=== PATIENT | female | born 1965 | race Caucasian/White ===

== ENCOUNTER → 2019-12-07 12:31 | Outpatient (BNVA) | payer MEDICAID, SELFPAY | PROVIDERS: PCP Internal Medicine; Visit Provider Surgery | DX: Z48.815 Encounter for surgical aftercare following surgery on the digestive system (principal) | CPT/HCPCS: 99024; 99212 ==

== ENCOUNTER → 2020-01-02 14:09 | Outpatient (BNVA) | payer MEDICAID, SELFPAY | PROVIDERS: PCP Internal Medicine; Visit Provider Surgery | DX: K59.00 Constipation, unspecified (principal); K21.9 Gastro-esophageal reflux disease without esophagitis; E78.5 Hyperlipidemia, unspecified; Z88.8 Allergy status to other drugs, medicaments and biological substances; Z98.890 Other specified postprocedural states | CPT/HCPCS: 99212 ==

== ENCOUNTER → 2020-03-15 13:02 | Outpatient (BNVA) | payer MEDICAID, SELFPAY | PROVIDERS: PCP Internal Medicine; Visit Provider Obstetrics & Gynecology | DX: N94.9 Unspecified condition associated with female genital organs and menstrual cycle (principal) | CPT/HCPCS: 99212 ==

== ENCOUNTER → 2020-03-26 12:54 | Outpatient (BNVA) | payer MEDICAID, SELFPAY | PROVIDERS: PCP Internal Medicine; Visit Provider Obstetrics & Gynecology | DX: N94.9 Unspecified condition associated with female genital organs and menstrual cycle (principal) | CPT/HCPCS: 99212 ==

== ENCOUNTER 2020-03-29 07:03 | Day surgery (SDC) | payer MEDICAID, SELFPAY ==
--- NOTE | 2020-03-28 09:16 | P.CONAN_ITS ---
Documented by User: Yuliya Magnolia 03/28/20 09:16 HPI - Anesthesia Eval Consult details Narrative: 55yo F for Excision Vaginal Mass PMFSH Past Medical History Medical History Asthma GERD (gastroesophageal reflux disease) Hyperlipidemia Migraine headache Surgical History Surgical History H/O hemorrhoidectomy Social History Social History Alcohol intake: never Smoking Status: Former smoker Use of substances other than those prescribed or required for medical reasons: No Advance Directives: No Advance Directives Information Provided: Yes Sexual orientation: Straight/Heterosexual Gender identity: female Meds Allergies Allergy/AdvReac Type Severity Reaction Status Date / Time naproxen [From NAPROSYN] Allergy Unknown insomnia, Verified 03/26/20 13:13 aggitation Home Medications Medication Instructions Recorded Confirmed Type albuterol sulfate 90 mcg/actuation 2 puff INHALATION Q6H PRN 12/07/19 03/26/20 History aerosol inhaler albuterol sulfate 90 mcg/actuation 2 puff INHALATION Q6H PRN 12/07/19 03/26/20 History aerosol inhaler amitriptyline 25 mg tablet 25 mg PO BEDTIME 12/07/19 03/26/20 History fluoxetine 40 mg capsule 40 mg PO DAILY 12/07/19 03/26/20 History hydrochlorothiazide 25 mg tablet 25 mg PO DAILY 12/07/19 03/26/20 History lidocaine 4 % topical gel 1 applic TOPICAL TID PRN 12/07/19 03/26/20 History lisinopril 10 mg tablet 10 mg PO DAILY 12/07/19 03/26/20 History loratadine 10 mg tablet 10 mg PO DAILY 12/07/19 03/26/20 History lorazepam 1 mg tablet 1 mg PO DAILY PRN 12/07/19 03/26/20 History omeprazole 40 mg capsule,delayed 40 mg PO DAILY 12/07/19 03/26/20 History release sumatriptan succinate 25 mg tablet 25 mg PO Q2-4H PRN 12/07/19 03/26/20 History topiramate 50 mg tablet 50 mg PO BID 12/07/19 03/26/20 History zolpidem 10 mg tablet 10 mg PO BEDTIME PRN 12/07/19 03/26/20 History Exam Exam Date and Time: March 28, 2020915 Assessment and Plan Assessment Anesthesia Assessment: Chart Reviewed Documented by User: Harika Khan 03/29/20 09:28 [facility] [place] Past Medical History Medical History Asthma GERD (gastroesophageal reflux disease) Hyperlipidemia Migraine headache Surgical History Surgical History H/O hemorrhoidectomy Social History Social History Alcohol intake: never Smoking Status: Former smoker Use of substances other than those prescribed or required for medical reasons: No Advance Directives: No Advance Directives Information Provided: Yes Sexual orientation: Straight/Heterosexual Gender identity: female Meds Allergies Allergy/AdvReac Type Severity Reaction Status Date / Time naproxen [From NAPROSYN] Allergy Unknown insomnia, Verified 03/26/20 13:13 aggitation Home Medications Medication Instructions Recorded Confirmed Type albuterol sulfate 90 mcg/actuation 2 puff INHALATION Q6H PRN 12/07/19 03/26/20 History aerosol inhaler albuterol sulfate 90 mcg/actuation 2 puff INHALATION Q6H PRN 12/07/19 03/26/20 History aerosol inhaler amitriptyline 25 mg tablet 25 mg PO BEDTIME 12/07/19 03/26/20 History fluoxetine 40 mg capsule 40 mg PO DAILY 12/07/19 03/26/20 History hydrochlorothiazide 25 mg tablet 25 mg PO DAILY 12/07/19 03/26/20 History lidocaine 4 % topical gel 1 applic TOPICAL TID PRN 12/07/19 03/26/20 History lisinopril 10 mg tablet 10 mg PO DAILY 12/07/19 03/26/20 History loratadine 10 mg tablet 10 mg PO DAILY 12/07/19 03/26/20 History lorazepam 1 mg tablet 1 mg PO DAILY PRN 12/07/19 03/26/20 History omeprazole 40 mg capsule,delayed 40 mg PO DAILY 12/07/19 03/26/20 History release sumatriptan succinate 25 mg tablet 25 mg PO Q2-4H PRN 12/07/19 03/26/20 History topiramate 50 mg tablet 50 mg PO BID 12/07/19 03/26/20 History zolpidem 10 mg tablet 10 mg PO BEDTIME PRN 12/07/19 03/26/20 History Exam Airway Mallampati Class: II TM Dist: >3cm Partial: Upper Heart: RRR Lungs: CTA Assessment and Plan Assessment Anesthesia Assessment: Anesthesia Plan Discussed and Chart Reviewed Final Anesthetic Review NPO: Yes ASA Class: II Final Preanesthetic Review: Meds/Allgs Chart Reviewed, Consent Obtained/Reviewed and Anes Risks/Benef Reviewed Patient Risk: Low Procedure Risk: Low Anesthetic Plan Anesthetic Plan: GA Disposition: Standard PACU
[2020-03-29 07:24] VITALS: BMI 29.7
[2020-03-29 07:48] VITALS: BP 125/53; PULSE 78; RESP 20; TEMP 35.8; O2SAT 99
--- NOTE | 2020-03-29 07:52 | MHC.SHP ---
Pre-Procedural Eval Section A The patient is an INPATIENT: No Changes since office visit: No Cold of Flu in the past 2 weeks, No New Medical Problems, No Changes in Medication and No Patient answered all questions The History & Physical has been completed within 30 days and I have reviewed it.: Yes Section B Chief Complaint: Unspecified condition associated w/ Female genital Allergies: Allergies Allergy/AdvReac Type Severity Reaction Status Date / Time naproxen [From NAPROSYN] Allergy Unknown insomnia, Verified 03/26/20 13:13 aggitation Plan Diagnosis/Plan: Unchanged I have reviewed the history and physical and performed a pertinent physical examination on my patient. No changes have occurred unless specified.
[2020-03-29 07:55] LABS: Glucose, Whole Blood 103 mg/dL (60-115)
[2020-03-29] MEDS: Lactated Ringers 1,000 ML 100 ML IVCONT (08:00)
--- NOTE | 2020-03-29 09:15 | PM.OP ---
Brief Operative Note Date of Service: 03/29/20 Pre-op diagnosis: Vaginal Mass Post-op diagnosis: same Procedure: Excision of Vaginal Mass Surgeon: Justino Escobar MD Anesthesia: MAC Estimated blood loss (mL): 0 Pathology: other (Vaginal mass) Condition: stable Disposition: PACU
--- NOTE | 2020-03-29 09:16 | W.PM.OPN ---
Operative Note Operative Note Date of Service: 03/29/20 Narrative: Preop diagnosis: Vaginal mass Operation: Excision of vaginal mass Anesthesia: Mac Mobile Device Engineer: None Complications: None Pathology: Vaginal mass Procedure: The patient was put into dorsal lithotomy position was scrubbed and draped in the usual sterile fashion. Identification of the vaginal mass followed and then using a # 11 blade the vaginal mucosa was incised, opened and the mass was dissected and excised using Metzenbaum scissors. Using 3-0 Vicryl the subQ layer was closed and the skin was then closed afterwards using 3-0 Vicryl. Hemostasis was assured Bupivicaine 0.5% 3 cc were injected at the end. The patient tolerated the procedure well and was transferred to the PACU under stable conditions.
[2020-03-29 09:20] VITALS: BP 122/64; PULSE 66; RESP 18; TEMP 36.3; O2SAT 100
[2020-03-29 09:25] VITALS: BP 115/63; PULSE 69; RESP 16; O2SAT 100
[2020-03-29 09:30] VITALS: BP 111/60; PULSE 71; RESP 16; O2SAT 97
[2020-03-29 09:35] VITALS: BP 123/63; PULSE 76; RESP 16; TEMP 36.3; O2SAT 96
[2020-03-29 09:50] VITALS: BP 119/57; PULSE 77; RESP 18; O2SAT 97
== END 2020-03-29 10:35 ==
LOC: HO.SSS 07:04
PROVIDERS: PCP Internal Medicine; Visit Provider Obstetrics & Gynecology
PROC: (CPT 57135; principal; 2020-03-29 09:30)
DX: N89.8 Other specified noninflammatory disorders of vagina (principal); J45.909 Unspecified asthma, uncomplicated; K21.9 Gastro-esophageal reflux disease without esophagitis; E78.5 Hyperlipidemia, unspecified; Z79.899 Other long term (current) drug therapy; Z88.8 Allergy status to other drugs, medicaments and biological substances
CPT/HCPCS: 57135; 82947; 88305; J1100; J1885; J2250; J2405; J3010

== ENCOUNTER 2020-05-15 13:59 | Outpatient (REF) | payer MEDICAID, SELFPAY ==
[2020-05-18 01:32] LABS: HPV mRNA E6/E7 rflx Not Detected (Not Detected)
== END 2020-05-15 14:00 | disposition home or self-care (01) ==
LOC: HO.LAB 13:59
PROVIDERS: Visit Provider Obstetrics & Gynecology
DX: Z01.419 Encounter for gynecological examination (general) (routine) without abnormal findings (principal); Z11.51 Encounter for screening for human papillomavirus (HPV)
CPT/HCPCS: 36415; 87624; 88142

== ENCOUNTER 2020-06-10 14:53 | Outpatient (REF) | payer MEDICAID, SELFPAY ==
--- NOTE | ~2020-06-10 | MM_ITS ---
EXAMINATION: MM SCREENING DIGITAL BREAST TOMOSYNTHESIS, BILATERAL CLINICAL INFORMATION: Screening. Asymptomatic. The lifetime risk of breast cancer based on the Tyrer-Cuzick Model is 7%. COMPARISON: Mammography: 05/17/2017, 12/29/2012, 11/03/2011, 08/07/2010. TECHNIQUE: Digital breast tomosynthesis is performed in both the craniocaudal and mediolateral oblique views along with computer-aided detection (CAD). Synthesized 2D images are generated from the tomosynthesis. Additional exaggerated right CC view is provided. FINDINGS: There are scattered areas of fibroglandular density (ACR BI-RADS breast composition Category b). Parenchymal pattern is similar to prior exams. There is small intramammary node again suggested posterior outer right breast. There is no developing density or significant mass, architectural abnormality or abnormal calcifications. MM/MM tomosynthesis screening BI IMPRESSION: No mammographic evidence of malignancy. ASSESSMENT: BI-RADS 2: Benign RECOMMENDATION: Routine annual mammography screening. This patient's information was entered into a reminder system with a target due date for their next mammogram.
== END 2020-06-10 14:54 | disposition home or self-care (01) ==
LOC: HO.MAMMO 14:53
PROVIDERS: Visit Provider Internal Medicine
DX: Z12.31 Encounter for screening mammogram for malignant neoplasm of breast (principal)
CPT/HCPCS: 77063; 77067

== ENCOUNTER 2020-09-03 14:55 | Emergency (ER) | payer MEDICAID, SELFPAY ==
--- NOTE | ~2020-09-03 | CT_ITS ---
EXAMINATION: CT ABDOMEN AND PELVIS WITHOUT CONTRAST CLINICAL INFORMATION: Right flank/mid back pain COMPARISON: 10/29/2019 TECHNIQUE: Multidetector volumetric imaging was performed from the superior aspect of the liver through the pubic symphysis. Sagittal and coronal reformatted images were obtained on the technologist's workstation. This CT examination was performed using dose optimization techniques as appropriate, variously including the following: *Automated exposure control *Adjustment of mA and/or kV according to patient size (this includes techniques or standardized protocols for targeted exams where dose is matched to indication/reason for exam; i.e. extremities or head) *Use of iterative reconstruction technique DLP: 568 mGy-cm FINDINGS: LUNG BASES: The visualized lung bases are unremarkable. LIVER, GALLBLADDER, AND BILIARY TREE: The liver is normal in size, shape, and attenuation. No focal hepatic lesion or biliary ductal dilatation is present. Gallbladder unremarkable. PANCREAS: Unremarkable. SPLEEN: Unremarkable. ADRENAL GLANDS: Unremarkable. KIDNEYS AND URETERS: The kidneys are normal in size, shape, and attenuation. No hydronephrosis, hydroureter, or calculi seen. No perinephric stranding. BLADDER: Unremarkable. GASTROINTESTINAL TRACT: Tiny sliding-type hiatal hernia. The small and large bowel are unremarkable. The appendix is unremarkable. ABDOMINAL WALL: No significant hernia is appreciated. LYMPH NODES: Normal. VASCULAR: Unremarkable. PELVIC VISCERA: Unremarkable. OSSEOUS STRUCTURES: Unremarkable. CT/CT abdomen pelvis wo con IMPRESSION: No acute findings within the abdomen or pelvis to explain the patient's symptomatology.
--- NOTE | ~2020-09-03 | XR_ITS ---
EXAMINATION: XR CHEST CLINICAL INFORMATION: Pleuritic chest pain COMPARISON: Previous chest x-ray most recent August 2019 TECHNIQUE: 2 views of the chest were obtained. FINDINGS: The cardiac and mediastinal contours are normal. The lungs are clear. There is no pleural effusion or pneumothorax. There are degenerative changes of the spine. XR/XR chest 2V IMPRESSION: No evidence for acute disease in the chest.
[2020-09-03 16:28] VITALS: BP 126/62; PULSE 70; RESP 18; TEMP 36.3; O2SAT 98; BMI 27.4
--- NOTE | 2020-09-03 16:51 | ED.BACK ---
HPI - Back Pain/Injury General Chief Complaint: Back Pain/Injury Stated Complaint: sharp back pain Time Seen by Provider: 09/03/20 16:47 Source: patient and family Mode of arrival: ambulatory Limitations: language barrier ( Haitian-speaking) History of Present Illness HPI Narrative: 55-year-old female with a past medical history of migraine headaches, GERD, asthma and hyperlipidemia presenting to the ED with complaints of right mid /lower back pain /right flank pain for the past 2 weeks worse today. Despite taking Motrin / Tylenol and muscle relaxants. She reports increased pain with deep breathing. She denies any actual injuries, dizziness, headaches, fevers, change in vision, nausea/vomiting, chest pain, shortness of breath, cough, dyspnea on exertion, orthopnea, palpitations, lower extremity edema, hematuria, dysuria, abnormal vaginal discharge, diarrhea or constipation or any other symptoms complaints or concerns at this time. MD elicited complaint: back pain Onset (ago): week(s) ( Two weeks worse today) Timing: constant and progressively worsening Severity: moderate Pain scale (0-10): 10 Quality: aching Location: right flank, right lower back and right upper back Radiation: none Relieving factors: none Context: unknown Associated symptoms: denies other symptoms Treatments prior to arrival: other ( see above) Work related injury: No Related Data Home Medications Medication Instructions Recorded Confirmed albuterol sulfate 90 mcg/actuation 2 puff INHALATION Q6H PRN 12/07/19 05/15/20 aerosol inhaler albuterol sulfate 90 mcg/actuation 2 puff INHALATION Q6H PRN 12/07/19 05/15/20 aerosol inhaler amitriptyline 25 mg tablet 25 mg PO BEDTIME 12/07/19 05/15/20 fluoxetine 40 mg capsule 40 mg PO DAILY 12/07/19 05/15/20 hydrochlorothiazide 25 mg tablet 25 mg PO DAILY 12/07/19 05/15/20 lidocaine 4 % topical gel 1 applic TOPICAL TID PRN 12/07/19 05/15/20 lisinopril 10 mg tablet 10 mg PO DAILY 12/07/19 05/15/20 loratadine 10 mg tablet 10 mg PO DAILY 12/07/19 05/15/20 lorazepam 1 mg tablet 1 mg PO DAILY PRN 12/07/19 05/15/20 omeprazole 40 mg capsule,delayed 40 mg PO DAILY 12/07/19 05/15/20 release sumatriptan succinate 25 mg tablet 25 mg PO Q2-4H PRN 12/07/19 05/15/20 topiramate 50 mg tablet 50 mg PO BID 12/07/19 05/15/20 zolpidem 10 mg tablet 10 mg PO BEDTIME PRN 12/07/19 05/15/20 Previous Rx's Medication Instructions Recorded docusate sodium 100 mg capsule 100 mg PO DAILY #30 cap 01/02/20 Allergies Allergy/AdvReac Type Severity Reaction Status Date / Time naproxen [From NAPROSYN] Allergy Unknown insomnia, Verified 09/03/20 16:28 aggitation Review of Systems Review of Systems: Constitutional : No trauma, No Weight loss, No Fever, No Chills, ENT/Mouth : No Hearing loss, No Ear Pain, No Nasal Congestion, No Sinus Pain, No Hoarseness, No sore throat, No Rhinorrhea, No Swallowing Difficulty Cardiovascular : No Chest Pain, No SOB Respiratory : No Cough, No Dyspnea Gastrointestinal : No Nausea, No Vomiting, No Diarrhea, No abdominal Pain, No Hematochezia, No Melena Genitourinary : No Dysuria, No Urinary Frequency, No Hematuria, No Urinary or Bowel Incontinence/retention Musculoskeletal : + Back pain, No neck pain, No joint stiffness, No joint swelling Skin : No Skin Lesions, No rash or signs of infection Neuro : No Weakness, No radiation, No Numbness, No Paresthesias, No headache, no loss of bowel or bladder incontinence, no saddle anesthesia, Focal weakness, No radiation Denies history of IV drug usage. Yes all other systems are reviewed and are negative [facility] Past Medical History Attestation statement: The following information was validated with the patient. Medical History Asthma GERD (gastroesophageal reflux disease) Hyperlipidemia Migraine headache Surgical History H/O hemorrhoidectomy Social History Social History Alcohol intake: never Advance Directives: No Advance Directives Information Provided: No Sexual orientation: Straight/Heterosexual Gender identity: female Physical Exam Vital Signs: Vital Signs: Last Vital Signs Temp 97.4 F 09/03/20 16:28 Pulse 70 09/03/20 16:28 Resp 18 09/03/20 16:28 BP 126/62 09/03/20 16:28 Pulse Ox 98 09/03/20 16:28 Body Mass Index 27.4 vital signs have been reviewed as normal and appeared to be correct. Blood pressure normal. Heart rate normal. Respiration rate normal. Temperature normal. Oxygen saturation normal. Appearance: Alert. Oriented X3. No acute distress. Head: Normal external exam. Normocephalic. Atraumatic. No Ho signs noted. No raccoon eyes noted Eyes: PERRLA. EOMI. Conjunctiva and sclera normal. Eyelids normal. ENT: EAC normal. TM's Normal. Pharynx normal. Uvula midline. Moist mucous membranes. No trismus noted. No drooling noted. No muffled voice noted. Neck: Normal inspection. Neck supple. FROM. No adenopathy. Thyroid Normal. No meningeal signs. No neck mass noted. CVS: Normal heart rate and rhythm. Heart sound normal. No murmurs noted. Pulses normal throughout. Respiratory: No respiratory distress. Painless inspiration. Breath sounds normal. No wheezes/rales/rhonchi noted. Chest nontender. No accessory muscle usage noted or decreased air movement noted. Abdomen: Soft and nontender. Bowel sounds normal in all 4 quadrants. No distention noted. No organomegaly noted. No visible injury noted. Back: positive right CVA tenderness. no left CVA Tenderness. Full range of motion noted. No obvious deformities, or edema. Mild para-spinal muscular tenderness from thoracic/ lumbar region to coccyx. Full ROM in back and lower extremities. 5/5 strength hip extension/flexion, abduction, adduction. Straight leg raise test negative on right; Straight leg raise test negative on left; Reflexes normal ankle and knee bilaterally; EHL motor strength normal bilaterally. No rashes/lesion/induration/fluctuance or signs infection noted. Skin: Skin warm and dry. Normal skin color. Normal skin turgor. No rashes/lesions/lacerations noted. Extremities: No lower extremity edema. Extremities exhibit normal range of motion. Extremities nontender. Neuro: Oriented X 3. No motor deficit. No sensory deficit. Reflexes normal. Patient has a normal steady gait. Course Course Course Narrative: Pt c likely muscular pain, but could be herniated disc. Neuro exam shows no deficits. Not c/w AAA/epidural abscess/dissection.No high risk Hx (Incont, fever, immunosupp, recent surgery/LP, coag, signif trauma, wt loss, puls mass, hx/o Ca, TB, or IVDU) to warrant MRI. Although unsure if this is a UTI/pyelonephritis or kidney stones therefore will obtain a CT scan of abdomen pelvis without contrast to evaluate for possible kidney stones along with a UA. Not c/w spinal fx. Not cauda equina syndrome. MDM - Back Pain/Injury Medical Records Attestation: I reviewed the patient's medical records. Lab Data Attestation: I reviewed the patient's lab results. Imaging Data Chest x-ray: Attestation: I personally reviewed and interpreted this imaging study as follows: Radiologist's impression: FINDINGS: The cardiac and mediastinal contours are normal. The lungs are clear. There is no pleural effusion or pneumothorax. There are degenerative changes of the spine. XR/XR chest 2V IMPRESSION: No evidence for acute disease in the chest. CT scan abdomen pelvis without IV contrast: Attestation: I personally reviewed and interpreted this imaging study as follows: Discharge Plan Discharge Prescriptions: No Action albuterol sulfate [ProAir HFA] 90 mcg/actuation HFA aerosol inhaler 2 puff inhalation Q6H PRNRF: 0 omeprazole 40 mg capsule,delayed release(DR/EC) 40 mg PO DAILY RF: 0 amitriptyline 25 mg tablet 25 mg PO BEDTIME RF: 0 loratadine [Allergy Relief (loratadine)] 10 mg tablet 10 mg PO DAILY RF: 0 sumatriptan succinate 25 mg tablet 25 mg PO Q2-4H PRNRF: 0 hydrochlorothiazide 25 mg tablet 25 mg PO DAILY RF: 0 lisinopril 10 mg tablet 10 mg PO DAILY RF: 0 albuterol sulfate 90 mcg/actuation HFA aerosol inhaler 2 puff inhalation Q6H PRNRF: 0 topiramate 50 mg tablet 50 mg PO BID RF: 0 zolpidem 10 mg tablet 10 mg PO BEDTIME PRNRF: 0 fluoxetine 40 mg capsule 40 mg PO DAILY RF: 0 lorazepam 1 mg tablet 1 mg PO DAILY PRN (Reason: Anxiety) RF: 0 lidocaine 4 % gel 1 applic topical TID PRNRF: 0 docusate sodium 100 mg capsule 100 mg PO DAILY Qty: 30 RF: 11
[2020-09-03 17:21] LABS: Glucose Urine UA NEG (NEG); Leukocyte Esterase Urine NEG (NEG); Nitrite Urine NEG (NEG); Urine Blood NEG (NEG); Urine Ketones NEG (NEG); Urine Protein NEG (NEG-TRACE)
[2020-09-03 17:30] LABS: Appearance Urine CLEAR; Color Urine YELLOW
[2020-09-03 18:00] VITALS: BP 118/62; PULSE 64; RESP 16; TEMP 35.6; O2SAT 100
[2020-09-03] MEDS: Cyclobenzaprine HCl 10 MG TABLET PO (18:57)
[2020-09-03] MEDS: oxyCODONE HCl Immed Release 5 MG TABLET PO (18:57)
== END 2020-09-03 19:55 | disposition home or self-care (01) ==
PROVIDERS: Physician Assistant Medical; Emergency Provider Emergency Medicine; PCP Internal Medicine
DX: S39.012A Strain of muscle, fascia and tendon of lower back, initial encounter (principal); X58.XXXA Exposure to other specified factors, initial encounter; Y93.9 Activity, unspecified; Y92.9 Unspecified place or not applicable; Y99.9 Unspecified external cause status
CPT/HCPCS: 71046; 74176; 81003; 99284

== ENCOUNTER 2020-09-11 12:56 | Outpatient (REF) | payer MEDICAID, SELFPAY ==
--- NOTE | ~2020-09-11 | XR_ITS ---
EXAMINATION: XR LUMBOSACRAL SPINE CLINICAL INFORMATION: Lower back pain. COMPARISON: CT abdomen/pelvis dated 08/04/2020. TECHNIQUE: 3 views of the lumbosacral spine. FINDINGS: Normal vertebral body alignment. Transitional anatomy with sacralization of the L5 vertebral body. No acute fracture or subluxation. No loss of vertebral body height. Minimal loss of intervertebral disc height with tiny anterior endplate osteophytes, most prominent at L4-L5. Bilateral facet arthropathy at L4-L5. No lytic or blastic osseous lesion. No abnormal soft tissue calcification. XR/XR lumbar spine 2-3V IMPRESSION: 1. Transitional anatomy with sacralization of the L5 vertebral body. 2. Mild multilevel degenerative disc disease. Mild bilateral facet arthropathy at L5-S1.
== END 2020-09-11 12:57 | disposition home or self-care (01) ==
LOC: HO.XRAY 12:56
PROVIDERS: PCP Internal Medicine; Visit Provider Internal Medicine
DX: M54.5 Low back pain (principal)
CPT/HCPCS: 72100

== ENCOUNTER → 2021-02-11 09:34 | Outpatient (BNVA) | payer MEDICAID, SELFPAY | PROVIDERS: PCP Internal Medicine; Referring Provider Internal Medicine; Visit Provider Internal Medicine Gastroenterology | DX: K21.9 Gastro-esophageal reflux disease without esophagitis (principal); J45.909 Unspecified asthma, uncomplicated; R10.13 Epigastric pain | CPT/HCPCS: 99212 ==

== ENCOUNTER 2021-02-12 12:57 | Outpatient (REF) | payer MEDICAID, SELFPAY ==
[2021-02-12 13:22] LABS: MANUAL DIFF FLAG NO
[2021-02-12 14:03] LABS: Basophils Percent Auto 0.4 % (0-2); Eosinophils Absolute Auto 0.2 X10*3/uL (0.0-0.4); Eosinophils Percent Auto 3.2 % (0-4); Hematocrit 36.6 % (37.0-47.0); Hemoglobin 11.5 g/dl (12.0-16.0); Imm Gran Abs Auto 0.01 X10*3/uL (0.00-0.03); Imm Gran Pct Auto 0.2 % (0.0-0.4); Lymphocytes Absolute Auto 1.7 X10*3/uL (1.2-4.9); Lymphocytes Percent Auto 33.5 % (20-40); Mean Corpuscular HGB Conc 31.4 g/dl (31.0-35.0); Mean Corpuscular Hemoglobin 26.1 pg (27.0-33.0); Mean Corpuscular Volume 83.2 fL (80.0-98.0); Monocytes Absolute Auto 0.3 X10*3/uL (0.1-1.2); Monocytes Percent Auto 5.9 % (2-11); Neutrophils Absolute Auto 2.9 x10*3/uL (2.0-8.3); Neutrophils Percent Auto 56.8 % (45-73); Platelet Count 272 X10*3/uL (160-400); Red Cell Distribution Width 13.4 % (11.0-16.0); White Blood Count 5.1 X10*3/uL (4.8-10.8)
[2021-02-12 14:33] LABS: Alanine Aminotransferase 23 U/L (0-31); Albumin Level 4.2 g/dL (3.5-5.0); Alkaline Phosphatase 71 U/L (39-117); Anion Gap 12 (12-20); Aspartate Amino Transferase 22 U/L (5-31); Bilirubin Total 0.3 mg/dL (0.0-1.0); Blood Urea Nitrogen 14 mg/dL (9-16); Calcium 10.1 mg/dL (8.4-10.2); Carbon Dioxide 29 mmol/L (22-29); Chloride 105 mmol/L (96-108); Estimated Glomerular Filt Rate > 60; Glucose Random 117 mg/dL (60-115); Potassium 3.9 mmol/L (3.3-5.1); Sodium 142 mmol/L (135-145); Total Protein 7.3 g/dL (6.5-8.0)
[2021-02-12 14:56] LABS: Ferritin 4 ng/mL (10-250); TSH reflex Free T4 3.12 uIU/mL (0.32-4.0); Vitamin D 25-OH Total 50.5 ng/mL (>30)
[2021-02-12 16:25] LABS: Folate 5.1 ng/mL (> or = 4.0); Vitamin B12 204 pg/mL (200-900)
[2021-02-14 15:31] LABS: Transglutaminase Ab IgG <1.0 U/mL; Transglutaminase IgA <1.0 U/mL
[2021-02-18 02:21] LABS: Zinc 72 mcg/dL (60-130)
[2021-02-19 13:21] LABS: Vitamin B5 (Pantothenic Acid) 49 ng/mL (<275)
[2021-02-19 15:56] LABS: Vitamin B6 11.4 ng/mL (2.1-21.7)
[2021-02-19 21:42] LABS: Vitamin A 52 mcg/dL (38-98)
[2021-02-20 12:12] LABS: Vitamin C 0.1 mg/dL (0.3-2.7)
[2021-02-24 16:52] LABS: Nicotinamide <20 ng/mL; Vit B3 - Nicotinic Acid <20 ng/mL
== END 2021-02-12 12:58 | disposition home or self-care (01) ==
LOC: HO.LAB 12:57
PROVIDERS: Visit Provider Internal Medicine Gastroenterology
DX: R10.13 Epigastric pain (principal); R10.33 Periumbilical pain; G89.29 Other chronic pain; K75.81 Nonalcoholic steatohepatitis (NASH); J45.909 Unspecified asthma, uncomplicated; K21.9 Gastro-esophageal reflux disease without esophagitis
CPT/HCPCS: 36415; 80053; 82180; 82306; 82607; 82728; 82746; 83516; 84207; 84443; 84590; 84591; 84630; 85025

== ENCOUNTER 2021-06-03 09:28 | Day surgery (SDC) | payer MEDICAID, SELFPAY ==
[2021-05-29 14:09] VITALS: BMI 29.0
--- NOTE | 2021-06-02 12:06 | HO.ANESPROP2 ---
Documented by User: Yuliya Merida NP 06/12/21 13:41 HPI - Anesthesia Eval Consult details Narrative: 56yo F for Upper Endoscopy and Colonoscopy PMFSH Active Problems Active Problems: All Active Problems (Updated 02/11/21 @ 10:22 by Liseth Peace MD) Vaginal lump (Acute) Well woman exam (Acute) Screening mammogram, encounter for (Acute) Epigastric abdominal pain (Acute) Migraine headache (Acute) GERD (gastroesophageal reflux disease) (Acute) Asthma (Acute) Hyperlipidemia (Acute) Past Medical History Medical History (Updated 06/03/21 @ 09:54 by Leslee Barker RN) Asthma Diabetes GERD (gastroesophageal reflux disease) HTN (hypertension) Hyperlipidemia Migraine headache Surgical History Surgical History (Updated 06/03/21 @ 09:56 by Leslee Barker RN) H/O hemorrhoidectomy History of esophagogastroduodenoscopy (EGD) Hx of section Hx of colonoscopy Hx of excision of mass Hx of excision of mass Social History Social History Alcohol intake: never Patient Tobacco Use Status: Former Tobacco user Quit Date: 8 yr ago Sexual orientation: Straight/Heterosexual Gender identity: Female Meds Allergies Allergy/AdvReac Type Severity Reaction Status Date / Time naproxen [From NAPROSYN] Allergy Unknown insomnia, Verified 02/11/21 09:35 aggitation Home Medications Medication Instructions Recorded Confirmed Last Taken Type albuterol sulfate 90 mcg/actuation 2 puff INHALATION Q6H PRN 12/07/19 05/15/20 Unknown History aerosol inhaler albuterol sulfate 90 mcg/actuation 2 puff INHALATION Q6H PRN 12/07/19 05/29/21 Unknown History aerosol inhaler (ProAir HFA) amitriptyline 25 mg tablet 25 mg PO BEDTIME 12/07/19 05/29/21 Unknown History fluoxetine 40 mg capsule 40 mg PO DAILY 12/07/19 05/29/21 03/29/20 06:00 History hydrochlorothiazide 25 mg tablet 25 mg PO DAILY 12/07/19 05/29/21 03/29/20 06:00 History lidocaine 4 % topical gel 1 applic TOPICAL TID PRN 12/07/19 05/29/21 Unknown History lisinopril 10 mg tablet 10 mg PO DAILY 12/07/19 05/29/21 Unknown History loratadine 10 mg tablet (Allergy 10 mg PO DAILY 12/07/19 05/29/21 Unknown History Relief (loratadine)) lorazepam 1 mg tablet 1 mg PO DAILY PRN 12/07/19 05/29/21 03/29/20 06:00 History omeprazole 40 mg capsule,delayed 40 mg PO DAILY 12/07/19 05/29/21 03/29/20 06:00 History release sumatriptan succinate 25 mg tablet 25 mg PO Q2-4H PRN 12/07/19 05/29/21 Unknown History topiramate 50 mg tablet 50 mg PO BID 12/07/19 05/29/21 Unknown History zolpidem 10 mg tablet 10 mg PO BEDTIME PRN 12/07/19 05/29/21 Unknown History metformin 500 mg tablet 800 mg PO DAILY tab 02/11/21 Unknown History Exam Exam Date and Time: June 02, 2021 1206 Height,Weight and Vital Signs: Height 5 ft 4 in Weight 76.657 kg Pertinent Lab Results Pertinent Lab Results: Laboratory Tests 02/12/21 02/12/21 13:20 13:20 WBC 5.1 Hgb 11.5 L Hct 36.6 L Plt Count 272 Sodium 142 Potassium 3.9 Chloride 105 Carbon Dioxide 29 BUN 14 Creatinine 0.92 Assessment and Plan Assessment Anesthesia Assessment: Chart Reviewed Documented by User: Chester Rebolledo MD 06/15/21 12:07 [facility] Past Medical History Medical History (Updated 06/03/21 @ 09:54 by Leslee Barker RN) Asthma Diabetes GERD (gastroesophageal reflux disease) HTN (hypertension) Hyperlipidemia Migraine headache Family History Family history of problems with anesthesia: No Surgical History Surgical History (Updated 06/03/21 @ 09:56 by Leslee Barker RN) H/O hemorrhoidectomy History of esophagogastroduodenoscopy (EGD) Hx of section Hx of colonoscopy Hx of excision of mass Hx of excision of mass History of Problems with Anesthesia: No Social History Social History Alcohol intake: never Patient Tobacco Use Status: Former Tobacco user Quit Date: 8 yr ago Sexual orientation: Straight/Heterosexual Gender identity: Female Meds Allergies Allergy/AdvReac Type Severity Reaction Status Date / Time naproxen [From NAPROSYN] Allergy Unknown insomnia, Verified 02/11/21 09:35 aggitation Home Medications Medication Instructions Recorded Confirmed Last Taken Type albuterol sulfate 90 mcg/actuation 2 puff INHALATION Q6H PRN 12/07/19 05/15/20 Unknown History aerosol inhaler albuterol sulfate 90 mcg/actuation 2 puff INHALATION Q6H PRN 12/07/19 05/29/21 Unknown History aerosol inhaler (ProAir HFA) amitriptyline 25 mg tablet 25 mg PO BEDTIME 12/07/19 05/29/21 Unknown History fluoxetine 40 mg capsule 40 mg PO DAILY 12/07/19 05/29/21 03/29/20 06:00 History hydrochlorothiazide 25 mg tablet 25 mg PO DAILY 12/07/19 05/29/21 03/29/20 06:00 History lidocaine 4 % topical gel 1 applic TOPICAL TID PRN 12/07/19 05/29/21 Unknown History lisinopril 10 mg tablet 10 mg PO DAILY 12/07/19 05/29/21 Unknown History loratadine 10 mg tablet (Allergy 10 mg PO DAILY 12/07/19 05/29/21 Unknown History Relief (loratadine)) lorazepam 1 mg tablet 1 mg PO DAILY PRN 12/07/19 05/29/21 03/29/20 06:00 History omeprazole 40 mg capsule,delayed 40 mg PO DAILY 12/07/19 05/29/21 03/29/20 06:00 History release sumatriptan succinate 25 mg tablet 25 mg PO Q2-4H PRN 12/07/19 05/29/21 Unknown History topiramate 50 mg tablet 50 mg PO BID 12/07/19 05/29/21 Unknown History zolpidem 10 mg tablet 10 mg PO BEDTIME PRN 12/07/19 05/29/21 Unknown History metformin 500 mg tablet 800 mg PO DAILY tab 02/11/21 Unknown History Assessment and Plan Assessment Anesthesia Assessment: Anesthesia Plan Discussed Final Anesthetic Review Family History of Problems with Anesthesia: No History of Problems with Anesthesia: No NPO: Yes ASA Class: II Final Preanesthetic Review: No Changes in Pt Med Stat, Meds/Allgs Chart Reviewed, Consent Obtained/Reviewed and Anes Risks/Benef Reviewed Patient Risk: Low Procedure Risk: Low Anesthetic Plan Anesthetic Plan: MAC: Disposition: Standard PACU
--- NOTE | 2021-06-03 09:36 | MHC.SHP ---
Pre-Procedural Eval Section A Date of Service: 06/03/21 Section B Chief Complaint: Epigastric pain,reflux disease Details of Present Illness: also c/o diarrhea and gas symptoms Relevant Family History (Specify if Yes): No Relevant Social History: None Present Medications: see Short Stay Collaborative assessment Medical History: Significant History (Asthma GERD (gastroesophageal reflux disease) Hyperlipidemia Migraine headache) History of Previous Operations: Relevant previous surgery/procedure and date(s) (H/O hemorrhoidectomy History of esophagogastroduodenoscopy (EGD) Hx of colonoscopy Hx of excision of mass) Allergies: Allergies Allergy/AdvReac Type Severity Reaction Status Date / Time naproxen [From NAPROSYN] Allergy Unknown insomnia, Verified 02/11/21 09:35 aggitation Review of Systems Sugical H&P ROS: Negative: Constitution, Cardiovascular, Respiratory, Neurological, Psychiatric, Hem-Onc, Allergic/Immunologic, Gastrointestinal, Genitourinary, Musculoskeletal, Integumentary, Endocrine and Eyes/Ears/Nose/Throat Exam Surgical H&P Exam: Normal: HEENT, Normal: Heart, Normal: Lungs, Normal: Extremities, Normal: Abdomen, Normal: Skin and Normal: Neurological Plan Diagnosis/Plan: Unchanged I have reviewed the history and physical and performed a pertinent physical examination on my patient. No changes have occurred unless specified.
[2021-06-03 10:02] VITALS: BP 139/68; PULSE 77; RESP 18; TEMP 36.3; O2SAT 98
[2021-06-03 10:03] LABS: Glucose, Whole Blood 150 mg/dL (60-115)
[2021-06-03] MEDS: Lactated Ringers 1,000 ML 100 ML IVCONT (10:04)
--- NOTE | 2021-06-03 10:07 | PC.NURSE ---
Patient interviewed with assistance of Johnny Augustine RN ( north [place] speaking). [facility] [place] [employer] will be called to assist with Anesthesia and Operative permits. Patient's chest is clear bilaterally, no wheezing.
--- NOTE | 2021-06-03 10:25 | PC.NURSE ---
Through [employer] former, patient states she had a sandwich 9am yesterday, applesauce at 2pm.
--- NOTE | 2021-06-03 10:30 | P.BOP_ITS ---
Brief Operative Note Date of Service: 06/03/21 Pre-op diagnosis: epigastric pain, diarrhea Post-op diagnosis: same Procedure: see op note Surgeon: Liseth Peace MD Anesthesia: MAC Was an Profile Shaper Operator used for this Procedure?: No Estimated blood loss (mL): 0 Condition: stable Disposition: PACU
--- NOTE | 2021-06-03 10:31 | W.PM.OPN ---
Operative Note Operative Note Date of Service: 06/03/21 Narrative: Operative Information Procedure Description: EGD, Colonoscopy Indication: epigastric pain, diarrhea, gas symptoms Anesthesia: MAC FLEXIBLE TRANSORAL UPPER GASTROINTESTINAL ENDOSCOPY AND COLONOSCOPY PROCEDURE NOTE UPPER ENDOSCOPY Consent: Indications for the procedure and potential complications of bleeding, perforation, reaction to medications and missed diagnosis were discussed with the patient and informed consent was obtained. Instrument: Olympus GIF H 190 J mid size upper endoscope Monitoring: Vital signs and clinical assessment, continuous EKG monitoring, Pulse oximetry, Carbon Dioxide monitoring and blood pressure monitoring were done throughout the procedure. Procedure: The patient was placed in the left lateral decubitis position and pre-procedure medications were administered and a bite block was placed. The endoscope was inserted into the mouth and advanced under direct vision to the third part of duodenum. A careful inspection was made as the upper endoscope was withdrawn including a retroflexed examination of the proximal stomach; Findings and interventions are described below. Findings: Larynx:normal Esophagus: GE junction at 33 cm, diaphragm hiatus at 35 cm, 2 cm sliding hiatal hernia noted, bx taken from random esophagus and GEJ in separate jars Stomach: streaky erythema. Biopsies were obtained. Grade 2 flap valve on retroflexed examination of the cardia. Duodenum: Bulbar duodenitis, consistent with peptic injury, bx taken Intervention: Biopsies as noted above, cold forceps COLONOSCOPY Instrument: Olympus variable stiffness pediatric scope 190L Colonoscopy Monitoring: Vital signs and clinical assessment, continuous EKG monitoring, Pulse oximetry, Carbon Dioxide monitoring and blood pressure monitoring were done throughout the procedure. Colon withdrawal time was 16 minutes. Procedure: The patient was placed in the left lateral decubitis position and pre-procedure medications were administered. After a digital rectal examination of the ano-rectum, the video colonoscope was inserted into the rectum and advanced through the colon to the cecum/TI. The colonoscope was slowly withdrawn in a retrograde panoramic fashion and the colon mucosa was carefully examined including a retroflexed view of the rectum. Findings and interventions are described below. Procedure Difficulty: easy Findings: Terminal Ileum-normal, bx taken random bx taken from colon, from one site in transverse colon there was persistent oozing so x 2 clips applied for hemostasis Cecum:normal Ascending Colon: normal Transverse Colon - 5-8 mm sessile appearing polyp lesion removed with cold forceps Descending Colon:normal Sigmoid Colon: normal Rectum: Retroflexion with small internal hemorrhoids, grade I, 8-10 mm sessile polyp removed with cold snare Anorectum - normal Colon preparation: Schwertner Bowel Preparation Scale Right colon; 2 Transverse colon: 2 Left colon; 3 (0 = Unprepared colon segment with mucosa not seen due to solid stool that cannot be cleared. 1 = Portion of mucosa of the colon segment seen, but other areas of the colon segment not well seen due to staining, residual stool and/or opaque liquid. 2 = Minor amount of residual staining, small fragments of stool and/or opaque liquid, but mucosa of colon segment seen well. 3 = Entire mucosa of colon segment seen well with no residual staining, small fragments of stool or opaque liquid) Impression and Post Procedure Diagnosis: Endoscopy Findings: peptic duodenitis gastritis hiatal hernia Colonoscopy Findings: polyps internal hemorrhoids Plan: Await Pathology results Repeat Colonoscopy in 5 years if adenomatous polyps, 10 yrs if hyperplastic or earlier if clinically indicated High fiber diet leaflet avoid straining at stool, epsom salts and sitz bath, anusol supps or cream If h pylori pos then treat might consider changing PPI, will await bx results Above findings were reviewed with the patient and relevant handouts were provided if indicated.
[2021-06-03 11:20] VITALS: BP 111/76; PULSE 82; RESP 18; TEMP 36.8; O2SAT 99
[2021-06-03 11:25] VITALS: BP 115/63; PULSE 70; RESP 18; O2SAT 95
[2021-06-03 11:30] VITALS: BP 110/64; PULSE 65; RESP 18; O2SAT 95
[2021-06-03 11:34] VITALS: BP 115/60; PULSE 64; PULSE 70; RESP 18; O2SAT 95; O2SAT 96
== END 2021-06-03 12:35 | disposition home or self-care (01) ==
PROVIDERS: PCP Internal Medicine; Visit Provider Internal Medicine Gastroenterology
PROC: (CPT 45385; principal; 2021-06-03 10:50)
DX: R19.7 Diarrhea, unspecified (principal); K63.5 Polyp of colon; K62.1 Rectal polyp; K64.0 First degree hemorrhoids; K29.50 Unspecified chronic gastritis without bleeding; K29.80 Duodenitis without bleeding; K21.9 Gastro-esophageal reflux disease without esophagitis; K76.0 Fatty (change of) liver, not elsewhere classified; K75.81 Nonalcoholic steatohepatitis (NASH); K44.9 Diaphragmatic hernia without obstruction or gangrene; I10 Essential (primary) hypertension; E78.5 Hyperlipidemia, unspecified; J45.909 Unspecified asthma, uncomplicated; Z79.899 Other long term (current) drug therapy; F32.9 Major depressive disorder, single episode, unspecified; Z88.8 Allergy status to other drugs, medicaments and biological substances
CPT/HCPCS: 45385; 45380; 43239; 82947; 88305; 88342

== ENCOUNTER → 2021-06-25 10:02 | Outpatient (BNVA) | payer MEDICAID, SELFPAY | PROVIDERS: PCP Internal Medicine; Visit Provider Obstetrics & Gynecology | DX: Z01.419 Encounter for gynecological examination (general) (routine) without abnormal findings (principal) ==

== ENCOUNTER 2021-08-22 19:55 | Emergency (ER) | payer MEDICAID, SELFPAY ==
[2021-08-22 20:27] VITALS: BP 135/78; PULSE 82; RESP 18; TEMP 36.6; O2SAT 99; BMI 32.1
[2021-08-22 20:38] LABS: MANUAL DIFF FLAG NO
[2021-08-22 20:39] LABS: Basophils Percent Auto 0.1 % (0-2); Eosinophils Absolute Auto 0.2 X10*3/uL (0.0-0.4); Eosinophils Percent Auto 2.2 % (0-4); Hematocrit 39.5 % (37.0-47.0); Hemoglobin 12.8 g/dl (12.0-16.0); Imm Gran Abs Auto 0.02 X10*3/uL (0.00-0.03); Imm Gran Pct Auto 0.3 % (0.0-0.4); Lymphocytes Absolute Auto 1.3 X10*3/uL (1.2-4.9); Lymphocytes Percent Auto 16.9 % (20-40); Mean Corpuscular HGB Conc 32.4 g/dl (31.0-35.0); Mean Corpuscular Hemoglobin 28.8 pg (27.0-33.0); Mean Platelet Volume 9.3 fL (9.4-12.3); Monocytes Absolute Auto 0.6 X10*3/uL (0.1-1.2); Monocytes Percent Auto 7.3 % (2-11); Neutrophils Absolute Auto 5.8 x10*3/uL (2.0-8.3); Neutrophils Percent Auto 73.2 % (45-73); Platelet Count 263 X10*3/uL (160-400); Red Blood Count 4.44 X10*6/uL (4.20-5.50); Red Cell Distribution Width 13.2 % (11.0-16.0); White Blood Count 7.9 X10*3/uL (4.8-10.8)
[2021-08-22 20:58] LABS: Alanine Aminotransferase 28 U/L (0-31); Albumin Level 4.4 g/dL (3.5-5.0); Alkaline Phosphatase 73 U/L (39-117); Anion Gap 13 (12-20); Aspartate Amino Transferase 22 U/L (5-31); Bilirubin Total 0.3 mg/dL (0.0-1.0); Blood Urea Nitrogen 10 mg/dL (9-16); Carbon Dioxide 28 mmol/L (22-29); Chloride 102 mmol/L (96-108); Creatinine Clr Calc Pharmacy 72.7; Estimated Glomerular Filt Rate > 60; Glucose Random 154 mg/dL (60-115); Potassium 3.9 mmol/L (3.3-5.1); Sodium 139 mmol/L (135-145); Total Protein 7.5 g/dL (6.5-8.0)
--- NOTE | 2021-08-22 21:38 | ED.GIBLEED ---
HPI - GI Bleed General Chief complaint: GI Bleed Stated complaint: Rectal bleeding Time Seen by Provider: 08/22/21 21:11 Source: patient Mode of arrival: ambulatory Limitations: no limitations History of Present Illness HPI Narrative: Patient comes to the emergency room complaining of rectal bleeding. Patient states she has very painful hemorrhoids . Also, patient has history of internal hemorrhoids and has clips. Patient denies any chest pain or shortness of breath, no abdominal pain, no UTI or URI symptoms. Patient denies dizziness. Related Data Home Medications Medication Instructions Recorded Confirmed albuterol sulfate 90 mcg/actuation 2 puff inhalation Q6H PRN 12/07/19 05/15/20 aerosol inhaler albuterol sulfate 90 mcg/actuation 2 puff inhalation Q6H PRN 12/07/19 05/29/21 aerosol inhaler (ProAir HFA) Shortness Of Breath amitriptyline 25 mg tablet 25 mg PO BEDTIME 12/07/19 05/29/21 fluoxetine 40 mg capsule 40 mg PO DAILY 12/07/19 05/29/21 hydrochlorothiazide 25 mg tablet 25 mg PO DAILY 12/07/19 05/29/21 lidocaine 4 % topical gel 1 applic topical TID PRN Pain 12/07/19 05/29/21 lisinopril 10 mg tablet 10 mg PO DAILY 12/07/19 05/29/21 loratadine 10 mg tablet (Allergy 10 mg PO DAILY 12/07/19 05/29/21 Relief (loratadine)) lorazepam 1 mg tablet 1 mg PO DAILY PRN Anxiety 12/07/19 05/29/21 omeprazole 40 mg capsule,delayed 40 mg PO DAILY 12/07/19 05/29/21 release sumatriptan succinate 25 mg tablet 25 mg PO Q2-4H PRN Migraine 12/07/19 05/29/21 Headache topiramate 50 mg tablet 50 mg PO BID 12/07/19 05/29/21 zolpidem 10 mg tablet 10 mg PO BEDTIME PRN Insomnia 12/07/19 05/29/21 metformin 500 mg tablet 800 mg PO DAILY 02/11/21 Previous Rx's Medication Instructions Recorded docusate sodium 100 mg capsule 100 mg PO DAILY #30 caps 01/02/20 acetaminophen 500 mg tablet 1,000 mg PO QID PRN fever or pain 07/06/21 (Tylenol Extra Strength) #14 tabs cyclobenzaprine 10 mg tablet 10 mg PO Q8H Muscle spasm #10 tabs 09/03/20 oxycodone 5 mg tablet 5 mg PO BID PRN pain #10 tabs 09/03/20 sodium,potassium,mag sulfates 17.5 See Rx Instructions PO .COMPLEX 02/11/21 gram-3.13 gram-1.6 gram oral soln #354 mL (Suprep Bowel Prep Kit) sucralfate 100 mg/mL oral 10 ml PO BID #840 mL 03/04/21 suspension (Carafate) ascorbate calcium (vitamin C) 500 500 mg PO BID #90 tabs 05/16/21 mg tablet cyanocobalamin (vitamin B-12) 1,000 mcg PO DAILY #28 tabs 08/01/21 1,000 mcg tablet ferrous fumarate 324 mg (106 mg 324 mg PO QAM #28 tabs 08/01/21 iron) tablet (Ferrocite) hydrocortisone acetate 25 mg 25 mg NV BID #24 ea 08/22/21 rectal suppository (Anusol-HC) nitroglycerin 0.4 % (w/w) rectal 1 inch NV BID #30 grams 08/22/21 ointment Allergies Allergy/AdvReac Type Severity Reaction Status Date / Time naproxen [From NAPROSYN] Allergy Unknown insomnia, Verified 06/25/21 10:13 aggitation Review of Systems Review of Systems: Constitutional : No Weight loss, No Fever, No Chills, No Night Sweats, No Fatigue, No Malaise ENT/Mouth : No Hearing loss, No Ear Pain, No Nasal Congestion, No Sinus Pain, No Hoarseness, No sore throat, No Rhinorrhea, No Swallowing Difficulty Eyes: No Eye Pain, No Swelling, No Redness, No Foreign Body, No Discharge, No Vision Changes Cardiovascular : No Chest Pain, No SOB, No Dyspnea on Exertion, No Orthopnea, No Edema, No Palpitations Respiratory : No Cough, No Sputum, No Wheezing, No Smoke Exposure, No Dyspnea Gastrointestinal : No Nausea, No Vomiting, No Diarrhea, No Constipation, no abdominal pain, complaining of hemorrhoids both external and internal Genitourinary : no irregular bleeding, No Dysuria, No Urinary Frequency, No Hematuria, No Urinary Incontinence, No Urgency, No Flank Pain, No Urinary Flow Changes, No Hesitancy Musculoskeletal : No joint pain, No Myalgias, No Joint Swelling Skin : No Skin Lesions, No rash Neuro : No Weakness, No Numbness, No Paresthesias, No Loss of Consciousness, No Dizziness, No Headache Psych : No Anxiety/Panic, No Depression, No SI/HI/AH/VH, No Social Issues, Heme/Lymph: No Bruising, No Bleeding,No Lymphadenopathy Endocrine : No Polyuria, No Polydipsia, No Temperature Intolerance [facility] Past Medical History Medical History Diabetes HTN (hypertension) Surgical History H/O hemorrhoidectomy History of esophagogastroduodenoscopy (EGD) Hx of section Hx of colonoscopy Hx of excision of mass Hx of excision of mass Social History Social History Alcohol intake: never Patient Tobacco Use Status: Former Tobacco user Quit Date: 8 yr ago Advance Directives: No Advance Directives Information Provided: No Sexual orientation: Straight/Heterosexual Gender identity: Female Physical Exam Vital Signs: Vital Signs: Last Vital Signs Temp 97.8 F 08/22/21 20:27 Pulse 82 08/22/21 20:27 Resp 18 08/22/21 20:27 BP 135/78 08/22/21 20:27 Pulse Ox 99 08/22/21 20:27 O2 Del Method 08/22/21 20:27 BMI result Body Mass Index 32.1 Const: Other: Appearance: Alert. Oriented X3. No acute distress. Eyes: Pupils equal, round and reactive to light. ENT: Pharynx normal. Neck: Normal inspection. Neck supple. No lymph nodes noted. No crepitus CVS: Normal heart rate and rhythm. Pulses normal. Normal S1 and S2 Respiratory: No respiratory distress. Breath sounds normal. No Wheezing. No rales Abdomen: Soft and nontender. No rigidity. No distention. Rectal exam: 2 small size hemorrhoids external, swollen, puncture bleeding, very painful to touch Skin: Skin warm and dry. Normal skin color. Normal skin turgor. Extremities: No lower extremity edema. No Lacerations. No Rash Neuro: Oriented X 3. No motor deficit. No sensory deficit. Moving all extremities. No slurred speech. CN 2 through 12 grossly intact Psych: calm, cooperative, normal affect Course Course Course Narrative: I discussed the labs with the patient, H&H is stable, white blood cell count within normal limits, source of bleeding likely secondary to internal hemorrhoids. Patient has history of needing clips for this. I discussed with the patient that the external hemorrhoid that she has, it is small, we can try to infiltrated with lidocaine and try to drain it, versus going home with external treatment and allowing it to decrease in size. Patient states that this time she prefers to use external medication rather than having it drained. I discussed with the patient that if the bleeding gets worse, she needs to return to the emergency room. MDM - GI Bleed Lab Data Result diagrams: 08/22/21 20:33 08/22/21 20:33 Labs: Lab Results 08/22/21 08/22/21 Range/Units 20:33 20:33 WBC 7.9 (4.8-10.8) X10*3/uL RBC 4.44 (4.20-5.50) X10*6/uL Hgb 12.8 (12.0-16.0) g/dl Hct 39.5 (37.0-47.0) % MCV 89.0 (80.0-98.0) fL MCH 28.8 (27.0-33.0) pg MCHC 32.4 (31.0-35.0) g/dl RDW 13.2 (11.0-16.0) % Plt Count 263 (160-400) X10*3/uL MPV 9.3 L (9.4-12.3) fL Immature Gran % (Auto) 0.3 (0.0-0.4) % Neut % (Auto) 73.2 H (45-73) % Lymph % (Auto) 16.9 L (20-40) % Brooks % (Auto) 7.3 (2-11) % Eos % (Auto) 2.2 (0-4) % Baso % (Auto) 0.1 (0-2) % Lymph # (Auto) 1.3 (1.2-4.9) X10*3/uL Brooks # (Auto) 0.6 (0.1-1.2) X10*3/uL Eos # (Auto) 0.2 (0.0-0.4) X10*3/uL Baso # (Auto) 0.0 (0.0-0.2) X10*3/uL Abs Immat Gran (auto) 0.02 (0.00-0.03) X10*3/uL Absolute Neuts (auto) 5.8 (2.0-8.3) x10*3/uL Absolute Nucleated RBC 0.000 (0.0-0.012) X10*3/uL Nucleated RBC % (auto) 0.0 (0.0-0.2) /100WBC Sodium 139 (135-145) mmol/L Potassium 3.9 (3.3-5.1) mmol/L Chloride 102 (96-108) mmol/L Carbon Dioxide 28 (22-29) mmol/L Anion Gap 13 (12-20) BUN 10 (9-16) mg/dL Creatinine 0.89 (0.5-1.4) mg/dL Estim Creat Clear Calc 72.7 Estimated GFR > 60 Random Glucose 154 H (60-115) mg/dL Calcium 10.0 (8.4-10.2) mg/dL Total Bilirubin 0.3 (0.0-1.0) mg/dL AST 22 (5-31) U/L ALT 28 (0-31) U/L Alkaline Phosphatase 73 (39-117) U/L Total Protein 7.5 (6.5-8.0) g/dL Albumin 4.4 (3.5-5.0) g/dL Discharge Plan Discharge Clinical Impression: Hemorrhoids Patient Disposition: Home, Self-Care Additional Instructions: If you have worsening bleeding, please return to the emergency room. Please follow-up with Gastroenterology and her primary care physician. Prescriptions: New hydrocortisone acetate [Anusol-HC] 25 mg suppository 25 mg NV BID Qty: 24 0RF nitroglycerin 0.4 % (w/w) ointment 1 inch NV BID Qty: 30 0RF Rx Instructions: pea-sized amount applied BID to anus No Action sucralfate [Carafate] 100 mg/mL suspension 10 ml PO BID Qty: 840 0RF ascorbate calcium (vitamin C) 500 mg tablet 500 mg PO BID Qty: 90 2RF ferrous fumarate [Ferrocite] 324 mg (106 mg iron) tablet 324 mg PO QAM Qty: 28 0RF cyanocobalamin (vitamin B-12) 1,000 mcg tablet 1,000 mcg PO DAILY Qty: 28 0RF cyclobenzaprine 10 mg tablet 10 mg PO Q8H Qty: 10 0RF acetaminophen [Tylenol Extra Strength] 500 mg tablet 1,000 mg PO QID PRN (Reason: fever or pain) Qty: 14 0RF oxycodone 5 mg tablet 5 mg PO BID PRN (Reason: pain) Qty: 10 0RF albuterol sulfate [ProAir HFA] 90 mcg/actuation HFA aerosol inhaler 2 puff inhalation Q6H PRN (Reason: Shortness Of Breath) omeprazole 40 mg capsule,delayed release(DR/EC) 40 mg PO DAILY amitriptyline 25 mg tablet 25 mg PO BEDTIME loratadine [Allergy Relief (loratadine)] 10 mg tablet 10 mg PO DAILY sumatriptan succinate 25 mg tablet 25 mg PO Q2-4H PRN (Reason: Migraine Headache) Rx Instructions: do not exceed 8 doses per 24 hrs hydrochlorothiazide 25 mg tablet 25 mg PO DAILY lisinopril 10 mg tablet 10 mg PO DAILY albuterol sulfate 90 mcg/actuation HFA aerosol inhaler 2 puff inhalation Q6H PRN topiramate 50 mg tablet 50 mg PO BID zolpidem 10 mg tablet 10 mg PO BEDTIME PRN (Reason: Insomnia) fluoxetine 40 mg capsule 40 mg PO DAILY lorazepam 1 mg tablet 1 mg PO DAILY PRN (Reason: Anxiety) lidocaine 4 % gel 1 applic topical TID PRN (Reason: Pain) docusate sodium 100 mg capsule 100 mg PO DAILY Qty: 30 11RF metformin 500 mg tablet 800 mg PO DAILY Suprep Bowel Prep Kit 17.5-3.13-1.6 gram recon soln See Rx Instructions PO .COMPLEX Qty: 354 0RF Rx Instructions: DILUTE; drink 1/2 at 6-8 pm and half at 11 PM- 1AM Referrals: Liseth Peace MD [Physician] - 2 days Josesito Lopez MD [Physician] - 2 days
== END 2021-08-22 22:12 | disposition home or self-care (01) ==
PROVIDERS: Emergency Provider Emergency Medicine; PCP Internal Medicine
DX: K64.9 Unspecified hemorrhoids (principal); K92.2 Gastrointestinal hemorrhage, unspecified; Z87.891 Personal history of nicotine dependence; Z79.899 Other long term (current) drug therapy
CPT/HCPCS: 36415; 80053; 85025; 99282; 99283

== ENCOUNTER 2021-09-19 11:56 | Outpatient (REF) | payer MEDICAID, SELFPAY ==
--- NOTE | ~2021-09-19 | XR_ITS ---
EXAMINATION: XR ABDOMEN KUB CLINICAL INDICATION: Diarrhea COMPARISON: CT abdomen and pelvis 09/03/2020 TECHNIQUE: AP view of the abdomen. FINDINGS: There is scattered stool and gas seen in the colon without distention. There is no organomegaly. There are several phleboliths in the right pelvis No gross bony abnormality. XR/XR KUB IMPRESSION: Mild constipation.
[2021-09-19 13:54] LABS: Appearance Urine CLEAR; Color Urine YELLOW; Glucose Urine UA NEG (NEG); Leukocyte Esterase Urine NEG (NEG); Nitrite Urine NEG (NEG); PH 5.5 (5.0-8.0); Specific Gravity - Urine 1.025 (1.005-1.025); Urine Blood NEG (NEG); Urine Ketones NEG (NEG); Urine Protein NEG (NEG-TRACE)
[2021-09-19 14:05] LABS: C Reactive Protein 0.22 mg/dL (< or = 0.50)
[2021-09-19 14:28] LABS: Ferritin 12 ng/mL (10-250)
[2021-09-19 15:04] LABS: Folate 10.8 ng/mL (> or = 4.0); Vitamin B12 562 pg/mL (200-900)
[2021-09-22 14:22] LABS: Immunoglobulin G 1018 mg/dL (600-1640)
[2021-09-25 10:07] LABS: Vitamin A 65 mcg/dL (38-98)
[2021-09-25 19:12] LABS: Nicotinamide <20 ng/mL; Vit B3 - Nicotinic Acid <20 ng/mL
[2021-09-27 04:51] LABS: Vitamin B6 17.1 ng/mL (2.1-21.7)
[2021-09-27 17:37] LABS: Vitamin B5 (Pantothenic Acid) 53 ng/mL (<275)
== END 2021-09-19 11:57 | disposition home or self-care (01) ==
LOC: HO.XRAY 11:56
PROVIDERS: PCP Internal Medicine; Visit Provider Internal Medicine Gastroenterology
DX: R10.13 Epigastric pain (principal); R19.7 Diarrhea, unspecified; R30.0 Dysuria; K52.839 Microscopic colitis, unspecified; K64.9 Unspecified hemorrhoids
CPT/HCPCS: 36415; 74018; 81003; 82180; 82607; 82728; 82746; 82784; 84207; 84590; 84591; 86140; 99212

== ENCOUNTER 2021-09-22 13:51 | Outpatient (REF) | payer MEDICAID, SELFPAY ==
[2021-09-22 15:41] LABS: Adenovirus F 40/41 Not Detected (Not Detect.); Astrovirus Not Detected (Not Detect.); Campylobacter Not Detected (Not Detect.); Cryptosporidium Not Detected (Not Detect.); Cyclospora cayetanensis Not Detected (Not Detect.); E. coli EAEC Not Detected (Not Detect.); E. coli EPEC Not Detected (Not Detect.); E. coli ETEC Not Detected (Not Detect.); E. coli STEC Not Detected (Not Detect.); Entamoeba histolytica Not Detected (Not Detect.); Giardia lamblia Not Detected (Not Detect.); Norovirus GI/GII Not Detected (Not Detect.); Plesiomonas shigelloides Not Detected (Not Detect.); Rotavirus A Not Detected (Not Detect.); Salmonella Not Detected (Not Detect.); Sapovirus Not Detected (Not Detect.); Shigella sp./EIEC Not Detected (Not Detect.); Vibrio Not Detected (Not Detect.); Vibrio Cholerae Not Detected (Not Detect.); Yersinia enterocolitica Not Detected (Not Detect.)
[2021-09-27 19:02] LABS: Fecal Fat Qualitative NORMAL (NORMAL)
[2021-09-28 15:36] LABS: Calprotectin, Fecal 107 mcg/g
[2021-09-29 21:45] LABS: Pancreatic Elastase-1 >500 mcg/g
== END 2021-09-22 13:52 | disposition home or self-care (01) ==
LOC: HO.LNP 13:51
PROVIDERS: Visit Provider Internal Medicine Gastroenterology
DX: R10.13 Epigastric pain (principal); R19.7 Diarrhea, unspecified
CPT/HCPCS: 82656; 82705; 83993; 87507

== ENCOUNTER → 2021-10-09 13:57 | Outpatient (BNVA) | payer MEDICAID, SELFPAY | PROVIDERS: PCP Internal Medicine; Visit Provider Surgery | DX: K64.8 Other hemorrhoids (principal) | CPT/HCPCS: 46600; 99202 ==

== ENCOUNTER 2021-10-30 11:56 | Outpatient (REF) | payer MEDICAID, SELFPAY ==
--- NOTE | ~2021-10-30 | MM_ITS ---
EXAMINATION: MM SCREENING DIGITAL BREAST TOMOSYNTHESIS, BILATERAL CLINICAL INFORMATION: Screening. Asymptomatic. The lifetime risk of breast cancer based on the Tyrer-Cuzick Model is 9%. COMPARISON: Mammography: 06/10/2020, 05/17/2017, 12/29/2012 TECHNIQUE: Digital breast tomosynthesis is performed in both the craniocaudal and mediolateral oblique views along with computer-aided detection (CAD). Synthesized 2D images are generated from the tomosynthesis. FINDINGS: There are scattered areas of fibroglandular density (ACR BI-RADS breast composition Category b). There are no significant masses, abnormal calcifications, or other abnormalities. Parenchymal pattern is similar to prior studies. The axilla and skin contours are unremarkable. MM/MM tomosynthesis screening BI IMPRESSION: No mammographic evidence of malignancy. ASSESSMENT: BI-RADS 1: Negative RECOMMENDATION: Routine annual mammography screening. This patient's information was entered into a reminder system with a target due date for their next mammogram.
== END 2021-10-30 11:57 | disposition home or self-care (01) ==
LOC: HO.MAMMO 11:56
PROVIDERS: PCP Internal Medicine; Visit Provider Obstetrics & Gynecology
DX: Z12.31 Encounter for screening mammogram for malignant neoplasm of breast (principal)
CPT/HCPCS: 77063; 77067

== ENCOUNTER 2021-12-09 | Outpatient (REF) | payer MEDICAID, SELFPAY ==
--- NOTE | ~2021-12-09 | XR_ITS ---
EXAMINATION: XR SHOULDER, LEFT CLINICAL INFORMATION: Pain COMPARISON: Previous x-ray March 2012 TECHNIQUE: AP external rotation, Grashey, scapular Y, and axillary views of the left shoulder. FINDINGS: Bone alignment is normal. No fracture or dislocation is seen. The glenohumeral joint is normal. There is mild arthritis at the acromioclavicular joint. Soft tissues are unremarkable. XR/XR shoulder LT min 2V IMPRESSION: Arthritis at the acromioclavicular joint.
== END 2021-12-09 00:01 ==
LOC: HO.HOSX
PROVIDERS: Visit Provider Physician Assistant
DX: M25.512 Pain in left shoulder (principal); G89.29 Other chronic pain; M75.102 Unspecified rotator cuff tear or rupture of left shoulder, not specified as traumatic; M54.12 Radiculopathy, cervical region; E11.9 Type 2 diabetes mellitus without complications
CPT/HCPCS: 73030; 99202; J1020

== ENCOUNTER 2021-12-24 08:49 | Outpatient (REF) | payer MEDICAID, SELFPAY ==
--- NOTE | ~2021-12-24 | US_ITS ---
EXAMINATION: US ABDOMEN COMPLETE CLINICAL INFORMATION: Epigastric pain. COMPARISON: X-ray abdomen K[facility] 09/19/2021. CT abdomen and pelvis 09/03/2020. Ultrasound abdomen complete 11/03/2018. TECHNIQUE: Real-time imaging of the abdominal viscera. FINDINGS: PANCREAS: Normal. ABDOMINAL AORTA: The proximal, mid, and distal segments are normal in caliber. INFERIOR VENA CAVA: Visualized portions are normal. LIVER: The liver is normal in size. The liver contour is normal. Diffuse increased echogenicity of the liver parenchyma. No focal hepatic lesion. There is no intrahepatic biliary duct dilatation seen. GALLBLADDER: Normal. The gallbladder is physiologically distended without evidence of stones, sludge, polyps, wall thickening or pericholecystic fluid. COMMON BILE DUCT: Normal in caliber measuring 0.5 cm in diameter. RIGHT KIDNEY: Normal. No hydronephrosis. No renal calculi or focal parenchymal lesions. The kidney measures 11.1 cm in maximum dimension. LEFT KIDNEY: Normal. No hydronephrosis. No renal calculi or focal parenchymal lesions. The kidney measures 11.0 cm in maximum dimension. SPLEEN: Normal. The spleen measures 11.0 cm in maximum dimension. FREE FLUID: None. US/US abdomen complete IMPRESSION: Diffuse increased echogenicity of the liver parenchyma, nonspecific, but most commonly seen in the setting of hepatic steatosis.
== END 2021-12-24 08:50 | disposition home or self-care (01) ==
LOC: HO.US 08:49
PROVIDERS: Visit Provider Internal Medicine Gastroenterology
DX: R10.13 Epigastric pain (principal); R19.7 Diarrhea, unspecified
CPT/HCPCS: 76700

== ENCOUNTER 2022-02-27 17:33 | Emergency (ER) | payer MEDICAID, SELFPAY ==
--- NOTE | ~2022-02-27 | CT_ITS ---
EXAMINATION: CT HEAD WITHOUT CONTRAST CLINICAL INFORMATION: Dizziness. Headache. COMPARISON: CT dated 03/23/2018. TECHNIQUE: Contiguous axial imaging was performed from the skullbase to vertex without intravenous administration of contrast. This CT examination was performed using dose optimization techniques as appropriate, variously including the following: *Automated exposure control *Adjustment of mA and/or kV according to patient size (this includes techniques or standardized protocols for targeted exams where dose is matched to indication/reason for exam; i.e. extremities or head) *Use of iterative reconstruction technique DLP: 692 mGy-cm. FINDINGS: There is no evidence of acute intracranial hemorrhage or territorial infarction. No abnormal mass effect or midline shift is seen. Tellez to white matter differentiation is well preserved. No extra-axial fluid collections are identified. Incidental empty sella noted. The ventricles are normal in size. There is no abnormal attenuation within the brain parenchyma. The osseous structures and soft tissues are normal. The mastoid air cells and visualized portions of the paranasal sinuses are well aerated. CT/CT head/brain wo IV con IMPRESSION: No acute intracranial pathology.
[2022-02-27 18:36] VITALS: BP 138/88; PULSE 72
--- NOTE | 2022-02-27 19:28 | ED.SKABFB ---
HPI - Skin/Abscess/Foreign Bdy General Chief complaint: Dizziness <Mikayla Farley CNP - Last Filed: 02/27/22 19:40> Stated complaint: CELLULITIS <Mikayla Farlye CNP - Last Filed: 02/27/22 19:40> Time Seen by Provider: 02/27/22 17:46 <Mikayla Farley CNP - Last Filed: 02/27/22 19:40> Source: patient <TAYE Lauren - Last Filed: 02/28/22 01:11> Mode of arrival: ambulatory <TAYE Lauren Last Filed: 02/28/22 01:11> Limitations: no limitations <TAYE Lauren Last Filed: 02/28/22 01:11> History of Present Illness HPI narrative: 56 year old female presents to the emergency department with complaints four episodes of dizziness described as room spinning, weakness, headache. She tells me since this morning she has had 4 episodes that last a few minutes and then resolve. Patient tells me and she gets dizzy she feels like she is falling backwards, dizziness is not accompanied by one-sided weakness or vision changes. Patient tells me this is never happened to her before. She tells me she is eating and drinking well. At this time she has no complaints she tells me she is back to normal. She denies any head trauma. Patient denies chest pain, shortness of breath, nausea, vomiting, abdominal pain, vision changes, head trauma, patient not on blood thinners, patient does not have a history of vertigo. <TAYE Lauren Last Filed: 02/28/22 01:11> Related Data Home medications: Home Medications Medication Instructions Recorded Confirmed albuterol sulfate 90 mcg/actuation 2 puff inhalation Q6H PRN 12/07/19 10/09/21 aerosol inhaler albuterol sulfate 90 mcg/actuation 2 puff inhalation Q6H PRN 12/07/19 10/09/21 aerosol inhaler (ProAir HFA) Shortness Of Breath amitriptyline 25 mg tablet 25 mg PO BEDTIME 12/07/19 10/09/21 fluoxetine 40 mg capsule 40 mg PO DAILY 12/07/19 10/09/21 hydrochlorothiazide 25 mg tablet 25 mg PO DAILY 12/07/19 10/09/21 lidocaine 4 % topical gel 1 applic topical TID PRN Pain 12/07/19 10/09/21 lisinopril 10 mg tablet 10 mg PO DAILY 12/07/19 10/09/21 loratadine 10 mg tablet (Allergy 10 mg PO DAILY 12/07/19 10/09/21 Relief (loratadine)) lorazepam 1 mg tablet 1 mg PO DAILY PRN Anxiety 12/07/19 10/09/21 omeprazole 40 mg capsule,delayed 40 mg PO DAILY 12/07/19 10/09/21 release sumatriptan succinate 25 mg tablet 25 mg PO Q2-4H PRN Migraine 12/07/19 10/09/21 Headache topiramate 50 mg tablet 50 mg PO BID 12/07/19 10/09/21 zolpidem 10 mg tablet 10 mg PO BEDTIME PRN Insomnia 12/07/19 10/09/21 metformin 500 mg tablet 800 mg PO DAILY 02/11/21 10/09/21 Previous Rx's Medication Instructions Recorded docusate sodium 100 mg capsule 100 mg PO DAILY #30 caps 01/02/20 acetaminophen 500 mg tablet 1,000 mg PO QID PRN fever or pain 09/03/20 (Tylenol Extra Strength) #14 tabs cyclobenzaprine 10 mg tablet 10 mg PO Q8H Muscle spasm #10 tabs 09/03/20 sodium,potassium,mag sulfates 17.5 See Rx Instructions PO .COMPLEX 02/11/21 gram-3.13 gram-1.6 gram oral soln #354 mL (Suprep Bowel Prep Kit) sucralfate 100 mg/mL oral 10 ml PO BID #840 mL 03/04/21 suspension (Carafate) hydrocortisone acetate 25 mg 25 mg MD BID #24 ea 08/22/21 rectal suppository (Anusol-HC) nitroglycerin 0.4 % (w/w) rectal 1 inch MD BID #30 grams 08/22/21 ointment ascorbate calcium (vitamin C) 500 500 mg PO BID #90 tabs 10/07/21 mg tablet cyanocobalamin (vitamin B-12) 1,000 mcg PO DAILY #28 tabs 01/05/22 1,000 mcg tablet ferrous fumarate 324 mg (106 mg 324 mg PO QAM #28 tabs 01/05/22 iron) tablet (Ferrocite) meclizine 25 mg tablet 25 mg PO DAILY PRN dizziness #14 02/28/22 tabs <Mikayla Farley CNP - Last Filed: 02/27/22 19:40> Allergies/Adverse reactions: Allergies Allergy/AdvReac Type Severity Reaction Status Date / Time naproxen [From NAPROSYN] Allergy Unknown insomnia, Verified 02/27/22 19:36 aggitation <Mikayla Farley CNP - Last Filed: 02/27/22 19:40> Review of Systems Review of Systems: Constitutional : No Weight loss, No Fever, No Chills, No Fatigue, No Malaise ENT/Mouth : No sore throat, No Rhinorrhea Eyes: No Eye Pain, No Swelling, No Redness Cardiovascular : No Chest Pain, No SOB, No Dyspnea on Exertion, No Orthopnea, No Edema, No Palpitations Respiratory : No Cough, No Sputum, No Wheezing Gastrointestinal : No Nausea, No Vomiting, No Diarrhea, No Constipation, No abdominal Pain, No Hematochezia, No Melena Genitourinary : No Dysuria, No Urinary Frequency, No Hematuria, Musculoskeletal : No joint pain, No Myalgias, No Joint Swelling Skin : No Skin Lesions, No rash Neuro : No Weakness, No Numbness, No Dizziness, No Headache Psych : No Anxiety/Panic, No Depression All other systems reviewed and are negative <TAYE Lauren - Last Filed: 02/28/22 01:11> Yes all other systems are reviewed and are negative <TAYE Lauren - Last Filed: 02/28/22 01:11> [facility] Past Medical History Attestation statement: The following information was validated with the patient. <TAYE Lauren - Last Filed: 02/28/22 01:11> Source: old records reviewed and nursing notes reviewed <TAYE Lauren Last Filed: 02/28/22 01:11> Medical History: Medical History Asthma Diabetes GERD (gastroesophageal reflux disease) Hemorrhoids with complication HTN (hypertension) Hyperlipidemia Migraine headache <Mikayla Farley CNP - Last Filed: 02/27/22 19:40> Surgical History: Surgical History H/O hemorrhoidectomy History of esophagogastroduodenoscopy (EGD) Hx of section Hx of colonoscopy Hx of excision of mass Hx of excision of mass <Mikayla Farley CNP - Last Filed: 02/27/22 19:40> Social History Social History: Social History Alcohol intake: never Patient Tobacco Use Status: Former Tobacco user Quit Date: 8 yr ago Advance Directives: No Advance Directives Information Provided: No Current occupational status: disabled 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 Sexual orientation: Straight/Heterosexual Gender identity: Female <Mikayla Farley CNP - Last Filed: 02/27/22 19:40> Physical Exam Vital Signs: Vital Signs: Last Vital Signs Temp 98.1 F 02/28/22 00:19 Pulse 67 02/28/22 00:19 Resp 16 02/28/22 00:19 BP 127/67 02/28/22 00:19 Pulse Ox 98 02/28/22 00:19 O2 Del Method 02/28/22 00:19 BMI result Body Mass Index 34.0 <Mikayla Bernadetteblanka Farley CNP - Last Filed: 02/27/22 19:40> Vital Signs: Last Vital Signs Temp 98.1 F 02/28/22 00:19 Pulse 67 02/28/22 00:19 Resp 16 02/28/22 00:19 BP 127/67 02/28/22 00:19 Pulse Ox 98 02/28/22 00:19 O2 Del Method 02/28/22 00:19 BMI result Body Mass Index 34.0 vss <TAYE Lauren - Last Filed: 02/28/22 01:11> Appearance: Alert.? Oriented X3.? No acute distress.? Head: Normocephalic, atraumatic, no step-offs or deformities Eyes: Pupils equal, round and reactive to light.?EOMI pain free Neck: Normal inspection.? Neck supple.?No meningeal signs CVS: Normal heart rate and rhythm.? Pulses normal.? Respiratory: No respiratory distress.? Breath sounds normal.? Abdomen: Soft and nontender.? Skin: Skin warm and dry.? Normal skin color.? Normal skin turgor.? Extremities: No lower extremity edema.? No calf ttp. 5/5 strength to bilateral upper and lower extremities. Normal handgrip b/l. Neuro: Oriented X 3.? No motor deficit.? No sensory deficit. CN 2-12 intact . Patient ambulating with steady gait normal coordination. Negative Romberg. Normal dpigpu-rv-biol, eppq-ok-qkua. Normal rapid alternating movements. Negative pronator drift NIH stroke scale 0. <TAYE Lauren - Last Filed: 02/28/22 01:11> Course Course Course Narrative: This is an RME: Additional HPI, ROS, PE not included below will be deferred to primary provider. Patient is a 56-year-old female who presents to the emergency department for evaluation of dizziness. Awoke this morning 11:00 feeling dizziness, feels off balance which has been constant. Reports associated posterior headache, which feels consistent with prior migraines. Denies hx of vertigo. Denies anticoagulant usage, fall, head injury. PE: no focal neurological deficits. NIH stroke score 0. Speaking clear full sentences. Ambulatory with a steady gait. No distress Plan: acetaminophen for pain, ct head, labs, ekg <Mikayla Farley CNP - Last Filed: 02/27/22 19:40> Reevaluation(s) Reevaluation #1: CBC appears to be within normal limits. Chemistry with no acute electrolyte abnormalities requiring intervention. Troponin negative. COVID influenza negative. Head CT with no acute findings. No focal neuro deficits on exam therefore no need for CTA at this time. I suspect that this is vertigo. Patient receiving hydration. <TAYE Lauren - Last Filed: 02/28/22 01:11> Time: 00:34 <TAYE Lauren - Last Filed: 02/28/22 01:11> Reevaluation #2: Patient remains asymptomatic. I had a long conversation with them about vertigo. Son at the bedside does tell me that he noticed that his mother was complaining of dizziness each time she changed positions quickly. Orthostatic vital signs are pending. Patient feeling well hemodynamically stable NIH stroke scale 0 cerebellar function remains intact plan is to discharge patient home with meclizine. Educated patient on diagnosis and treatment plan, answered all question, patient verbalizes understanding. At this time patient will be discharged home, advised to return with new or worsening symptoms. Educated on worrisome signs and symptoms and when to return. At this time I feel comfortable discharge home. <TAYE Lauren - Last Filed: 02/28/22 01:11> Time: 01:07 <TAYE Lauren - Last Filed: 02/28/22 01:11> Medications Administered Discontinued Medications Generic Name Dose Route Start Last Admin Trade Name Freq PRN Reason Stop Dose Admin Acetaminophen 975 mg 02/27/22 19:34 02/27/22 19:38 Acetaminophen 325 Mg Tablet PO 02/27/22 19:35 975 mg ONCE ONE Administration <Mikayla Farley CNP - Last Filed: 02/27/22 19:40> Medications Administered Discontinued Medications Generic Name Dose Route Start Last Admin Trade Name Freq PRN Reason Stop Dose Admin Acetaminophen 975 mg 02/27/22 19:34 02/27/22 19:38 Acetaminophen 325 Mg Tablet PO 02/27/22 19:35 975 mg ONCE ONE Administration <TAYE Lauren - Last Filed: 02/28/22 01:11> Medical Decision Making Medical Decision Making [facility] Narrative: 0028 48-year-old female presents with concerns that she had 4 episodes of weakness, dizziness, headache today which have now resolved. Patient currently asymptomatic without complaints. NIH stroke scale 0. No history of vertigo however she did describe her dizziness as room spinning. Physical examination benign. NIH stroke scale 0. Cerebellar function intact. Concerns for possible complex migraine versus vertigo. Unlikely TIA, stroke, intracranial hemorrhage, electrolyte abnormalities. Will rule out a static hypotension. Will give meclizine and fluids. <TAYE Lauren - Last Filed: 02/28/22 01:11> Lab Data Result Diagrams: : 02/27/22 20:30 02/27/22 20:30 <Mikayla Farley CNP - Last Filed: 02/27/22 19:40> Labs: Lab Results 12/30/22 12/30/22 12/30/22 Range/Units 20:23 20:30 20:30 WBC 7.0 (4.8-10.8) X10*3/uL RBC 4.45 (4.20-5.50) X10*6/uL Hgb 13.1 (12.0-16.0) g/dl Hct 40.0 (37.0-47.0) % MCV 89.9 (80.0-98.0) fL MCH 29.4 (27.0-33.0) pg MCHC 32.8 (31.0-35.0) g/dl RDW 12.6 (11.0-16.0) % Plt Count 282 (160-400) X10*3/uL MPV 9.5 (9.4-12.3) fL Immature Gran % (Auto) 1.2 H (0.0-0.4) % Neut % (Auto) 57.6 (45-73) % Lymph % (Auto) 31.8 (20-40) % Bradford % (Auto) 5.9 (2-11) % Eos % (Auto) 3.2 (0-4) % Baso % (Auto) 0.3 (0-2) % Lymph # (Auto) 2.2 (1.2-4.9) X10*3/uL [place] # (Auto) 0.4 (0.1-1.2) X10*3/uL Eos # (Auto) 0.2 (0.0-0.4) X10*3/uL Baso # (Auto) 0.0 (0.0-0.2) X10*3/uL Abs Immat Gran (auto) 0.08 H (0.00-0.03) X10*3/uL Absolute Neuts (auto) 4.0 (2.0-8.3) x10*3/uL Absolute Nucleated RBC 0.000 (0.0-0.012) X10*3/uL Nucleated RBC % (auto) 0.0 (0.0-0.2) /100WBC Sodium 140 (135-145) mmol/L Potassium 3.6 (3.3-5.1) mmol/L Chloride 103 (96-108) mmol/L Carbon Dioxide 29 (22-29) mmol/L Anion Gap 12 (12-20) BUN 11 (9-16) mg/dL Creatinine 0.83 (0.5-1.4) mg/dL Estim Creat Clear Calc 74.4 Estimated GFR > 60 Random Glucose 157 H (60-115) mg/dL Calcium 10.1 (8.4-10.2) mg/dL Total Bilirubin 0.2 (0.0-1.0) mg/dL AST 19 (5-31) U/L ALT 29 (0-31) U/L Alkaline Phosphatase 73 (39-117) U/L Troponin I High Sens (<3.5-17.0) ng/L Total Protein 7.2 (6.5-8.0) g/dL Albumin 4.4 (3.5-5.0) g/dL Urine Color Yellow Urine Appearance Clear Urine pH 5.5 (5.0-9.0) Ur Specific [place] 1.010 (1.005-1.025) Urine Protein Negative (Neg-Trace) mg/dL Urine Glucose (UA) Negative (Negative) mg/dL Urine Ketones Negative (Negative) mg/dL Urine Blood Negative (Negative) Urine Nitrite Negative (Negative) Ur Leukocyte Esterase Negative (Negative) COVID-19 ([facility]) (Negative) COVID-19 Clin Com Influenza Type A ([facility]) (Negative) Influenza Type B ([facility]) (Negative) Influenza A & B Note 02/27/22 02/27/22 02/27/22 Range/Units 20:30 20:30 20:30 WBC (4.8-10.8) X10*3/uL RBC (4.20-5.50) X10*6/uL Hgb (12.0-16.0) g/dl Hct (37.0-47.0) % MCV (80.0-98.0) fL MCH (27.0-33.0) pg MCHC (31.0-35.0) g/dl RDW (11.0-16.0) % Plt Count (160-400) X10*3/uL MPV (9.4-12.3) fL Immature Gran % (Auto) (0.0-0.4) % Neut % (Auto) (45-73) % Lymph % (Auto) (20-40) % Bradford % (Auto) (2-11) % Eos % (Auto) (0-4) % Baso % (Auto) (0-2) % Lymph # (Auto) (1.2-4.9) X10*3/uL [place] # (Auto) (0.1-1.2) X10*3/uL Eos # (Auto) (0.0-0.4) X10*3/uL Baso # (Auto) (0.0-0.2) X10*3/uL Abs Immat Gran (auto) (0.00-0.03) X10*3/uL Absolute Neuts (auto) (2.0-8.3) x10*3/uL Absolute Nucleated RBC (0.0-0.012) X10*3/uL Nucleated RBC % (auto) (0.0-0.2) /100WBC Sodium (135-145) mmol/L Potassium (3.3-5.1) mmol/L Chloride (96-108) mmol/L Carbon Dioxide (22-29) mmol/L Anion Gap (12-20) BUN (9-16) mg/dL Creatinine (0.5-1.4) mg/dL Estim Creat Clear Calc Estimated GFR Random Glucose (60-115) mg/dL Calcium (8.4-10.2) mg/dL Total Bilirubin (0.0-1.0) mg/dL AST (5-31) U/L ALT (0-31) U/L Alkaline Phosphatase (39-117) U/L Troponin I High Sens < 3.5 (<3.5-17.0) ng/L Total Protein (6.5-8.0) g/dL Albumin (3.5-5.0) g/dL Urine Color Urine Appearance Urine pH (5.0-9.0) Ur Specific [place] (1.005-1.025) Urine Protein (Neg-Trace) mg/dL Urine Glucose (UA) (Negative) mg/dL Urine Ketones (Negative) mg/dL Urine Blood (Negative) Urine Nitrite (Negative) Ur Leukocyte Esterase (Negative) COVID-19 ([facility]) Negative (Negative) COVID-19 Clin Com See Note Influenza Type A ([facility]) Negative (Negative) Influenza Type B ([facility]) Negative (Negative) Influenza A & B Note See Note <Mikayla Farley, BLANKING MACHINE OPERATOR - Last Filed: 02/27/22 19:40> Lab Results 02/27/22 02/27/22 02/27/22 Range/Units 20:23 20:30 20:30 WBC 7.0 (4.8-10.8) X10*3/uL RBC 4.45 (4.20-5.50) X10*6/uL Hgb 13.1 (12.0-16.0) g/dl Hct 40.0 (37.0-47.0) % MCV 89.9 (80.0-98.0) fL MCH 29.4 (27.0-33.0) pg MCHC 32.8 (31.0-35.0) g/dl RDW 12.6 (11.0-16.0) % Plt Count 282 (160-400) X10*3/uL MPV 9.5 (9.4-12.3) fL Immature Gran % (Auto) 1.2 H (0.0-0.4) % Neut % (Auto) 57.6 (45-73) % Lymph % (Auto) 31.8 (20-40) % Bradford % (Auto) 5.9 (2-11) % Eos % (Auto) 3.2 (0-4) % Baso % (Auto) 0.3 (0-2) % Lymph # (Auto) 2.2 (1.2-4.9) X10*3/uL Bradford # (Auto) 0.4 (0.1-1.2) X10*3/uL Eos # (Auto) 0.2 (0.0-0.4) X10*3/uL Baso # (Auto) 0.0 (0.0-0.2) X10*3/uL Abs Immat Gran (auto) 0.08 H (0.00-0.03) X10*3/uL Absolute Neuts (auto) 4.0 (2.0-8.3) x10*3/uL Absolute Nucleated RBC 0.000 (0.0-0.012) X10*3/uL Nucleated RBC % (auto) 0.0 (0.0-0.2) /100WBC Sodium 140 (135-145) mmol/L Potassium 3.6 (3.3-5.1) mmol/L Chloride 103 (96-108) mmol/L Carbon Dioxide 29 (22-29) mmol/L Anion Gap 12 (12-20) BUN 11 (9-16) mg/dL Creatinine 0.83 (0.5-1.4) mg/dL Estim Creat Clear Calc 74.4 Estimated GFR > 60 Random Glucose 157 H (60-115) mg/dL Calcium 10.1 (8.4-10.2) mg/dL Total Bilirubin 0.2 (0.0-1.0) mg/dL AST 19 (5-31) U/L ALT 29 (0-31) U/L Alkaline Phosphatase 73 (39-117) U/L Troponin I High Sens (<3.5-17.0) ng/L Total Protein 7.2 (6.5-8.0) g/dL Albumin 4.4 (3.5-5.0) g/dL Urine Color Yellow Urine Appearance Clear Urine pH 5.5 (5.0-9.0) Ur Specific [place] 1.010 (1.005-1.025) Urine Protein Negative (Neg-Trace) mg/dL Urine Glucose (UA) Negative (Negative) mg/dL Urine Ketones Negative (Negative) mg/dL Urine Blood Negative (Negative) Urine Nitrite Negative (Negative) Ur Leukocyte Esterase Negative (Negative) COVID-19 ([facility]) (Negative) COVID-19 Clin Com Influenza Type A ([facility]) (Negative) Influenza Type B ([facility]) (Negative) Influenza A & B Note 02/27/22 02/27/22 02/27/22 Range/Units 20:30 20:30 20:30 WBC (4.8-10.8) X10*3/uL RBC (4.20-5.50) X10*6/uL Hgb (12.0-16.0) g/dl Hct (37.0-47.0) % MCV (80.0-98.0) fL MCH (27.0-33.0) pg MCHC (31.0-35.0) g/dl RDW (11.0-16.0) % Plt Count (160-400) X10*3/uL MPV (9.4-12.3) fL Immature Gran % (Auto) (0.0-0.4) % Neut % (Auto) (45-73) % Lymph % (Auto) (20-40) % Bradford % (Auto) (2-11) % Eos % (Auto) (0-4) % Baso % (Auto) (0-2) % Lymph # (Auto) (1.2-4.9) X10*3/uL [place] # (Auto) (0.1-1.2) X10*3/uL Eos # (Auto) (0.0-0.4) X10*3/uL Baso # (Auto) (0.0-0.2) X10*3/uL Abs Immat Gran (auto) (0.00-0.03) X10*3/uL Absolute Neuts (auto) (2.0-8.3) x10*3/uL Absolute Nucleated RBC (0.0-0.012) X10*3/uL Nucleated RBC % (auto) (0.0-0.2) /100WBC Sodium (135-145) mmol/L Potassium (3.3-5.1) mmol/L Chloride (96-108) mmol/L Carbon Dioxide (22-29) mmol/L Anion Gap (12-20) BUN (9-16) mg/dL Creatinine (0.5-1.4) mg/dL Estim Creat Clear Calc Estimated GFR Random Glucose (60-115) mg/dL Calcium (8.4-10.2) mg/dL Total Bilirubin (0.0-1.0) mg/dL AST (5-31) U/L ALT (0-31) U/L Alkaline Phosphatase (39-117) U/L Troponin I High Sens < 3.5 (<3.5-17.0) ng/L Total Protein (6.5-8.0) g/dL Albumin (3.5-5.0) g/dL Urine Color Urine Appearance Urine pH (5.0-9.0) Ur Specific [place] (1.005-1.025) Urine Protein (Neg-Trace) mg/dL Urine Glucose (UA) (Negative) mg/dL Urine Ketones (Negative) mg/dL Urine Blood (Negative) Urine Nitrite (Negative) Ur Leukocyte Esterase (Negative) COVID-19 ([facility]) Negative (Negative) COVID-19 Clin Com See Note Influenza Type A ([facility]) Negative (Negative) Influenza Type B ([facility]) Negative (Negative) Influenza A & B Note See Note <TAYE Lauren - Last Filed: 02/28/22 01:11> Critical Care Time Critical Care Time Critical Care Time: No <TAYE Lauren - Last Filed: 02/28/22 01:11> Discharge Plan Discharge Clinical Impression: Dizziness, Headache <Mikayla Farley CNP - Last Filed: 02/27/22 19:40> Patient Disposition: Home, Self-Care <Mikayla Farley CNP - Last Filed: 02/27/22 19:40> Additional Instructions: Take your medications as prescribed. If you were prescribed antibiotics today, it is important that you take your medication to their entirety, do not skip any doses, do not finish them early. Follow-up with your primary care provider this week. Return to the emergency department with new or worsening symptoms. Such as fevers, chills, chest pain, shortness of breath, nausea, vomiting, dizziness, headache, vision changes, lethargy In case of emergency call 911 Remembers if you switch positions make sure you do this slowly. Moving fast causes worsening symptoms. Your laboratory studies were reassuring. You had no electrolyte abnormalities. Your cardiac enzyme and EKG looked good. Your urine did not show any signs of infection. Your neurological exam was good. The CT of your head looked good results below. [place] veronique medicamentos seg?n lo prescrito. Si le recetaron antibi?ticos faithy, es importante que tome greenberg medicamento en greenberg totalidad, no se salte ninguna dosis, no los termine antes de tiempo. Seguimiento con greenberg proveedor de atenci?n primaria esta semana. Regrese al departamento de emergencias con s?ntomas nuevos o que empeoran. Gregorio fiebre, escalofr?os, dolor de pecho, dificultad para respirar, n?useas, v?mitos, mareos, dolor de ed, cambios en la visi?n, letargo En mica de emergencia llama al 911 Recuerda que si cambias de posici?n, aseg?rate de hacerlo lentamente. Moverse r?pido provoca el empeoramiento de los s?ntomas. Veronique estudios de laboratorio fueron tranquilizadores. No ten?a anomal?as electrol?aaliyah. Greenberg enzima cardiaca y greenberg electrocardiograma se ve?an barbie. Greenberg orina no mostr? nino?n signo de infecci?n. Greenberg examen neurol?gico fue elder. La tomograf?a computarizada de greenberg ed mostr? buenos resultados a continuaci?n. CT/CT head/brain wo IV con IMPRESSION: No acute intracranial pathology. ? <Mikayla Farley, BLANKING MACHINE OPERATOR - Last Filed: 02/27/22 19:40> Prescriptions: New meclizine 25 mg tablet 25 mg PO DAILY PRN (Reason: dizziness) Qty: 14 0RF No Action sucralfate [Carafate] 100 mg/mL suspension 10 ml PO BID Qty: 840 0RF ascorbate calcium (vitamin C) 500 mg tablet 500 mg PO BID Qty: 90 2RF cyanocobalamin (vitamin B-12) 1,000 mcg tablet 1,000 mcg PO DAILY Qty: 28 0RF ferrous fumarate [Ferrocite] 324 mg (106 mg iron) tablet 324 mg PO QAM Qty: 28 0RF cyclobenzaprine 10 mg tablet 10 mg PO Q8H Qty: 10 0RF acetaminophen [Tylenol Extra Strength] 500 mg tablet 1,000 mg PO QID PRN (Reason: fever or pain) Qty: 14 0RF hydrocortisone acetate [Anusol-HC] 25 mg suppository 25 mg MD BID Qty: 24 0RF nitroglycerin 0.4 % (w/w) ointment 1 inch MD BID Qty: 30 0RF Rx Instructions: pea-sized amount applied BID to anus albuterol sulfate [ProAir HFA] 90 mcg/actuation HFA aerosol inhaler 2 puff inhalation Q6H PRN (Reason: Shortness Of Breath) omeprazole 40 mg capsule,delayed release(DR/EC) 40 mg PO DAILY amitriptyline 25 mg tablet 25 mg PO BEDTIME loratadine [Allergy Relief (loratadine)] 10 mg tablet 10 mg PO DAILY sumatriptan succinate 25 mg tablet 25 mg PO Q2-4H PRN (Reason: Migraine Headache) Rx Instructions: do not exceed 8 doses per 24 hrs hydrochlorothiazide 25 mg tablet 25 mg PO DAILY lisinopril 10 mg tablet 10 mg PO DAILY albuterol sulfate 90 mcg/actuation HFA aerosol inhaler 2 puff inhalation Q6H PRN topiramate 50 mg tablet 50 mg PO BID zolpidem 10 mg tablet 10 mg PO BEDTIME PRN (Reason: Insomnia) fluoxetine 40 mg capsule 40 mg PO DAILY lorazepam 1 mg tablet 1 mg PO DAILY PRN (Reason: Anxiety) lidocaine 4 % gel 1 applic topical TID PRN (Reason: Pain) docusate sodium 100 mg capsule 100 mg PO DAILY Qty: 30 11RF metformin 500 mg tablet 800 mg PO DAILY Suprep Bowel Prep Kit 17.5-3.13-1.6 gram recon soln See Rx Instructions PO .COMPLEX Qty: 354 0RF Rx Instructions: DILUTE; drink 1/2 at 6-8 pm and half at 11 PM- 1AM <Mikayla Farley CNP - Last Filed: 02/27/22 19:40> Referrals: [facility] [place] [facility] [place] [Provider Group] - 3 days Paradise Langley MD [Primary Care Provider] - 2 days <Mikayla Farley CNP - Last Filed: 02/27/22 19:40> Print Language: Lithuanian <Mikayla Farley CNP - Last Filed: 02/27/22 19:40>
[2022-02-27 19:29] VITALS: BP 141/56; PULSE 76; RESP 20; TEMP 36.7; O2SAT 97; BMI 34.0
--- NOTE | 2022-02-27 19:35 | ECG_ITS ---
Test Reason : dizziness Blood Pressure : / mmHG Vent. Rate : 073 BPM Atrial Rate : 073 BPM P-R Int : 154 ms QRS Dur : 080 ms QT Int : 382 ms P-R-T Axes : 060 009 027 degrees QTc Int : 420 ms Normal sinus rhythm Normal ECG When compared with ECG of 02-OCT-2019 13:43, T wave inversion no longer evident in Anterior leads Referred By: Mikayla Farley Electronically Signed By:ELLEN UMANA MD
[2022-02-27] MEDS: Acetaminophen 325 MG TABLET 975 MG PO (19:38)
[2022-02-27 20:36] LABS: MANUAL DIFF FLAG NO
[2022-02-27 20:39] LABS: Appearance Urine Clear; Color Urine Yellow; Glucose Urine UA Negative (Negative); Leukocyte Esterase Urine Negative (Negative); Nitrite Urine Negative (Negative); PH 5.5 (5.0-9.0); Urine Blood Negative (Negative); Urine Ketones Negative (Negative); Urine Protein Negative (Neg-Trace)
[2022-02-27 20:52] LABS: COVID-19 Test Negative (Negative); IDNOW Serial# 55D5AD1C; IDNOW Serial# 6674DD1D; Influenza A Negative (Negative); Influenza B2 Negative (Negative)
[2022-02-27 20:58] LABS: Alanine Aminotransferase 29 U/L (0-31); Albumin Level 4.4 g/dL (3.5-5.0); Alkaline Phosphatase 73 U/L (39-117); Anion Gap 12 (12-20); Aspartate Amino Transferase 19 U/L (5-31); Bilirubin Total 0.2 mg/dL (0.0-1.0); Blood Urea Nitrogen 11 mg/dL (9-16); Calcium 10.1 mg/dL (8.4-10.2); Carbon Dioxide 29 mmol/L (22-29); Chloride 103 mmol/L (96-108); Creatinine Clr Calc Pharmacy 74.4; Estimated Glomerular Filt Rate > 60; Glucose Random 157 mg/dL (60-115); Potassium 3.6 mmol/L (3.3-5.1); Sodium 140 mmol/L (135-145); Total Protein 7.2 g/dL (6.5-8.0)
[2022-02-27 21:00] LABS: Basophils Percent Auto 0.3 % (0-2); Eosinophils Absolute Auto 0.2 X10*3/uL (0.0-0.4); Eosinophils Percent Auto 3.2 % (0-4); Hemoglobin 13.1 g/dl (12.0-16.0); Imm Gran Abs Auto 0.08 X10*3/uL (0.00-0.03); Imm Gran Pct Auto 1.2 % (0.0-0.4); Lymphocytes Absolute Auto 2.2 X10*3/uL (1.2-4.9); Lymphocytes Percent Auto 31.8 % (20-40); Mean Corpuscular HGB Conc 32.8 g/dl (31.0-35.0); Mean Corpuscular Hemoglobin 29.4 pg (27.0-33.0); Mean Corpuscular Volume 89.9 fL (80.0-98.0); Mean Platelet Volume 9.5 fL (9.4-12.3); Monocytes Absolute Auto 0.4 X10*3/uL (0.1-1.2); Monocytes Percent Auto 5.9 % (2-11); Neutrophils Percent Auto 57.6 % (45-73); Platelet Count 282 X10*3/uL (160-400); Red Blood Count 4.45 X10*6/uL (4.20-5.50); Red Cell Distribution Width 12.6 % (11.0-16.0)
[2022-02-27 21:06] LABS: Troponin-I High Sensitivity < 3.5 ng/L (<3.5-17.0)
[2022-02-28 00:19] VITALS: BP 127/67; PULSE 67; RESP 16; TEMP 36.7; O2SAT 98
[2022-02-28 01:26] VITALS: BP 118/68; PULSE 63
[2022-02-28 01:27] VITALS: BP 142/82; PULSE 63
[2022-02-28 01:30] VITALS: BP 153/82; PULSE 75
[2022-02-28] MEDS: Meclizine HCl 25 MG TABLET PO (01:33)
[2022-02-28] MEDS: 0.9 % Sodium Chloride 1,000 ML 999 ML IV (01:34)
[2022-02-28 01:49] LABS: Glucose, Whole Blood 109 mg/dL (60-115)
--- NOTE | 2022-02-28 02:27 | PC.NURSE ---
IV NS bolus infused. Patient reported mild discomfort around IV insertion site. This marketing underwriter assessed IV insertion site, no edema noted, area cool touch. This marketing underwriter instructed patient to elevate right arm on the pillow and apply warm compress to the affected area if patient develops increasing edema or tenderness at the site d/t possible IV infiltration. notified.
[2022-02-28 03:15] VITALS: BP 120/71; PULSE 67; RESP 16; O2SAT 99
== END 2022-02-28 03:20 | disposition home or self-care (01) ==
PROVIDERS: Nurse Practitioner Family; Emergency Provider Internal Medicine; PCP Internal Medicine
DX: R42 Dizziness and giddiness (principal); R51.9 Headache, unspecified; Z20.822 Contact with and (suspected) exposure to COVID-19; Z79.899 Other long term (current) drug therapy
CPT/HCPCS: 70450; 80053; 81003; 82947; 84484; 85025; 87502; 87635; 93005; 96360; 99285

== ENCOUNTER → 2022-04-09 08:10 | Outpatient (REF) | payer MEDICAID, SELFPAY ==
--- NOTE | ~2022-04-09 | NM_ITS ---
EXAMINATION: RADIONUCLIDE SOLID FOOD GASTRIC EMPTYING 4-HOUR STUDY CLINICAL INFORMATION: Early satiety. COMPARISON: None. TECHNIQUE: A standard meal consisting of 4 oz of Egg Beaters brand tagged with 1000 microcuries Tc-99m Sulfur Colloid, 8 oz water and 2 slices of toast with jelly was administered orally to the patient. Images were obtained using a dual head gamma camera in the anterior and posterior projections over of the stomach immediately post ingestion and at hourly intervals up to 4 hours post ingestion. The anterior and posterior counts at each time interval were averaged using the geometric mean and expressed as percentage of the immediate post ingestion counts. FINDINGS: There is good visualization of activity in the stomach immediately post ingestion. As the study progresses, there is delayed clearance of activity from the stomach and delayed visualization of progressively increasing small bowel activity. By the end of the study, there is significant retention noted in the stomach. Retention in the stomach at each time interval was: 1 hour 93% (normal 37%-90%) 2 hours 81% (normal 30%-60%) 3 hours 64% 4 hours 32% (normal 0%-10%) NM/NM gastric emptying study IMPRESSION: Abnormal delayed 4 hour gastric emptying study. (For solid meal, rapid gastric emptying is less than 30% at 60 minutes. Delayed gastric emptying criteria is more than 60% remaining at 120 minutes or more than 10% at 240 minutes. The 4-hour value is the best discriminator of a normal or abnormal result).
== END ==
LOC: HO.NUCMED 08:10
PROVIDERS: PCP Internal Medicine; Visit Provider Internal Medicine Gastroenterology
DX: R68.81 Early satiety (principal)
CPT/HCPCS: 78264; A9541

== ENCOUNTER → 2022-06-30 09:49 | Outpatient (BNVA) | payer MEDICAID, SELFPAY | PROVIDERS: PCP Internal Medicine; Visit Provider Obstetrics & Gynecology ==

== ENCOUNTER 2022-07-06 11:19 | Emergency (ER) | payer MEDICAID, SELFPAY ==
[2022-07-06 11:26] VITALS: BP 137/65; PULSE 76; RESP 18; TEMP 36.6; O2SAT 98; BMI 33.3
[2022-07-06 11:45] LABS: MANUAL DIFF FLAG NO
[2022-07-06 11:47] LABS: Basophils Percent Auto 0.4 % (0-2); Eosinophils Absolute Auto 0.2 X10*3/uL (0.0-0.4); Eosinophils Percent Auto 4.5 % (0-4); Hematocrit 38.2 % (37.0-47.0); Hemoglobin 12.2 g/dl (12.0-16.0); Imm Gran Abs Auto 0.01 X10*3/uL (0.00-0.03); Imm Gran Pct Auto 0.2 % (0.0-0.4); Lymphocytes Absolute Auto 1.7 X10*3/uL (1.2-4.9); Lymphocytes Percent Auto 33.6 % (20-40); Mean Corpuscular HGB Conc 31.9 g/dl (31.0-35.0); Mean Corpuscular Hemoglobin 28.2 pg (27.0-33.0); Mean Corpuscular Volume 88.4 fL (80.0-98.0); Mean Platelet Volume 9.3 fL (9.4-12.3); Monocytes Absolute Auto 0.3 X10*3/uL (0.1-1.2); Monocytes Percent Auto 6.9 % (2-11); Neutrophils Absolute Auto 2.7 x10*3/uL (2.0-8.3); Neutrophils Percent Auto 54.4 % (45-73); Platelet Count 237 X10*3/uL (160-400); Red Blood Count 4.32 X10*6/uL (4.20-5.50); Red Cell Distribution Width 12.7 % (11.0-16.0); White Blood Count 4.9 X10*3/uL (4.8-10.8)
[2022-07-06 12:04] LABS: Anion Gap 13 (12-20); Blood Urea Nitrogen 11 mg/dL (9-16); Calcium 9.5 mg/dL (8.4-10.2); Carbon Dioxide 25 mmol/L (22-29); Chloride 106 mmol/L (96-108); Creatinine Clr Calc Pharmacy 76.5; Estimated Glomerular Filt Rate > 60; Glucose Random 196 mg/dL (60-115); Sodium 140 mmol/L (135-145)
--- NOTE | 2022-07-06 14:07 | ECG_ITS ---
Test Reason : CHEST PAIN Blood Pressure : / mmHG Vent. Rate : 071 BPM Atrial Rate : 071 BPM P-R Int : 158 ms QRS Dur : 082 ms QT Int : 406 ms P-R-T Axes : 043 011 027 degrees QTc Int : 441 ms Normal sinus rhythm Normal ECG When compared with ECG of 27-FEB-2022 20:14, No significant change was found Referred By: Tae Trent Electronically Signed By:TIMOTHY ROMERO
[2022-07-06 14:14] VITALS: BP 130/65; PULSE 68; RESP 16; TEMP 36.8; O2SAT 98
[2022-07-06 14:31] VITALS: BP 121/62; PULSE 71
[2022-07-06 14:33] VITALS: BP 143/65; PULSE 80
[2022-07-06 14:35] VITALS: BP 134/71; PULSE 77
--- NOTE | 2022-07-06 15:00 | ED_ITS ---
HPI - Dizziness General Chief Complaint: Dizziness Stated Complaint: dizzy head pressure Time Seen by Provider: 07/06/22 13:44 Source: patient Mode of arrival: ambulatory Limitations: no limitations History of Present Illness HPI Narrative: 57-year-old female Ukrainian-speaking with prediabetes presents with dizziness. She describes it as a combination of feeling like she is falling backwards as well as lightheadedness. Symptoms appear to be worsened when sitting up. There is no associated nausea vomiting. She did try meclizine yesterday and today with minimal improvement. She denies any headache, photophobia, phonophobia. She denies any neck pain. She has had no fevers or chills. She denies any focal neurologic deficits. She has had previous episodes which brought her to the hospital the past. She had imaging of the head which she is not aware of with results are. Patient denies any ear pain, decreased hearing acuity, ringing in the ears. Related Data Home Medications Medication Instructions Recorded Confirmed albuterol sulfate 90 mcg/actuation 2 puff inhalation Q6H PRN 12/07/19 10/09/21 aerosol inhaler albuterol sulfate 90 mcg/actuation 2 puff inhalation Q6H PRN 12/07/19 10/09/21 aerosol inhaler (ProAir HFA) Shortness Of Breath amitriptyline 25 mg tablet 25 mg PO BEDTIME 12/07/19 10/09/21 fluoxetine 40 mg capsule 40 mg PO DAILY 12/07/19 10/09/21 hydrochlorothiazide 25 mg tablet 25 mg PO DAILY 12/07/19 10/09/21 lidocaine 4 % topical gel 1 applic topical TID PRN Pain 12/07/19 10/09/21 lisinopril 10 mg tablet 10 mg PO DAILY 12/07/19 10/09/21 loratadine 10 mg tablet (Allergy 10 mg PO DAILY 12/07/19 10/09/21 Relief (loratadine)) lorazepam 1 mg tablet 1 mg PO DAILY PRN Anxiety 12/07/19 10/09/21 omeprazole 40 mg capsule,delayed 40 mg PO DAILY 12/07/19 10/09/21 release sumatriptan succinate 25 mg tablet 25 mg PO Q2-4H PRN Migraine 12/07/19 10/09/21 Headache topiramate 50 mg tablet 50 mg PO BID 12/07/19 10/09/21 zolpidem 10 mg tablet 10 mg PO BEDTIME PRN Insomnia 12/07/19 10/09/21 metformin 500 mg tablet 800 mg PO DAILY 02/11/21 10/09/21 Previous Rx's Medication Instructions Recorded docusate sodium 100 mg capsule 100 mg PO DAILY #30 caps 01/02/20 acetaminophen 500 mg tablet 1,000 mg PO QID PRN fever or pain 09/03/20 (Tylenol Extra Strength) #14 tabs cyclobenzaprine 10 mg tablet 10 mg PO Q8H Muscle spasm #10 tabs 09/03/20 sodium,potassium,mag sulfates 17.5 See Rx Instructions PO .COMPLEX 02/11/21 gram-3.13 gram-1.6 gram oral soln #354 mL (Suprep Bowel Prep Kit) sucralfate 100 mg/mL oral 10 ml PO BID #840 mL 03/04/21 suspension (Carafate) hydrocortisone acetate 25 mg 25 mg OH BID #24 ea 08/22/21 rectal suppository (Anusol-HC) nitroglycerin 0.4 % (w/w) rectal 1 inch OH BID #30 grams 08/22/21 ointment ascorbate calcium (vitamin C) 500 500 mg PO BID #90 tabs 10/07/21 mg tablet cyanocobalamin (vitamin B-12) 1,000 mcg PO DAILY #28 tabs 01/05/22 1,000 mcg tablet ferrous fumarate 324 mg (106 mg 324 mg PO QAM #28 tabs 01/05/22 iron) tablet (Ferrocite) meclizine 25 mg tablet 25 mg PO DAILY PRN dizziness #14 02/28/22 tabs ondansetron 4 mg disintegrating 4 mg PO Q8H PRN dizziness, nausea 07/06/22 tablet #10 tabs Allergies Allergy/AdvReac Type Severity Reaction Status Date / Time naproxen [From NAPROSYN] Allergy Unknown insomnia, Verified 07/06/22 11:26 aggitation [facility] Past Medical History Medical History Asthma Diabetes GERD (gastroesophageal reflux disease) Hemorrhoids with complication HTN (hypertension) Hyperlipidemia Migraine headache Surgical History H/O hemorrhoidectomy History of esophagogastroduodenoscopy (EGD) Hx of section Hx of colonoscopy Hx of excision of mass Hx of excision of mass Family History Family History Family/Other Breast cancer Social History Social History Alcohol intake: never Patient Tobacco Use Status: Former Tobacco user Quit Date: 8 yr ago Smoked in Last 30 Days: No Use of substances other than those prescribed or required for medical reasons: No Advance Directives: No Current occupational status: disabled 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 Sexual orientation: Straight/Heterosexual Gender identity: Female Physical Exam Vital Signs: Vital Signs: Last Vital Signs Temp 98.3 F 07/06/22 14:14 Pulse 77 07/06/22 14:35 Resp 16 07/06/22 14:14 BP 134/71 07/06/22 14:35 Pulse Ox 98 07/06/22 14:14 O2 Del Method Room Air 07/06/22 14:14 BMI result Body Mass Index 33.3 GEN: Well developed, no acute distress, alert, oriented HEENT: Normocephalic, atraumatic, normal external ears, nose appears normal, no oropharyngeal edema or exudates Eyes: Normal to appearance Neck: Supple, no lymphadenopathy Respiratory: Talks in complete sentences, no respiratory distress, clear to auscultation bilaterally Cardiovascular: Regular rate and rhythm, no murmurs rubs or gallops Abdomen: Soft, nontender, nondistended, no guarding, no rebound Back: No CVA tenderness Extremities: No clubbing cyanosis or edema Neurologic: No focal neurologic deficits, cranial nerves 2-12 intact, strength is 5/5 bilaterally, no nystagmus Skin: No rash Course Course Course Narrative: 57 yo female with dizziness/lightheadedness. Exam reveals no nystagmus or focal neurologic deficits. She denies headache and there is no nuchal rigidity. Symptoms could be consistent with either orthostatic hypotension or vertigo. Will treat for both this point with IV fluids, Reglan as she tried meclizine earlier. Will re-evaluate frequently. Reevaluation(s) Reevaluation #1: Cardiac enzymes are negative. After 24 hours plus of symptoms, I doubt this represents acute coronary syndrome. No further testing is required at this time. Time: 16:33 Reevaluation #2: patient ambulating with normal gate. No symptoms at this time. diagnosis vertigo v lightheadedness Time: 17:17 Medications Administered Discontinued Medications Generic Name Dose Route Start Last Admin Trade Name Hyacinth PRN Reason Stop Dose Admin Sodium Chloride 1,000 mls @ 999 mls/hr 07/06/22 14:15 07/06/22 16:24 Ns IV 07/06/22 15:15 Infused .Q1H1M GIOVANNI Infusion Metoclopramide HCl 10 mg 07/06/22 14:06 07/06/22 15:20 Metoclopramide Hcl 10 Mg/2 Ml Vial IVPUSH 07/06/22 14:07 10 mg ONCE ONE Administration Medical Decision Making Medical Decision Making [facility] Narrative: 57-year-old female presents with dizziness. Is difficult to tease out whether she means dizziness or lightheadedness. Her examination is nonfocal. There is no nystagmus. She has no pronator drift. My plan with her will be to do laboratory analysis, symptomatic treatment with both fluids and antiemetics. She had a CT scan for similar symptoms in the summer which showed no acute abnormalities. I do not believe based on the lack of additional new neuro symptoms the patient would benefit from any CT scan or other emergent imaging at this time will check on patient frequently the see if there is clinical Differential Diagnosis Differential Diagnoses: The differential diagnosis associated with the presentation includes (Lightheadedness, electrolyte abnormality, dizziness, vertigo, BPPV, labyrinthitis, vestibular neuritis, Meniere's disease) Admission/Observation Consideration of admission/observation: Escalation of care including admission/observation considered Lab Data [facility] Lab Attestation statement: I reviewed the patient's lab results. 07/06/22 11:35 07/06/22 11:35 Labs: Lab Results 07/06/22 07/06/22 07/06/22 Range/Units 11:35 11:35 14:42 WBC 4.9 (4.8-10.8) X10*3/uL RBC 4.32 (4.20-5.50) X10*6/uL Hgb 12.2 (12.0-16.0) g/dl Hct 38.2 (37.0-47.0) % MCV 88.4 (80.0-98.0) fL MCH 28.2 (27.0-33.0) pg MCHC 31.9 (31.0-35.0) g/dl RDW 12.7 (11.0-16.0) % Plt Count 237 (160-400) X10*3/uL MPV 9.3 L (9.4-12.3) fL Immature Gran % (Auto) 0.2 (0.0-0.4) % Neut % (Auto) 54.4 (45-73) % Lymph % (Auto) 33.6 (20-40) % Barry % (Auto) 6.9 (2-11) % Eos % (Auto) 4.5 H (0-4) % Baso % (Auto) 0.4 (0-2) % Lymph # (Auto) 1.7 (1.2-4.9) X10*3/uL Barry # (Auto) 0.3 (0.1-1.2) X10*3/uL Eos # (Auto) 0.2 (0.0-0.4) X10*3/uL Baso # (Auto) 0.0 (0.0-0.2) X10*3/uL Abs Immat Gran (auto) 0.01 (0.00-0.03) X10*3/uL Absolute Neuts (auto) 2.7 (2.0-8.3) x10*3/uL Absolute Nucleated RBC 0.000 (0.0-0.012) X10*3/uL Nucleated RBC % (auto) 0.0 (0.0-0.2) /100WBC Sodium 140 (135-145) mmol/L Potassium 4.0 (3.3-5.1) mmol/L Chloride 106 (96-108) mmol/L Carbon Dioxide 25 (22-29) mmol/L Anion Gap 13 (12-20) BUN 11 (9-16) mg/dL Creatinine 0.85 (0.5-1.4) mg/dL Estim Creat Clear Calc 76.5 Estimated GFR > 60 Random Glucose 196 H (60-115) mg/dL Calcium 9.5 (8.4-10.2) mg/dL Troponin I High Sens < 2.7 (<3.5-17.0) ng/L Independent Interpretation I performed an independent interpretation of an: EKG (Normal sinus rhythm heart rate 71, no acute ST elevation depressions, nonspecific T-wave flattening. Normal intervals.) Radiology Impression Discussion of test interpretation with radiology: I have reviewed the radiologist's reading. Radiologist Impression: FINDINGS: There is no evidence of acute intracranial hemorrhage or territorial infarction. No abnormal mass effect or midline shift is seen. Tellez to white matter differentiation is well preserved. No extra-axial fluid collections are identified. Incidental empty sella noted. The ventricles are normal in size. There is no abnormal attenuation within the brain parenchyma. The osseous structures and soft tissues are normal. The mastoid air cells and visualized portions of the paranasal sinuses are well aerated. CT/CT head/brain wo IV con IMPRESSION: No acute intracranial pathology. ? Dictated By: WALTER ESPARZA MD Signed By: <Electronically signed by WALTER ESPARZA MD in OV> 02/27/222127 Independent Historian Clinical information obtained from an independent historian. History obtained from or confirmed by: Spouse External Record Review External record reviewed: Prior outpatient radiology (CT head, no acute abnormalities or mass effect seen) Discharge Plan Discharge Clinical Impression: Orthostatic hypotension, Benign paroxysmal positional vertigo, Vertigo Patient Disposition: Home, Self-Care Instructions: Vertigo (DC), Lightheadedness (ED) Prescriptions: New ondansetron 4 mg tablet,disintegrating 4 mg PO Q8H PRN (Reason: dizziness, nausea) Qty: 10 0RF No Action sucralfate [Carafate] 100 mg/mL suspension 10 ml PO BID Qty: 840 0RF ascorbate calcium (vitamin C) 500 mg tablet 500 mg PO BID Qty: 90 2RF cyanocobalamin (vitamin B-12) 1,000 mcg tablet 1,000 mcg PO DAILY Qty: 28 0RF ferrous fumarate [Ferrocite] 324 mg (106 mg iron) tablet 324 mg PO QAM Qty: 28 0RF cyclobenzaprine 10 mg tablet 10 mg PO Q8H Qty: 10 0RF acetaminophen [Tylenol Extra Strength] 500 mg tablet 1,000 mg PO QID PRN (Reason: fever or pain) Qty: 14 0RF hydrocortisone acetate [Anusol-HC] 25 mg suppository 25 mg OH BID Qty: 24 0RF nitroglycerin 0.4 % (w/w) ointment 1 inch OH BID Qty: 30 0RF Rx Instructions: pea-sized amount applied BID to anus meclizine 25 mg tablet 25 mg PO DAILY PRN (Reason: dizziness) Qty: 14 0RF albuterol sulfate [ProAir HFA] 90 mcg/actuation HFA aerosol inhaler 2 puff inhalation Q6H PRN (Reason: Shortness Of Breath) omeprazole 40 mg capsule,delayed release(DR/EC) 40 mg PO DAILY amitriptyline 25 mg tablet 25 mg PO BEDTIME loratadine [Allergy Relief (loratadine)] 10 mg tablet 10 mg PO DAILY sumatriptan succinate 25 mg tablet 25 mg PO Q2-4H PRN (Reason: Migraine Headache) Rx Instructions: do not exceed 8 doses per 24 hrs hydrochlorothiazide 25 mg tablet 25 mg PO DAILY lisinopril 10 mg tablet 10 mg PO DAILY albuterol sulfate 90 mcg/actuation HFA aerosol inhaler 2 puff inhalation Q6H PRN topiramate 50 mg tablet 50 mg PO BID zolpidem 10 mg tablet 10 mg PO BEDTIME PRN (Reason: Insomnia) fluoxetine 40 mg capsule 40 mg PO DAILY lorazepam 1 mg tablet 1 mg PO DAILY PRN (Reason: Anxiety) lidocaine 4 % gel 1 applic topical TID PRN (Reason: Pain) docusate sodium 100 mg capsule 100 mg PO DAILY Qty: 30 11RF metformin 500 mg tablet 800 mg PO DAILY Suprep Bowel Prep Kit 17.5-3.13-1.6 gram recon soln See Rx Instructions PO .COMPLEX Qty: 354 0RF Rx Instructions: DILUTE; drink 1/2 at 6-8 pm and half at 11 PM- 1AM Referrals: Paradise Langley MD [Primary Care Provider] - 2 days Print Language: Ukrainian
[2022-07-06 15:15] LABS: Troponin-I High Sensitivity < 2.7 ng/L (<3.5-17.0)
[2022-07-06] MEDS: 0.9 % Sodium Chloride 1,000 ML 999 ML IV (15:18)
[2022-07-06] MEDS: Metoclopramide HCl 10 MG/2 ML VIAL IVPUSH (15:20)
== END 2022-07-06 18:22 | disposition home or self-care (01) ==
PROVIDERS: Emergency Provider Emergency Medicine; PCP Internal Medicine
DX: H81.13 Benign paroxysmal vertigo, bilateral (principal); I95.1 Orthostatic hypotension; R07.89 Other chest pain; Z79.899 Other long term (current) drug therapy
CPT/HCPCS: 36415; 80048; 84484; 85025; 93005; 96361; 96374; 99284; 99285; J2765

== ENCOUNTER 2022-09-14 11:00 | Outpatient (RCR) | payer MEDICAID, SELFPAY ==
[2022-08-28 12:56] VITALS: BP 153/84; PULSE 77
== END 2022-10-22 08:01 | disposition home or self-care (01) ==
LOC: HO.PT 11:00
PROVIDERS: PCP Internal Medicine; Visit Provider Internal Medicine
DX: H81.12 Benign paroxysmal vertigo, left ear (principal)
CPT/HCPCS: 95992; 97112; 97162

== ENCOUNTER 2022-11-06 10:53 | Outpatient (REF) | payer MEDICAID, SELFPAY | END 2022-11-06 10:54 | disposition home or self-care (01) | LOC: HO.MAMMO 10:53 | PROVIDERS: PCP Internal Medicine; Visit Provider Internal Medicine | DX: Z12.31 Encounter for screening mammogram for malignant neoplasm of breast (principal) | CPT/HCPCS: 77063; 77067 ==

== ENCOUNTER → 2022-11-06 11:15 | Outpatient (BNV) | payer MEDICAID, SELFPAY | PROVIDERS: PCP Internal Medicine; Visit Provider Radiology Diagnostic Radiology | DX: Z12.31 Encounter for screening mammogram for malignant neoplasm of breast (principal) | CPT/HCPCS: 77063; 77067 ==

== ENCOUNTER 2022-12-05 18:52 | Emergency (ER) | payer MEDICAID, SELFPAY ==
--- NOTE | ~2022-12-05 | XR_ITS ---
EXAMINATION: XR LUMBOSACRAL SPINE CLINICAL INFORMATION: Pain COMPARISON: Lumbar spine radiographs 09/11/2020. TECHNIQUE: Three views of the lumbosacral spine. 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 No evidence of acute fracture or malalignment of the lumbosacral spine. Vertebral body heights are maintained. Disc spaces are overall preserved. Similar small multilevel lower lumbar endplate osteophytes. Minimal lower lumbar facet arthropathy, unchanged. Soft tissues are unremarkable. XR/XR lumbar spine 2-3V IMPRESSION: 1. Transitional lumbosacral anatomy with unchanged minimal lower lumbar/lumbosacral spondylosis. 2. No evidence of acute fracture or malalignment.
[2022-12-05 19:08] VITALS: BP 135/79; PULSE 81; RESP 18; TEMP 36.2; O2SAT 98; BMI 29.9
--- NOTE | 2022-12-05 19:08 | ED.BACK ---
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 She denies any trauma. Denies any abdominal pain, nausea vomiting. Denies any burning with urination. She does state that she has ?urinary frequency and only a little bit comes out. ? Denies any fevers, chills Has previously been treated with methocarbamol for lower back pain by her PCP Denies any numbness, tingling, weakness to lower extremities Her pain is worse with movement, especially sitting up Related Data Home Medications Medication Instructions Recorded Confirmed albuterol sulfate 90 mcg/actuation 2 puff inhalation Q6H PRN 12/07/19 10/09/21 aerosol inhaler albuterol sulfate 90 mcg/actuation 2 puff inhalation Q6H PRN 12/07/19 10/09/21 aerosol inhaler (ProAir HFA) Shortness Of Breath amitriptyline 25 mg tablet 25 mg PO BEDTIME 12/07/19 10/09/21 fluoxetine 40 mg capsule 40 mg PO DAILY 12/07/19 10/09/21 hydrochlorothiazide 25 mg tablet 25 mg PO DAILY 12/07/19 10/09/21 lidocaine 4 % topical gel 1 applic topical TID PRN Pain 12/07/19 10/09/21 lisinopril 10 mg tablet 10 mg PO DAILY 12/07/19 10/09/21 loratadine 10 mg tablet (Allergy 10 mg PO DAILY 12/07/19 10/09/21 Relief (loratadine)) lorazepam 1 mg tablet 1 mg PO DAILY PRN Anxiety 12/07/19 10/09/21 omeprazole 40 mg capsule,delayed 40 mg PO DAILY 12/07/19 10/09/21 release sumatriptan succinate 25 mg tablet 25 mg PO Q2-4H PRN Migraine 12/07/19 10/09/21 Headache topiramate 50 mg tablet 50 mg PO BID 12/07/19 10/09/21 zolpidem 10 mg tablet 10 mg PO BEDTIME PRN Insomnia 12/07/19 10/09/21 metformin 500 mg tablet 800 mg PO DAILY 02/11/21 10/09/21 Previous Rx's Medication Instructions Recorded docusate sodium 100 mg capsule 100 mg PO DAILY #30 caps 01/02/20 acetaminophen 500 mg tablet 1,000 mg (2 x 500 mg) PO QID PRN 09/03/20 (Tylenol Extra Strength) fever or pain #14 tabs cyclobenzaprine 10 mg tablet 10 mg PO Q8H Muscle spasm #10 tabs 09/03/20 sodium,potassium,mag sulfates 17.5 See Rx Instructions PO .COMPLEX 02/11/21 gram-3.13 gram-1.6 gram oral soln #354 mL (Suprep Bowel Prep Kit) sucralfate 100 mg/mL oral 10 ml PO BID #840 mL 03/04/21 suspension (Carafate) hydrocortisone acetate 25 mg 25 mg VA BID #24 ea 08/22/21 rectal suppository (Anusol-HC) nitroglycerin 0.4 % (w/w) rectal 1 inch VA BID #30 grams 08/22/21 ointment ascorbate calcium (vitamin C) 500 500 mg PO BID #90 tabs 10/07/21 mg tablet cyanocobalamin (vitamin B-12) 1,000 mcg PO DAILY #28 tabs 01/05/22 1,000 mcg tablet ferrous fumarate 324 mg (106 mg 324 mg PO QAM #28 tabs 01/05/22 iron) tablet (Ferrocite) meclizine 25 mg tablet 25 mg PO DAILY PRN dizziness #14 02/28/22 tabs ondansetron 4 mg disintegrating 4 mg PO Q8H PRN dizziness, nausea 07/06/22 tablet #10 tabs tramadol 50 mg tablet 50 mg PO TID PRN severe pain 12/05/22 (scale score 7-10) #12 tabs Allergies Allergy/AdvReac Type Severity Reaction Status Date / Time naproxen [From NAPROSYN] Allergy Unknown insomnia, Verified 07/06/22 11:26 aggitation Review of Systems Constitutional: Constitutional: Denies chills and Denies fever(s) Eyes: Eyes: Denies blurry vision ENT: Denies neck pain Cardiovascular: Cardiovascular: Denies chest pain and Denies dyspnea Respiratory: Respiratory: Denies cough and Denies dyspnea Gastrointestinal: Gastrointestinal: Denies abdominal pain, Denies nausea and Denies vomiting Genitourinary: Genitourinary: Denies difficulty voiding and Reports urinary hesitancy Comments: Reports frequent urination Musculoskeletal: Musculoskeletal: Reports back pain, Denies neck pain, Denies numbness, Denies radiating pain into limb, Denies stiffness and Denies tingling Integumentary/Breasts: Skin/Breast: Denies erythema Neurologic: Denies numbness and Denies tingling PMFSH Past Medical History Medical History Asthma Diabetes GERD (gastroesophageal reflux disease) Hemorrhoids with complication HTN (hypertension) Hyperlipidemia Migraine headache Surgical History H/O hemorrhoidectomy History of esophagogastroduodenoscopy (EGD) Hx of section Hx of colonoscopy Hx of excision of mass Hx of excision of mass Family History Family History Family/Other Breast cancer Social History Social History Alcohol intake: never Patient Tobacco Use Status: Former Tobacco user Quit Date: 8 yr ago Advance Directives: No Advance Directives Information Provided: No Current occupational status: disabled 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 Sexual orientation: Straight/Heterosexual Gender identity: Female Physical Exam Vital Signs: Vital Signs: Last Vital Signs Temp 97.1 F 12/05/22 19:08 Pulse 81 12/05/22 19:08 Resp 18 12/05/22 19:08 BP 135/79 12/05/22 19:08 Pulse Ox 98 12/05/22 19:08 O2 Del Method Room Air 12/05/22 19:08 BMI result Body Mass Index 29.9 Const: General: healthy appearing, comfortable, no acute distress, alert and awake Nutritional Appearance: well nourished Orientation/consciousness: patient oriented x3 HEENT: Head: Yes normocephalic and Yes atraumatic Eyes: Eyelids: Yes eyelids normal Conjunctivae: conjunctivae normal Sclerae: sclerae normal Corneas: corneas normal Pupils: Equal, round and reactive pupils present EOM: EOMs intact bilaterally Neck: Neck: Yes full ROM Resp: Effort & Inspection: normal respiratory effort, able to speak in complete sentences and not labored Cardio: Rate: regular rate Rhythm: regular rhythm GI: Inspection: No distended Palpation (GI): Soft to palpation, not firm, nontender, no guarding and not rigid Back/Spine/Pelvis: Other: Patient has vague tenderness to almost her entire back. There are no palpable deformities. No step-offs to the cervical, thoracic, lumbar spine. She appears to be most tender sciatic notch. Straight leg raise negative bilaterally. Skin: General skin exam: no rashes or lesions noted and elasticity normal Neuro: General: patient oriented x3 Cranial nerves: Yes Equal, round and reactive pupils present and Yes Bilaterally intact EOM present Cognition (Neuro): normal cognition Course Course Course Narrative: This is an RME: Additional HPI, ROS, PE not included below will be deferred to primary provider. This is a 05-[id number]-Malagasy speaking female, with a hx of asthma, diabetes, GERD, HTN, HLD, and migraines presenting to the ER with complaints of back pain x 5 days, worsening over the last 2 days. No recent trauma, injury, or heavy lifting. Admits to having some urinary urgency and dysuria, as well as straining with urine and with urine retention. Plan: Labs, UA Reevaluation(s) Reevaluation #1: Patient's urine is clear, no evidence of infection or blood. Her x-ray shows no compression fractures. Her pain is most likely muscular in origin, she has methocarbamol at home we will discharge her with tramadol Time: 22:33 Medications Administered Discontinued Medications Generic Name Dose Route Start Last Admin Trade Name Freq PRN Reason Stop Dose Admin Tramadol HCl 50 mg 12/05/22 19:43 12/05/22 19:46 Tramadol Hcl 50 Mg Tablet PO 12/05/22 19:44 50 mg ONCE ONE Administration Medical Decision Making Medical Decision Making MDM Narrative: 57-year-old female presents for evaluation of right lower back pain. Her pain spread across almost her entire mid to lower back. She denies any specific trauma or injury is being treated for muscle spasms. She has no abdominal pain or tenderness.. Negative CVA tenderness. Given that she is quite tender to palpation the lumbar spine musculoskeletal origin is much more likely. We will get a lumbar x-ray. Plan for labs and a UA. Will consider further imaging depending on results of current workup. Patient medicated with tramadol Differential Diagnosis Differential Diagnoses: The differential diagnosis associated with the presentation includes Radiculopathy Muscle strain Muscle spasm Arthritis Sciatica Obstructive uropathy Flank pain Pyelonephritis Lab Data MDM Lab Attestation statement: I reviewed the patient's lab results. No leukocytosis, no significant anemia. Patient has a normal sodium level but a slight hypokalemia of 3.2. Renal function within normal limits. Patient has a very mild Transaminitis of unclear etiology, but again she has no abdominal pain, tenderness, nausea vomiting or diarrhea 12/05/22 19:30 12/05/22 19:30 Labs: Lab Results 12/05/22 12/05/22 Range/Units 19:30 21:25 WBC 5.6 (4.8-10.8) X10*3/uL RBC 4.57 (4.20-5.50) X10*6/uL Hgb 12.7 (12.0-16.0) g/dl Hct 38.7 (37.0-47.0) % MCV 84.7 (80.0-98.0) fL MCH 27.8 (27.0-33.0) pg MCHC 32.8 (31.0-35.0) g/dl RDW 13.8 (11.0-16.0) % Plt Count 269 (160-400) X10*3/uL MPV 9.3 L (9.4-12.3) fL Immature Gran % (Auto) 0.2 (0.0-0.4) % Neut % (Auto) 57.6 (45-73) % Lymph % (Auto) 31.8 (20-40) % [place] % (Auto) 6.8 (2-11) % Eos % (Auto) 3.2 (0-4) % Baso % (Auto) 0.4 (0-2) % Lymph # (Auto) 1.8 (1.2-4.9) X10*3/uL [place] # (Auto) 0.4 (0.1-1.2) X10*3/uL Eos # (Auto) 0.2 (0.0-0.4) X10*3/uL Baso # (Auto) 0.0 (0.0-0.2) X10*3/uL Abs Immat Gran (auto) 0.01 (0.00-0.03) X10*3/uL Absolute Neuts (auto) 3.2 (2.0-8.3) x10*3/uL Absolute Nucleated RBC 0.000 (0.0-0.012) X10*3/uL Nucleated RBC % (auto) 0.0 (0.0-0.2) /100WBC Sodium 141 (135-145) mmol/L Potassium 3.2 L (3.3-5.1) mmol/L Chloride 103 (96-108) mmol/L Carbon Dioxide 21 L (22-29) mmol/L Anion Gap 20 (12-20) BUN 12 (9-16) mg/dL Creatinine 0.88 (0.5-1.4) mg/dL Estim Creat Clear Calc 72.6 Estimated GFR > 60 Random Glucose 137 H (60-115) mg/dL Calcium 9.9 (8.4-10.2) mg/dL Total Bilirubin 0.3 (0.0-1.0) mg/dL Direct Bilirubin 0.1 (0.0-0.5) mg/dL AST 37 H (5-31) U/L ALT 37 H (0-31) U/L Alkaline Phosphatase 73 (39-117) U/L Total Protein 7.5 (6.5-8.0) g/dL Albumin 4.4 (3.5-5.0) g/dL Urine Color Yellow Urine Appearance Clear Urine pH 5.5 (5.0-9.0) Ur Specific [place] 1.010 (1.005-1.025) Urine Protein Negative (Neg-Trace) mg/dL Urine Glucose (UA) Negative (Negative) mg/dL Urine Ketones Negative (Negative) mg/dL Urine Blood Negative (Negative) Urine Nitrite Negative (Negative) Ur Leukocyte Esterase Negative (Negative) Independent Interpretation I performed an independent interpretation of an: Plain X-Ray (No obvious fracture) Radiology Impression Discussion of test interpretation with radiology: I have reviewed the radiologist's reading. (No obvious fracture) Discharge Plan Discharge Clinical Impression: Lower back pain Patient Disposition: Home, Self-Care Instructions: Acute Low Back Pain (ED) Additional Instructions: Your x-ray did not show any fractures. Your urine did not show any evidence of blood or infection Your blood work was reassuring Your pain is most likely related to muscle spasms You may use the methocarbamol that was prescribed by your doctor Use tramadol for severe or breakthrough pain This may make you sleepy, did not drink alcohol or drive after taking Follow-up with your primary doctor Prescriptions: New tramadol 50 mg tablet 50 mg PO TID PRN (Reason: severe pain (scale score 7-10)) Qty: 12 0RF No Action sucralfate [Carafate] 100 mg/mL suspension 10 ml PO BID Qty: 840 0RF ascorbate calcium (vitamin C) 500 mg tablet 500 mg PO BID Qty: 90 2RF cyanocobalamin (vitamin B-12) 1,000 mcg tablet 1,000 mcg PO DAILY Qty: 28 0RF ferrous fumarate [Ferrocite] 324 mg (106 mg iron) tablet 324 mg PO QAM Qty: 28 0RF cyclobenzaprine 10 mg tablet 10 mg PO Q8H Qty: 10 0RF acetaminophen [Tylenol Extra Strength] 500 mg tablet 1,000 mg PO QID PRN (Reason: fever or pain) Qty: 14 0RF hydrocortisone acetate [Anusol-HC] 25 mg suppository 25 mg VA BID Qty: 24 0RF nitroglycerin 0.4 % (w/w) ointment 1 inch VA BID Qty: 30 0RF Rx Instructions: pea-sized amount applied BID to anus meclizine 25 mg tablet 25 mg PO DAILY PRN (Reason: dizziness) Qty: 14 0RF ondansetron 4 mg tablet,disintegrating 4 mg PO Q8H PRN (Reason: dizziness, nausea) Qty: 10 0RF albuterol sulfate [ProAir HFA] 90 mcg/actuation HFA aerosol inhaler 2 puff inhalation Q6H PRN (Reason: Shortness Of Breath) omeprazole 40 mg capsule,delayed release(DR/EC) 40 mg PO DAILY amitriptyline 25 mg tablet 25 mg PO BEDTIME loratadine [Allergy Relief (loratadine)] 10 mg tablet 10 mg PO DAILY sumatriptan succinate 25 mg tablet 25 mg PO Q2-4H PRN (Reason: Migraine Headache) Rx Instructions: do not exceed 8 doses per 24 hrs hydrochlorothiazide 25 mg tablet 25 mg PO DAILY lisinopril 10 mg tablet 10 mg PO DAILY albuterol sulfate 90 mcg/actuation HFA aerosol inhaler 2 puff inhalation Q6H PRN topiramate 50 mg tablet 50 mg PO BID zolpidem 10 mg tablet 10 mg PO BEDTIME PRN (Reason: Insomnia) fluoxetine 40 mg capsule 40 mg PO DAILY lorazepam 1 mg tablet 1 mg PO DAILY PRN (Reason: Anxiety) lidocaine 4 % gel 1 applic topical TID PRN (Reason: Pain) docusate sodium 100 mg capsule 100 mg PO DAILY Qty: 30 11RF metformin 500 mg tablet 800 mg PO DAILY Suprep Bowel Prep Kit 17.5-3.13-1.6 gram recon soln See Rx Instructions PO .COMPLEX Qty: 354 0RF Rx Instructions: DILUTE; drink 1/2 at 6-8 pm and half at 11 PM- 1AM
--- NOTE | 2022-12-05 19:48 | PC.NURSE ---
pt medicated per APR for 12/08 back pain plan is for imaging call panchal within reach
[2022-12-05 19:57] LABS: Alanine Aminotransferase 37 U/L (0-31); Albumin Level 4.4 g/dL (3.5-5.0); Alkaline Phosphatase 73 U/L (39-117); Anion Gap 20 (12-20); Aspartate Amino Transferase 37 U/L (5-31); Bilirubin Direct 0.1 mg/dL (0.0-0.5); Bilirubin Total 0.3 mg/dL (0.0-1.0); Blood Urea Nitrogen 12 mg/dL (9-16); Calcium 9.9 mg/dL (8.4-10.2); Carbon Dioxide 21 mmol/L (22-29); Chloride 103 mmol/L (96-108); Creatinine Clr Calc Pharmacy 72.6; Estimated Glomerular Filt Rate > 60; Glucose Random 137 mg/dL (60-115); Potassium 3.2 mmol/L (3.3-5.1); Sodium 141 mmol/L (135-145); Total Protein 7.5 g/dL (6.5-8.0)
--- NOTE | 2022-12-05 20:11 | PC.NURSE ---
pt returned from xray, call panchal within reach, care ongoing
== END 2022-12-05 22:50 | disposition home or self-care (01) ==
PROVIDERS: Physician Assistant Medical; Emergency Provider Emergency Medicine; PCP Internal Medicine
DX: M54.50 Low back pain, unspecified (principal); E11.9 Type 2 diabetes mellitus without complications; I10 Essential (primary) hypertension; E78.5 Hyperlipidemia, unspecified; Z87.891 Personal history of nicotine dependence; Z79.899 Other long term (current) drug therapy; Z79.84 Long term (current) use of oral hypoglycemic drugs
CPT/HCPCS: 36415; 72100; 80048; 80076; 81003; 85025; 99283

== ENCOUNTER 2022-12-10 16:59 | Emergency (ER) | payer MEDICAID, SELFPAY ==
[2022-12-10 17:20] VITALS: BP 133/57; PULSE 84; PULSE 87; RESP 18; TEMP 36.8; O2SAT 95; O2SAT 97; BMI 31.3
--- NOTE | 2022-12-10 17:24 | ED_ITS ---
HPI - GI Bleed General Chief complaint: GI Bleed Stated complaint: rectal bleeding Time Seen by Provider: 12/10/22 17:10 Source: patient and family Mode of arrival: ambulatory Limitations: no limitations History of Present Illness HPI Narrative: 57-year-old female history of diabetes cervical radiculopathy hemorrhoids diarrhea presents to the emergency department with her after having sharp pain to her rectal area and 1 episode of rectal bleeding. Patient was here few days ago for back pain. She states she is feeling better from that she denies any falls or injuries she denies chest pain cough fever. 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 She was seen here previously for her hemorrhoids and was sent home with hemorrhoid cream pain. Patient does not have that anymore the hemorrhoid cream. MD complaint: blood streaked stool Related Data Home Medications Medication Instructions Recorded Confirmed albuterol sulfate 90 mcg/actuation 2 puff inhalation Q6H PRN 12/07/19 10/09/21 aerosol inhaler albuterol sulfate 90 mcg/actuation 2 puff inhalation Q6H PRN 12/07/19 10/09/21 aerosol inhaler (ProAir HFA) Shortness Of Breath amitriptyline 25 mg tablet 25 mg PO BEDTIME 12/07/19 10/09/21 fluoxetine 40 mg capsule 40 mg PO DAILY 12/07/19 10/09/21 hydrochlorothiazide 25 mg tablet 25 mg PO DAILY 12/07/19 10/09/21 lidocaine 4 % topical gel 1 applic topical TID PRN Pain 12/07/19 10/09/21 lisinopril 10 mg tablet 10 mg PO DAILY 12/07/19 10/09/21 loratadine 10 mg tablet (Allergy 10 mg PO DAILY 12/07/19 10/09/21 Relief (loratadine)) lorazepam 1 mg tablet 1 mg PO DAILY PRN Anxiety 12/07/19 10/09/21 omeprazole 40 mg capsule,delayed 40 mg PO DAILY 12/07/19 10/09/21 release sumatriptan succinate 25 mg tablet 25 mg PO Q2-4H PRN Migraine 12/07/19 10/09/21 Headache topiramate 50 mg tablet 50 mg PO BID 12/07/19 10/09/21 zolpidem 10 mg tablet 10 mg PO BEDTIME PRN Insomnia 12/07/19 10/09/21 metformin 500 mg tablet 800 mg PO DAILY 02/11/21 10/09/21 Previous Rx's Medication Instructions Recorded docusate sodium 100 mg capsule 100 mg PO DAILY #30 caps 01/02/20 acetaminophen 500 mg tablet 1,000 mg (2 x 500 mg) PO QID PRN 09/03/20 (Tylenol Extra Strength) fever or pain #14 tabs cyclobenzaprine 10 mg tablet 10 mg PO Q8H Muscle spasm #10 tabs 09/03/20 sodium,potassium,mag sulfates 17.5 See Rx Instructions PO .COMPLEX 02/11/21 gram-3.13 gram-1.6 gram oral soln #354 mL (Suprep Bowel Prep Kit) sucralfate 100 mg/mL oral 10 ml PO BID #840 mL 03/04/21 suspension (Carafate) hydrocortisone acetate 25 mg 25 mg OR BID #24 ea 08/22/21 rectal suppository (Anusol-HC) nitroglycerin 0.4 % (w/w) rectal 1 inch OR BID #30 grams 08/22/21 ointment ascorbate calcium (vitamin C) 500 500 mg PO BID #90 tabs 10/07/21 mg tablet cyanocobalamin (vitamin B-12) 1,000 mcg PO DAILY #28 tabs 01/05/22 1,000 mcg tablet ferrous fumarate 324 mg (106 mg 324 mg PO QAM #28 tabs 01/05/22 iron) tablet (Ferrocite) meclizine 25 mg tablet 25 mg PO DAILY PRN dizziness #14 02/28/22 tabs ondansetron 4 mg disintegrating 4 mg PO Q8H PRN dizziness, nausea 07/06/22 tablet #10 tabs tramadol 50 mg tablet 50 mg PO TID PRN severe pain 12/05/22 (scale score 7-10) #12 tabs hydrocortisone 25 mg-pramoxine 18 1 supp OR BID #24 ea 12/10/22 mg rectal suppository nitroglycerin 0.4 % (w/w) rectal 1 inch OR BID #30 grams 12/10/22 ointment (Rectiv) Allergies Allergy/AdvReac Type Severity Reaction Status Date / Time naproxen [From NAPROSYN] Allergy Unknown insomnia, Verified 07/06/22 11:26 aggitation Review of Systems Review of Systems: Review of systems: General: Patient denies any fever chills recent illness or falls Musculoskeletal: Denies back pain or body aches or other injuries HEENT: denies headache, runny nose, ear pain Respiratory: denies shortness of breath, cough Cardiovascular: no chest pain or palpitations : denies dysuria, frequency Abdomen: Rectal bleeding no nausea vomiting denies abdominal pain Extremities: no swelling, no pain Skin: no diaphoresis Yes all other systems are reviewed and are negative PMFSH Past Medical History Medical History Asthma Diabetes GERD (gastroesophageal reflux disease) Hemorrhoids with complication HTN (hypertension) Hyperlipidemia Migraine headache Surgical History H/O hemorrhoidectomy History of esophagogastroduodenoscopy (EGD) Hx of section Hx of colonoscopy Hx of excision of mass Hx of excision of mass Family History Family History Family/Other Breast cancer Social History Social History Alcohol intake: never Patient Tobacco Use Status: Former Tobacco user Quit Date: 8 yr ago Current occupational status: disabled 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 Sexual orientation: Straight/Heterosexual Gender identity: Female Physical Exam Vital Signs: Vital Signs: Last Vital Signs Temp 98.3 F 12/10/22 17:20 Pulse 84 12/10/22 17:20 Resp 18 12/10/22 17:20 BP 133/57 L 12/10/22 17:20 Pulse Ox 95 12/10/22 17:20 BMI result Body Mass Index 31.3 General: Well-appearing well-nourished in no signs of distress HEENT: Normocephalic atraumatic Neck: No signs of JVD, no masses no tenderness or lymphadenopathy Cardiovascular: Regular rate and rhythm Respiratory: Clear to auscultation bilaterally Abdomen: Soft nontender no masses rectal exam performed guiac negative 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 Patient does have multiple external hemorrhoids and some internal hemorrhoids are palpated Extremities: Normal pedal pulses no signs of edema Skin: Dry warm no rashes Back: No tenderness full ROM Medical Decision Making Medical Decision Making MDM Narrative: Patient has obvious hemorrhoids I do not see any that are thrombosed think the patient follow-up with GI as send patient home with cream. Differential Diagnosis Differential Diagnoses: The differential diagnosis associated with the presentation includes Hemorrhoids rectal bleeding GI illness Admission/Observation Consideration of admission/observation: Escalation of care including admission/observation considered Not necessary Independent Historian Clinical information obtained from an independent historian. History obtained from or confirmed by: Spouse External Record Review External record reviewed: Inpatient record Discharge Plan Discharge Clinical Impression: Hemorrhoid Patient Disposition: Home, Self-Care Instructions: Hemorrhoids (DC), Sitz Bath (DC) Additional Instructions: You were seen today for hemorrhoids. Please call follow-up with her doctor please use the prescribed medications. If you have worsening bleeding or any other concerns please do not hesitate to come back to emergency department. Prescriptions: New hydrocortisone-pramoxine 25-18 mg suppository 1 supp OR BID Qty: 24 0RF Rectiv 0.4 % (w/w) ointment 1 inch OR BID Qty: 30 0RF No Action sucralfate [Carafate] 100 mg/mL suspension 10 ml PO BID Qty: 840 0RF ascorbate calcium (vitamin C) 500 mg tablet 500 mg PO BID Qty: 90 2RF cyanocobalamin (vitamin B-12) 1,000 mcg tablet 1,000 mcg PO DAILY Qty: 28 0RF ferrous fumarate [Ferrocite] 324 mg (106 mg iron) tablet 324 mg PO QAM Qty: 28 0RF cyclobenzaprine 10 mg tablet 10 mg PO Q8H Qty: 10 0RF acetaminophen [Tylenol Extra Strength] 500 mg tablet 1,000 mg PO QID PRN (Reason: fever or pain) Qty: 14 0RF hydrocortisone acetate [Anusol-HC] 25 mg suppository 25 mg OR BID Qty: 24 0RF nitroglycerin 0.4 % (w/w) ointment 1 inch OR BID Qty: 30 0RF Rx Instructions: pea-sized amount applied BID to anus meclizine 25 mg tablet 25 mg PO DAILY PRN (Reason: dizziness) Qty: 14 0RF tramadol 50 mg tablet 50 mg PO TID PRN (Reason: severe pain (scale score 7-10)) Qty: 12 0RF ondansetron 4 mg tablet,disintegrating 4 mg PO Q8H PRN (Reason: dizziness, nausea) Qty: 10 0RF albuterol sulfate [ProAir HFA] 90 mcg/actuation HFA aerosol inhaler 2 puff inhalation Q6H PRN (Reason: Shortness Of Breath) omeprazole 40 mg capsule,delayed release(DR/EC) 40 mg PO DAILY amitriptyline 25 mg tablet 25 mg PO BEDTIME loratadine [Allergy Relief (loratadine)] 10 mg tablet 10 mg PO DAILY sumatriptan succinate 25 mg tablet 25 mg PO Q2-4H PRN (Reason: Migraine Headache) Rx Instructions: do not exceed 8 doses per 24 hrs hydrochlorothiazide 25 mg tablet 25 mg PO DAILY lisinopril 10 mg tablet 10 mg PO DAILY albuterol sulfate 90 mcg/actuation HFA aerosol inhaler 2 puff inhalation Q6H PRN topiramate 50 mg tablet 50 mg PO BID zolpidem 10 mg tablet 10 mg PO BEDTIME PRN (Reason: Insomnia) fluoxetine 40 mg capsule 40 mg PO DAILY lorazepam 1 mg tablet 1 mg PO DAILY PRN (Reason: Anxiety) lidocaine 4 % gel 1 applic topical TID PRN (Reason: Pain) docusate sodium 100 mg capsule 100 mg PO DAILY Qty: 30 11RF metformin 500 mg tablet 800 mg PO DAILY Suprep Bowel Prep Kit 17.5-3.13-1.6 gram recon soln See Rx Instructions PO .COMPLEX Qty: 354 0RF Rx Instructions: DILUTE; drink 1/2 at 6-8 pm and half at 11 PM- 1AM Print Language: Cymro
== END 2022-12-10 18:33 | disposition home or self-care (01) ==
PROVIDERS: Emergency Provider Student in an Organized Health Care Education/Training Program; PCP Internal Medicine
DX: K64.9 Unspecified hemorrhoids (principal); E11.9 Type 2 diabetes mellitus without complications; I10 Essential (primary) hypertension; E78.5 Hyperlipidemia, unspecified; Z87.891 Personal history of nicotine dependence; Z79.84 Long term (current) use of oral hypoglycemic drugs; Z79.899 Other long term (current) drug therapy
CPT/HCPCS: 99282; 99283

== ENCOUNTER 2023-01-13 12:07 | Outpatient (REF) | payer MEDICAID, SELFPAY ==
--- NOTE | ~2023-01-13 | US_ITS ---
EXAMINATION: US PELVIS CLINICAL INFORMATION: Benign neoplasm of connective tissue. COMPARISON: CT of the abdomen and pelvis 09/03/2020, pelvic ultrasound 01/13/2018. TECHNIQUE: Ultrasound of the pelvis is performed using both transabdominal and transvaginal transducers along with Doppler. Transvaginal imaging is performed due to inadequate visualization transabdominally. FINDINGS: UTERUS: The uterus is anteverted and measures 6.1 x 3.0 x 4.5 cm. The double wall endometrial thickness is 1 mm. The uterus is smooth in contour and has normal myometrial echogenicity. The 3 small fibroids seen previously are not identified on the current study. There is one cystic area in the myometrium on the right measuring 7 x 3 x 3 mm, which could represent a degenerated fibroid. Nabothian cysts are present in the cervix. ADNEXA: The right ovary was not seen. Left ovary measures 0.7 x 0.3 x 0.6 cm and appears unremarkable. No free fluid present in the cul-de-sac. US/US pelvic and transvaginal IMPRESSION: No significant abnormality is seen. The 3 small fibroids seen previously are not identified on the current study.
== END 2023-01-13 12:08 | disposition home or self-care (01) ==
LOC: HO.US 12:07
PROVIDERS: PCP Internal Medicine; Visit Provider Advanced Practice Midwife
DX: D21.9 Benign neoplasm of connective and other soft tissue, unspecified (principal)
CPT/HCPCS: 76830; 76856

== ENCOUNTER 2023-02-19 09:55 | Outpatient (AMB) | payer MEDICAID, SELFPAY ==
--- NOTE | 2023-02-19 10:04 | A.OFFVIS_ITS ---
Intake Vital Signs 02/19/23 10:06 Height 5 ft 6 in Weight 187 lb 6.287 oz BMI 30.2 BP 141/64 H Blood Pressure Location Lt brachial Position Sitting Pulse 87 Intake Visit Reasons: Follow up Diarrhea Intake Note: Josephine presents in the office as a follow up CC: She states that she is having pains in her stomach. She will have constipation and a lot of pains when she has a BM. It is a ball and it feels like she gets cut when the bowels come out. She states it looks like the hemorrhoids are hanging out of her rectum and she has bleeding. She was given medication to have a bowel movement and she was able to have a BM - she states it was a little softer than usual. She also has been taking pepto bismol and she states that her poop is the color of tar - almost like the color of the street. Tool Storage Attendant Required: Yes Tool Storage Attendant Name: [id number] Lina Allergies naproxen [From NAPROSYN] Allergy (Unknown, Verified 02/19/23 10:07) insomnia, aggitation HPI Follow up Diarrhea HPI Details 56 yr old f with hx of asthma, migraines and HTN seen for f/u RECAP: ?SHe had epigastric pain for many years, severe, non? radiating ?worse with food, fatty janie ?she has nausea, and occ? episodes fo vomiting ?no dysphagia ?she did have GERD<? some what controlled with PPI ?she is on omeprazole daily, recently? onlt taking zantac 150 mg OD which she feels is better ?she does have? constipation, but usu helped by taking mallox giving her soft? stools ?she has depression, and panic attacks, sees? psychiatry ?sleep is poor, variable quality ?she has irregular? periods ? EGD/colonoscopy-- 2018-- erosive gastritis, duodenitis, polyps, diverticulosis, hemorrhoids, fair prep h pylori breath test neg she had hemorrhoidectomy with Panitch CT 08/2020-- unremarkable LIVER : celiac serology neg, Hep C Ab pos, but PCR neg, Nikhil, SLA, SMA neg EGD/colonoscopy 05/2021 due for worsening sx: Endoscopy Findings: peptic duodenitis gastritis hiatal hernia Colonoscopy Findings: polyps internal hemorrhoids path: hyperplastic polyps. chronic esophagitis She went to ED 08/2021 with rectal bleeding and had CT which was unremarkable--physical exam revealed external hemorrhoids US 12/20- hepatic steatosis GES: 04/2022-- pos at 4 hr 32% INTERIM: she is having issues with her hemorrhoids, had seen Dr Lopez in the past she is having some constipation and hard stool she is trying docusate for but only had it for few days, and stools are hard appetite is not so great no nausea or vomiting she does see blood in the stool on and off EXAM: GENERAL: The patient is well developed and nontoxic. VITAL SIGNS:see workflow HEENT: Nonicteric sclerae, PERRLA, EOMI. Oropharynx clear. Moist mucous membranes. Conjunctivae appear well perfused. No thyroid mass. CHEST: Chest wall is nontender. HEART: Regular rate and rhythm without murmurs. LUNGS: Clear to auscultation bilaterally. ABDOMEN: Soft, positive bowel sounds, nontender, no organomegaly.no flank ten derness SKIN: No rash, no excessive bruising, petechiae, or purpura. NEUROLOGIC: Cranial nerves II-XII intact without motor/sensory deficit. ? A/P: 1/ Gastroparesis -uncertain etiology ? 2 /2 to psych medications 2/ fatty liver, WALLER 3/ hemorrhoids --symptomatic PLAN: 1/ Advised on low fiebr diet due to pascale roparesis 2/ add colace to laxative regimen and mi ralax 3/ re refer back to Dr Lopez for hemo rrhoid surgery 4/ repeat US and labs next visit as well as NIKHIL, Anti Hu, YO ab, TSH if ongoing sx PFSH Medical History Asthma Diabetes GERD (gastroesophageal reflux disease) Hemorrhoids with complication HTN (hypertension) Hyperlipidemia Migraine headache Surgical History H/O hemorrhoidectomy History of esophagogastroduodenoscopy (EGD) Hx of section Hx of colonoscopy Hx of excision of mass Hx of excision of mass Family History Family/Other Breast cancer Social History Alcohol intake: never Patient Tobacco Use Status: Former Tobacco user Quit Date: 8 yr ago Current occupational status: disabled 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 Sexual orientation: Straight/Heterosexual Gender identity: Female Female Reproductive History Menstrual Age of Menarche: 13 Physical Exam Vital Signs: Last Vital Signs Pulse 87 02/19/23 10:06 BP 141/64 H 02/19/23 10:06 BMI result Body Mass Index 30.2 Assessment & Plan Assessment & Plan (1) Hemorrhoid: Code(s): K64.9 - Unspecified hemorrhoids Plan: PLAN: 1/ Advised on low fiebr diet due to gastroparesis 2/ add colace to laxative regimen and miralax 3/ re refer back to Dr Lopez for hemorrhoid surgery 4/ repeat US and labs next visit as well as NIKHIL, Anti Hu, YO ab, TSH if ongoing sx Medications: New polyethylene glycol 3350 (Miralax) 17 grams PO BID 100 ea 1RF docusate sodium (Colace) 100 mg PO BID 120 caps 2RF Coding Level of Care Code Est Pt Level 3 (85172) Diagnoses Hemorrhoid K64.9
[2023-02-19 10:06] VITALS: BP 141/64; PULSE 87; BMI 30.2
== END 2023-02-19 10:50 | disposition home or self-care (01) ==
PROVIDERS: PCP Internal Medicine; Visit Provider Internal Medicine Gastroenterology
DX: K64.9 Unspecified hemorrhoids (principal)
CPT/HCPCS: 99213

== ENCOUNTER → 2023-02-19 09:55 | Outpatient (BNVA) | payer MEDICAID, SELFPAY | PROVIDERS: PCP Internal Medicine; Visit Provider Internal Medicine Gastroenterology | DX: K64.9 Unspecified hemorrhoids (principal) | CPT/HCPCS: 99212 ==

== ENCOUNTER 2023-03-04 11:00 | Outpatient (AMB) | payer MEDICAID, SELFPAY ==
--- NOTE | 2023-03-04 11:10 | MHC.OFFVIS ---
Intake Vital Signs 03/04/23 11:19 Height 5 ft 6 in Weight 192 lb BMI 31.0 BP 133/63 Blood Pressure Location Rt brachial Position Sitting Pulse 85 Intake Visit Reasons: Hemorrhoids Intake Note: This patient presents for an assessment for hemorrhoids. Patient c/o; reports pain and discomfort external and internal, reports rectal bleeding; episode this morning, reports burning sensation, reports unable to sit at this time due to the pain, reports itchiness. High School Teacher Required: Yes High School Teacher Language: Statistical Typist Name: Kane Information Interpreted: non-clinical & clinical Accompanied by: Spouse Allergies naproxen [From NAPROSYN] Allergy (Unknown, Verified 03/04/23 11:20) insomnia, aggitation HPI Hemorrhoids HPI Details 57-year-old female here for hemorrhoid issues. I would actually seen her in the office for hemorrhoids 2 years ago. She had minimal symptoms at that time with bleeding. However, recently, she has had persistent bleeding with bowel movements especially. She also describes significant pain with her hemorrhoids with swelling. She also describes a lot of burning sensation in her anus. She denies being constipated. She wants to proceed with hemorrhoidectomy this time. [facility] Medical History (Updated 03/04/23 @ 11:37 by Josesito Lopez MD) Bleeding hemorrhoids Hemorrhoids with complication HTN (hypertension) Diabetes Migraine headache GERD (gastroesophageal reflux disease) Asthma Hyperlipidemia Surgical History Hx of excision of mass Hx of section Hx of excision of mass History of esophagogastroduodenoscopy (EGD) Hx of colonoscopy H/O hemorrhoidectomy Family History Family/Other Breast cancer Social History Alcohol intake: never Patient Tobacco Use Status: Former Tobacco user Quit Date: 8 yr ago Current occupational status: disabled 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 Sexual orientation: Straight/Heterosexual Gender identity: Female Female Reproductive History Menstrual Age of Menarche: 13 Review of Systems Const Denies chills and Denies fever(s) Card Denies chest pain, Denies dyspnea and Denies dyspnea on exertion Resp Denies cough, Denies dyspnea and Denies dyspnea on exertion GI Reports hematochezia and Denies change in bowel habits Denies hematuria Musc Denies back pain and Denies limited range of motion Neuro Denies focal weakness and Denies convulsions Psych Denies depression and Denies mood swings Physical Exam Vital Signs: Last Vital Signs Pulse 85 03/04/23 11:19 BP 133/63 03/04/23 11:19 BMI result Body Mass Index 31.0 Const General: comfortable and no acute distress Orientation/consciousness: patient oriented x3 Neck Neck: Yes no lymphadenopathy Resp Auscultation: clear to auscultation bilaterally Cardio Rhythm: regular rhythm GI Other: Rectal exam shows External hemorrhoids, left and right with tenderness Palpation (GI): Soft to palpation, nontender and no guarding Neuro General: patient oriented x3 Office Procedures Anoscopy She was in laura-knife position. The anoscope was gently inserted. A full examination of the anal canal was done. There was no obvious fissure. There were no other lesions except for internal hemorrhoids on both the left and right side. There was no induration. There was no bleeding. She also had external hemorrhoids noted which were very tender and prominent [id number] Assessment & Plan Assessment & Plan (1) Bleeding hemorrhoids: Code(s): K64.9 - Unspecified hemorrhoids Plan: She wants to proceed with hemorrhoidectomy in view of her significant pain and bleeding from her hemorrhoids. I explained the technique of exam under anesthesia, hemorrhoidectomy. I reviewed the risks including but not limited to bleeding, infections, postop pain, as well as the benefits and alternatives. She understands and wants to proceed. I also reviewed with her what to expect postoperatively. Coding Level of Care Code Est Pt Level 3 (01604) Diagnoses Bleeding hemorrhoids K64.9 CPT Codes Details - CPT: 94445-[id number] ([id number])
[2023-03-04 11:19] VITALS: BP 133/63; PULSE 85; BMI 31.0
== END 2023-03-04 11:38 | disposition home or self-care (01) ==
PROVIDERS: PCP Internal Medicine; Referring Provider Internal Medicine Gastroenterology; Visit Provider Surgery
DX: K64.9 Unspecified hemorrhoids (principal)
CPT/HCPCS: 46600; 99213

== ENCOUNTER → 2023-03-04 11:00 | Outpatient (BNVA) | payer MEDICAID, SELFPAY | PROVIDERS: PCP Internal Medicine; Referring Provider Internal Medicine Gastroenterology; Visit Provider Surgery | DX: K64.9 Unspecified hemorrhoids (principal) | CPT/HCPCS: 46600; 99212 ==

== ENCOUNTER 2023-03-26 08:03 | Day surgery (SDC) | payer MEDICAID, SELFPAY ==
[2023-03-24 11:03] VITALS: BMI 31.0
--- NOTE | 2023-03-25 09:29 | HO.ANESPROP2 ---
Documented by User: Yuliya Merida NP 03/25/23 09:31 HPI - Anesthesia Eval Consult details Narrative: 57yo F for Hemorrhoidectomy PMFSH Active Problems Active Problems: All Active Problems (Updated 03/04/23 @ 11:37 by Josesito Lopez MD) Diabetes (Acute) Cervical radiculopathy (Acute) Painful arc syndrome of left shoulder (Acute) Hemorrhoid (Acute) Diarrhea (Acute) Epigastric abdominal pain (Acute) Screening mammogram, encounter for (Acute) Well woman exam (Acute) Vaginal lump (Acute) Bleeding hemorrhoids (Acute) Hemorrhoids with complication (Acute) Migraine headache (Acute) GERD (gastroesophageal reflux disease) (Acute) Asthma (Acute) Hyperlipidemia (Acute) Past Medical History Medical History (Updated 03/26/23 @ 08:14 by Della Augustine, RN) Arthritis Panic attacks Anxiety Depression Fatty liver Bleeding hemorrhoids Hemorrhoids with complication HTN (hypertension) Diabetes Migraine headache GERD (gastroesophageal reflux disease) Asthma Hyperlipidemia Family History Family History Family/Other Breast cancer Family history of problems with anesthesia: No Surgical History Surgical History (Updated 03/26/23 @ 08:14 by Della Augustine, RN) History of carpal tunnel release of both wrists Hx of excision of mass Hx of section Hx of excision of mass History of esophagogastroduodenoscopy (EGD) Hx of colonoscopy H/O hemorrhoidectomy History of Problems with Anesthesia: No Social History Social History Alcohol intake: never Patient Tobacco Use Status: Former Tobacco user Quit Date: 8 yrs ago Use of substances other than those prescribed or required for medical reasons: No Are you DNR?: No Advance Directives: No Advance Directives Information Provided: Yes Current occupational status: disabled 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 Sexual orientation: Straight/Heterosexual Gender identity: Female Meds Allergies Allergy/AdvReac Type Severity Reaction Status Date / Time naproxen [From NAPROSYN] Allergy Unknown insomnia, Verified 03/26/23 08:15 aggitation Home Medications Medication Instructions Recorded Confirmed Last Taken Type albuterol sulfate 90 mcg/actuation 2 puff inhalation Q6H PRN 12/07/19 03/26/23 Unknown History aerosol inhaler (ProAir HFA) Shortness Of Breath amitriptyline 25 mg tablet 25 mg PO BEDTIME 12/07/19 03/26/23 Unknown History fluoxetine 40 mg capsule 40 mg PO DAILY 12/07/19 03/26/23 03/29/20 06:00 History hydrochlorothiazide 25 mg tablet 25 mg PO DAILY 12/07/19 03/26/23 03/29/20 06:00 History lidocaine 4 % topical gel 1 applic topical TID PRN Pain 12/07/19 03/26/23 Unknown History loratadine 10 mg tablet (Allergy 10 mg PO DAILY 12/07/19 03/26/23 Unknown History Relief (loratadine)) lorazepam 1 mg tablet 1 mg PO DAILY PRN Anxiety 12/07/19 03/26/23 03/29/20 06:00 History omeprazole 40 mg capsule,delayed 40 mg PO DAILY 12/07/19 03/26/23 03/29/20 06:00 History release sumatriptan succinate 25 mg tablet 25 mg PO Q2-4H PRN Migraine 12/07/19 03/26/23 Unknown History Headache topiramate 50 mg tablet 50 mg PO BID 12/07/19 03/26/23 Unknown History zolpidem 10 mg tablet 10 mg PO BEDTIME PRN Insomnia 12/07/19 03/26/23 Unknown History metformin 500 mg tablet 800 mg PO DAILY 02/11/21 03/26/23 Unknown History risperidone 0.5 mg tablet 0.5 mg PO BEDTIME 02/19/23 03/26/23 Unknown History Exam Height,Weight and Vital Signs: Height 5 ft 6 in Weight 87.09 kg Pertinent Lab Results Pertinent Lab Results: Laboratory Tests 12/05/22 19:30 WBC 5.6 Hgb 12.7 Hct 38.7 Plt Count 269 Sodium 141 Potassium 3.2 L Chloride 103 Carbon Dioxide 21 L BUN 12 Creatinine 0.88 Narrative Narrative: EKG 06/2022 Vent. Rate : 071 BPM Atrial Rate : 071 BPM P-R Int : 158 ms QRS Dur : 082 ms QT Int : 406 ms P-R-T Axes : 043 011 027 degrees QTc Int : 441 ms Normal sinus rhythm Normal ECG When compared with ECG of 27-FEB-2022 20:14, No significant change was found Assessment and Plan Assessment Anesthesia Assessment: Chart Reviewed Final Anesthetic Review Family History of Problems with Anesthesia: No History of Problems with Anesthesia: No Documented by User: Calvin Field MD 03/26/23 09:04 PMFSH Past Medical History Medical History (Updated 03/26/23 @ 08:14 by Della Augustine, RN) Arthritis Panic attacks Anxiety Depression Fatty liver Bleeding hemorrhoids Hemorrhoids with complication HTN (hypertension) Diabetes Migraine headache GERD (gastroesophageal reflux disease) Asthma Hyperlipidemia Family History Family History Family/Other Breast cancer Surgical History Surgical History (Updated 03/26/23 @ 08:14 by Della Augustine RN) History of carpal tunnel release of both wrists Hx of excision of mass Hx of section Hx of excision of mass History of esophagogastroduodenoscopy (EGD) Hx of colonoscopy H/O hemorrhoidectomy Social History Social History Alcohol intake: never Patient Tobacco Use Status: Former Tobacco user Quit Date: 8 yrs ago Use of substances other than those prescribed or required for medical reasons: No Are you DNR?: No Advance Directives: No Advance Directives Information Provided: Yes Current occupational status: disabled 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 Sexual orientation: Straight/Heterosexual Gender identity: Female Meds Allergies Allergy/AdvReac Type Severity Reaction Status Date / Time naproxen [From NAPROSYN] Allergy Unknown insomnia, Verified 03/26/23 08:15 aggitation Home Medications Medication Instructions Recorded Confirmed Last Taken Type albuterol sulfate 90 mcg/actuation 2 puff inhalation Q6H PRN 12/07/19 03/26/23 Unknown History aerosol inhaler (ProAir HFA) Shortness Of Breath amitriptyline 25 mg tablet 25 mg PO BEDTIME 12/07/19 03/26/23 Unknown History fluoxetine 40 mg capsule 40 mg PO DAILY 12/07/19 03/26/23 03/29/20 06:00 History hydrochlorothiazide 25 mg tablet 25 mg PO DAILY 12/07/19 03/26/23 03/29/20 06:00 History lidocaine 4 % topical gel 1 applic topical TID PRN Pain 12/07/19 03/26/23 Unknown History loratadine 10 mg tablet (Allergy 10 mg PO DAILY 12/07/19 03/26/23 Unknown History Relief (loratadine)) lorazepam 1 mg tablet 1 mg PO DAILY PRN Anxiety 12/07/19 03/26/23 03/29/20 06:00 History omeprazole 40 mg capsule,delayed 40 mg PO DAILY 12/07/19 03/26/23 03/29/20 06:00 History release sumatriptan succinate 25 mg tablet 25 mg PO Q2-4H PRN Migraine 12/07/19 03/26/23 Unknown History Headache topiramate 50 mg tablet 50 mg PO BID 12/07/19 03/26/23 Unknown History zolpidem 10 mg tablet 10 mg PO BEDTIME PRN Insomnia 12/07/19 03/26/23 Unknown History metformin 500 mg tablet 800 mg PO DAILY 02/11/21 03/26/23 Unknown History risperidone 0.5 mg tablet 0.5 mg PO BEDTIME 02/19/23 03/26/23 Unknown History Exam Airway Mallampati Class: III TM Dist: >3cm Neck ROM: Full Loose/Missing/Broken Teeth: Yes, Upper and Lower Assessment and Plan Assessment Anesthesia Assessment: Anesthesia Plan Discussed Final Anesthetic Review NPO: Yes ASA Class: III Final Preanesthetic Review: No Changes in Pt Med Stat, Meds/Allgs Chart Reviewed, Consent Obtained/Reviewed and Anes Risks/Benef Reviewed Patient Risk: Intermediate Procedure Risk: Low Anesthetic Plan Anesthetic Plan: GA Disposition: Standard PACU
[2023-03-26] VITALS (7 sets, daily range): BP systolic 107–135; BP diastolic 40–70; PULSE 67–81; RESP 16–18; TEMP 36.3–36.6; O2SAT 96–99; BMI 32.4
[2023-03-26 08:48] LABS: Glucose, Whole Blood 128 mg/dL (60-115)
[2023-03-26] MEDS: Lactated Ringers 1,000 ML 100 ML IVCONT (08:59)
[2023-03-26 09:33] LABS: Glucose, Whole Blood 137 mg/dL (60-115)
--- NOTE | 2023-03-26 09:51 | MHC.SHP ---
Pre-Procedural Eval Section A Date of Service: 03/26/23 The patient is an INPATIENT: No Changes since office visit: No Cold of Flu in the past 2 weeks, No New Medical Problems, No Changes in Medication and No Patient answered all questions The History & Physical has been completed within 30 days and I have reviewed it.: Yes Section B Chief Complaint: Unspecified hemorrhoids Allergies: Allergies Allergy/AdvReac Type Severity Reaction Status Date / Time naproxen [From NAPROSYN] Allergy Unknown insomnia, Verified 03/26/23 08:15 aggitation Plan I have reviewed the history and physical and performed a pertinent physical examination on my patient. No changes have occurred unless specified. Time Spent With Patient Time: Total time managing care of this patient today ____ minutes.
--- NOTE | 2023-03-26 10:58 | P.OP_ITS ---
Operative Note Operative Note Date of Service: 03/26/23 Narrative: Preop diagnosis: Bleeding and painful internal external hemorrhoids Postop diagnosis: The same Procedure: Exam under anesthesia hemorrhoidectomy x2 columns Surgeon: Josesito Lopez MD The patient is a 67-year-old female with a long history of hemorrhoid issues. She continues to have bleeding and pain and wants to proceed with hemorrhoidectomy. She understood the technique of the planned procedure. She was aware of the risks, benefits, and alternatives. She did have a history of hemorrhoidectomy Dr. Dougherty in 2019. The patient was brought to the operating room. She was placed in prone laura- knife position. She was placed under general anesthesia via endotracheal tube. The buttocks were retracted with wide tape laterally. The perianal area was prepped and draped in the usual sterile fashion. A surgical time-out was done. The patient received Cefotan 2 g IV preoperatively Examination of the anal orifice revealed large external hemorrhoidal column on the right anterior. There was a small external hemorrhoidal column on the left posterior. I inserted the Jj Dunlap retractor and examined the anal canal circumferentially. Again these hemorrhoidal columns were seen but were noted to have a mix of some internal component especially on the right side. The hemorrhoid on the right was much bigger than the left There were no other lesions I applied a Morgan grasper and hemorrhoidal column on the right to retract this out into the field. I made a figure of 8 stitch at the pedicle with a chromic 3-0. I made an incision around this hemorrhoidal column to the perianal skin with a blade 15. I excised this hemorrhoidal column above the plane of sphincters along this incision with Metzenbaum scissors. I closed the incision with a running chromic 3-0 stitch. There was note of a lot of bleeding from the incision so I had to place multiple [id number] sutures to control this I then retracted the hemorrhoidal column on the left side using a Morgan clamp. I made an incision around this using a blade 15. I excised this hemorrhoidal column above the plane of sphincters along this incision. I closed the incision with a running chromic 3-0 stitch as well Additional hemostatic sutures were placed I observed for hemostasis. I had to place additional sutures the right side for hemostasis. Once hemostasis was finally confirmed, I proceeded to then infil trated the perianal area with Marcaine 0.5% for postop analgesia . Further observation for about 1 minute did not reveal any significant bleeding. I applied a gel foam into the anal canal for additional hemostasis. The procedure was completed. The patient tolerated the procedure well. There were no immediate complications. Initial and final counts of sponges and instruments were correct. Estimated blood loss was about 40 cc. The patient was extubated without difficulty and transferred to the recovery room with stable vital signs.
[2023-03-26 11:40] LABS: Glucose, Whole Blood 148 mg/dL (60-115)
== END 2023-03-26 12:48 | disposition home or self-care (01) ==
PROVIDERS: PCP Internal Medicine; Visit Provider Surgery
PROC: (CPT 46260; principal; 2023-03-26 09:40)
DX: K64.8 Other hemorrhoids (principal); K64.4 Residual hemorrhoidal skin tags; K21.9 Gastro-esophageal reflux disease without esophagitis; I10 Essential (primary) hypertension; E78.5 Hyperlipidemia, unspecified; E11.9 Type 2 diabetes mellitus without complications; J45.909 Unspecified asthma, uncomplicated; G43.909 Migraine, unspecified, not intractable, without status migrainosus; Z79.84 Long term (current) use of oral hypoglycemic drugs; Z79.899 Other long term (current) drug therapy; Z88.8 Allergy status to other drugs, medicaments and biological substances; Z87.891 Personal history of nicotine dependence
CPT/HCPCS: 46260; 82947; 88304; J0131; J2250; J2371; J2405; J2704; J2795; J3010

== ENCOUNTER → 2023-03-26 08:03 | Outpatient (BNV) | payer MEDICAID, SELFPAY | PROVIDERS: PCP Internal Medicine; Visit Provider Surgery | DX: K64.8 Other hemorrhoids (principal) | CPT/HCPCS: 46260 ==

== ENCOUNTER 2023-04-08 08:56 | Outpatient (AMB) | payer MEDICAID, SELFPAY ==
--- NOTE | 2023-04-08 09:06 | A.OFFVIS_ITS ---
Intake Vital Signs 04/08/23 09:12 Weight 191 lb BP 130/60 Blood Pressure Location Rt brachial Position Sitting Pulse 89 Intake Visit Reasons: S/P hemorrhoidectomy Intake Note: This patient presents for a post-op assessment status post hemorrhoidectomy. Pt c/o; reports feeling gassy , reports this morning had a bowel movement and noticed bleeding. Grease Man Required: Yes Grease Man Language: Japanese Information Interpreted: non-clinical & clinical Accompanied by: Spouse Allergies naproxen [From NAPROSYN] Allergy (Unknown, Verified 04/08/23 09:13) insomnia, aggitation HPI S/P hemorrhoidectomy HPI Details She underwent hemorrhoidectomy x2 columns last 03/26/2022. She tolerated procedure well. She says she feels well. She is happy with the outcome. She says her bowel movements are much better now. [facility] Medical History Arthritis Panic attacks Anxiety Depression Fatty liver Bleeding hemorrhoids Hemorrhoids with complication HTN (hypertension) Diabetes Migraine headache GERD (gastroesophageal reflux disease) Asthma Hyperlipidemia Surgical History History of hemorrhoidectomy (~2023) History of carpal tunnel release of both wrists Hx of excision of mass Hx of section Hx of excision of mass History of esophagogastroduodenoscopy (EGD) Hx of colonoscopy H/O hemorrhoidectomy Family History Family/Other Breast cancer Social History Alcohol intake: never Comment: counts correct Patient Tobacco Use Status: Former Tobacco user Quit Date: 8 yrs ago Current occupational status: disabled 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 Sexual orientation: Straight/Heterosexual Gender identity: Female Female Reproductive History Menstrual Age of Menarche: 13 Review of Systems Const Denies chills and Denies fever(s) Card Denies chest pain and Denies dyspnea Resp Denies dyspnea Physical Exam Vital Signs: Last Vital Signs Pulse 89 04/08/23 09:12 BP 130/60 04/08/23 09:12 Const General: comfortable and no acute distress Resp Effort & Inspection: normal respiratory effort Cardio Rate: regular rate GI Other: Rectal exam shows the hemorrhoidectomy sites to be healing well although there is still some residual edema on 1 site, no induration, no purulent discharge Assessment & Plan Assessment & Plan (1) Bleeding hemorrhoids: Code(s): K64.9 - Unspecified hemorrhoids Plan: Status post hemorrhoidectomy. She is doing very well. All incisions are healing well I advised her to avoid straining and constipation. She is to continue doing hot Sitz baths. I will see her for another wound check in about a month. Coding Level of Care Code Global (57015) Diagnoses Bleeding hemorrhoids K64.9
[2023-04-08 09:12] VITALS: BP 130/60; PULSE 89
== END 2023-04-08 09:21 | disposition home or self-care (01) ==
PROVIDERS: PCP Internal Medicine; Visit Provider Surgery
DX: K64.9 Unspecified hemorrhoids (principal)
CPT/HCPCS: 99024

== ENCOUNTER → 2023-04-08 08:56 | Outpatient (BNVA) | payer MEDICAID, SELFPAY | PROVIDERS: PCP Internal Medicine; Visit Provider Surgery | DX: K64.9 Unspecified hemorrhoids (principal) | CPT/HCPCS: 99212 ==

== ENCOUNTER 2023-05-13 10:57 | Outpatient (AMB) | payer MEDICAID, SELFPAY ==
[2023-05-13 11:10] VITALS: BP 132/90; PULSE 89
--- NOTE | 2023-05-13 11:10 | A.OFFVIS_ITS ---
Intake Vital Signs 05/13/23 11:10 Weight 191 lb BP 132/90 H Blood Pressure Location Rt brachial Position Sitting Pulse 89 Intake Visit Reasons: 1 mth wound check - hemorrhoidectomy Intake Note: This patient presents for a follow-up assessment for seton. Patient c/o; blood with BM. Taking dulcolax as needed. C/o constant passing gas. Surgery: 02/13/22 Slab Tripper Required: Yes Accompanied by: Self / Same As Patient Allergies naproxen [From NAPROSYN] Allergy (Unknown, Verified 05/13/23 11:12) insomnia, aggitation HPI 1 mth wound check - hemorrhoidectomy HPI Details She is here for follow-up after hemorrhoidectomy last 03/26/2023. She says she feels well and denies significant pain. She however was worried because she notices small amounts of blood on wiping once in a while. She also feels ?gassy?. PFS Medical History Arthritis Panic attacks Anxiety Depression Fatty liver Bleeding hemorrhoids Hemorrhoids with complication HTN (hypertension) Diabetes Migraine headache GERD (gastroesophageal reflux disease) Asthma Hyperlipidemia Surgical History (Updated 05/13/23 @ 11:31 by Josesito Lopez MD) Status post hemorrhoidectomy History of hemorrhoidectomy (~2023) History of carpal tunnel release of both wrists Hx of excision of mass Hx of section Hx of excision of mass History of esophagogastroduodenoscopy (EGD) Hx of colonoscopy H/O hemorrhoidectomy Family History Family/Other Breast cancer Social History Alcohol intake: never Comment: counts correct Patient Tobacco Use Status: Former Tobacco user Quit Date: 8 yrs ago Current occupational status: disabled 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 Sexual orientation: Straight/Heterosexual Gender identity: Female Female Reproductive History Menstrual Age of Menarche: 13 Review of Systems Const Denies chills and Denies fever(s) Card Denies chest pain, Denies dyspnea and Denies dyspnea on exertion Resp Denies cough, Denies dyspnea and Denies dyspnea on exertion GI Reports hematochezia and Denies change in bowel habits Denies hematuria Musc Denies back pain and Denies limited range of motion Neuro Denies focal weakness and Denies convulsions Psych Denies depression and Denies mood swings Physical Exam Vital Signs: Last Vital Signs Pulse 89 05/13/23 11:10 BP 132/90 H 05/13/23 11:10 Const General: comfortable and no acute distress GI Other: Rectal exam shows the hemorrhoidectomy sites to be well healed, no induration, no low bleeding, no tenderness, some small residual external hemorrhoids seen Palpation (GI): Soft to palpation, not firm and nontender Assessment & Plan Assessment & Plan (1) Status post hemorrhoidectomy: Code(s): Z98.890 - Other specified postprocedural states; Z87.19 - Personal history of other diseases of the digestive system Plan: I assured her that her hemorrhoidectomy sites are healing well. She describes passage of small amounts of blood per rectum once in a while seen on wiping. I told her that this may be seen until the hemorrhoidectomy sites are completely healed. Furthermore, she still has some residual external hemorrhoids although these are not bulky. I advised her on continuing with stool softeners and fiber supplementation. She can follow up with me on a p.r.n. basis. Coding Level of Care Code Global (51726) Diagnoses Status post hemorrhoidectomy Z98.890; Z87.19
== END 2023-05-13 11:31 | disposition home or self-care (01) ==
PROVIDERS: PCP Internal Medicine; Visit Provider Surgery
DX: Z98.890 Other specified postprocedural states (principal); Z87.19 Personal history of other diseases of the digestive system
CPT/HCPCS: 99024

== ENCOUNTER → 2023-05-13 10:57 | Outpatient (BNVA) | payer MEDICAID, SELFPAY | PROVIDERS: PCP Internal Medicine; Visit Provider Surgery | DX: Z09 Encounter for follow-up examination after completed treatment for conditions other than malignant neoplasm (principal); Z98.890 Other specified postprocedural states; Z87.19 Personal history of other diseases of the digestive system | CPT/HCPCS: 99212 ==

== ENCOUNTER 2023-06-18 10:16 | Outpatient (AMB) | payer MEDICAID, SELFPAY ==
[2023-06-18 10:20] VITALS: BP 135/61; PULSE 93; BMI 32.5
--- NOTE | 2023-06-18 10:20 | A.OFFVIS_ITS ---
Vital Signs 06/18/23 10:20 Height 5 ft 4 in Weight 189 lb 9.561 oz BMI 32.5 BP 135/61 Blood Pressure Location Lt brachial Position Sitting Pulse 93 Intake Visit Reasons: 4 month follow up Intake Note: Josephine presents in the office as a 4 month follow up. CC: She states that she is having issues with the bleeding even after having the hemorrhoid surgery. She states that she is having diarrhea but no constipation. She also said when she eats she gets pains in her stomach. Stock Patch Sawyer Required: Yes Stock Patch Sawyer Name: [id number] Radha Allergies naproxen [From NAPROSYN] Allergy (Unknown, Verified 06/18/23 10:20) insomnia, aggitation HPI HPI 4 month follow up: Details: 56 yr old f with hx of asthma, migraines and HTN seen for f/u RECAP: SHe had epigastric pain for many years, severe, non radiating worse with food, fatty janie she has nausea, and occ episodes fo vomiting no dysphagia she did have GERD< some what controlled with PPI she is on omeprazole daily, recently onlt taking zantac 150 mg OD which she feels is better she does have constipation, but usu helped by taking mallox giving her soft stools she has depression, and panic attacks, sees psychiatry sleep is poor, variable quality she has irregular periods EGD/colonoscopy-- 2019-- erosive gastritis, duodenitis, polyps, diverticulosis, hemorrhoids, fair prep h pylori breath test neg she had hemorrhoidectomy with Panitch CT 08/2020-- unremarkable LIVER : celiac serology neg, Hep C Ab pos, but PCR neg, Elza, SLA, SMA neg EGD/colonoscopy 05/2021 due for worsening sx: Endoscopy Findings: peptic duodenitis gastritis hiatal hernia Colonoscopy Findings: polyps internal hemorrhoids path: hyperplastic polyps. chronic esophagitis She went to ED 08/2021 with rectal bleeding and had CT which was unremarkable--physical exam revealed external hemorrhoids US 12/20- hepatic steatosis GES: 04/2022-- pos at 4 hr 32% INTERIM: SHe is taking stool softener and fiber she still has some bleeding per Dr Lopez note, she has small ext hemorrhoids no nausea or vomiting she noted black stools since taking peptobismol --and some blood on wiping no dizziness not been taking nsaids EXAM: GENERAL: The patient is well developed and nontoxic. VITAL SIGNS:see workflow HEENT: Nonicteric sclerae, PERRLA, EOMI. Oropharynx clear. Moist mucous membranes. Conjunctivae appear well perfused. No thyroid mass. CHEST: Chest wall is nontender. HEART: Regular rate and rhythm without murmurs. LUNGS: Clear to auscultation bilaterally. ABDOMEN: Soft, positive bowel sounds, nontender, no organomegaly.no flank tenderness SKIN: No rash, no excessive bruising, petechiae, or purpura. NEUROLOGIC: Cranial nerves II-XII intact without motor/sensory deficit. A/P: 1/ Gastroparesis -uncertain etiology ? 2/2 to psych medications 2/ fatty liver, WALLER 3/ hemorrhoids --symptomatic PLAN: 1/ Fiber is problematic due to gastroparesis, maybe try cautious amounts 2/ stop peptobismol if ongoing black stools or low hgb then get EGD [facility] Medical History Arthritis Panic attacks Anxiety Depression Fatty liver Bleeding hemorrhoids Hemorrhoids with complication HTN (hypertension) Diabetes Migraine headache GERD (gastroesophageal reflux disease) Asthma Hyperlipidemia Surgical History Status post hemorrhoidectomy History of hemorrhoidectomy (~2023) History of carpal tunnel release of both wrists Hx of excision of mass Hx of section Hx of excision of mass History of esophagogastroduodenoscopy (EGD) Hx of colonoscopy H/O hemorrhoidectomy Family History (Updated 06/18/23 @ 10:24 by LORY Lawrence) Family/Other Breast cancer Colon cancer Social History Alcohol intake: never Comment: counts correct Patient Tobacco Use Status: Former Tobacco user Quit Date: 8 yrs ago Current occupational status: disabled 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 Sexual orientation: Straight/Heterosexual Gender identity: Female Female Reproductive History Menstrual Age of Menarche: 13 Physical Exam Vital Signs: Last Vital Signs Pulse 93 06/18/23 10:20 BP 135/61 06/18/23 10:20 BMI result Body Mass Index 32.5 Assessment & Plan Assessment & Plan (1) Status post hemorrhoidectomy: Code(s): Z98.890 - Other specified postprocedural states; Z87.19 - Personal history of other diseases of the digestive system Category: Surgical Plan: see above Orders: Orders Complete Blood Count Auto Diff Today Z87.19 - Personal history of other diseases of the digestive system, Z98.890 - Other specified postprocedural states
== END 2023-06-18 11:32 | disposition home or self-care (01) ==
PROVIDERS: PCP Internal Medicine; Referring Provider Internal Medicine; Visit Provider Internal Medicine Gastroenterology
DX: Z98.890 Other specified postprocedural states (principal); Z87.19 Personal history of other diseases of the digestive system
CPT/HCPCS: 99213

== ENCOUNTER 2023-06-18 10:16 | Outpatient (REF) | payer MEDICAID, SELFPAY ==
[2023-06-18 11:52] LABS: MANUAL DIFF FLAG NO
[2023-06-18 12:19] LABS: Basophils Percent Auto 0.4 % (0-2); Eosinophils Absolute Auto 0.2 X10*3/uL (0.0-0.4); Eosinophils Percent Auto 2.8 % (0-4); Hematocrit 36.9 % (37.0-47.0); Hemoglobin 11.6 g/dl (12.0-16.0); Imm Gran Abs Auto 0.02 X10*3/uL (0.00-0.03); Imm Gran Pct Auto 0.3 % (0.0-0.4); Lymphocytes Absolute Auto 2.1 X10*3/uL (1.2-4.9); Lymphocytes Percent Auto 30.3 % (20-40); Mean Corpuscular HGB Conc 31.4 g/dl (31.0-35.0); Mean Corpuscular Hemoglobin 26.4 pg (27.0-33.0); Mean Corpuscular Volume 84.1 fL (80.0-98.0); Mean Platelet Volume 9.7 fL (9.4-12.3); Monocytes Absolute Auto 0.5 X10*3/uL (0.1-1.2); Monocytes Percent Auto 6.8 % (2-11); Neutrophils Absolute Auto 4.1 x10*3/uL (2.0-8.3); Neutrophils Percent Auto 59.4 % (45-73); Platelet Count 305 X10*3/uL (160-400); Red Blood Count 4.39 X10*6/uL (4.20-5.50); Red Cell Distribution Width 14.6 % (11.0-16.0); White Blood Count 6.9 X10*3/uL (4.8-10.8)
== END 2023-06-18 10:17 | disposition home or self-care (01) ==
LOC: HO.LAB 10:16
PROVIDERS: PCP Internal Medicine; Visit Provider Internal Medicine Gastroenterology
DX: Z87.19 Personal history of other diseases of the digestive system (principal); Z98.890 Other specified postprocedural states
CPT/HCPCS: 36415; 85025; 99212

== ENCOUNTER 2023-08-10 13:21 | Outpatient (AMB) | payer MEDICAID, SELFPAY ==
--- NOTE | 2023-08-10 13:56 | A.OFFVIS_ITS ---
Vital Signs 08/10/23 13:57 Height 5 ft 4 in Weight 189 lb 9.561 oz BMI 32.5 BP 126/70 Intake Visit Reasons: [facility] annual exam/DO NOT RS Intake Note: c/o of left breast pain x 3 mo. Refrigerator Room Clerk Required: Yes Refrigerator Room Clerk Language: Conference Concierge Name: Nikia HENLEY Information Interpreted: non-clinical & clinical Optics Manufacturing Technician: Optics Manufacturing Technician Present (Nikia HENLEY) Accompanied by: Self / Same As Patient Allergies naproxen [From NAPROSYN] Allergy (Unknown, Verified 08/10/23 14:04) insomnia, aggitation Post menopausal: Yes HPI Comments Details: Presenting for annual exam. Complaining of left breast retroareolar pain Last Pap/HPV was negative in 05/19 Last Mammogram was BI-RADS 1 in 11/21 Last Colonoscopy was done in 06/20 [facility] Medical History Arthritis Panic attacks Anxiety Depression Fatty liver Bleeding hemorrhoids Hemorrhoids with complication HTN (hypertension) Diabetes Migraine headache GERD (gastroesophageal reflux disease) Asthma Hyperlipidemia Surgical History Status post hemorrhoidectomy History of hemorrhoidectomy (~2023) History of carpal tunnel release of both wrists Hx of excision of mass Hx of section Hx of excision of mass History of esophagogastroduodenoscopy (EGD) Hx of colonoscopy H/O hemorrhoidectomy Family History (Updated 08/10/23 @ 14:06 by Nikia Sanchez CMA) Family/Other Breast cancer Colon cancer Social History (Updated 08/10/23 @ 14:06 by Nikia Sanchez CMA) Household Members: Spouse Housing: Apartment Alcohol intake: never Comment: counts correct Patient Tobacco Use Status: Former Tobacco user Years Smoked: 10 Current occupational status: disabled 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 Sexual orientation: Straight/Heterosexual Gender identity: Female Female Reproductive History Menstrual Age of Menarche: 13 control method: permanent sterilization Menopause type: natural Total pregnancies: 7 Full term: 6 Number of Living Children: 6 Ab spontaneous: 1 Date of last pap smear: 05/16/20 Date of Mammogram: 11/06/22 Review of Systems Const All systems reviewed & are unremarkable except as noted in HPI and below Card Reports as per HPI Resp Reports as per HPI GI Reports as per HPI and Reports no additional complaints Reports as per HPI Physical Exam Vital Signs: Last Vital Signs BP 126/70 08/10/23 13:57 BMI result Body Mass Index 32.5 Const General: cooperative, healthy appearing and comfortable Chest Chest palpation & inspection: normal inspection of the chest and normal palpation of entire chest wall Breast/axilla inspection: normal inspection of the breasts (Right breast within normal, left breast retroareolar tenderness) and normal inspection of the axillae Breast/axilla palpation: normal palpation of the breasts, normal palpation of the axillae and no axillary lymphadenopathy Resp Effort & Inspection: normal respiratory effort Auscultation: clear to auscultation bilaterally Percussion: percussion normal Cardio Palpation: normal PMI Rate: regular rate Rhythm: regular rhythm Heart sounds: no murmurs and no rubs Peripheral pulses: Peripheral pulses 2+ throughout GI Inspection: Yes normal to inspection Palpation (GI): Soft to palpation, nontender, no guarding, not rigid and No hepatosplenomegaly present Percussion: Yes normal to percussion Auscultation: normal bowel sounds Rectal Exam - Female: deferred General: Yes bladder normal to palpation External Female Exam: No lesion Speculum Exam - Vagina: normal appearance of the vagina, normal palpation, normal vaginal discharge and not erythematous Speculum Exam - Cervix: normal appearance of the cervix and normal palpation Bimanual exam- vagina & uterus: normal bimanual exam, normal palpation, uterine size normal, bladder normal to palpation, consistency normal and normal palpation Bimanual Exam- Adnexa, other: normal adnexae, no masses and no tenderness Assessment & Plan Assessment & Plan (1) Well woman exam: Code(s): Z01.419 - Encounter for gynecological examination (general) (routine) without abnormal findings Category: Medical Plan: Co testing not indicated this year. Counseled the patient about the recommended dietary allowance of 1200 mg of Calcium & 600 IU of vitamin D. Instructions given the patient to schedule her next screening Mammogram in 11/22. The patient was instructed to perform monthly self-breast exams and schedule annual exam in a year. All questions answered and the patient verbalized understanding. (2) Breast pain, left: Comment: Retroareolar Code(s): N64.4 - Mastodynia Category: Medical Plan: Discussed with the patient the finding on Breast exam (retroareolar left breast tender) .The differential diagnosis includes but not limited to lump/cyst/pre cancer/cancer or dense breast tissue. The work up includes breast US and diagnostic mammogram and referred the patient for surgical breast consult. Orders: Orders US breast RT complete Today N64.4 - Mastodynia MM tomosynthesis diagnostic BI Today N64.4 - Mastodynia Referrals General Surgery Referral N64.4 - Mastodynia Coding Level of Care Code Est Pt Prev Care 40-64y(16775) Diagnoses Well woman exam Z01.419 Breast pain, left N64.4
[2023-08-10 13:57] VITALS: BP 126/70; BMI 32.5
== END 2023-08-10 14:30 | disposition home or self-care (01) ==
LOC: HO.HWS 13:21
PROVIDERS: PCP Internal Medicine; Referring Provider Internal Medicine; Visit Provider Obstetrics & Gynecology
DX: Z01.419 Encounter for gynecological examination (general) (routine) without abnormal findings (principal); N64.4 Mastodynia
CPT/HCPCS: 99396

== ENCOUNTER → 2023-08-10 13:21 | Outpatient (BNVA) | payer MEDICAID, SELFPAY | PROVIDERS: PCP Internal Medicine; Visit Provider Obstetrics & Gynecology | DX: Z01.419 Encounter for gynecological examination (general) (routine) without abnormal findings (principal); N64.4 Mastodynia | CPT/HCPCS: 99396 ==

== ENCOUNTER 2023-08-30 12:45 | Emergency (ER) | payer MEDICAID, SELFPAY ==
[2023-08-30 13:09] VITALS: BP 134/66; PULSE 88; RESP 16; TEMP 36.5; O2SAT 96; BMI 32.3
--- NOTE | 2023-08-30 13:11 | ED.GENADULT ---
HPI - General Adult General Chief complaint: Back Pain/Injury Stated complaint: back pain Time Seen by Provider: 08/30/23 17:28 Source: patient and aerial photograph interpreter Mode of arrival: ambulatory Limitations: language barrier History of Present Illness ED Provider: Wil HPI narrative: Patient is a 58-year-old female presenting to the emergency department with complaint of lumbar pain for the past week. She denies any fall or other trauma. States that she was walking up and down the stairs with her grandchildren prior to onset of pain. States that she feels pain is radiating up her back. She reports malodorous urine but denies urinary urgency, frequency, hematuria. She denies fever, chills, body aches. Has been taking Tylenol and using diclofenac gel with little relief. Denies any saddle anesthesia or bowel or bladder incontinence. Denies fevers, history of cancer or IV drug use. MD complaint: Back pain Onset (ago): week(s) Location: back Severity: severe Quality: aching Pain Consistency: constant Relieving factors: rest Exacerbating factors: movement Associated symptoms: denies other symptoms Treatments prior to arrival: other Related Data Home Medications ?Medication ?Instructions ?Recorded ?Confirmed albuterol sulfate 90 mcg/actuation 2 puff inhalation Q6H PRN 12/07/19 03/26/23 aerosol inhaler (ProAir HFA) Shortness Of Breath amitriptyline 25 mg tablet 25 mg PO BEDTIME 12/07/19 03/26/23 fluoxetine 40 mg capsule 40 mg PO DAILY 12/07/19 03/26/23 hydrochlorothiazide 25 mg tablet 25 mg PO DAILY 12/07/19 03/26/23 lidocaine 4 % topical gel 1 applic topical TID PRN Pain 12/07/19 03/26/23 loratadine 10 mg tablet (Allergy 10 mg PO DAILY 12/07/19 03/26/23 Relief (loratadine)) lorazepam 1 mg tablet 1 mg PO DAILY PRN Anxiety 12/07/19 03/26/23 omeprazole 40 mg capsule,delayed 40 mg PO DAILY 12/07/19 03/26/23 release sumatriptan succinate 25 mg tablet 25 mg PO Q2-4H PRN Migraine 12/07/19 03/26/23 Headache topiramate 50 mg tablet 50 mg PO BID 12/07/19 03/26/23 zolpidem 10 mg tablet 10 mg PO BEDTIME PRN Insomnia 12/07/19 03/26/23 metformin 500 mg tablet 800 mg PO DAILY 02/11/21 03/26/23 risperidone 0.5 mg tablet 0.5 mg PO BEDTIME 02/19/23 03/26/23 Previous Rx's ?Medication ?Instructions ?Recorded docusate sodium 100 mg capsule 100 mg PO DAILY #30 caps 01/02/20 acetaminophen 500 mg tablet 1,000 mg (2 x 500 mg) PO QID PRN 09/03/20 (Tylenol Extra Strength) fever or pain #14 tabs cyclobenzaprine 10 mg tablet 10 mg PO Q8H Muscle spasm #10 tabs 09/03/20 ascorbate calcium (vitamin C) 500 500 mg PO BID #90 tabs 10/07/21 mg tablet cyanocobalamin (vitamin B-12) 1,000 mcg PO DAILY #28 tabs 01/05/22 1,000 mcg tablet tramadol 50 mg tablet 50 mg PO TID PRN severe pain 12/05/22 (scale score 7-10) #12 tabs docusate sodium 100 mg capsule 100 mg PO BID #60 caps 07/14/23 (Colace) cyclobenzaprine 5 mg tablet 5 mg PO TID PRN muscle spasm #10 08/30/23 tabs lidocaine 5 % topical patch 1 patch topical DAILY #15 ea 08/30/23 Allergies Allergy/AdvReac Type Severity Reaction Status Date / Time naproxen [From NAPROSYN] Allergy Unknown insomnia, Verified 08/30/23 13:10 aggitation Review of Systems Review of Systems: As per HPI. Yes all other systems are reviewed and are negative Constitutional: Constitutional: Reports as per HPI [facility] Past Medical History Medical History Arthritis Panic attacks Anxiety Depression Fatty liver Bleeding hemorrhoids Hemorrhoids with complication HTN (hypertension) Diabetes Migraine headache GERD (gastroesophageal reflux disease) Asthma Hyperlipidemia Surgical History Status post hemorrhoidectomy History of hemorrhoidectomy (~2023) History of carpal tunnel release of both wrists Hx of excision of mass Hx of section Hx of excision of mass History of esophagogastroduodenoscopy (EGD) Hx of colonoscopy H/O hemorrhoidectomy Family History Family History (Updated 08/10/23 @ 14:06 by Nikia Sanchez CMA) Family/Other Breast cancer Colon cancer Social History Social History (Updated 08/10/23 @ 14:06 by Nikia Sanchez CMA) Household Members: Spouse Housing: Apartment Alcohol intake: never Comment: counts correct Patient Tobacco Use Status: Former Tobacco user Years Smoked: 10 Advance Directives: No Advance Directives Information Provided: No Current occupational status: disabled 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 Blood pressure normal. Heart rate normal. Respiratory rate normal. Temperature normal. Oxygen saturation normal. Const General: cooperative, healthy appearing and no acute distress Orientation/consciousness: oriented to person, oriented to place, oriented to time and patient oriented x3 Limitations: no limitations HENMT Head: Yes normocephalic and Yes atraumatic Ears: external ears normal General nose exam: Normal external nose present Face and sinus: Yes face symmetric Mouth: oropharynx normal and moist mucous membranes Throat: Yes uvula midline Eyes Pupils: Equal, round and reactive pupils present Neck Neck: Yes normal visual inspection, Yes no meningeal signs and Yes supple Resp Effort & Inspection: normal respiratory effort and able to speak in complete sentences Auscultation: clear to auscultation bilaterally Cardio Rate: regular rate Rhythm: regular rhythm Heart sounds: S1 normal heart sound present and S2 normal heart sound present GI Palpation (GI): Soft to palpation and nontender Auscultation: normoactive bowel sounds General: Yes no CVA tenderness Back/Spine/Pelvis Back: no CVA tenderness Thoracic/Lumbar Spine: thoracic and lumbar spine normal to inspection, thoraco-lumbar ROM normal, straight leg raise negative bilaterally, pain with thoraco-lumbar ROM, paraspinal muscle tenderness on the left in the lower thoracic, in the upper thoracic and in the mid lumbar and on the right in the upper lumbar and in the mid lumbar, No thoraco-lumbar spasm, No thoracic spinal tenderness and No lumbar spinal tenderness Pelvis: no pain with anterior-posterior compression and no pain with lateral compression Skin General skin exam: elasticity normal and turgor normal Neuro General: oriented to person, oriented to place, oriented to time, patient oriented x3, gait normal, tone normal, moves all extremities, Normal light touch and pain sensation, no meningeal signs, no focal motor deficits, CN's II-XI intact bilaterally and deep tendon reflexes 2+ bilaterally Cranial nerves: Yes Equal, round and reactive pupils present Cognition (Neuro): normal cognition Motor exam (neuro): 5/5 motor strength present throughout, no tremor noted, Normal motor muscle tone present throughout and Motor abnormalities not present Extrem General: Yes full ROM, Yes no pedal edema and Yes no calf tenderness Psych Mental Status: mental status grossly normal Affect: normal affect Thought process: Normal thought process present Course Course Course Narrative: RME performed by Stacie Sewell PA-C. Patient is a 58 year old assigned female at presenting to the emergency department with low back pain. Patient states that over the last week she has had low back pain and now has foul smelling urine. Detailed physical exam and review of systems are deferred to the training specialist. Labs ordered. Patient placed back in the waiting room pending room availability and results. Medical Decision Making Medical Decision Making MDM Narrative: Patient is a 58-year-old female presenting to the emergency department with complaint of lumbar pain for the past week. On exam patient is awake, A+Ox3, VS WNL, afebrile, normal neurological exam without focal deficits, physical exam findings as above. Given reported symptoms and physical exam findings, initial differential includes lumbar strain, lumbar radiculopathy, degenerative disc disease, disc herniation, spinal stenosis, spondylosis. Less likely vertebral fracture. Do not suspect malignancy/mass, SEA, cauda equina/cord compression. Labs notable for no leukocytosis or anemia, no evidence of SALLIE. Urinalysis is without evidence of infection. Physical exam findings consistent with lumbar strain. Will treat with cyclobenzaprine and topical lidocaine patches. Discussed with patient that if her symptoms do not improve she should follow-up with PCP as she may need physical therapy. Return precautions discussed at bedside. Patient verbalized understanding of and agreement with plan. Assessment, results, plan and return precautions discussed at bedside with conference interpreter. Differential Diagnosis Differential Diagnoses: The differential diagnosis associated with the presentation includes As per [facility]. Lab Data [facility] Lab Attestation statement: I reviewed the patient's lab results. As per [facility]. 08/30/23 13:30 08/30/23 13:30 Labs: Lab Results 08/30/23 08/30/23 Range/Units 13:30 17:17 WBC 5.7 (4.8-10.8) X10*3/uL RBC 4.57 (4.20-5.50) X10*6/uL Hgb 12.0 (12.0-16.0) g/dl Hct 37.6 (37.0-47.0) % MCV 82.3 (80.0-98.0) fL MCH 26.3 L (27.0-33.0) pg MCHC 31.9 (31.0-35.0) g/dl RDW 14.7 (11.0-16.0) % Plt Count 274 (160-400) X10*3/uL MPV 9.3 L (9.4-12.3) fL Immature Gran % (Auto) 0.4 (0.0-0.4) % Neut % (Auto) 59.0 (45-73) % Lymph % (Auto) 31.4 (20-40) % [place] % (Auto) 6.7 (2-11) % Eos % (Auto) 2.1 (0-4) % Baso % (Auto) 0.4 (0-2) % Lymph # (Auto) 1.8 (1.2-4.9) X10*3/uL [place] # (Auto) 0.4 (0.1-1.2) X10*3/uL Eos # (Auto) 0.1 (0.0-0.4) X10*3/uL Baso # (Auto) 0.0 (0.0-0.2) X10*3/uL Abs Immat Gran (auto) 0.02 (0.00-0.03) X10*3/uL Absolute Neuts (auto) 3.4 (2.0-8.3) x10*3/uL Absolute Nucleated RBC 0.000 (0.0-0.012) X10*3/uL Nucleated RBC % (auto) 0.0 (0.0-0.2) /100WBC Sodium 141 (135-145) mmol/L Potassium 3.7 (3.3-5.1) mmol/L Chloride 104 (96-108) mmol/L Carbon Dioxide 26 (22-29) mmol/L Anion Gap 15 (12-20) BUN 10 (9-16) mg/dL Creatinine 0.91 (0.5-1.4) mg/dL Estim Creat Clear Calc 69.4 Estimated GFR > 60 Random Glucose 143 H (60-115) mg/dL Calcium 10.1 (8.4-10.2) mg/dL Magnesium 1.5 L (1.6-2.6) mg/dL Total Bilirubin 0.3 (0.0-1.0) mg/dL AST 35 H (5-31) U/L ALT 35 H (0-31) U/L Alkaline Phosphatase 75 (39-117) U/L Total Protein 7.6 (6.5-8.0) g/dL Albumin 4.3 (3.5-5.0) g/dL Urine Color Yellow Urine Appearance Clear Urine pH 5.5 (5.0-9.0) Ur Specific [place] 1.010 (1.005-1.025) Urine Protein Negative (Neg-Trace) mg/dL Urine Glucose (UA) Negative (Negative) mg/dL Urine Ketones Negative (Negative) mg/dL Urine Blood Negative (Negative) Urine Nitrite Negative (Negative) Ur Leukocyte Esterase Negative (Negative) External Record Review External record reviewed: Inpatient record, Office record and Outpatient record Prescription Management I considered prescription management with: Pain Medication Discharge Plan Discharge Clinical Impression: Lumbar strain Patient Disposition: Home, Self-Care Instructions: Low Back Strain (ED) Additional Instructions: You were evaluated in the emergency department today for back pain. Your evaluation did not show signs of medical conditions requiring emergent intervention at this time. We recommended that you use ibuprofen or Tylenol per package directions every 6 hours as needed for pain. If necessary, you can alternate these medications so that you take one medication every 3 hours. For instance, at noon take ibuprofen, then at 3:00 p.m. take Tylenol, then at 6:00 p.m. take ibuprofen. You have been prescribed a muscle relaxer which you may take every 8 hours as needed for spasms. You should not take this medication in combination with tramadol as this can cause excessive drowsiness. You have been prescribed 5% topical lidocaine patches which you can wear for up to 12 hours in a 24 hour period. Do not apply heat directly over the patches. Please schedule an appointment for follow-up with your primary care physician this week for further evaluation of your symptoms. Return to the emergency department if you experience worsening back pain, difficulty walking, fevers, numbness, tingling, incontinence, groin numbness or tingling, or any other concerning symptoms. Prescriptions: New cyclobenzaprine 5 mg tablet 5 mg PO TID PRN (Reason: muscle spasm) Qty: 10 0RF lidocaine 5 % adhesive patch,medicated 1 patch topical DAILY Qty: 15 0RF Rx Instructions: leave on most painful area for up to 12 hrs No Action ascorbate calcium (vitamin C) 500 mg tablet 500 mg PO BID Qty: 90 2RF cyanocobalamin (vitamin B-12) 1,000 mcg tablet 1,000 mcg PO DAILY Qty: 28 0RF docusate sodium [Colace] 100 mg capsule 100 mg PO BID Qty: 60 2RF cyclobenzaprine 10 mg tablet 10 mg PO Q8H Qty: 10 0RF acetaminophen [Tylenol Extra Strength] 500 mg tablet 1,000 mg PO QID PRN (Reason: fever or pain) Qty: 14 0RF tramadol 50 mg tablet 50 mg PO TID PRN (Reason: severe pain (scale score 7-10)) Qty: 12 0RF albuterol sulfate [ProAir HFA] 90 mcg/actuation HFA aerosol inhaler 2 puff inhalation Q6H PRN (Reason: Shortness Of Breath) omeprazole 40 mg capsule,delayed release(DR/EC) 40 mg PO DAILY amitriptyline 25 mg tablet 25 mg PO BEDTIME loratadine [Allergy Relief (loratadine)] 10 mg tablet 10 mg PO DAILY sumatriptan succinate 25 mg tablet 25 mg PO Q2-4H PRN (Reason: Migraine Headache) Rx Instructions: do not exceed 8 doses per 24 hrs hydrochlorothiazide 25 mg tablet 25 mg PO DAILY topiramate 50 mg tablet 50 mg PO BID zolpidem 10 mg tablet 10 mg PO BEDTIME PRN (Reason: Insomnia) fluoxetine 40 mg capsule 40 mg PO DAILY lorazepam 1 mg tablet 1 mg PO DAILY PRN (Reason: Anxiety) lidocaine 4 % gel 1 applic topical TID PRN (Reason: Pain) docusate sodium 100 mg capsule 100 mg PO DAILY Qty: 30 11RF metformin 500 mg tablet 800 mg PO DAILY risperidone 0.5 mg tablet 0.5 mg PO BEDTIME Print Language: Kittitian
[2023-08-30 13:39] LABS: MANUAL DIFF FLAG NO
[2023-08-30 13:41] LABS: Basophils Percent Auto 0.4 % (0-2); Eosinophils Absolute Auto 0.1 X10*3/uL (0.0-0.4); Eosinophils Percent Auto 2.1 % (0-4); Hematocrit 37.6 % (37.0-47.0); Imm Gran Abs Auto 0.02 X10*3/uL (0.00-0.03); Imm Gran Pct Auto 0.4 % (0.0-0.4); Lymphocytes Absolute Auto 1.8 X10*3/uL (1.2-4.9); Lymphocytes Percent Auto 31.4 % (20-40); Mean Corpuscular HGB Conc 31.9 g/dl (31.0-35.0); Mean Corpuscular Hemoglobin 26.3 pg (27.0-33.0); Mean Corpuscular Volume 82.3 fL (80.0-98.0); Mean Platelet Volume 9.3 fL (9.4-12.3); Monocytes Absolute Auto 0.4 X10*3/uL (0.1-1.2); Monocytes Percent Auto 6.7 % (2-11); Neutrophils Absolute Auto 3.4 x10*3/uL (2.0-8.3); Platelet Count 274 X10*3/uL (160-400); Red Blood Count 4.57 X10*6/uL (4.20-5.50); Red Cell Distribution Width 14.7 % (11.0-16.0); White Blood Count 5.7 X10*3/uL (4.8-10.8)
[2023-08-30 13:55] LABS: Alanine Aminotransferase 35 U/L (0-31); Albumin Level 4.3 g/dL (3.5-5.0); Alkaline Phosphatase 75 U/L (39-117); Anion Gap 15 (12-20); Aspartate Amino Transferase 35 U/L (5-31); Bilirubin Total 0.3 mg/dL (0.0-1.0); Blood Urea Nitrogen 10 mg/dL (9-16); Calcium 10.1 mg/dL (8.4-10.2); Carbon Dioxide 26 mmol/L (22-29); Chloride 104 mmol/L (96-108); Creatinine Clr Calc Pharmacy 69.4; Estimated Glomerular Filt Rate > 60; Glucose Random 143 mg/dL (60-115); Magnesium 1.5 mg/dL (1.6-2.6); Potassium 3.7 mmol/L (3.3-5.1); Sodium 141 mmol/L (135-145); Total Protein 7.6 g/dL (6.5-8.0)
[2023-08-30 17:18] VITALS: BP 131/72; PULSE 72; RESP 16; TEMP 36.4; O2SAT 99
[2023-08-30 17:23] LABS: Appearance Urine Clear; Color Urine Yellow; Glucose Urine UA Negative (Negative); Leukocyte Esterase Urine Negative (Negative); Nitrite Urine Negative (Negative); PH 5.5 (5.0-9.0); Urine Blood Negative (Negative); Urine Ketones Negative (Negative); Urine Protein Negative (Neg-Trace)
[2023-08-30 18:45] LABS: Glucose, Whole Blood 94 mg/dL (60-115)
[2023-08-30] MEDS: Lidocaine 4 % Patch ADH..PATCH 2 PATCH TRANSDERMA (18:58)
[2023-08-30] MEDS: Cyclobenzaprine HCl 10 MG TABLET PO (18:58)
[2023-08-30 19:04] VITALS: BP 131/72; PULSE 72; RESP 16; TEMP 36.4; O2SAT 99
== END 2023-08-30 19:04 | disposition home or self-care (01) ==
PROVIDERS: Physician Assistant Medical; Emergency Provider Internal Medicine; PCP Internal Medicine
DX: S39.012A Strain of muscle, fascia and tendon of lower back, initial encounter (principal); X58.XXXA Exposure to other specified factors, initial encounter; Y93.9 Activity, unspecified; Y92.9 Unspecified place or not applicable; Y99.8 Other external cause status; Z79.899 Other long term (current) drug therapy; Z87.891 Personal history of nicotine dependence
CPT/HCPCS: 36415; 80053; 81003; 82947; 83735; 85025; 99283; 99284

== ENCOUNTER 2023-09-06 09:56 | Outpatient (AMB) | payer MEDICAID, SELFPAY ==
--- NOTE | 2023-09-06 09:57 | A.OFFVIS_ITS ---
Vital Signs 09/06/23 09:58 Height 5 ft 4 in Weight 188 lb BMI 32.3 Intake Visit Reasons: Mastodynia Intake Note: This patient presents for an assessment for Mastodynia. Patient c/o; reports left breast pain, reports no discharge from nipple, reports no change in shape or size of the breast. 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 Services: Guest Services Coordinator Present Guest Services Coordinator Name: Kane Information Interpreted: non-clinical & clinical Accompanied by: Self / Same As Patient Allergies naproxen [From NAPROSYN] Allergy (Unknown, Verified 09/06/23 10:05) insomnia, aggitation Medication List - Last Reconciled 09/06/23 by Josesito Lopez MD acetaminophen (Tylenol Extra Strength) 1,000 mg (2 x 500 mg) PO QID PRN albuterol sulfate 90 mcg/actuation (ProAir HFA) 2 puffs inhalation Q6H PRN amitriptyline 25 mg PO BEDTIME ascorbate calcium (vitamin C) 500 mg PO BID cyanocobalamin (vitamin B-12) 1,000 mcg PO DAILY cyclobenzaprine 10 mg PO Q8H cyclobenzaprine 5 mg PO TID PRN docusate sodium 100 mg PO DAILY docusate sodium (Colace) 100 mg PO BID fluoxetine 40 mg PO DAILY hydrochlorothiazide 25 mg PO DAILY lidocaine 5% 1 patch topical DAILY lidocaine 4% 1 appl topical TID PRN loratadine (Allergy Relief (loratadine)) 10 mg PO DAILY lorazepam 1 mg PO DAILY PRN metformin 800 mg PO DAILY omeprazole 40 mg PO DAILY risperidone 0.5 mg PO BEDTIME sumatriptan succinate 25 mg PO Q2-4H PRN topiramate 50 mg PO BID tramadol 50 mg PO TID PRN zolpidem 10 mg PO BEDTIME PRN HPI HPI Mastodynia: Details: [age] year old female referred for breast pain. She says that she has had pain on the left breast on the lateral aspect for about 2 months now. She denies any palpable breast mass. She describes this pain as sharp and stabbing. Review of her records show that her last mammogram was in October, and this was unremarkable. She denies any nipple drainage. She also complains of pain on her left shoulder and she has significant limitation of range of motion with this. [facility] Medical History Mastodynia Arthritis Panic attacks Anxiety Depression Fatty liver Bleeding hemorrhoids Hemorrhoids with complication HTN (hypertension) Diabetes Migraine headache GERD (gastroesophageal reflux disease) Asthma Hyperlipidemia Surgical History Status post hemorrhoidectomy History of hemorrhoidectomy (~2023) History of carpal tunnel release of both wrists Hx of excision of mass Hx of section Hx of excision of mass History of esophagogastroduodenoscopy (EGD) Hx of colonoscopy H/O hemorrhoidectomy Family History Family/Other Breast cancer Colon cancer Social History Household Members: Spouse Housing: Apartment Alcohol intake: never Comment: counts correct Patient Tobacco Use Status: Former Tobacco user Years Smoked: 10 Current occupational status: disabled 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 Sexual orientation: Straight/Heterosexual Gender identity: Female Female Reproductive History Menstrual Age of Menarche: 13 Review of Systems Const Denies chills and Denies fever(s) Card Denies chest pain, Denies dyspnea and Denies dyspnea on exertion Resp Denies cough, Denies dyspnea and Denies dyspnea on exertion GI Denies hematochezia and Denies change in bowel habits Denies hematuria Musc Denies back pain, Reports arthralgias (Wound left shoulder) and Reports limited range of motion Neuro Denies focal weakness and Denies convulsions Psych Denies depression and Denies mood swings Physical Exam Vital Signs: BMI result Body Mass Index 32.3 Const General: comfortable and no acute distress Orientation/consciousness: patient oriented x3 Neck Neck: Yes no lymphadenopathy Chest Other: No palpable breast masses, no axillary lymphadenopathy, no nipple or skin changes She actually points to the rib area of the lateral aspect of the left breast where she is tender Resp Auscultation: clear to auscultation bilaterally Cardio Rhythm: regular rhythm GI Palpation (GI): Soft to palpation, nontender and no guarding Neuro General: patient oriented x3 Extrem Other: Unable to do full range of abduction of the left shoulder Assessment & Plan Assessment & Plan (1) Mastodynia: Code(s): N64.4 - Mastodynia Category: Medical Plan: She actually points to her lateral ribs on the left chest as where she usually has pain and tenderness. I do not feel any palpable breast mass or any axillary lymphadenopathy She also has significant pain on abduction of her left shoulder. I told her that this may be part of her pain as well. She says she is to undergo physical therapy for this. Her last mammogram on record was in October,. She is scheduled to have a mammogram next week. I reviewed her mammogram findings and we will call her if there is any significant pathology seen. Coding Level of Care Code Est Pt Level 3 (12089) Diagnoses Mastodynia N64.4
[2023-09-06 09:58] VITALS: BMI 32.3
== END 2023-09-06 10:11 | disposition home or self-care (01) ==
PROVIDERS: PCP Internal Medicine; Referring Provider Obstetrics & Gynecology; Visit Provider Surgery
DX: N64.4 Mastodynia (principal)
CPT/HCPCS: 99213

== ENCOUNTER → 2023-09-06 09:56 | Outpatient (BNVA) | payer MEDICAID, SELFPAY | PROVIDERS: PCP Internal Medicine; Referring Provider Obstetrics & Gynecology; Visit Provider Surgery | DX: N64.4 Mastodynia (principal) | CPT/HCPCS: 99212 ==

== ENCOUNTER 2023-09-15 12:02 | Outpatient (REF) | payer MEDICAID, SELFPAY ==
--- NOTE | ~2023-09-15 | US_ITS ---
EXAMINATION: MM DIAGNOSTIC DIGITAL BREAST TOMOSYNTHESIS, BILATERAL US BREAST LIMITED, LEFT MAMMOGRAPHY: CLINICAL INFORMATION: 58-year-old female complaining of left retroareolar and lateral breast pain. Patient also due for bilateral yearly screening. COMPARISON: Mammography: 11/06/2022, 10/30/2021, 06/10/2020, 05/17/2017, 12/29/2012 TECHNIQUE: Digital breast tomosynthesis is performed in both the craniocaudal and mediolateral oblique views along with computer-aided detection (CAD). Synthesized 2D images are generated from the tomosynthesis. In addition, full-field left 3-D mediolateral view was also obtained. FINDINGS: There are scattered areas of fibroglandular density (ACR BI-RADS breast composition Category b). There are no suspicious masses, suspicious grouped calcifications, or areas of architectural distortion in either breast. The parenchymal pattern is stable from prior exams. There is no skin or axillary abnormality. No mammographic abnormalities evident in the retroareolar or lateral left breast to correlate with left breast pain. ULTRASOUND: CLINICAL INFORMATION: As above. COMPARISON: No prior ultrasound. TECHNIQUE: Targeted sonographic evaluation left breast was performed using a high frequency linear transducer. Attention was given to the left breast retroareolar and lateral region, in the regions of reported breast pain. Selected archived documentation. FINDINGS: LEFT BREAST: There is a mixture of fatty and fibroglandular tissue. No suspicious mass is seen. There is no pathologic acoustic shadowing. There is no cystic abnormality. There is no sonographic correlate to the regions of breast pain. US/US breast RT limited mamm only IMPRESSION: 1. There are no findings suspicious for malignancy in either breast. 2. The regions of left breast pain show no mammographic or sonographic correlate or abnormality. Recommend clinical management. 3. Otherwise, recommend resuming routine annual screening mammography. OVERALL ASSESSMENT: Mammography: BI-RADS 1 - Negative Ultrasound: BI-RADS 1 - Negative RECOMMENDATION: 1. Patient should be managed based on the clinical impression. 2. Otherwise, routine annual screening mammography. This patient's information was entered into a reminder system with a target due date for their next mammogram.
== END 2023-09-15 12:03 | disposition home or self-care (01) ==
LOC: HO.MAMMO 12:02
PROVIDERS: PCP Internal Medicine; Visit Provider Obstetrics & Gynecology
DX: N64.4 Mastodynia (principal)
CPT/HCPCS: 76642; 77062; 77066

== ENCOUNTER → 2023-09-15 13:00 | Outpatient (BNV) | payer MEDICAID, SELFPAY | PROVIDERS: PCP Internal Medicine; Visit Provider Radiology Diagnostic Radiology | DX: N64.4 Mastodynia (principal) | CPT/HCPCS: 76642; 77062; 77066 ==

== ENCOUNTER 2024-01-06 12:26 | Emergency (ER) | payer MEDICAID, SELFPAY ==
--- NOTE | ~2024-01-06 | XR_ITS ---
EXAMINATION: XR LUMBOSACRAL SPINE CLINICAL INFORMATION: Back pain COMPARISON: Lumbar spine xray on 09/11/20 TECHNIQUE: Three views of the lumbosacral spine. FINDINGS: The vertebral bodies and posterior elements are normal. The disc spaces are preserved and the vertebral alignment is normal. The paraspinal soft tissues are normal. XR/XR lumbar spine 2-3V IMPRESSION: Unremarkable examination. Electronically signed by: Holly Vides MD 01/06/2024 01:49 PM WILLIE AGUILAR
[2024-01-06 12:33] VITALS: BP 132/78; PULSE 79; O2SAT 97
[2024-01-06 12:36] VITALS: BP 140/70; PULSE 85; RESP 16; TEMP 36.3; O2SAT 99; BMI 26.3
--- NOTE | 2024-01-06 12:56 | ED_ITS ---
HPI - Back Pain/Injury General Chief Complaint: Back Pain/Injury Stated Complaint: LOW BACK PAIN PER EMS Time Seen by Provider: 01/06/24 13:35 Source: patient, RN notes reviewed and old records reviewed Mode of arrival: ambulatory History of Present Illness ED Provider: Sidra Nayak PA-C HPI Narrative: 58-year-old female with a past medical history anxiety, depression, HTN, diabetes, GERD, asthma, HLD, presenting to the ED complaining of right-sided low back pain x 1 week worsening over the past few days with radiation down RLE. Reports associated paresthesias. States pain is acute on chronic. Denies known injury/trauma or fall. States has been recently had surgery and is being fitted for prosthesis this has been helping him a lot around the house. Denies weakness, incontinence, retention, hematuria, dysuria. Related Data Home Medications ?Medication ?Instructions ?Recorded ?Confirmed albuterol sulfate 90 mcg/actuation 2 puff inhalation Q6H PRN 12/07/19 09/06/23 aerosol inhaler (ProAir HFA) Shortness Of Breath amitriptyline 25 mg tablet 25 mg PO BEDTIME 12/07/19 09/06/23 fluoxetine 40 mg capsule 40 mg PO DAILY 12/07/19 09/06/23 hydrochlorothiazide 25 mg tablet 25 mg PO DAILY 12/07/19 09/06/23 lidocaine 4 % topical gel 1 applic topical TID PRN Pain 12/07/19 09/06/23 loratadine 10 mg tablet (Allergy 10 mg PO DAILY 12/07/19 09/06/23 Relief (loratadine)) lorazepam 1 mg tablet 1 mg PO DAILY PRN Anxiety 12/07/19 09/06/23 omeprazole 40 mg capsule,delayed 40 mg PO DAILY 12/07/19 09/06/23 release sumatriptan succinate 25 mg tablet 25 mg PO Q2-4H PRN Migraine 12/07/19 09/06/23 Headache topiramate 50 mg tablet 50 mg PO BID 12/07/19 09/06/23 zolpidem 10 mg tablet 10 mg PO BEDTIME PRN Insomnia 12/07/19 09/06/23 metformin 500 mg tablet 800 mg PO DAILY 02/11/21 09/06/23 risperidone 0.5 mg tablet 0.5 mg PO BEDTIME 02/19/23 09/06/23 Previous Rx's ?Medication ?Instructions ?Recorded docusate sodium 100 mg capsule 100 mg PO DAILY #30 caps 01/02/20 acetaminophen 500 mg tablet 1,000 mg (2 x 500 mg) PO QID PRN 09/03/20 (Tylenol Extra Strength) fever or pain #14 tabs cyclobenzaprine 10 mg tablet 10 mg PO Q8H Muscle spasm #10 tabs 09/03/20 ascorbate calcium (vitamin C) 500 500 mg PO BID #90 tabs 10/07/21 mg tablet cyanocobalamin (vitamin B-12) 1,000 mcg PO DAILY #28 tabs 01/05/22 1,000 mcg tablet tramadol 50 mg tablet 50 mg PO TID PRN severe pain 12/05/22 (scale score 7-10) #12 tabs cyclobenzaprine 5 mg tablet 5 mg PO TID PRN muscle spasm #10 08/30/23 tabs lidocaine 5 % topical patch 1 patch topical DAILY #15 ea 08/30/23 docusate sodium 100 mg capsule 100 mg PO BID #56 caps 11/30/23 (Stool Softener) Allergies Allergy/AdvReac Type Severity Reaction Status Date / Time naproxen [From NAPROSYN] Allergy Unknown insomnia, Verified 01/06/24 12:37 aggitation Review of Systems Review of Systems: Yes all other systems are reviewed and are negative Constitutional: Constitutional: Reports as per HPI Neurologic: Denies Sensory deficit (Neuro) [facility], [facility] Past Medical History Attestation statement: The following information was validated with the patient. Source: old records reviewed Medical History Mastodynia Arthritis Panic attacks Anxiety Depression Fatty liver Bleeding hemorrhoids Hemorrhoids with complication HTN (hypertension) Diabetes Migraine headache GERD (gastroesophageal reflux disease) Asthma Hyperlipidemia Surgical History Status post hemorrhoidectomy History of hemorrhoidectomy (~2023) History of carpal tunnel release of both wrists Hx of excision of mass Hx of section Hx of excision of mass History of esophagogastroduodenoscopy (EGD) Hx of colonoscopy H/O hemorrhoidectomy Family History Family History Family/Other Breast cancer Colon cancer Social History Social History Household Members: Spouse Housing: Apartment Alcohol intake: never Comment: counts correct Patient Tobacco Use Status: Former Tobacco user Years Smoked: 10 Advance Directives: No Advance Directives Information Provided: Yes Current occupational status: disabled 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 Sexual orientation: Straight/Heterosexual Gender identity: Female Physical Exam Vital Signs: Vital Signs: Last Vital Signs Temp 97.3 F 01/06/24 12:36 Pulse 64 01/06/24 15:20 Resp 15 01/06/24 15:20 BP 125/70 01/06/24 15:20 Pulse Ox 97 01/06/24 15:20 O2 Del Method Room Air 01/06/24 15:20 BMI result Body Mass Index 26.3 Const: General: cooperative, healthy appearing and no acute distress Orientation/consciousness: patient oriented x3 Limitations: no limitations HEENT: Head: Yes normal to inspection and Yes atraumatic Ears: hearing grossly normal bilaterally General nose exam: Normal external nose present Face and sinus: Yes normal facial exam Eyes: General: appearance normal, both eyes and all related structures EOM: EOMs intact bilaterally Neck: Neck: Yes normal visual inspection and Yes no meningeal signs Resp: Effort & Inspection: normal respiratory effort and no respiratory distress Auscultation: clear to auscultation bilaterally GI: Inspection: Yes normal to inspection Palpation (GI): Soft to palpation, nontender, no guarding and not rigid : General: Yes no CVA tenderness Back/Spine/Pelvis: Other: No midline cervical/thoracic/lumbar spinous tenderness/step-off or deformity. + right-sided lumbar MSK/paraspinal reproducible tenderness. No rash or erythema/ecchymosis Back: no CVA tenderness Skin: Rashes: no rashes Wounds: no wounds Neuro: Other: Strength intact throughout. No saddle anesthesia. Sensation intact to light touch. Neurovascular intact distally General: patient oriented x3, gait normal, tone normal, moves all extremities, no meningeal signs and no focal motor deficits Cranial nerves: Yes CN's II-XII intact bilaterally Gait exam (Neuro): Normal gait present Motor exam (neuro): 5/5 motor strength present throughout Sensory Exam: No Sensory deficit (Neuro) Extrem: General: Yes normal to inspection Course Course Course Narrative: This is an RME: Additional HPI, ROS, PE not included below will be deferred to primary provider. RME assessment and note performed by: Meghan Joyce PA-C This is a 58-year-old female who presents emergency department with complaints of right low back pain for the last 3 days. Patient reports that her recently had knee surgery and has been helping him around the house more. She has a history of herniated disc diagnosed several years ago. Denies any numbness or tingling. She states pain worsens with movement. No urinary symptoms. No saddle anesthesia. She has been using objects around the home to ambulate over the last several days. Plan: X-rays, further ER evaluation needed XR lumbar spine 2-3V IMPRESSION: Unremarkable examination. -1730--on re-evaluation after p.o. morphine patient is ambulating with slow steady gait. Offered PT/case management however patient declined and would like to be discharged home > Results discussed with patient including worrisome signs and symptoms and strict return precautions, and when to return to the emergency department. They verbalized understanding and feel safe for discharge at this time. Medications Administered Discontinued Medications Generic Name Dose Route Start Last Admin Trade Name Dengq PRN Reason Stop Dose Admin Acetaminophen 650 mg 01/06/24 13:46 01/06/24 14:47 Acetaminophen 325 Mg Tablet PO 01/06/24 13:47 650 mg ONCE ONE Administration Cyclobenzaprine HCl 10 mg 01/06/24 13:46 01/06/24 14:47 Cyclobenzaprine Hcl 10 Mg Tablet PO 01/06/24 13:47 10 mg ONCE ONE Administration Lidocaine 1 patch 01/06/24 13:46 01/06/24 14:46 Lidocaine 4 % Patch Adh..Patch TRANSDERMA 01/06/24 13:47 1 patch ONCE ONE Administration Protocol Lorazepam 1 mg 01/06/24 14:49 01/06/24 15:05 Lorazepam 1 Mg Tablet PO 01/06/24 14:50 1 mg ONCE ONE Administration Morphine Sulfate 15 mg 01/06/24 16:30 01/06/24 16:44 Morphine Sulfate Immed Release 15 Mg Tablet PO 01/06/24 16:31 15 mg ONCE ONE Administration Medical Decision Making Medical Decision Making MDM Narrative: 58-year-old female with a past medical history anxiety, depression, HTN, diabetes, GERD, asthma, HLD, presenting to the ED complaining of right-sided low back pain x 1 week worsening over the past few days with radiation down RLE. On exam vital signs stable, NAD, nontoxic appearing, physical exam as noted above. No midline spinous tenderness or red flag symptoms. Pain elicited with movement. No saddle anesthesia. Concern for sciatica vs herniated disc vs MSK pain/strain. Low suspicion for cauda equina, cord compression, epidural abscess, renal stone or pyelo Plan: X-rays ordered in triage, pain control Please refer to course for remaining clinical decision making, interpretation of labs/imaging results, and discussions with consultants and/or family members. Differential Diagnosis Differential Diagnoses: The differential diagnosis associated with the presentation includes As above Independent Interpretation I performed an independent interpretation of an: Plain X-Ray Radiology Impression Discussion of test interpretation with radiology: I have reviewed the radiologist's reading. External Record Review External record reviewed: Inpatient record, Office record, Outpatient record, Prior outpatient labs, Prior outpatient radiology, Primary care record and Outside ED record Tests considered The following testing was considered but not selected: As above Prescription Management I considered prescription management with: Pain Medication Chronic Conditions Patient?s care impacted by: Diabetes and Other (HLD, asthma) Discharge Plan Discharge Clinical Impression: Low back pain, Lumbar radiculopathy Patient Disposition: Home, Self-Care Instructions: Acute Low Back Pain (ED), Lumbar Radiculopathy (ED) Prescriptions: No Action ascorbate calcium (vitamin C) 500 mg tablet 500 mg PO BID Qty: 90 2RF cyanocobalamin (vitamin B-12) 1,000 mcg tablet 1,000 mcg PO DAILY Qty: 28 0RF docusate sodium [Stool Softener] 100 mg capsule 100 mg PO BID Qty: 56 0RF cyclobenzaprine 10 mg tablet 10 mg PO Q8H Qty: 10 0RF acetaminophen [Tylenol Extra Strength] 500 mg tablet 1,000 mg PO QID PRN (Reason: fever or pain) Qty: 14 0RF tramadol 50 mg tablet 50 mg PO TID PRN (Reason: severe pain (scale score 7-10)) Qty: 12 0RF cyclobenzaprine 5 mg tablet 5 mg PO TID PRN (Reason: muscle spasm) Qty: 10 0RF lidocaine 5 % adhesive patch,medicated 1 patch topical DAILY Qty: 15 0RF Rx Instructions: leave on most painful area for up to 12 hrs albuterol sulfate [ProAir HFA] 90 mcg/actuation HFA aerosol inhaler 2 puff inhalation Q6H PRN (Reason: Shortness Of Breath) omeprazole 40 mg capsule,delayed release(DR/EC) 40 mg PO DAILY amitriptyline 25 mg tablet 25 mg PO BEDTIME loratadine [Allergy Relief (loratadine)] 10 mg tablet 10 mg PO DAILY sumatriptan succinate 25 mg tablet 25 mg PO Q2-4H PRN (Reason: Migraine Headache) Rx Instructions: do not exceed 8 doses per 24 hrs hydrochlorothiazide 25 mg tablet 25 mg PO DAILY topiramate 50 mg tablet 50 mg PO BID zolpidem 10 mg tablet 10 mg PO BEDTIME PRN (Reason: Insomnia) fluoxetine 40 mg capsule 40 mg PO DAILY lorazepam 1 mg tablet 1 mg PO DAILY PRN (Reason: Anxiety) lidocaine 4 % gel 1 applic topical TID PRN (Reason: Pain) docusate sodium 100 mg capsule 100 mg PO DAILY Qty: 30 11RF metformin 500 mg tablet 800 mg PO DAILY risperidone 0.5 mg tablet 0.5 mg PO BEDTIME Referrals: [facility] [place] [Provider Group] Paradise Langley MD [Primary Care Provider] - 5 days Print Language: Upper Sorbian
[2024-01-06] MEDS: Lidocaine 4 % Patch ADH..PATCH 1 PATCH TRANSDERMA (14:46)
[2024-01-06] MEDS: Cyclobenzaprine HCl 10 MG TABLET PO (14:47)
[2024-01-06] MEDS: Acetaminophen 325 MG TABLET 650 MG PO (14:47)
[2024-01-06] MEDS: LORazepam 1 MG TABLET PO (15:05)
[2024-01-06 15:20] VITALS: BP 125/70; PULSE 64; RESP 15; O2SAT 97
[2024-01-06] MEDS: Morphine Sulfate Immed Release 15 MG TABLET PO (16:44)
[2024-01-06 18:02] VITALS: BP 125/70; PULSE 64; RESP 15; TEMP 36.8; O2SAT 97
== END 2024-01-06 18:03 | disposition home or self-care (01) ==
PROVIDERS: Emergency Provider Emergency Medicine; PCP Internal Medicine
DX: M54.50 Low back pain, unspecified (principal); I10 Essential (primary) hypertension; Z79.899 Other long term (current) drug therapy
CPT/HCPCS: 72100; 99283

== ENCOUNTER 2024-02-25 10:01 | Outpatient (AMB) | payer MEDICAID, SELFPAY ==
[2024-02-25 10:47] VITALS: BP 135/73; PULSE 90; O2SAT 96; BMI 29.8
--- NOTE | 2024-02-25 10:47 | A.OFFVIS_ITS ---
Vital Signs 02/25/24 10:47 Height 5 ft 5 in Weight 179 lb BMI 29.8 BP 135/73 Blood Pressure Location Lt brachial Position Sitting Pulse 90 Pulse Oximetry (%) 96 Oxygen Delivery Method Room Air Intake Visit Reasons: Low Back Pain/ED Referral/olamide from 02/15 Allergies naproxen [From NAPROSYN] Allergy (Unknown, Verified 02/25/24 10:48) insomnia, aggitation Medication List - Last Reconciled 02/25/24 by Martha Wray, PULLING MACHINE OPERATOR acetaminophen (Tylenol Extra Strength) 1,000 mg (2 x 500 mg) PO QID PRN acetaminophen (Tylenol Extra Strength) 500 mg PO Q6H PRN albuterol sulfate 90 mcg/actuation (ProAir HFA) 2 puffs inhalation Q6H PRN amitriptyline 25 mg PO BEDTIME ascorbate calcium (vitamin C) 500 mg PO BID cyanocobalamin (vitamin B-12) 1,000 mcg PO DAILY cyclobenzaprine 10 mg PO Q8H cyclobenzaprine 5 mg PO TID PRN cyclobenzaprine 5 mg PO Q8H PRN 5 days docusate sodium 100 mg PO DAILY docusate sodium (Stool Softener) 100 mg PO BID fluoxetine 40 mg PO DAILY hydrochlorothiazide 25 mg PO DAILY lidocaine 5% 1 patch topical DAILY lidocaine 5% (Lidoderm) 1 patch topical DAILY PRN MDD remove after 12 hours lidocaine 4% 1 appl topical TID PRN loratadine (Allergy Relief (loratadine)) 10 mg PO DAILY lorazepam 1 mg PO DAILY PRN metformin 800 mg PO DAILY morphine 15 mg PO Q6H PRN 3 days omeprazole 40 mg PO DAILY risperidone 0.5 mg PO BEDTIME sumatriptan succinate 25 mg PO Q2-4H PRN topiramate 50 mg PO BID tramadol 50 mg PO TID PRN zolpidem 10 mg PO BEDTIME PRN HPI Comments Details: Josephine is a very pleasant 58-year-old female who presents to the office today for evaluation management of her chronic lower back pain Slovak-speaking only, completed with quarry plant crusher operator #[id number] Patient endorses left lower back pain without radiation down the lower extremity. She has been suffering with this pain for approximately 15 years. Denies numbness, weakness, tingling of the lower extremity Denies inciting injury, fall, trauma Recently evaluated in the emergency room. X-rays were performed, as per below She also states that 8 years ago she was diagnosed with a disc herniation while living in [place]. Denies any recent MRI/CT imaging of her lower back Pain today is rated as a 4/10, constant Pain is worse with walking, twisting, bending, lifting. Area is tender to palpation. In the emergency room she was given lidocaine patches, muscle relaxers, Tylenol and nonsteroidal anti-inflammatory medications. She endorses some short-term relief while utilizing these medications. Ultimately the pain persists. Denies recent attempts at physical therapy, chiropractor, acupuncture, massage or injections. Denies red flag symptoms including new loss of bowel, bladder or saddle anesthesia In terms of muscle damage condition is described as throbbing, pressure, stabbing, aching Pain is negatively impacting patient's enjoyment of life, general activity, m ood, recreational activities, ability to care for herself, ability to perform activities daily living Denies current use of anticoagulants Denies implantable devices, pacemaker or defibrillator Denies current use of nicotine, tobacco, alcohol substances PFSH Medical History Mastodynia Arthritis Panic attacks Anxiety Depression Fatty liver Bleeding hemorrhoids Hemorrhoids with complication HTN (hypertension) Diabetes Migraine headache GERD (gastroesophageal reflux disease) Asthma Hyperlipidemia Surgical History Status post hemorrhoidectomy History of hemorrhoidectomy (~2023) History of carpal tunnel release of both wrists Hx of excision of mass Hx of section Hx of excision of mass History of esophagogastroduodenoscopy (EGD) Hx of colonoscopy H/O hemorrhoidectomy Family History Family/Other Breast cancer Colon cancer Social History Household Members: Spouse Housing: Apartment Alcohol intake: never Comment: counts correct Patient Tobacco Use Status: Former Tobacco user Years Smoked: 10 Current occupational status: disabled 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 Answers questions appropriately. Fully engaged in examination. Skin: warm, dry, intact HEENT: Normocephalic. Hearing intact. Cardiac: External chest normal in appearance. Respiratory: No cough, audible wheezing or stridor. Abdomen: without gross distension. MS: No obvious swelling or deformities. Able to stand on bilateral tiptoes and bilateral heels.? Able to transition from sit to stand unassisted. Ambulates with bilaterally normal heel strike and toe off SLR negative bilaterally Nontender over bilateral PSIS Tender to palpation midline lumbar vertebrae and lumbar paraspinal muscles Facet loading positive bilaterally Tenderness to palpation left lumbar musculature Bilateral lower extremity strength 5/5 Neurological: Oriented to person, place, time and situation. Thought process intact. No gait abnormalities appreciated. Psychiatric: Appropriate mood and affect. Good judgment and insight. Results Reviewed Results Reviewed: 12/2023 XR/XR lumbar spine FINDINGS: The vertebral bodies and posterior elements are normal. The disc spaces are preserved and the vertebral alignment is normal. The paraspinal soft tissues are normal. IMPRESSION: Unremarkable examination. Assessment & Plan Assessment & Plan (1) Lumbar spondylosis: Code(s): M47.816 - Spondylosis without myelopathy or radiculopathy, lumbar region Category: Medical (2) Lumbar muscle pain: Code(s): M79.18 - Myalgia, other site Category: Medical (3) Chronic back pain: Code(s): M54.9 - Dorsalgia, unspecified; G89.29 - Other chronic pain Category: Medical Plan Order placed for PT eval and treat Continue with lidocaine patches as prescribed by PCP Continue with methocarbamol as prescribed by PCP New prescription for ilfvjfsar-vacfydr-wnivpsp 0.01-0.2-3.5 % topical. Apply to most painful area twice daily as needed. All questions and concerns were answered, patient agrees with the plan. Follow up after PT, sooner if needed Orders: Orders PT Evaluation and Treatment Today M54.9 - Dorsalgia, unspecified Medications: New fhvosarke-olzqwbj-rutscbp 0.01-0.2-3.5 % apply to most painful area twice daily as needed for pain 1 ea topical BID PRN 180 mL 2RF pain Coding Level of Care Code New Pt Level 4 (70305) Complex EM visit Add On G2211 Diagnoses Lumbar spondylosis M47.816 Lumbar muscle pain M79.18 Chronic back pain M54.9; G89.29
== END 2024-02-25 11:13 | disposition home or self-care (01) ==
PROVIDERS: PCP Internal Medicine; Visit Provider Registered Nurse Emergency
DX: M47.816 Spondylosis without myelopathy or radiculopathy, lumbar region (principal); M79.18 Myalgia, other site; M54.9 Dorsalgia, unspecified; G89.29 Other chronic pain
CPT/HCPCS: 99204

== ENCOUNTER → 2024-02-25 10:01 | Outpatient (BNVA) | payer MEDICAID, SELFPAY | PROVIDERS: PCP Internal Medicine; Visit Provider Registered Nurse Emergency | DX: M47.816 Spondylosis without myelopathy or radiculopathy, lumbar region (principal); M79.18 Myalgia, other site; G89.29 Other chronic pain | CPT/HCPCS: 99212 ==

== ENCOUNTER → 2024-03-30 11:01 | Outpatient (BNV) | payer MEDICAID, SELFPAY | PROVIDERS: Visit Provider Radiology Diagnostic Radiology | DX: M25.512 Pain in left shoulder (principal) | CPT/HCPCS: 73030 ==

== ENCOUNTER 2024-03-31 09:57 | Outpatient (REF) | payer MEDICAID, SELFPAY ==
--- NOTE | ~2024-03-31 | XR_ITS ---
EXAMINATION: XR SHOULDER 2 OR MORE VIEWS LEFT HISTORY: M25.519 - Pain in unspecified shoulder COMPARISON: Comparison is made with the prior examination dated 12/09/2021. FINDINGS: Three views of the left shoulder are submitted. Osseous mineralization is normal. There is no fracture or dislocation. The glenohumeral joint is maintained. There is mild narrowing of the AC joint. The soft tissues are unremarkable. XR/XR shoulder LT min 2V IMPRESSION: Mild narrowing of the AC joint. Electronically signed by: Michael Bustillos MD 03/30/2024 02:10 PM WILLIE
--- OUTSIDE RECORDS SUMMARY | 2024-03-31 10:40 | XMS_ITS | Encounter Summary ---
Author Organization [facility] [employer] Address [address] [place] [address] Care Team Providers Care Equipment Tester Name Role Phone Paradise Langley MD Primary Care Provide r Encounter Details Date Type Department Care Team ([facility] st Contact Info) Description 03/13/2024 Telephone [facility] [address], [place] [phone] Delmi Pringle RN [address] [place] [address] Social History Tobacco Use Types Packs/Day Years Used Date Smoking Tobacco: Never Passive Smoke Exposure: Never Smokeless Tobacco: Never Alcohol Use Standard Drinks/Week Comments Never 0 (1 standard drink = 0.6 oz pur e alcohol) Depression Answer Date Recorded Patient Health Questionnaire-9 Score 0 07/28/2022 Housing Stability Answer Date Recorded What is your housing situation today? I have angela ann 02/18/[address] you li ve. Do you have problems with any of the following? None of the above 02/18/2023 Food Insecurity Answer Date Recorded Within the past 12 months, y ou worried that your food would run out before you got money to buy more: Never True 02/18/2023 Within the past 12 months,th e food you bought just didn't last and you didn't have enough money to get more: Never True Transportation Answer Date Recorded In the past 12 months, has l ack of transportation kept you from medical appts, meetings, work or from getting things needed for daily living? No 02/18/2023 Utilities Answer Date Recorded In the past 12 months, has t he electric, gas, oil or water company threatened to shut off services in your home? No 02/18/2023 Depression Answer Date Recorded Patient Health Questionnaire-2 Score 0 07/28/2022 Comments No Sex and Gender Information Value Date Recorded Sex Assigned at Female 12/29/2021 10:17 AM EDT Legal Sex Female 10:17 AM EDT Gender Identity Female 12/29/2021 10:17 AM EDT Sexual Orientation Choose not to disclose 2021 10:17 AM EDT documented as of this encounter Miscellaneous Notes * Telephone Encounter - Delmi Pringle RN - 03/13/2024 3:08 PM EST Case management meeting with CP: Patient is currently referred to PT for L shoulder pain, but is also having chronic back pain. Was seen in ED x2 in past 12 months for back pain. Request for additional PT referral for back pain submitted to PCP. Patient has upcoming appt with PCP on 04/10/24. documented in this encounter Plan of Treatment Upcoming Encounters Date Type Department Care Team (Late st Contact Info) Description 04/10/2024 11:00 AM EST Office Visit [facility] [address] [place] [address] Paradise Langley MD [address] [place] [address] 06/01/2024 1:00 PM EDT Office Visit [facility] [address] [place] [address] Samantha Patterson, OD [address] [place] [address] documented as of this encounter Visit Diagnoses Not on filedocumented in this encounter Additional Health Concerns Assessment Noted Time PHQ-9 Depression Total Score: 0 07/29/19 23 1:57 PM EDT documented as of this encounter Care Teams Equipment Tester Relationship Specialty Start Date End Date Paradise Langley MD [address] [place] [address] PCP - General Family Medicine 01/09/19 Breanna Cooley Pulp Machine OperatorMeat Scrubber 01/28/23 Anat Stacy Pulp Machine OperatorMeat Scrubber 01/12/24 documented as of this encounter
--- OUTSIDE RECORDS SUMMARY | 2024-03-31 10:40 | XMS_ITS | Encounter Summary ---
Author Organization [employer] Address [address] [place] [address] Care Team Providers Care Senior Category Manager Name Role Phone Paradise Langley MD Primary Care Provide r Reason for Visit * Reason Comments Med Refill Encounter Details Date Type Department Care Team ([facility] st Contact Info) Description 12/21/2023 Refill [facility] CHC MED & PEDS [address] [place], [place] [phone] Paradise Langley MD [address] [place] [address] Dyspepsia Social History Tobacco Use Types Packs/Day Years [...] AM EDT documented as of this encounter Plan of Treatment Upcoming Encounters Date Type Department Care Team (Late st Contact Info) Description 04/10/2024 11:00 AM EST Office Visit [facility] MEDICINE [address] [place] [address] Paradise Langley MD [address] [place] [address] 06/01/2024 1:00 PM EDT Office Visit [facility] OPTOMETRY [address] [place] [address] Samantha Patterson, OD [address] [place] [address] documented as of this encounter Visit Diagnoses Diagnosis Dyspepsia Dyspepsia and other specified disorders of function of stomach documented in this encounter Additional Health Concerns Assessment Noted Time PHQ-9 Depression Total Score: 0 07/29/19 23 1:57 PM EDT documented as of this encounter Care Teams Senior Category Manager Relationship Specialty Start Date End Date Paradise Langley MD [address] [place] [address] PCP - General Family Medicine 01/09/19 Breanna Cooley Printed Circuit Boards Plasma EtcherRn Radiation Oncology 01/28/23 Anat Stacy Printed Circuit Boards Plasma EtcherRn Radiation Oncology 01/12/24 documented as of this encounter
--- OUTSIDE RECORDS SUMMARY | 2024-03-31 10:40 | XMS_ITS | Encounter Summary ---
Author Organization [employer] Address [address] 7t [place] [address] Care Team Providers Care Transportation Project Manager Name Role Phone Paradise Langley MD Primary Care Provide r Reason for Visit * Reason Onset Date Comments Appointment Request 02/25/2023 Encounter Details Date Type Department Care Team ([facility] st Contact Info) Description 02/25/2023 Telephone [facility] MEDICINE [address] [place], [place] [phone] Paradise Langley MD [address] [place], [place] [phone] Appointment Request Social History Tobacco Use Types Packs/Day Years [...] encounter Miscellaneous Notes * Telephone Encounter - [place] - 02/25/2023 3:06 PM EST Tc from pt requesting a in person appt per HIM, states dropped Welfare form off for PCP to sign however pt stated they had discussed forms with PCP during tele visit 02/18/23 and was advised that PCPhad no issue signing forms. Please contact for further clarification. Please contact at [place] documented in this encounter Plan of Treatment Upcoming Encounters Date Type Department Care Team (Late st Contact Info) Description 04/10/2024 11:00 AM EST Office Visit [facility] MEDICINE [address] [place] [address] Paradise Langley MD [address] [place] [address] 06/01/2024 1:00 PM EDT Office Visit [facility] OPTOMETRY [address] [place] [address] Samantha Patterson, OD [address] [place] [address] documented as of this encounter Visit Diagnoses Not on filedocumented in this encounter Additional Health Concerns Assessment Noted Time PHQ-9 Depression Total Score: 0 07/29/19 23 1:57 PM EDT documented as of this encounter Care Teams Transportation Project Manager Relationship Specialty Start Date End Date Paradise Langley MD [address] [place] [address] PCP - General Family Medicine 01/09/19 Breanna Cooley Tile ShaderSizing Sponger 01/28/23 Anat Stacy Tile ShaderSizing Sponger 01/12/24 documented as of this encounter
--- OUTSIDE RECORDS SUMMARY | 2024-03-31 10:40 | XMS_ITS | Encounter Summary ---
Author Organization [employer] Address [address] [place] [address] Care Team Providers Care Electric Motor Mechanic Name Role Phone Paradise Langley MD Primary Care Provide r Encounter Details Date Type Department Care Team ([facility] st Contact Info) Description 03/14/2024 Telephone [facility] MEDICINE [address] [place] [address] Paradise Langley MD [address] [place] [address] Social History Tobacco Use Types Packs/Day Years Used Date Smoking Tobacco: Never Passive Smoke Exposure: Never Smokeless Tobacco: Never Alcohol Use Standard Drinks/Week Comments Never 0 (1 standard drink = 0.6 oz pur e alcohol) Depression Answer Date Recorded Patient Health Questionnaire-9 Score 0 07/28/2022 Housing Stability Answer Date Recorded What is your housing situation today? I have angelamichelle ann 02/18/[address] you [...] Description 04/10/2024 11:00 AM EST Office Visit [facility] MEDICINE [address] [place] [address] Paradise Langley MD [address] [place] [address] 06/01/2024 1:00 PM EDT Office Visit [facility] OPTOMETRY [address] [place] [address] Samantha Patterson, OD [address] [place] [address] documented as of this encounter Visit Diagnoses Not on filedocumented in this encounter Additional Health Concerns Assessment Noted Time PHQ-9 Depression Total Score: 0 07/29/19 23 1:57 PM EDT documented as of this encounter Care Teams Electric Motor Mechanic Relationship Specialty Start Date End Date Paradise Langley MD [address] [place] [id number] PCP - General Family Medicine 01/09/19 Breanna Cooley Insurance And Financial Services AgentFiber Optic Central Office Installer 01/28/23 Anat Stacy Insurance And Financial Services AgentFiber Optic Central Office Installer 01/12/24 documented as of this encounter
--- OUTSIDE RECORDS SUMMARY | 2024-03-31 10:40 | XMS_ITS | Encounter Summary ---
Author Organization [employer] Address [address] [place] [address] 7t [place] [address] Care Team Providers Care Real Estate Specialist Name Role Phone Paradise Langley MD Primary Care Provide r Reason for Referral * Consultation (Routine) - Closed Specialty Diagnoses / Procedures Referred By Conttu gomez Referred To Contact Physical Therapy Diagnoses Lumbar spondylosis Paradise Langley MD [address] [place] [address] Phone: tel: fax: [facility] [address] [place] [address] Phone: tel: fax: Referral ID Status Reason Start Date Expiration Date V isits Requested Visits Authorized [id number] Closed Specialty Services Required 03/14/2024 03/14/2025 20 20 Encounter Details Date Type Department Care Team (Late st Contact Info) Description 03/13/[address] [facility] MEDICINE [address] [place] [phone] Paradise Langley MD [address] [place] [address] Lumbar spondylosis (Primary Dx) Social History Tobacco Use Types Packs/Day Years [...] Description 04/10/2024 11:00 AM EST Office Visit [facility] MEDICINE [address] [place] [address] Paradise Langley MD [address] [place] [address] 06/01/2024 1:00 PM EDT Office Visit [facility] OPTOMETRY [address] [place] [address] Samantha Patterson OD [address] [place] [address] Scheduled Referrals Name Type Priority Associated Diagnoses Orde r Schedule Referral to Physical Therapy Outpatient Referral Routine Lumbar spondylosis Expected: 03/13/2024 (Approximate), Expires: 03/13/2025 documented as of this encounter Visit Diagnoses Diagnosis Lumbar spondylosis- Primary Lumbosacral spondylosis without myelopathy documented in this encounter Additional Health Concerns Assessment Noted Time PHQ-9 Depression Total Score: 0 07/29/19 1:57 PM EDT documented as of this encounter Care Teams Real Estate Specialist Relationship Specialty Start Date End Date Paradise Langley MD [address] [place] [address] PCP - General Family Medicine 01/09/19 Breanna Cooley Outpatient Admitting ClerkMasonry Contractor Administrator 01/28/23 Anat Stacy Outpatient Admitting ClerkMasonry Contractor Administrator 01/12/24 documented as of this encounter
--- OUTSIDE RECORDS SUMMARY | 2024-03-31 10:40 | XMS_ITS | Encounter Summary ---
Author Organization [employer] [facility] Address [address] [facility] 7t [place] [address] Care Team Providers Care Patch Driller Name Role Phone Paradise Langley MD Primary Care Provide r Reason for Visit * Reason Comments Med Refill Encounter Details Date Type Department Care Team ([facility] st Contact Info) Description 03/17/2024 Refill [facility] MEDICINE [address] [place], [place] [phone] Paradise Langley MD [address] [place], [place] [phone] Social History Tobacco Use Types Packs/Day Years [...] Description 04/10/2024 11:00 AM EST Office Visit [facility] MEDICINE [address] [place] [address] Paradise Langley MD [address] [place] [address] 06/01/2024 1:00 PM EDT Office Visit [facility] OPTOMETRY [address] [place] [address] Samantha Patterson, OD [address] [place] [address] documented as of this encounter Visit Diagnoses Not on filedocumented in this encounter Additional Health Concerns Assessment Noted Time PHQ-9 Depression Total Score: 0 07/29/19 23 1:57 PM EDT documented as of this encounter Care Teams Patch Driller Relationship Specialty Start Date End Date Paradise Langley MD [address] [place] [address] PCP - General Family Medicine 01/09/19 Breanna Cooley Emt IntermediateLamp Cleaner Street Light 01/28/23 Anat Stacy Emt IntermediateLamp Cleaner Street Light 01/12/24 documented as of this encounter
--- OUTSIDE RECORDS SUMMARY | 2024-03-31 10:40 | XMS_ITS | Encounter Summary ---
Author Organization [employer] [facility] Address [address] [place] [address] [address]t [place] [address] Care Team Providers Care Workforce Consultant Name Role Phone Paradise Langley MD Primary Care Provide r Encounter Details Date Type Department Care Team (Late Contact Info) Description 11/17/2022 Orders Only [facility] MEDICINE [address] [place] [address] ProviderKay MD Social History Tobacco Use Types Packs/Day Years Used Date Smoking Tobacco: Never Passive Smoke Exposure: Never Smokeless Tobacco: Never Depression Answer Date Recorded Patient Health Questionnaire-9 Score 0 07/28/2022 Depression Answer Date Recorded Patient Health Questionnaire-2 Score 0 07/28/2022 Comments Unknown Sex and Gender Information Value Date Recorded Sex Assigned at Female 12/29/2021 10:17 AM EDT Legal Sex Female 10:17 AM EDT Gender Identity Female 12/29/2021 10:17 AM EDT Sexual Orientation Choose not to disclose 2021 10:17 AM EDT documented as of this encounter Plan of Treatment Upcoming Encounters Date Type Department Care Team (Late Contact Info) Description 04/10/2024 11:00 AM EST Office Visit [facility] MEDICINE [address] [place] [address] Paradise Langley MD [address] [place], [place] [phone] 06/01/2024 1:00 PM EDT Office Visit [facility] OPTOMETRY [address] [place] [address] Samantha Patterson, OD [address] [place] [address] documented as of this encounter Procedures Procedure Name Priority Date/Time Associated Diagnosis Comments MAMMOGRAPHY Routine 10/30/2021 COLONOSCOPY Routine 06/03/2021 documented in this encounter Results * Hm Mammography (10/30/2021) Anatomical Region Laterality Modality Other us Historical Provider HEALTH MAINTENANCE Final Result * Colonoscopy (06/03/2021) Historical Provider HEALTH MAINTENANCE Final Result documented in this encounter Visit Diagnoses Not on filedocumented in this encounter Additional Health Concerns Assessment Noted Time PHQ-9 Depression Total Score: 0 07/29/19 23 1:57 PM EDT documented as of this encounter Care Teams Workforce Consultant Relationship Specialty Start Date End Date Paradise Langley MD [address] [place] [address] PCP - General Family Medicine 01/09/19 Breanna Cooley Medical PsychotherapistPizza Maker 01/28/23 Anat Stacy Medical PsychotherapistPizza Maker 01/12/24 documented as of this encounter
--- OUTSIDE RECORDS SUMMARY | 2024-03-31 10:40 | XMS_ITS | Encounter Summary ---
Author Organization [employer] Address [address] [place] [address] Care Team Providers Care Bus Analyst Name Role Phone Paradise Langley MD Primary Care Provide r Reason for Visit * Reason Comments Med Refill Encounter Details Date Type Department Care Team ([facility] st Contact Info) Description 05/13/2023 Refill [facility] CHC MED & PEDS [address] [place], [place] [phone] Mar Waters MD [address] [place] [address] Pain Social History Tobacco Use Types Packs/Day Years [...] Description 04/10/2024 11:00 AM EST Office Visit [facility] MEDICINE [address] [place] [address] Paradise Lanlgey MD [address] [place] [address] 06/01/2024 1:00 PM EDT Office Visit [facility] OPTOMETRY [address] [place] [address] Samantha Patterson, OD [address] [place] [address] documented as of this encounter Visit Diagnoses Diagnosis Pain Generalized pain documented in this encounter Additional Health Concerns Assessment Noted Time PHQ-9 Depression Total Score: 0 07/29/19 23 1:57 PM EDT documented as of this encounter Care Teams Bus Analyst Relationship Specialty Start Date End Date Paradise Langley MD [address] [place] [address] PCP - General Family Medicine 01/09/19 Breanna Cooley Veterans' CounselorComputer Systems Information Director 01/28/23 Anat Stacy Veterans' CounselorComputer Systems Information Director 01/12/24 documented as of this encounter
--- OUTSIDE RECORDS SUMMARY | 2024-03-31 10:40 | XMS_ITS | Clinical Summary ---
Author Organization [employer] Address [address] [facility] [address] [place] [address] Care Team Providers Care Director Of Global Talent Name Role Phone Paradise Langley MD Primary Care Provide r Allergies Active Allergy Reactions Criticality Noted Date Comments Naproxen 07/06/2022 Other reaction(s): insomnia, aggitation Medications * This document contains information received from the source organization and may not represent a complete record from that organization. meclizine (Antivert) 25 MG tabletIndication s:Benign paroxysmal positional vertigo, unspecified laterality TAKE 1 TABLET BY MOUTH EVERY MORNING 30 tablet 3 Active SUMAtriptan (Imitrex) 25 MG tabletIndication s:Chronic migraine without aura without status migrainosus, not intractable Take 1 tablet (25 mg) by mouth 1 (one) time if needed for migraine for up to 9 doses. May repeat dose once in 2 hours if no relief. Do not exceed 2 doses in 24 hours. 9 tablet 3 Active lidocaine (Lidoderm) 5 % patchIndications :Pain APPLY 1 PATCH ONTO THE SKIN DAILY (MAY WEAR UP TO 12 HOURS) 30 patch 1 4 Active atorvastatin (Lipitor) 40 MG tablet TAKE 1 TABLET BY MOUTH DAILY 28 tablet 5 4 Active hydroCHLOROthiaz carly 12.5 MG tablet TAKE 1 TABLET BY MOUTH DAILY 28 tablet 5 4 Active Alcohol Swabs (B-D SINGLE USE SWABS REGULAR) padsIndications: Pain APPLY 1 PAD BY TO SKIN ROUTE 2 TIMES EVERY DAY 100 each 11 4 Active metFORMIN (Glucophage) 850 MG tabletIndication s:Type 2 diabetes mellitus with hyperglycemia, without long-term current use of insulin (CMS/HCC) TAKE 1 TABLET BY MOUTH TWICE A DAY ; MORNING AND EVENING MEAL 56 tablet 5 4 Active loratadine (Claritin) 10 MG tablet TAKE 1 TABLET BY MOUTH DAILY IN THE IN THE MORNING 28 tablet 5 4 Active amitriptyline (Elavil) 10 MG tabletIndication s:Chronic migraine without aura without status migrainosus, not intractable TAKE 1 TABLET BY MOUTH AT BEDTIME 30 tablet 5 4 Active diclofenac sodium 3 % gelIndications:C hronic left shoulder pain APPLY TOPICALLY TWICE A DAY 100 g 4 Active FREESTYLE LITE test stripIndications :IFG (impaired fasting glucose) CHECKIAR LA JAYNE THREE TIMES A DAY 100 each 11 4 Active TRUEplus Lancets 33G misc USE TO TEST BLOOD SUGAR TWICE A DAY 100 each 5 4 Active acetaminophen (Tylenol) 250 mg split tablet 500 mg. 4 Active cyclobenzaprine (Flexeril) 2.5 MG split tablet 5 mg. 4 Active methocarbamol (Robaxin) 750 MG tabletIndication s:Pain TAKE 2 TABLETS BY MOUTH THREE TIMES A DAY 168 tablet 1 4 Active omeprazole (PriLOSEC) [address] capsuleIndicatio ns:Dyspepsia TAKE 1 CAPSULE (40 MG) BY MOUTH IN THE MORNING. DO NOT CRUSH OR CHEW. 28 capsule 5 4 Active docusate sodium (Colace) 100 MG capsule TAKE 1 CAPSULE BY MOUTH TWICE A DAY 180 capsule 5 Active lidocaine (Lidoderm) 5 % patchIndications :Chronic left shoulder pain Apply 1 patch topically Once per day. Remove & discard patch within 12 hours or as directed by . 30 patch 4 03/05/19 25 Active Problems Problem Noted Date Diagnosed Date Lumbar radiculopathy 02/03/2024 Lumbar strain 02/03/2024 Breast pain, left 08/20/2023 Assessment & Plan (08/20/2023 1:53 PM EDT): I will make sure patient has an appointment for breast US and diagnostic mammogram, she also has a surgery appointment Other constipation 02/18/2023 Assessment & Plan (02/18/2023 12:22 PM EST): Increase water and fiber on diet Increase walking Colace prescribed today Bleeding hemorrhoids 02/18/2023 Assessment & Plan (05/20/2023 12:19 PM EDT): Continue to follow with surgery Assessment & Plan (02/18/2023 12:22 PM EST): C/w suppository and cream Colace prescribed today F/u with surgery Stress incontinence of urine 10/09/2022 Chronic left shoulder pain 10/08/2022 Assessment & Plan (02/04/2024 12:05 PM EST): +tenderness upon palpation over supraspinatus area of L shoulder, no masses palpated at this time + empty can test and + posterior apprehension test Decreased ROM in left shoulder and weakness in L upper extremity Suspicion for supraspinatus tear; Differential diagnosis: rotator cuff tendon tear, cervical root impingement,OA Will refer to PT and ortho Sent rx for lidocaine patches Pt will continue with Ibuprofen q8 for pain control Diarrhea 10/08/2022 Influenza-like symptoms 10/08/2022 Visual impairment 10/08/2022 Type 2 diabetes mellitus without complication Assessment & Plan (02/18/2023 12:23 PM EST): Lab Results Component Value Date HGBA1C 7.1 (A) 10/09/2022 HGBA1C 7.0 (A) 07/28/2022 HGBA1C 6.2 (H) 01/15/2022 - Lab Results Component Value Date MICROALBUR 1.1 01/15/2022 CREATININE 0.88 12/05/2022 - Continue lifestyle modifications - Continue current medications - Type 2 diabetes mellitus wit hout complication, without long-term current use of insulin 07/28/2022 Assessment & Plan (08/20/2023 11:53 AM EDT): Diabetes is: controlled - Lab Results Component Value Date HGBA1C 6.8 (A) 08/20/2023 HGBA1C 7.1 (A) 10/09/2022 HGBA1C 7.0 (A) 07/28/2022 - Lab Results Component Value Date MICROALBUR 1.1 01/15/2022 CREATININE 0.88 12/05/2022 -Changes: none - Diabetic eye exam:up to date - Diabetic foot exam:up to date - Continue lifestyle modifications - Continue current medications - Follow up: 3 months Assessment & Plan (03/23/2023 4:40 PM EST): - Lab Results Component Value Date HGBA1C 7.1 (A) 10/09/2022 HGBA1C 7.0 (A) 07/28/2022 HGBA1C 6.2 (H) 01/15/2022 - Lab Results Component Value Date MICROALBUR 1.1 01/15/2022 CREATININE 0.88 12/05/2022 - Diabetic eye exam:up to date - Diabetic foot exam: up to date - Continue lifestyle modifications - Continue current medications Assessment & Plan (10/09/2022 4:45 PM EDT): Lab Results Component Value Date HGBA1C 7.1 (A) 10/09/2022 HGBA1C 7.0 (A) 07/28/2022 HGBA1C 6.2 (H) 01/15/2022 - Lab Results Component Value Date MICROALBUR 1.1 01/15/2022 CREATININE 0.85 07/06/2022 - Continue lifestyle modifications - Continue current medications - Assessment & Plan (07/28/2022 2:42 PM EDT): - Lab Results Component Value Date HGBA1C 6.2 (H) 01/15/2022 HGBA1C 5.7 (H) 01/08/2020 HGBA1C 5.7 (H) 01/08/2020 - Lab Results Component Value Date MICROALBUR 1.1 01/15/2022 CREATININE 0.85 07/06/2022 - Diabetic eye exam: referral done today - Diabetic foot exam: pending - Continue lifestyle modifications - Continue current medications - Atypical mole 07/28/2022 Primary hypertension 07/28/2022 Assessment & Plan (03/23/2023 4:39 PM EST): Maintenance: BMP: up to date Lipid Panel: up to date ASCVD Risk: Calculate pending updated labs EKG: Obtain baseline at f/u - Aerobic exercise to reduce BP. Initial goal of 30 min walk 3-5x/week. Increase as tolerated. - low-sodium diet (goal: <2g/day) and heart healthy diet such as DASH to reduce BP and prevent ASCVD. - Home BP monitoring 1-2 x day with goal of <140/90. - Seek immediate medical attention for chest pain, palpitations, SOB, syncope, or sudden changes in mental status. - Do not change or discontinue current prescriptions without first consulting health care provider Assessment & Plan (07/28/2022 2:44 PM EDT): - Aerobic exercise to reduce BP. Initial goal of 30 min walk 3-5x/week. Increase as tolerated. - low-sodium diet (goal: <2g/day) and heart healthy diet such as DASH to reduce BP and prevent ASCVD. - Home BP monitoring 1-2 x day with goal of <140/90. - Seek immediate medical attention for chest pain, palpitations, SOB, syncope, or sudden changes in mental status. - Do not change or discontinue current prescriptions without first consulting health care provider Benign paroxysmal positional vertigo 03/23/2022 Assessment & Plan (07/28/2022 2:43 PM EDT): Change positions slowly maintain hydration Meclizine refilled Referral for PT and ENT Assessment & Plan (03/23/2022 4:24 PM EST): 1. Discussed with patient regarding slowly changing position. -Continue Meclizine once per day. -FU with neurology next month. -Prescription can be refilled for up to 3 months, follow up with PCP. Anxiety 10/07/2017 Obesity 10/07/2017 Essential hypertension 10/07/2017 Assessment & Plan (02/18/2023 12:21 PM EST): - Aerobic exercise to reduce BP. Initial goal of 30 min walk 3-5x/week. Increase as tolerated. - low-sodium diet (goal: <2g/day) and heart healthy diet such as DASH to reduce BP and prevent ASCVD. - Home BP monitoring 1-2 x day with goal of <140/90. - Seek immediate medical attention for chest pain, palpitations, SOB, syncope, or sudden changes in mental status. - Do not change or discontinue current prescriptions without first consulting health care provider Epigastric abdominal pain 11/16/2012 Shoulder pain 03/22/2012 Carpal tunnel syndrome 12/03/2011 Dyslipidemia 12/03/2011 02/18/2023 GERD (gastroesophageal reflux disease) 2 02/18/2023 Asthma 10/06/2011 Depressive disorder 10/06/2011 Assessment & Plan (03/23/2023 4:41 PM EST): continue to follow with psychiatrist and therapist Migraine headache 10/06/2011 Assessment & Plan (05/20/2023 12:19 PM EDT): I advise to avoid migraine triggers like red wine, chocolate, cheese, strong perfumes C/w amitriptyline 10mg at night Assessment & Plan (02/18/2023 12:23 PM EST): I advise to avoid migraine triggers like red wine, chocolate, cheese, strong perfumes Posttraumatic stress disorder 10/06/2011 Hypertension 10/06/2011 Assessment & Plan (08/20/2023 11:50 AM EDT): - Aerobic exercise to reduce BP. Initial goal of 30 min walk 3-5x/week. Increase as tolerated. - low-sodium diet (goal: <2g/day) and heart healthy diet such as DASH to reduce BP and prevent ASCVD. - Home BP monitoring 1-2 x day with goal of <140/90. - Seek immediate medical attention for chest pain, palpitations, SOB, syncope, or sudden changes in mental status. - Do not change or discontinue current prescriptions without first consulting health care provider Encounters Date Type Department Care Team Description 03/17/2024 Refill [facility] MED[facility] [address] [place] [address] [phone] Paradise Langley MD 03/14/2024 Telephone [facility] [address] [place] [address] [phone] Paradise Langley MD 03/13/2024 Orders Only [facility] [address] [place] [address] [phone] Paradise Langley MD Lumbar spondylosis (Primary Dx) 03/13/2024 Telephone [facility] WALK-IN CENTER [address] [place] [phone] Delmi Pringle, JONATHAN 02/28/2024 Telephone [facility] MED[facility]INE [address] [place] [address] [phone] Ciaran Willson CNP 02/16/2024 Refill [facility] MED & PEDS [address] [place], [place] [phone] Paradise Langley MD Pain; Dyspepsia 02/16/2024 Refill [facility] [address] [place] [address] [phone] Paradise Langley MD Dyspepsia 02/04/2024 11:00 AM EST Office Visit [facility] [address] [place] [phone] Ashley Sanchez, TUAN Chronic left shoulder pain (Primary Dx); Type 2 diabetes mellitus without complication, without long-term current use of insulin ([facility]) 02/01/[address] [phone] Gene Ford [place] chart prep 01/28/2024 Travel 01/24/[address] [phone] Paradise Langley MD Nurse Triage 01/21/2024 Travel 01/18/2024 Refill [facility] [address] [place] [address] [phone] Paradise Langley MD Dyspepsia 01/14/2024 Travel 01/12/2024 Telephone [facility] [address] [place] [address] [phone] Paradise Langley MD Care Coordination (ICP care plan) from Last 3 Months Immunizations Name Administration Dates Next Due Hep A, Adult 05/21/2005,08/28/2004 Hep B, adult 05/21/2005,09/25/2004,08/28/2004 Influenza Injectable Quadriv alant Preservative Free IIV4 MDCK 01/13/2021,03/18/2020 Influenza injectable quadriv alent IIV4 with preservative 12/29/2017 Influenza injectable quadriv alent preservative free 12/04/2022,12/22/2021 Influenza, IIV3, injectable 12/10/2010 Influenza, Split (incl. clare fied surface antigen) 11/16/2012 Pfizer Covid-19 Vaccine 12+ 03/23/2023 Pneumococcal Conjugate PCV 20 08/20/2023 Pneumococcal Polysaccharide PPSV23 06/23/2011 TD (adult), 2 Lf tetanus tox oid, preservative free, adsorbed 05/25/2007 Td (adult), 5 Lf tetanus tox oid, preservative free, adsorbed 08/28/2016 Tdap 06/23/2011 Family History Medical History Relation Name Comments Breast cancer Cousin Relation Name Status Comments Cousin Other Social History Tobacco Use Types Packs/Day Years Used Date Smoking Tobacco: Never Passive Smoke Exposure: Never Smokeless Tobacco: Never Tobacco Cessation:Counseling Given: Not Answered Alcohol Use Standard Drinks/Week Comments Never 0 [...] not to disclose 2021 10:17 AM EDT Last Filed Vital Signs Vital Sign Reading Time Taken Comments Blood Pressure 140/79 02/04/2024 11:01 AM EST Pulse 105 02/04/2024 11:01 AM EST Temperature 36.7 ??C (98.1 ??F) 02/04/2024 11:[address] Respiratory Rate 16 02/04/2024 11:01 AM EST Oxygen Saturation 98% 02/04/2024 11:01 AM EST Inhaled Oxygen Concentration - - Weight 83 kg (183 lb) 02/04/2024 11:01 AM EST Height 162.6 cm (5' 4 ) 08/20/2023 11:45 AM EDT Body Mass Index 31.41 08/20/2023 11:45 AM EDT Plan of Treatment Upcoming Encounters Date Type Department Care Team (Late st Contact Info) Description 04/10/2024 11:00 AM EST Office Visit [facility] MED[facility]INE [address] [place] [phone] Paradise Langley MD [address] [place] [address] 06/01/2024 1:00 PM EDT Office Visit [facility] OPTOMETRY [address] [place] [address] Samantha Patterson, APRIL [address] [place] [address] Health Maintenance Due Date Last Done Comments CT Colonography 1963 FIT DNA/Cologuard 1965 FIT 1965 FOBT 1965 Sigmoidoscopy 1965 Diabetes: Foot Exam 1973 Alcohol/Substance Use Screening 1975 Hepatitis C Screening 1981 Zoster Vaccines (1 of 2) 2013 Diabetes: Urine Protein Screening 01/15/2023 01/15/2022 Lipid Panel 01/15/2023 01/15/2022, 01/08/2020 RSV Patients and Patients Aged 60 years or older (1 - Risk 60-74 years 1-dose series) 2023 Depression Screening 07/29/2023 07/28/2022, 07/29/19 23 COVID-19 Vaccine ( season) 2023 03/23/2023, 12/03/2021, 05/02/2021, Additional history exists Influenza Vaccine (#1) 2023 , 12/22/2021, 01/13/2021, Additional history exists SDOH Screening 02/19/2024 02/18/2023 Tobacco Screening 03/23/2024 03/23/2023 Diabetes: Hemoglobin A1C 08/04/2024 024, 08/20/2023, 10/09/2022, Additional history exists Mammogram 09/14/2024 09/15/2023, 08/29, 11/06/2022, Additional history exists Eye Exam 11/05/2024 11/05/2022, 0908/2022, 11/05/2022, Additional history exists Cervical Cancer Screening 05/15/2025 HPV/Cotest 05/15/2025 05/15/2020, 12/29/2017 Pap Smear 05/15/2025 05/15/2020, 05/15/2020 DTaP/Tdap/Td Vaccines (3 - Td or Tdap) 08/28/2026 08/28/2016, 06/23/2011, 05/25/2007 Colonoscopy 06/04/2031 06/03/2021 Colorectal Cancer Screening 06/04/2031 Hepatitis A Vaccines Aged Out 05/21/2005, 08/29/19 05 No longer eligible based on patient's age to complete this topic Hepatitis B Vaccines Completed 05/21/2005, 09/25/2004, 08/28/2004 HIV Screening Completed 03/08/2019 Pneumococcal Vaccine: 50+ Years Completed 08/20/2023, 06/23/2011 HIB Vaccines Aged Out No longer eligi ble based on patient's age to complete this topic HPV Vaccines Aged Out No longer eligi ble based on patient's age to complete this topic IPV Vaccines Aged Out No longer eligi ble based on patient's age to complete this topic Meningococcal Vaccine Aged Out No adilson pepper eligible based on patient's age to complete this topic RSV under 20 months Aged Out No longe r eligible based on patient's age to complete this topic Rotavirus Vaccines Aged Out No longer eligible based on patient's age to complete this topic Procedures Procedure Name Priority Date/Time Associated Diagnosis Comments POCT GLUCOSE Routine 02/04/2024 11:04 AM EST Type 2 diabetes mellitus without complication, without long-term current use of insulin ([facility]) POCT GLYCATED HEMOGLOBIN, TOTAL Routine 02/04/2024 11:04 AM EST Type 2 diabetes mellitus without complication, without long-term current use of insulin ([facility]) BI MAMMOGRAM DIAGNOSTIC TOMOSYNTHESIS BILATERAL Routine 09/15/2023 1:18 PM EDT ALBUMIN, RANDOM URINE W/CREATININE Routine 01/15/2022 8:21 AM EST LIPID PANEL, STANDARD Routine 01/15/2022 8:21 AM EST HM COLONOSCOPY Routine 06/03/2021 HM PAP/HPV Routine 05/15/2020 12:00 AM EDT ZZZ HISTORICAL HIV AB/AG Routine 03/08/2019 11:57 AM EST from Last 3 Months or Most Recently Relevant to Health Maintenance Results * (ABNORMAL) POCT HGB A1C (02/04/2024 11:04 AM EST) Hemoglobin A1C 6.7(A) 4.0 - 6.0 % QC Media Lot # [id number] Lot# Expiration Date [id number] Blood 02/04/2024 11:0 4 AM EST us Ashley Sanchez BILINGUAL RECRUITER POINT OF CARE TEST ENTER/EDIT OR DERABLES Final Result * POCT Glucose (02/04/2024 11:04 AM EST) Glucose Blood, POC 136 60 - 200 mg/dL QC Media Lot # [id number] Lot# Expiration Date 5302,025 Blood Capillary blood specimen / Unknown 02/04/2024 11:04 AM EST Ashley Sanchez BILINGUAL RECRUITER POINT OF CARE TEST ENTER/EDIT OR DERABLES Final Result * BI Mammogram Diagnostic Tomosynthesis Bilateral (09/15/2023 1:18 PM EDT) Anatomical Region Laterality Modality Breast Bilateral Mammography 09/15/2023 1:18 PM EDT Narrative 09/15/2023 2:24 PM EDT ? [facility] ? [address] ?[place] [address] ? Mammography Report ? Signed ? Patient: Easton,Josephine ?MR#: [id number] ? : 1965 ?Acct:[id number] ? Age/Sex: 58 / F ?ADM Date: /17/24 ? Loc: HO.MAMMO ? Attending Dr: Justino Escobar MD ? Ordering Physician: Justino Escobar MD ?Results: 1Negativ ?? e ? Date of Service: /17/24 ?Follow Up: 1 Year From Orig ?? inal Mammogram ? Procedure(s): MM tomosynthesis diagnostic BI ?? Accession Number(s): [id number] ? cc: Paradise Langley MD; Justino Escobar MD ? EXAMINATION: ?? MM DIAGNOSTIC DIGITAL BREAST TOMOSYNTHESIS, BILATERAL ?? US BREAST LIMITED, LEFT ? MAMMOGRAPHY: ?? CLINICAL INFORMATION: ? 58-year-old female complaining of left retroareolar and lateral breast ?? pain. Patient also due for bilateral yearly screening. ? COMPARISON: ?? Mammography: 11/06/2022, 10/30/2021, 06/10/2020, 05/17/2017, 12/29/2012 ? TECHNIQUE: ?? Digital breast tomosynthesis is performed in both the craniocaudal and ?? mediolateral oblique views along with computer-aided detection (CAD). ?? Synthesized 2D images are generated from the tomosynthesis. In ?? addition, full-field left 3-D mediolateral view was also obtained. ? FINDINGS: ?? There are scattered areas of fibroglandular density (ACR BI-RADS breast ?? composition Category b). ? There are no suspicious masses, suspicious grouped calcifications, or ?? areas of architectural distortion in either breast. The parenchymal ?? pattern is stable from prior exams. There is no skin or axillary ?? abnormality. ? No mammographic abnormalities evident in the retroareolar or lateral ?? left breast to correlate with left breast pain. ? ULTRASOUND: ?? CLINICAL INFORMATION: ?? As above. ? COMPARISON: ?? No prior ultrasound. ? TECHNIQUE: ?? Targeted sonographic evaluation left breast was performed using a high ?? frequency linear transducer. Attention was given to the left breast ?? retroareolar and lateral region, in the regions of reported breast ?? pain. Selected archived documentation. ? FINDINGS: ? LEFT BREAST: There is a mixture of fatty and fibroglandular tissue. ??No ?? suspicious mass is seen. ??There is no pathologic acoustic shadowing. ?? There is no cystic abnormality. ? There is no sonographic correlate to the regions of breast pain. ? MM/MM tomosynthesis diagnostic BI ?? IMPRESSION: ? 1. There are no findings suspicious for malignancy in either breast. ?? 2. The regions of left breast pain show no mammographic or sonographic ?? correlate or abnormality. Recommend clinical management. ?? 3. Otherwise, recommend resuming routine annual screening mammography. ? OVERALL ASSESSMENT: ?? Mammography: BI-RADS 1 - Negative ?? Ultrasound: BI-RADS 1 - Negative ? RECOMMENDATION: ?? 1. Patient should be managed based on the clinical impression. ?2. ?? Otherwise, routine annual screening mammography. ? This patient's information was entered into a reminder system with a ?? target due date for their next mammogram. ? Dictated By: ?Elliot Toussaint MD ? Signed By: ?<Electronically signed by Elliot Toussaint MD in OV> ?09/15/23 1420 ? DD/ 1318 ? TD/TT: ? Chemical Laboratory Tester: ? Procedure Note Yomaira, Image - 09/15/2023 [facility] [address] [place] [address] Mammography Report Signed Patient: Augie Easton#: [id number] : 1965Acct:[id number] Age/Sex: 58 / FADM Date: 09/15/23 Loc: HO.MAMMO Attending Dr: Justino Escobar MD Ordering Physician: Justino Escobar MDResults: 1Negativ e Date of Service: 09/15/23Follow Up: 1 Year From Orig inal Mammogram Procedure(s): MM tomosynthesis diagnostic BI Accession Number(s): [id number] cc: Paradise Langley MD; Justino Escobar MD EXAMINATION: MM DIAGNOSTIC DIGITAL BREAST TOMOSYNTHESIS, BILATERAL US BREAST LIMITED, LEFT MAMMOGRAPHY: CLINICAL INFORMATION: 58-year-old female complaining of left retroareolar and lateral breast pain. Patient also due for bilateral yearly screening. COMPARISON: Mammography: 11/06/2022, 10/30/2021, 06/10/2020, 05/17/2017, 12/29/2012 TECHNIQUE: Digital breast tomosynthesis is performed in both the craniocaudal and mediolateral oblique views along with computer-aided detection (CAD). Synthesized 2D images are generated from the tomosynthesis. In addition, full-field left 3-D mediolateral view was also obtained. FINDINGS: There are scattered areas of fibroglandular density (ACR BI-RADS breast composition Category b). There are no suspicious masses, suspicious grouped calcifications, or areas of architectural distortion in either breast. The parenchymal pattern is stable from prior exams. There is no skin or axillary abnormality. No mammographic abnormalities evident in the retroareolar or lateral left breast to correlate with left breast pain. ULTRASOUND: CLINICAL INFORMATION: As above. COMPARISON: No prior ultrasound. TECHNIQUE: Targeted sonographic evaluation left breast was performed using a high frequency linear transducer. Attention was given to the left breast retroareolar and lateral region, in the regions of reported breast pain. Selected archived documentation. FINDINGS: LEFT BREAST: There is a mixture of fatty and fibroglandular tissue. No suspicious mass is seen. There is no pathologic acoustic shadowing. There is no cystic abnormality. There is no sonographic correlate to the regions of breast pain. MM/MM tomosynthesis diagnostic BI IMPRESSION: 1. There are no findings suspicious for malignancy in either breast. 2. The regions of left breast pain show no mammographic or sonographic correlate or abnormality. Recommend clinical management. 3. Otherwise, recommend resuming routine annual screening mammography. OVERALL ASSESSMENT: Mammography: BI-RADS 1 - Negative Ultrasound: BI-RADS 1 - Negative RECOMMENDATION: 1. Patient should be managed based on the clinical impression. 2. Otherwise, routine annual screening mammography. This patient's information was entered into a reminder system with a target due date for their next mammogram. Dictated By: Elliot Toussaint MD Signed By: <Electronically signed by Elliot Toussaint MD in OV> 09/15/23 1420 DD/ 1318 TD/TT: Chemical Laboratory Tester: [facility] External Provider IMG BI PROCEDURES Final Result * (ABNORMAL) ALBUMIN, RANDOM URINE W/CREATININE (01/15/2022 8:21 AM EST) Microalbumin Urine 1.1 See Note: mg/dL CONVERTED LEGACY LABS Comment: Reference Range: ?? Reference Range Not established Microalb/Creat Ratio 4 <30 mcg/mg creat CONVERTED LEGACY LABS Comment: ?? The ADA defines abnormalities in albumin excretion as follows: ?? Albuminuria Category ?Result (mcg/mg creatinine) ?? Normal to Mildly increased ?? <30 Moderately increased ? 30-299 ?? Severely increased ? > OR = 300 ?? The ADA recommends that at least two of three specimens collected within a 3-6 month period be abnormal before considering a patient to be within a diagnostic category. Creatinine, Urine 292(H) 20 - 275 mg/dL CONVERTED LEGACY LABS 01/15/2022 8:21 AM EST Paradise Jiménez MD LAB URINE ORDERABLES Final Result CONVERTED LEGACY LABS * (ABNORMAL) LIPID PANEL, STANDARD (01/15/2022 8:21 AM EST) Chol/HDLC Ratio 3.4 <5.0 (calc) CONVERTED LEGACY LABS Cholesterol, Total 155 <200 mg/dL CONVERTED LEGACY LABS HDL Cholesterol 45(L) > OR = 50 mg/dL CONVERTED LEGACY LABS LDL Cholesterol 86 mg/dL (calc) CONVERTED LEGACY LABS Comment: Reference range: <100 ?? Desirable range <100 mg/dL for primary prevention; ?? <70 mg/dL for patients with CHD or diabetic patients ?? with > or = 2 CHD risk factors. ?? LDL-C is now calculated using the Carlos ?? calculation, which is a validated novel method providing ?? better accuracy than the Friedewald equation in the ?? estimation of LDL-C. ?? Quinton DUENAS et al. DIANNA. 2013;310(19): 7080-7399 ?? (http://Workiva.Mindbloom/faq/MCE681) Non-HDL Cholesterol 110 <130 mg/dL (calc) CONVERTED LEGACY LABS Comment: For patients with diabetes plus 1 major ASCVD risk ?? factor, treating to a non-HDL-C goal of <100 mg/dL ?? (LDL-C of <70 mg/dL) is considered a therapeutic ?? option. Triglycerides 144 <150 mg/dL CONVE RTED LEGACY LABS 01/15/2022 8:[address] [facility] Paradise Jiménez MD LAB BLOOD ORDERABLES Final Result Performing Organization Address City/[facility]/ZIP Co de Phone Number CONVERTED LEGACY LABS * Hm Colonoscopy (06/03/2021) Result [facility] Provider HEALTH MAINTENANCE Final Result * Hm Pap Smear (05/15/2020 12:00 AM EDT) Pap Negative for intraephithelial lesion or malignancy Negative for intraephithelial lesion or malignancy, Other HPV Undetected Narrative Dorina Ridley - 05/15/2020 12:00 AM EDT Duplicate Result [facility] Provider HEALTH MAINTENANCE Edited Result - Final * HIV AB/AG (03/08/2019 11:57 AM EST) HIV AG/AB NONREACTIVE NR [facility] Comment: HIV-1 p24 Ag and/or HIV-1/HIV-2 Ab not detected. ?? A test result that is nonreactive does not exclude the possibility of exposure to or infection with HIV-1 and/or HIV-2. Nonreactive results in this assay for individuals with prior exposure to HIV-1 and/or HIV-2 may be due to antigen and antibody levels that are below the limit of detection of this assay. ?? The [employer]ley Engineer Remote Control Diesel HIV Ag/Ab Combo assay result and supplemental assay results should be interpreted in conjunction with the patient's clinical presentation, history and other laboratory results. ??If the results are inconsistent with clinical evidence, additional testing is suggested to confirm the result. 03/08/2019 11:5 7 AM EST us Paradise Jiménez MD HISTORICAL/NON ORDERA BLE LABS Final Result [facility] [address] from Last 3 Months or Most Recently Relevant to Health Maintenance Insurance [facility] C[facility] FULL Care Teams Director Of Global Talent Relationship Specialty Start Date End Date Paradise Langley MD [address] [place] [address] PCP - General Family Medicine 01/09/19 Breanna Cooley Spa SupervisorMultiple Drum Sander Helper 01/28/23 Anat Stacy Spa SupervisorMultiple Drum Sander Helper 01/12/24
--- OUTSIDE RECORDS SUMMARY | 2024-03-31 10:40 | XMS_ITS | Encounter Summary ---
Author Organization [employer] Address 75 [facility] 7t [place] [address] Care Team Providers Care Waste And Batting Waste Chopper Name Role Phone Paradise Langley MD Primary Care Provide r Reason for Visit * Reason Comments Med Refill Encounter Details Date Type Department Care Team ([facility] st Contact Info) Description 01/18/2024 Refill [facility] MEDICINE [address] [place], [place] [phone] Paradise Langley MD [address] [place], [place] [phone] Dyspepsia Social History Tobacco Use Types Packs/Day [...] Description 04/10/2024 11:00 AM EST Office Visit [facility] [address] [place] [address] Paradise Langley MD [address] [place] [address] 06/01/2024 1:00 PM EDT Office Visit [facility] OPTOMETRY [address] [place] [address] Samantha Patterson, OD [address] [place] [address] documented as of this encounter Visit Diagnoses Diagnosis Dyspepsia Dyspepsia and other specified disorders of function of stomach documented in this encounter Additional Health Concerns Assessment Noted Time PHQ-9 Depression Total Score: 0 07/29/19 23 1:57 PM EDT documented as of this encounter Care Teams Waste And Batting Waste Chopper Relationship Specialty Start Date End Date Paradise Langley MD [address] [place] [address] PCP - General Family Medicine 01/09/19 Breanna Cooley Toll Bridge AttendantBlower Mechanic 01/28/23 Anat Stacy Toll Bridge AttendantBlower Mechanic 01/12/24 documented as of this encounter
--- OUTSIDE RECORDS SUMMARY | 2024-03-31 10:40 | XMS_ITS | Encounter Summary ---
Author Organization [employer] Address 75 [facility] 7t [place] [address] Care Team Providers Care Wood Coater Name Role Phone Paradise Langley MD Primary Care Provide r Reason for Visit * Reason Onset Date Comments PT-1 10/21/2023 Encounter Details Date Type Department Care Team ([facility] st Contact Info) Description 10/21/2023 Telephone [facility] MEDICINE [address] [place], [place] [phone] Paradise Langley MD [address] [place], [place] [phone] PT-1 Social History Tobacco Use Types Packs/Day Years [...] encounter Miscellaneous Notes * Telephone Encounter - Erick Stacy - 10/21/2023 2:27 PM EDT Patient calling requesting PT1 Home Address verified: Y/N: Yes Provider name or facility name: [facility] Facility Address: [address] [place] [address] Escort needed: Y/N: Yes Do you have a wheelchair: Y/N: No If yes- Manual or electric: N/A Visits: Once a month documented in this encounter Plan of Treatment Upcoming Encounters Date Type Department Care Team (Late st Contact Info) Description 04/10/2024 11:00 AM EST Office Visit [facility] MEDICINE [address] [place] [address] Paradise Langley MD [address] [place] [address] 06/01/2024 1:00 PM EDT Office Visit [facility] OPTOMETRY [address] [place] [address] Samantha Patterson, APRIL [address] [place] [address] documented as of this encounter Visit Diagnoses Not on filedocumented in this encounter Additional Health Concerns Assessment Noted Time PHQ-9 Depression Total Score: 0 07/29/19 23 1:57 PM EDT documented as of this encounter Care Teams Wood Coater Relationship Specialty Start Date End Date Paradise Langley MD [address] [place] [address] PCP - General Family Medicine 01/09/19 Breanna Cooley Cottrell BlowerSlaughterer Religious Ritual 01/28/23 Anat Stacy Cottrell BlowerSlaughterer Religious Ritual 01/12/24 documented as of this encounter
--- OUTSIDE RECORDS SUMMARY | 2024-03-31 10:40 | XMS_ITS | Encounter Summary ---
Author Organization [employer] [facility] Address [address] [place] [address] 7t [place] [address] Care Team Providers Care Office Support Name Role Phone Paradise Langley MD Primary Care Provide r Encounter Details Date Type Department Care Team (Late Contact Info) Description 11/17/2022 Orders Only [facility] MEDICINE [address] [place] [address] Dorina Ridley Social History Tobacco Use Types Packs/Day Years [...] Description 04/10/2024 11:00 AM EST Office Visit [facility] MEDICINE [address] [place] [address] Paradise Langley MD [address] [place], [place] [phone] 06/01/2024 1:00 PM EDT Office Visit [facility] OPTOMETRY [address] [place] [address] Samantha Patterson, OD [address] [place] [address] documented as of this encounter Procedures Procedure Name Priority Date/Time Associated Diagnosis Comments PAP/HPV Routine 05/15/2020 PAP/HPV Routine 05/15/2020 12:00 AM EDT documented in this encounter Results * Hm Pap Smear (05/15/2020) Historical Provider HEALTH MAINTENANCE Final Result * Hm Pap Smear (05/15/2020 12:00 AM EDT) Pap Negative for intraephithelial lesion or malignancy Negative for intraephithelial lesion or malignancy, Other HPV Undetected Narrative Dorina Ridley - 05/15/2020 12:00 AM EDT Duplicate Historical Provider HEALTH MAINTENANCE Edited Result - Final documented in this encounter Visit Diagnoses Not on filedocumented in this encounter Additional Health Concerns Assessment Noted Time PHQ-9 Depression Total Score: 0 07/29/19 23 1:57 PM EDT documented as of this encounter Care Teams Office Support Relationship Specialty Start Date End Date Paradise Langley MD [address] [place] [address] PCP - General Family Medicine 01/09/19 Breanna Cooley Furnace Combustion TesterLabel Sewer 01/28/23 Anat Stacy Furnace Combustion TesterLabel Sewer 01/12/24 documented as of this encounter
--- OUTSIDE RECORDS SUMMARY | 2024-03-31 10:40 | XMS_ITS | Encounter Summary ---
Author Organization [employer] Address 75 [facility] 7t [place] [address] Care Team Providers Care Inclusion Teacher Name Role Phone Paradise Langley MD Primary Care Provide r Reason for Visit * Reason Onset Date Comments PT-1 08/20/2023 Encounter Details Date Type Department Care Team ([facility] st Contact Info) Description 08/20/2023 Telephone [facility] MED[facility]INE 230 [place], [place] [phone] Paradise Langley MD [address] [place], [place] [phone] PT-1 Social History Tobacco Use Types Packs/Day [...] * Telephone Encounter - Erick Stacy - 08/20/2023 1:26 PM EDT Patient calling requesting PT1 Home Address verified: Y/N: Yes Provider name or facility name: [facility] Facility Address: [address] [place] [address] Escort needed: Y/N: Yes Do you have a wheelchair: Y/N: No If yes- Manual or electric: N/A Visits: 3 times monthly documented in this encounter Plan of Treatment Upcoming Encounters Date Type Department Care Team (Late st Contact Info) Description 04/10/2024 11:00 AM EST Office Visit [facility] [address] [place] [address] Paradise Langley MD [address] [place] [address] 06/01/2024 1:00 PM EDT Office Visit [facility] OPTOMETRY [address] [place] [address] Samantha Patterson, OD [address] [place] [address] documented as of this encounter Visit Diagnoses Not on filedocumented in this encounter Additional Health Concerns Assessment Noted Time PHQ-9 Depression Total Score: 0 07/29/19 23 1:57 PM EDT documented as of this encounter Care Teams Inclusion Teacher Relationship Specialty Start Date End Date Paradise Langley MD [address] [place] [address] PCP - General Family Medicine 01/09/19 Breanna Cooley Photo SpecialistForest Pathology Professor 01/28/23 Anat Satcy Photo SpecialistForest Pathology Professor 01/12/24 documented as of this encounter
== END 2024-03-31 09:58 | disposition home or self-care (01) ==
LOC: HO.HOSX 09:57
PROVIDERS: Visit Provider Physician Assistant
DX: M25.512 Pain in left shoulder (principal); M75.102 Unspecified rotator cuff tear or rupture of left shoulder, not specified as traumatic; E11.9 Type 2 diabetes mellitus without complications
CPT/HCPCS: 20610; 73030; 99212; J1010; J2003

== ENCOUNTER 2024-04-12 10:57 | Outpatient (RCR) | payer MEDICAID, SELFPAY ==
--- NOTE | 2024-03-24 15:11 | MHC.PT.EP ---
[facility] Office [place] Office [place] Office [address] Dominic Schwarz [address] [phone] F: [phone] F: [phone] F: [phone] F: [phone] Physical Therapy Plan of Care Date of Evaluation: 03/24/24 Date of Surgery: Diagnosis: RIGHT LOWER BACK PAIN Assessment: 58 YO FEMALE REF TO PT W A 15 YR H/O LBP. SHE DENIES RADIC SXS/ BOWEL-BLADDER SXS- SHE STATED SHE PREVIOUSLY HAD A LIFT IN HER LEFT SHOE, BUT HAS LOST IT -> SHE APPEARS TO HAVE A Rt LLI CREATING INCR MECHANICAL STRESS TO Lt SACRAL SULCUS AREA/ MECHANICAL DEFICIT. SHE HAS LIMITED FUNCT MOB ESTHER, DECR ESTHER TO HOUSE CHORES, LIMITED SITTING/ STANDING ESTHER- SHE HAS DECR CORE STRENGTH, DECR FLEXIB IN HIPS, AND ALTERED BODY MECH. SHE IS A GOOD PT CANDIDATE. Frequency and Duration: The patient will be seen 2 x WKx 4 WKS Short Term Goals: DECR LBP TO 2-3/10 INITIATE HEP-> LUMBOPELVIC STAB AND HIP FLEXIB Pt INDEP W SELF POSTURAL CORRECTION W SIMUL ADLs Fdc Goals: Pt INDEP W HEP AND SX MGMT TECHN Pt RESUME REG ADLs W/O LBP IMPACTING HER ACTIVITY ESTHER SYMMETRICAL LUMBOPELVIC VIA HEP OR W ADDITIONAL Lt HEEL LIFT TO IMPACT HER Rt LLI ASSESSED AT EVAL Treatment Plan: Modalities to reduce pain, spasms and effusion. Manual therapy to restore motion and function. Therapeutic exercise to improve strength and flexibility. Neuromuscular re-education for posture and balance. Therapeutic activities to return to functional activities of daily living. Electronically signed by: DAVID CARRASCO,PT Please sign and return to therapist. Thank you for your referral.
--- NOTE | 2024-05-24 11:02 | MHC.PT.DC ---
[facility] Office [place] Office [place] Office [address] Dominic Schwarz 140 [facility] [phone] F: [phone] F: [phone] F: [phone] F: [phone] Physical Therapy Discharge Report Diagnosis: RIGHT LOWER BACK PAIN Date of Surgery: Date of Evaluation: 03/24/24 Date of Discharge: 05/24/24 Treatments to Date: 3 Cancellations to Date: 6 No Shows to Date: Discharge Status: Improved Function Patient Elected to Stop Visit Non-compliance Discharge Summary: WOLF WAS BENEFITTING FROM PT, ADDRESSING HER LBP, DEV A HEP AND SX MGMT STRATEGIES- SHE CANC HER LAST FEW APPTS- AND, THJERFORE, A FORMAL REASSESSMENT WAS NOT PERFORMED. THE Pt DID NOT MEET HER PT GOALS, HOWEVER, SHE HAS A HEP TO FURTHER MANAGE HER SXS. Electronically signed by: Lia Chapin,PT Please sign and return to therapist. Thank you for your referral.
== END 2024-05-24 11:02 | disposition home or self-care (01) ==
LOC: HO.PT 10:57
PROVIDERS: PCP Internal Medicine; Visit Provider Registered Nurse Emergency
DX: M47.816 Spondylosis without myelopathy or radiculopathy, lumbar region (principal)
CPT/HCPCS: 97110; 97162

== ENCOUNTER 2024-05-24 09:40 | Outpatient (REF) | payer MEDICAID, SELFPAY ==
--- OUTSIDE RECORDS SUMMARY | 2024-05-24 10:51 | XMS_ITS | Encounter Summary ---
Author Organization [facility] [facility] Address [address] [place] [address] 7t [place] [address] Care Team Providers Care Gaming Table Operator Name Role Phone Paradise Langley MD Primary Care Provide r Encounter Details Date Type Department Care Team (Late Contact Info) Description 11/17/2022 Orders Only [facility] MEDICINE [address] [place] [address] ProviderKay MD Social History Tobacco Use Types [...] Department Care Team (Late Contact Info) Description 06/01/2024 1:00 PM EDT Office Visit [facility] OPTOMETRY [address] [place] [address] Samantha Patterson OD [address] [place] [address] 08/23/2024 10:00 AM EDT Office Visit [facility] MEDICINE 230 [place] [address] Paradise Langley MD [address] [place] [address] documented as of this encounter Procedures Procedure Name Priority Date/Time Associated Diagnosis Comments MAMMOGRAPHY Routine 10/30/2021 COLONOSCOPY Routine 06/03/2021 documented in this encounter Results * Mammography (10/30/2021) Anatomical Region Laterality Modality Other us Historical Provider HEALTH MAINTENANCE Final Result * Colonoscopy (06/03/2021) Historical Provider HEALTH MAINTENANCE Final Result documented in this encounter Visit Diagnoses Not on filedocumented in this encounter Additional Health Concerns Assessment Noted Time PHQ-9 Depression Total Score: 0 07/29/19 23 1:57 PM EDT documented as of this encounter Care Teams Gaming Table Operator Relationship Specialty Start Date End Date Paradise Langley MD [address] [place] [address] PCP - General Family Medicine 01/09/19 Breanna Cooley Food Service TechnicianIct Quality Assurance Engineer 01/28/23 Anat Stacy Food Service TechnicianIct Quality Assurance Engineer 01/12/24 documented as of this encounter
--- OUTSIDE RECORDS SUMMARY | 2024-05-24 10:51 | XMS_ITS | Encounter Summary ---
Author Organization [employer] Address 75 [facility] 7t [place] [address] Care Team Providers Care Metal Alloy Scientist Name Role Phone Paradise Langley MD Primary Care Provide r Reason for Visit * Reason Onset Date Comments PT-1 10/21/2023 Encounter Details Date Type Department Care Team ([facility] st Contact Info) Description 10/21/2023 Telephone [facility] MEDICINE 230 [place], [place] [phone] Paradise Langley MD 230 [place], [place] [phone] PT-1 Social History Tobacco Use Types Packs/Day [...] Y/N: Yes Provider name or facility name: [facility] Facility Address: [address] [place] [address] Escort needed: Y/N: Yes Do you have a wheelchair: Y/N: No If yes- Manual or electric: N/A Visits: Once a month documented in this encounter Plan of Treatment Upcoming Encounters Date Type Department Care Team ([facility] st Contact Info) Description 06/01/2024 1:00 PM EDT Office Visit [facility] OPTOMETRY [address] [place] [address] Samantha Patterson, OD [address] [place] [address] 08/23/2024 10:00 AM EDT Office Visit [facility] MEDICINE 230 [place] [address] Paradise Langley MD 230 [place] [address] documented as of this encounter Visit Diagnoses Not on filedocumented in this encounter Additional Health Concerns Assessment Noted Time PHQ-9 Depression Total Score: 0 07/29/19 23 1:57 PM EDT documented as of this encounter Care Teams Metal Alloy Scientist Relationship Specialty Start Date End Date Paradise Langley MD [address] [place] [address] PCP - General Family Medicine 01/09/19 Breanna Cooley Senior Bi DeveloperCare Consultant 01/28/23 Anat Stacy Senior Bi DeveloperCare Consultant 01/12/24 documented as of this encounter
--- OUTSIDE RECORDS SUMMARY | 2024-05-24 10:51 | XMS_ITS | Encounter Summary ---
Author Organization [employer] Address 75 [facility] 7t [place] [address] Care Team Providers Care Sexton Helper Name Role Phone Paradise Langley MD Primary Care Provide r Encounter Details Date Type Department Care Team ([facility] st Contact Info) Description 05/12/2024 Population Health Risk Score [facility] (C3) Department 75 [facility] 7 [place] [phone] Provider, Population Health Generic Social History Tobacco Use Types Packs/Day Years [...] Care Team (Late st Contact Info) Description 06/01/2024 1:00 PM EDT Office Visit [facility] OPTOMETRY [address] [place] [address] RadhasSamantha, OD [address] [place] [address] 08/23/2024 10:00 AM EDT Office Visit [facility] MEDICINE 230 [place] [address] Paradise Langley MD [address] [place] [address] documented as of this encounter Visit Diagnoses Not on filedocumented in this encounter Additional Health Concerns Assessment Noted Time PHQ-9 Depression Total Score: 0 07/29/19 23 1:57 PM EDT documented as of this encounter Care Teams Sexton Helper Relationship Specialty Start Date End Date Paradise Langley MD [address] [place] [address] PCP - General Family Medicine 01/09/19 Breanna Cooley Roll Edge Stitcher HandSoftware Engineer Web Services 01/28/23 Anat Stacy Roll Edge Stitcher HandSoftware Engineer Web Services 01/12/24 documented as of this encounter
--- OUTSIDE RECORDS SUMMARY | 2024-05-24 10:51 | XMS_ITS | Encounter Summary ---
Author Organization [email or web address] Address 75 [facility] 7t [place] [address] Care Team Providers Care Chief Medical Director Name Role Phone Paradise Langley MD Primary Care Provide r Reason for Visit * Reason Comments Med Refill Encounter Details Date Type Department Care Team ([facility] st Contact Info) Description 01/18/2024 Refill [facility] MEDICINE [address] [place], [place] [phone] Paradise Langley MD [address] [place], [place] [phone] Dyspepsia Social History Tobacco Use Types Packs/Day [...] 1:00 PM EDT Office Visit [facility] OPTOMETRY [address] [place] [address] Samantha Patterson, OD [address] [place] [address] 08/23/2024 10:00 AM EDT Office Visit [facility] MEDICINE [address] [place] [address] Paradise Langley MD [address] [place] [address] documented as of this encounter Visit Diagnoses Diagnosis Dyspepsia Dyspepsia and other specified disorders of function of stomach documented in this encounter Additional Health Concerns Assessment Noted Time PHQ-9 Depression Total Score: 0 07/29/19 23 1:57 PM EDT documented as of this encounter Care Teams Chief Medical Director Relationship Specialty Start Date End Date Paradise Langley MD [address] [place] [address] PCP - General Family Medicine 01/09/19 Breanna Cooley Assistant Restaurant General ManagerCloth Covered Helmet Puller 01/28/23 Anat Stacy Assistant Restaurant General ManagerCloth Covered Helmet Puller 01/12/24 documented as of this encounter
--- OUTSIDE RECORDS SUMMARY | 2024-05-24 10:51 | XMS_ITS | Encounter Summary ---
Author Organization [facility] Address [address] [place] [address] 7t [place] [address] Care Team Providers Care Sql Server Dba Developer Name Role Phone Paradise Langley MD Primary Care Provide r Encounter Details Date Type Department Care Team (Late Contact Info) Description 11/17/2022 Orders Only [facility] MEDICINE [address] [place] [phone] Dorina Ridley Social History Tobacco Use Types [...] Description 06/01/2024 1:00 PM EDT Office Visit [facility] OPTOMETRY [address] [place] [address] Samantha Patterson OD [address] [place] [address] 08/23/2024 10:00 AM EDT Office Visit [facility] MEDICINE [address] [place] [address] Paradise Langley MD [address] [place] [address] documented as of this encounter Procedures Procedure [...] documented as of this encounter Care Teams Sql Server Dba Developer Relationship Specialty Start Date End Date Paradise Langley MD [address] [place] [address] PCP - General Family Medicine 01/09/19 Breanna Cooley Ekg MonitorDigital Learning Platforms Manager 01/28/23 Anat Stacy Ekg MonitorDigital Learning Platforms Manager 01/12/24 documented as of this encounter
--- OUTSIDE RECORDS SUMMARY | 2024-05-24 10:51 | XMS_ITS | Encounter Summary ---
Author Organization [employer] Address 75 [facility] 7t [place] [address] Care Team Providers Care Opticianry Teacher Name Role Phone Paradise Langley MD Primary Care Provide r Reason for Visit * Reason Onset Date Comments Med Refill 05/10/2024 Encounter Details Date Type Department Care Team ([facility] st Contact Info) Description 05/10/2024 Refill [facility] MED & PEDS [address] [place], [place] [phone] Paradise Langley MD [address] [place] [address] Social History Tobacco Use Types Packs/Day Years [...] Description 06/01/2024 1:00 PM EDT Office Visit [facility] OPTOMETRY [address] [place] [address] Samantha Patterson, OD [address] [place] [address] 08/23/2024 10:00 AM EDT Office Visit [facility] MEDICINE [address] [place] [address] Paradise Langley MD [address] [place] [address] documented as of this encounter Visit Diagnoses Not on filedocumented in this encounter Additional Health Concerns Assessment Noted Time PHQ-9 Depression Total Score: 0 07/29/19 23 1:57 PM EDT documented as of this encounter Care Teams Opticianry Teacher Relationship Specialty Start Date End Date Paradise Langley MD [address] [place] [address] PCP - General Family Medicine 01/09/19 Breanna Cooley Cinder ManSchool Clerk 01/28/23 Anat Stacy Cinder ManSchool Clerk 01/12/24 documented as of this encounter
--- OUTSIDE RECORDS SUMMARY | 2024-05-24 10:51 | XMS_ITS | Encounter Summary ---
Author Organization [employer] Address [address] [facility] [address] 7t [place] [address] Care Team Providers Care Formulator Name Role Phone Paradise Langley MD Primary Care Provide r Reason for Visit * Reason Comments Med Refill Encounter Details Date Type Department Care Team ([facility] st Contact Info) Description 12/21/2023 Refill [facility] MED & PEDS [address] [place], [place] [phone] Paradise Langley MD [address] [place] [address] Dyspepsia Social History Tobacco Use Types Packs/Day [...] 06/01/2024 1:00 PM EDT Office Visit [facility] OPTOMETRY [address] [place] [address] Samantha Patterson, OD [address] [place] [address] 08/23/2024 10:00 AM EDT Office Visit [facility] MEDICINE 230 [place] [address] Paradise Langley MD [address] [place] [address] documented as of this encounter Visit Diagnoses Diagnosis Dyspepsia Dyspepsia and other specified disorders of function of stomach documented in this encounter Additional Health Concerns Assessment Noted Time PHQ-9 Depression Total Score: 0 07/29/19 23 1:57 PM EDT documented as of this encounter Care Teams Formulator Relationship Specialty Start Date End Date Paradise Langley MD [address] [place] [address] PCP - General Family Medicine 01/09/19 Breanna Cooley Head Of Partner DevelopmentTray Drier 01/28/23 Anat Stacy Head Of Partner DevelopmentTray Drier 01/12/24 documented as of this encounter
--- OUTSIDE RECORDS SUMMARY | 2024-05-24 10:51 | XMS_ITS | Encounter Summary ---
Author Organization [employer] [facility] Address [address] [place] [address] [address] [place] [address] Care Team Providers Care Spooling Machine Operator Name Role Phone Paradise Langley MD Primary Care Provide r Reason for Referral * Consultation (Routine) - Pending Review Specialty Diagnoses / Procedures Referred By Lambert gomez Referred To Contact Hand Surgery Diagnoses Left hand tendonitis Paradise Langley MD [address] [place] [phone] Phone: tel: fax: Referral ID Status Reason Start Date Expiration Date Visits Requested Visits Authorized [id number] Pending Review Specialty Services Required 05/24/2024 05/24/2025 1 1 Encounter Details Date Type Department Care Team ([facility] st Contact Info) Description 05/24/2024 9:00 AM EDT Office Visit [facility] MED[facility]INE [address] [place] [address] [phone] Paradise Langley MD [address] [place] [address] [phone] Epigastric abdominal pain (Primary Dx); Type 2 diabetes mellitus without complication, without long-term current use of insulin (CMS/HCC); Polyarthralgia; Left hand tendonitis; Primary hypertension Social History Tobacco Use Types Packs/Day Years [...] AM EDT documented as of this encounter Last Filed Vital Signs Vital Sign Reading Time Taken Comments Blood Pressure 135/65 05/24/2024 9:03 AM EDT Pulse 90 05/24/2024 9:03 AM EDT Temperature 36.4 ??C (97.6 ??F) 05/24/2024 9:03 AM ED T Respiratory Rate 16 05/24/2024 9:03 AM EDT Oxygen Saturation - - Inhaled Oxygen Concentration - - Weight 82.6 kg (182 lb) 05/24/2024 9:03 AM EDT Height 162.6 cm (5' 4 ) 05/24/2024 9:03 AM EDT Body Mass Index 31.24 05/24/2024 9:03 AM EDT documented in this encounter Progress Notes * Paradise Jiménez MD - 05/24/2024 9:00 AM EDT SUBJECTIVE: Josephine Easton is a 59 y.o. year old female who presents for Chronic Disease Management . Acute Concerns: Patient reports she has being having more and more disseminated pain and multiple joint pain, reports she struggles every morning specially with her iman sand that she feels her hands are swell in the morning Patient also explains to me her left hand has a problem reports she can not hold/carry grocery bagsand feels something hard in the middle of her palm Patient also reports she continues to struggle with abdominal pain and indigestion, she reports shetried pantoprazole instead of omeprazole and she thinks it works better Social History Social History Narrative Not on file Patient Active Problem List Diagnosis Benign paroxysmal positional vertigo Type 2 diabetes mellitus without complication, without long-term current use of insulin (CMS/HCC) Atypical mole Primary hypertension Anxiety Asthma Carpal tunnel syndrome Chronic left shoulder pain Depressive disorder Diarrhea Epigastric abdominal pain Influenza-like symptoms Obesity Migraine headache Shoulder pain Posttraumatic stress disorder Visual impairment Essential hypertension Hypertension Type 2 diabetes mellitus without complication (CMS/HCC) Stress incontinence of urine Dyslipidemia GERD (gastroesophageal reflux disease) Other constipation Bleeding hemorrhoids Breast pain, left Lumbar radiculopathy Lumbar strain Polyarthralgia Left hand tendonitis Family History Problem Relation Name Age of Onset Breast cancer Cousin 60 Review of Systems Constitutional: Negative. HENT: Negative. Respiratory: Negative. Cardiovascular: Negative. Musculoskeletal: Positive for arthralgias, joint swelling and myalgias. OBJECTIVE: Vitals: 05/24/24 0903 BP: 135/65 BP Location: Left arm Patient Position: Sitting BP Cuff Size: Adult Pulse: 90 Resp: 16 Temp: 97.6 ??F (36.4 ??C) TempSrc: Temporal Weight: 182 lb (82.6 kg) Height: 5' 4 (1.626 m) Physical Exam Constitutional: Appearance: Normal appearance. Cardiovascular: Rate and Rhythm: Normal rate and regular rhythm. Pulmonary: Effort: Pulmonary effort is normal. Breath sounds: Normal breath sounds. Abdominal: General: Abdomen is flat. Palpations: Abdomen is soft. Musculoskeletal: Left hand: Tenderness present. Comments: It was notice hard/stiff tendon on mid palm area Neurological: Mental Status: She is alert. Follow Up: Follow up in about 3 months (around 08/24/2024) for chronic conditions . Current Outpatient Medications on File Prior to Visit Medication Sig Dispense Refill acetaminophen (Tylenol) 250 mg split tablet 500 mg. Alcohol Swabs (B-D SINGLE USE SWABS REGULAR) pads APPLY 1 PAD BY TO SKIN ROUTE 2 TIMES EVERY DAY 100 each 11 amitriptyline (Elavil) 10 MG tablet TAKE 1 TABLET BY MOUTH AT BEDTIME 30 tablet 5 atorvastatin (Lipitor) 40 MG tablet TAKE 1 TABLET BY MOUTH DAILY 28 tablet 5 cyclobenzaprine (Flexeril) 2.5 MG split tablet 5 mg. diclofenac sodium 3 % gel APPLY TOPICALLY TWICE A DAY 100 g 0 docusate sodium (Colace) 100 MG capsule TAKE 1 CAPSULE BY MOUTH TWICE A DAY 180 capsule 0 FREESTYLE LITE test strip CHECKIAR LA JAYNE THREE TIMES A DAY 100 each 11 hydroCHLOROthiazide 12.5 MG tablet TAKE 1 TABLET BY MOUTH DAILY 28 tablet 5 lidocaine (Lidoderm) 5 % patch APPLY 1 PATCH ONTO THE SKIN DAILY (MAY WEAR UP TO 12 HOURS) 30 patch1 loratadine (Claritin) 10 MG tablet TAKE 1 TABLET BY MOUTH DAILY IN THE IN THE MORNING 28 tablet 5 meclizine (Antivert) 25 MG tablet TAKE 1 TABLET BY MOUTH EVERY MORNING 30 tablet 0 metFORMIN (Glucophage) 850 MG tablet TAKE 1 TABLET BY MOUTH TWICE A DAY WITH IN THE MORNING AND IN THE EVENING MEAL 56 tablet 5 methocarbamol (Robaxin) 750 MG tablet TAKE 2 TABLETS BY MOUTH THREE TIMES A DAY 168 tablet 1 SUMAtriptan (Imitrex) 25 MG tablet Take 1 tablet (25 mg) by mouth 1 (one) time if needed for migraine for up to 9 doses. May repeat dose once in 2 hours if no relief. Do not exceed 2 doses in 24 hours. 9 tablet 0 TRUEplus Lancets 33G [facility] USE TO TEST BLOOD SUGAR TWICE A DAY 100 each 5 [DISCONTINUED] omeprazole (PriLOSEC) [address] capsule TAKE 1 CAPSULE (40 MG) BY MOUTH IN THE MORNING. DO NOT CRUSH OR CHEW. 28 capsule 5 No current facility-administered medications on file prior to visit. Problem List Items Addressed This Visit Type 2 diabetes mellitus without complication, without long-term current use of insulin ([facility]) Diabetes is: controlled - Lab Results Component Value Date HGBA1C 6.7 (A) 02/04/2024 HGBA1C 6.8 (A) 08/20/2023 HGBA1C 7.1 (A) 10/09/2022 - Lab Results Component Value Date MICROALBUR 1.1 01/15/2022 CREATININE 0.91 08/30/2023 -Changes: none - Diabetic eye exam:up to date - Diabetic foot exam:up to date - Continue lifestyle modifications - Continue current medications - Follow up: 3 months Relevant Orders POCT Glucose (Completed) Lipid Panel, Standard Albumin, Random Urine W/Creatinine Comprehensive Metabolic Panel Epigastric abdominal pain - Primary I advise patient to avoid NSAIDs, spicy and acid food, I advise to eat at the same time every day, I advise to elevate the head of the bed and take medications as prescribe I discontinue her omeprazole and start her on pantoprazole 40mg daily Relevant Medications pantoprazole (Protonix) 40 MG EC tablet Polyarthralgia Patient will be contacted with results Relevant Orders Rheumatoid Factor Cyclic Citrullinated Peptide (CCP) Antibody (IgG) NIKHIL Screen,IFA, with Reflex to Titer and Pattern Sed Rate by Modified Westergren C-reactive Protein Left hand tendonitis I will refer patient to hand specialist Relevant Orders Referral to Hand Surgery Primary hypertension I advised: - Aerobic exercise to reduce BP. Initial goal of 30 min walk 3-5x/week. Increase as tolerated. - low-sodium diet (goal: <2g/day) and heart healthy diet such as DASH to reduce BP and prevent ASCVD. - Home BP monitoring 1-2 x day with goal of <140/90. - Seek immediate medical attention for chest pain, palpitations, SOB, syncope, or sudden changes inmental status. - Do not change or discontinue current prescriptions without first consulting health care provider documented in this encounter Miscellaneous Notes * Assessment & Plan Note - Paradise Jiménez MD - 05/24/2024 10:06 AM EDT Associated Problem(s): Polyarthralgia Patient will be contacted with results * Assessment & Plan Note - Paradise Jiménez MD - 05/24/2024 10:05 AM EDT Associated Problem(s): Type 2 diabetes mellitus without complication, without long-term current useof insulin ([facility]) Diabetes is: controlled - Lab Results Component Value Date HGBA1C 6.7 (A) 02/04/2024 HGBA1C 6.8 (A) 08/20/2023 HGBA1C 7.1 (A) 10/09/2022 - Lab Results Component Value Date MICROALBUR 1.1 01/15/2022 CREATININE 0.91 08/30/2023 -Changes: none - Diabetic eye exam:up to date - Diabetic foot exam:up to date - Continue lifestyle modifications - Continue current medications - Follow up: 3 months * Assessment & Plan Note - Paradise Jiménez MD - 05/24/2024 10:04 AM EDT Associated Problem(s): Left hand tendonitis I will refer patient to hand specialist * Assessment & Plan Note - Paradise Jiménez MD - 05/24/2024 10:04 AM EDT Associated Problem(s): Primary hypertension I advised: - Aerobic exercise to reduce BP. Initial goal of 30 min walk 3-5x/week. Increase as tolerated. - low-sodium diet (goal: <2g/day) and heart healthy diet such as DASH to reduce BP and prevent ASCVD. - Home BP monitoring 1-2 x day with goal of <140/90. - Seek immediate medical attention for chest pain, palpitations, SOB, syncope, or sudden changes inmental status. - Do not change or discontinue current prescriptions without first consulting health care provider * Assessment & Plan Note - Paradise Jiménez MD - 05/24/2024 10:03 AM EDT Associated Problem(s): Epigastric abdominal pain I advise patient to avoid NSAIDs, spicy and acid food, I advise to eat at the same time every day, I advise to elevate the head of the bed and take medications as prescribe I discontinue her omeprazole and start her on pantoprazole 40mg daily documented in this encounter Plan of Treatment Upcoming Encounters Date Type Department Care Team (Late st Contact Info) Description 06/01/2024 1:00 PM EDT Office Visit [facility] OPTOMETRY [address] [place] [address] Samantha Patterson, OD [address] [place] [address] 08/23/2024 10:00 AM EDT Office Visit [facility] MEDICINE [address] [place] [address] Paradise Langley MD [address] [place] [address] Scheduled Orders Name Type Priority Associated Diagnoses Orde r Schedule Rheumatoid Factor Lab Routine Polyarthralgia Expected: 05/24/2024, Expires: 05/24/2025 Cyclic Citrullinated Peptide (CCP) Antibody (IgG) Lab Routine Polyarthralgia Expected: 05/24/2024 (Approximate), Expires: 05/24/2025 NIKHIL Screen,IFA, with Reflex to Titer and Pattern Lab Routine Polyarthralgia Expected: 05/24/2024 (Approximate), Expires: 05/24/2025 Sed Rate by Modified Westergren Lab Routine Polyarthralgia Expected: 05/24/2024, Expires: 05/24/2025 C-reactive Protein Lab Routine Polyarthralgia Expected: 05/24/2024 (Approximate), Expires: 05/24/2025 Lipid Panel, Standard Lab Routine Type 2 diabetes mellitus without complication, without long-term current use of insulin (CMS/HCC) Expected: 05/24/2024 (Approximate), Expires: 05/24/2025 Albumin, Random Urine W/Creatinine Lab Routine Type 2 diabetes mellitus without complication, without long-term current use of insulin (CMS/HCC) Expected: 05/24/2024 (Approximate), Expires: 05/24/2025 Comprehensive Metabolic Panel Lab Routine Type 2 diabetes mellitus without complication, without long-term current use of insulin ([facility]) Expected: 05/24/2024 (Approximate), Expires: 05/24/2025 Scheduled Referrals Name Type Priority Associated Diagnoses Orde r Schedule Referral to Hand Surgery Outpatient Referral Routine Left hand tendonitis Expected: 05/24/2024 (Approximate), Expires: 05/24/2025 documented as of this encounter Procedures Procedure Name Priority Date/Time Associated Diagnosis Comments POCT GLUCOSE Routine 05/24/2024 9:04 AM EDT Type 2 diabetes mellitus without complication, without long-term current use of insulin ([facility]) documented in this encounter Results * POCT Glucose (05/24/2024 9:04 AM EDT) Glucose Blood, POC 160 60 - 200 mg/dL Comment:random QC Media Lot # [id number] Lot# Expiration Date Blood Capillary blood specimen / Unknown 05/24/2024 9:04 AM EDT us Paradise Jiménez MD POINT OF CARE TEST EN TER/EDIT ORDERABLES Final Result documented in this encounter Visit Diagnoses Diagnosis Epigastric abdominal pain- Primary Abdominal pain, epigastric Type 2 diabetes mellitus without complication, without long-term current use of insulin ([facility]) Polyarthralgia Pain in joint, multiple sites Left hand tendonitis Primary hypertension Unspecified essential hypertension documented in this encounter Additional Health Concerns Assessment Noted Time PHQ-9 Depression Total Score: 0 07/29/19 23 1:57 PM EDT documented as of this encounter Care Teams Spooling Machine Operator Relationship Specialty Start Date End Date Paradise Langley MD [address] [place] [phone] PCP - General Family Medicine 01/09/19 Breanna Cooley Lockstitch Shoulder JoinerRespiratory Therapy Manager 01/28/23 Anat Stacy Lockstitch Shoulder JoinerRespiratory Therapy Manager 01/12/24 documented as of this encounter
--- OUTSIDE RECORDS SUMMARY | 2024-05-24 10:51 | XMS_ITS | Encounter Summary ---
Author Organization [employer] Address [address] [place] [address] Care Team Providers Care Credit Processor Name Role Phone Paradise Langley MD Primary Care Provide r Reason for Visit * Reason Comments Med Refill Encounter Details Date Type Department Care Team ([facility] st Contact Info) Description 05/11/2024 Refill [facility] [address] [place], [place] [phone] Paradise Langley MD [address] [place], [place] [phone] Type 2 diabetes mellitus with hyperglycemia, without long-term current use of insulin ([facility]) Social History Tobacco Use Types Packs/Day Years [...] Description 06/01/2024 1:00 PM EDT Office Visit [facility] OPTOMETRY [address] [place] [address] Samantha Patterson, OD [address] [place] [address] 08/23/2024 10:00 AM EDT Office Visit [facility] [address] [place] [address] Paradise Langley MD [address] [place] [address] documented as of this encounter Visit Diagnoses Diagnosis Type 2 diabetes mellitus with hyperglycemia, without long-term current use of insulin ([facility]) documented in this encounter Additional Health Concerns Assessment Noted Time PHQ-9 Depression Total Score: 0 07/29/19 23 1:57 PM EDT documented as of this encounter Care Teams Credit Processor Relationship Specialty Start Date End Date Paradise Langley MD [address] [place] [address] PCP - General Family Medicine 01/09/19 Breanna Cooley Rag BoilerPrinter Slotter Feeder 01/28/23 Anat Stacy Rag BoilerPrinter Slotter Feeder 01/12/24 documented as of this encounter
--- OUTSIDE RECORDS SUMMARY | 2024-05-24 10:51 | XMS_ITS | Encounter Summary ---
Author Organization [employer] [facility] Address [address] [place] [address] Care Team Providers Care Belling Machine Operator Name Role Phone Paradise Langley MD Primary Care Provide r Reason for Visit * Reason Comments Med Refill Encounter Details Date Type Department Care Team ([facility] st Contact Info) Description 09/29/2023 Refill [facility] [address] [place], [place] [phone] Paradise Langley MD [address] [place], [place] [phone] Pain; Dyspepsia Social History Tobacco Use Types Packs/Day [...] 1:00 PM EDT Office Visit [facility] OPTOMETRY [address] [place] [address] Samantha Patterson, OD [address] [place] [address] 08/23/2024 10:00 AM EDT Office Visit [facility] [address] [place] [address] Paradise Langley MD [address] [place] [address] documented as of this encounter Visit Diagnoses Diagnosis Pain Generalized pain Dyspepsia Dyspepsia and other specified disorders of function of stomach documented in this encounter Additional Health Concerns Assessment Noted Time PHQ-9 Depression Total Score: 0 07/29/19 23 1:57 PM EDT documented as of this encounter Care Teams Belling Machine Operator Relationship Specialty Start Date End Date Paradise Langley MD [address] [place] [address] PCP - General Family Medicine 01/09/19 Breanna Cooley Jig Boring Machine Operator For MetalLockstitch Collar Setter 01/28/23 Anat Stacy Jig Boring Machine Operator For MetalLockstitch Collar Setter 01/12/24 documented as of this encounter
--- OUTSIDE RECORDS SUMMARY | 2024-05-24 10:52 | XMS_ITS | Clinical Summary ---
Author Organization [employer] Address [address] [facility] 7t [place] [address] Care Team Providers Care Insurance Writer Name Role Phone Paradise Langley MD Primary Care Provide r Allergies Active Allergy Reactions Criticality Noted Date Comments Naproxen 07/06/2022 Other reaction(s): insomnia, aggitation Medications * This document contains information received from the source organization and may not represent a complete record from that organization. meclizine (Antivert) 25 MG tabletIndicatio ns:Benign paroxysmal positional vertigo, unspecified laterality TAKE 1 TABLET BY MOUTH EVERY MORNING 30 tablet 09/04/19 23 Active SUMAtriptan (Imitrex) 25 MG tabletIndicatio ns:Chronic migraine without aura without status migrainosus, not intractable Take 1 tablet (25 mg) by mouth 1 (one) time if needed for migraine for up to 9 doses. May repeat dose once in 2 hours if no relief. Do not exceed 2 doses in 24 hours. 9 tablet 02/19/20 23 Active lidocaine (Lidoderm) 5 % patchIndication s:Pain APPLY 1 PATCH ONTO THE SKIN DAILY (MAY WEAR UP TO 12 HOURS) 30 patch 1 07/21/19 24 Active atorvastatin (Lipitor) 40 MG tablet TAKE 1 TABLET BY MOUTH DAILY 28 tablet 5 10/27/19 24 Active Alcohol Swabs (B-D SINGLE USE SWABS REGULAR) padsIndications :Pain APPLY 1 PAD BY TO SKIN ROUTE 2 TIMES EVERY DAY 100 each 11 10/27/19 24 Active loratadine (Claritin) 10 MG tablet TAKE 1 TABLET BY MOUTH DAILY IN THE IN THE MORNING 28 tablet 5 10/27/19 24 Active diclofenac sodium 3 % gelIndications: Chronic left shoulder pain APPLY TOPICALLY TWICE A DAY 100 g 10/27/19 24 Active FREESTYLE LITE test stripIndication s:IFG (impaired fasting glucose) CHECKIAR [place] JAYNE THREE TIMES A DAY 100 each 11/23/19 Active TRUEplus Lancets 33G misc USE TO TEST BLOOD SUGAR TWICE A DAY 100 each 11/23/19 24 Active acetaminophen (Tylenol) 250 mg split tablet 500 mg. 01/06/20 Active cyclobenzaprine (Flexeril) 2.5 MG split tablet 5 mg. 01/06/20 24 Active docusate sodium (Colace) 100 MG capsule TAKE 1 CAPSULE BY MOUTH TWICE A DAY 180 capsule 03/17/19 25 Active methocarbamol (Robaxin) 750 MG tabletIndicatio ns:Pain TAKE 2 TABLETS BY MOUTH THREE TIMES A DAY 168 tablet 1 04/12/19 25 Active amitriptyline (Elavil) 10 MG tabletIndicatio ns:Chronic migraine without aura without status migrainosus, not intractable TAKE 1 TABLET BY MOUTH AT BEDTIME 30 tablet 04/13/19 25 Active hydroCHLOROthia zide 12.5 MG tablet TAKE 1 TABLET BY MOUTH DAILY 28 tablet 5 05/11/19 25 Active metFORMIN (Glucophage) 850 MG tabletIndicatio ns:Type 2 diabetes mellitus with hyperglycemia, without long-term current use of insulin (CMS/HCC) TAKE 1 TABLET BY MOUTH TWICE A DAY WITH IN THE MORNING AND IN THE EVENING MEAL 56 tablet 5 05/13/19 25 Active pantoprazole (Protonix) 40 MG EC tabletIndicatio ns:Epigastric abdominal pain Take 1 tablet (40 mg) by mouth before breakfast. Do not crush, chew, or split. 90 tablet 1 05/25/19 25 026 Active hydroCHLOROthia zide 12.5 MG tablet TAKE 1 TABLET BY MOUTH DAILY 28 tablet 5 10/27/19 24 025 Discontinued(Re order (will not trigger notification to Pharmacy)) metFORMIN (Glucophage) 850 MG tabletIndicatio ns:Type 2 diabetes mellitus with hyperglycemia, without long-term current use of insulin (CMS/HCC) TAKE 1 TABLET BY MOUTH TWICE A DAY ; MORNING AND EVENING MEAL 56 tablet 5 10/27/19 24 025 Discontinued omeprazole (PriLOSEC) [address] capsuleIndicati ons:Dyspepsia TAKE 1 CAPSULE (40 MG) BY MOUTH IN THE MORNING. DO NOT CRUSH OR CHEW. 28 capsule 5 02/16/20 24 025 Discontinued Active Problems Problem Noted Date Diagnosed Date Polyarthralgia 05/24/2024 Assessment & Plan (05/24/2024 10:06 AM EDT): Patient will be contacted with results Left hand tendonitis 05/24/2024 Assessment & Plan (05/24/2024 10:04 AM EDT): I will refer patient to hand specialist Lumbar radiculopathy 02/03/2024 Lumbar strain 02/03/2024 Breast [...] use of insulin 07/28/2022 Assessment & Plan (05/24/2024 10:05 AM EDT): Diabetes is: controlled - Lab [...] Follow up: 3 months Assessment & Plan (08/20/2023 11:53 AM EDT): [...] 07/28/2022 Primary hypertension 07/28/2022 Assessment & Plan (05/24/2024 10:04 AM EDT): I advised: - Aerobic exercise to reduce [...] consulting health care provider Assessment & Plan (03/23/2023 4:39 PM EST): [...] health care provider Epigastric abdominal pain 11/16/2012 Assessment & Plan (05/24/2024 10:03 AM EDT): I advise patient to avoid NSAIDs, spicy and acid food, I advise to eat at the same time every day, I advise to elevate the head of the bed and take medications as prescribe I discontinue her omeprazole and start her on pantoprazole 40mg daily Shoulder pain 03/22/2012 Carpal tunnel syndrome 12/03/2011 [...] Encounters Date Type Department Care Team Description 05/24/2024 9:00 AM EDT Office Visit [facility] [address] [place] [address] Paradise Langley MD Epigastric abdominal pain (Primary Dx); Type 2 diabetes mellitus without complication, without long-term current use of insulin (CMS/[facility], [facility]); Polyarthralgia; Left hand tendonitis; Primary hypertension 05/24/2024 Travel 05/12/2024 Population [facility] Risk Score [facility] () Department [address] [place] [id number] Provider, [facility] Generic 05/11/2024 Refill [facility] [address] [place] [address] Paradise Langley MD Type 2 diabetes mellitus with hyperglycemia, without long-term current use of insulin (CMS/HCC) 05/10/2024 Refill [facility] [address] [place] [address] Paradise Langley MD 04/13/2024 Refill [facility] [address] [place] [address] Paradise Langley MD Chronic migraine without aura without status migrainosus, not intractable 04/12/2024 Refill [facility] [address] [place] [address] Paradise Langley MD Pain 04/05/2024 Telephone [facility] [address] [place] [address] Cheryl Hernandez MA Chart Prep 04/03/2024 Travel 03/17/2024 Refill [facility] [address] [place] [address] Paradise Langley MD 03/14/2024 Telephone [facility] [address] [place] [address] Paradise Langley MD 03/13/2024 Orders Only [facility] [address] [place] [address] Paradise Langley MD Lumbar spondylosis (Primary Dx) 03/13/2024 Telephone [facility] [address] [place] [address] Delmi Pringle RN 02/28/2024 Telephone [facility] [address] [place] [address] Ciaran Willson CNP from Last 3 Months Immunizations Name Administration [...] 16 05/24/2024 9:03 AM EDT Oxygen Saturation 98% 02/04/2024 11:01 AM EST Inhaled Oxygen Concentration - - Weight 82.6 kg (182 lb) 05/24/2024 9:03 AM EDT Height 162.6 cm (5' 4 ) 05/24/2024 9:03 AM EDT Body Mass Index 31.24 05/24/2024 9:03 AM EDT Plan of Treatment Upcoming Encounters Date Type Department Care Team (Late st Contact Info) Description 06/01/2024 1:00 PM EDT Office Visit [facility] OPTOMETRY [address] [place] [address] Samantha Patterson, OD [address] [place] [address] 08/23/2024 10:00 AM EDT Office Visit [facility] [address] [place] [address] Paradise Langley MD [address] [place] [address] Health Maintenance Due Date Last Done Comments [...] Additional history exists SDOH Screening 02/19/2024 02/18/2023 Diabetes: Hemoglobin A1C 08/04/20242 024, 08/20/2023, 10/09/2022, Additional history exists Mammogram 09/14/2024 09/15/2023, 08/29, 11/06/2022, Additional history exists Eye Exam 11/05/2024 11/05/2022, 08/2022, 11/05/2022, Additional history exists Cervical Cancer Screening 05/15/2025 HPV/Cotest 05/15/2025 05/15/2020, 12/29/2017 Pap Smear 05/15/2025 05/15/2020, 05/15/2020 Tobacco Screening 05/24/2025 05/24/2024 DTaP/Tdap/Td Vaccines (3 - Td or Tdap) [...] complication, without long-term current use of insulin ([facility], [facility]) POCT GLYCATED HEMOGLOBIN, TOTAL Routine 02/04/2024 11:04 AM EST Type 2 diabetes mellitus without complication, without long-term current use of insulin ([facility], [facility]) BI MAMMOGRAM DIAGNOSTIC TOMOSYNTHESIS BILATERAL Routine 09/15/2023 1:18 PM EDT ALBUMIN, RANDOM URINE W/CREATININE Routine 01/15/2022 8:21 AM EST LIPID PANEL, STANDARD Routine 01/15/2022 8:21 AM EST HM COLONOSCOPY Routine 06/03/2021 HM PAP/HPV Routine 05/15/2020 12:00 AM EDT ZZZ HISTORICAL HIV AB/AG Routine 03/08/2019 11:57 AM EST from Last 3 Months or Most Recently Relevant to Health Maintenance Results * POCT Glucose (05/24/2024 9:04 AM EDT) Glucose Blood, POC 160 60 - 200 mg/dL Comment:random QC Media Lot # [id number] Lot# Expiration Date [id number] Blood Capillary blood specimen / Unknown 05/24/2024 9:04 AM EDT us Paradise Jiménez MD POINT OF CARE TEST EN TER/EDIT ORDERABLES Final Result * (ABNORMAL) POCT HGB A1C (02/04/2024 11:04 AM EST) Hemoglobin A1C 6.7(A) 4.0 - 6.0 % QC Media Lot # [id number] Lot# Expiration Date 6,026 Blood 02/04/2024 11:0 4 AM EST us [place] Sanchez NP POINT OF CARE TEST ENTER/EDIT OR DERABLES Final Result * BI Mammogram Diagnostic Tomosynthesis Bilateral (09/15/2023 1:18 PM EDT) Anatomical Region Laterality Modality Breast Bilateral Mammography 09/15/2023 1:18 PM EDT Narrative 09/15/2023 2:24 PM EDT ? [facility] ? [address] ?[place] [address] ? Mammography Report ? Signed ? Patient: Easton,Josephine ?MR#: [id number] ? : 1965 ?Acct:[id number] ? Age/Sex: 58 / F ?ADM Date: 07/17/24 ? Loc: HO.MAMMO ? Attending Dr: Justino Escobar MD ? Ordering Physician: Justino Escobar MD ?Results: 1Negativ ?? e ? Date of Service: 09/15/23 ?Follow Up: 1 Year From Orig ?? inal Mammogram ? Procedure(s): MM tomosynthesis diagnostic BI ?? Accession Number(s): [id number] ? cc: Paradise Langley MD; Justino Escobar [...] 1420 ? DD/ 1318 ? TD/TT: ? Assembly Technician: ? Procedure Note Yomaira, Image - 09/15/2023 [facility] [address] [place] [address] [place] [address] Mammography Report Signed Patient: Augie Easton#: [id number] : 1965Acct:[id number] Age/Sex: 58 / FADM Date: 09/15/23 Loc: IRVIN Attending Dr: Justino Escobar MD Ordering Physician: Justino Escobar MDResults: 1Negativ e Date of Service: 09/15/23Follow Up: 1 Year From [facility] Mammogram Procedure(s): MM tomosynthesis diagnostic BI Accession Number(s): [id number] cc: Paradise Langley MD; Justino Escobar MD [...] in OV> 09/15/23 1420 DD/ 1318 TD/TT: Assembly Technician: [facility] External Provider IMG BI PROCEDURES Final Result [...] ?? Quinton DUENAS et al. DIANNA. 2013;310(19): 9155-0453 ?? ([email or web address]) Non-HDL Cholesterol 110 <130 mg/dL (calc) CONVERTED LEGACY LABS Comment: For patients with diabetes plus 1 major ASCVD risk ?? factor, treating to a non-HDL-C goal of <100 mg/dL ?? (LDL-C of <70 mg/dL) is considered a therapeutic ?? option. Triglycerides 144 <150 mg/dL CONVE RTED LEGACY LABS 01/15/2022 8:21 AM EST Paradise Jiménez MD LAB BLOOD ORDERABLES Final Result CONVERTED LEGACY LABS * Colonoscopy (06/03/2021) Historical Provider HEALTH MAINTENANCE Final Result * [...] detection of this assay. ?? The [employer]cher HIV Ag/Ab Combo assay result and supplemental assay results should be interpreted in conjunction with the patient's clinical presentation, history and other laboratory results. ??If the results are inconsistent with clinical evidence, additional testing is suggested to confirm the result. 03/08/2019 11:5 7 AM EST us Paradise Jiménez MD HISTORICAL/NON ORDERA BLE LABS Final Result [facility] [address] from Last 3 Months or Most Recently Relevant to Health Maintenance [place] [address] [address] [place] [address] [address] [place] [address] Care Teams Insurance Writer Relationship Specialty Start Date End Date Paradise Langley MD [address] [place] [address] PCP - General Family Medicine 01/09/19 Breanna Cooley Nut FeederFeature Writer 01/28/23 Anat Stacy Nut FeederFeature Writer 01/12/24
--- OUTSIDE RECORDS SUMMARY | 2024-05-24 10:52 | XMS_ITS | Encounter Summary ---
Author Organization [employer] Address [address] [facility] 7[address] [place] [address] Care Team Providers Care Nurse Care Manager Name Role Phone Paradise Langley MD Primary Care Provide r Encounter Details Date Type Department Care Team (Latest Contact Info) Description 05/24/2024 Travel Social History Tobacco Use Types Packs/Day Years [...] Description 06/01/2024 1:00 PM EDT Office Visit [facility] OPTOMETRY [address] [place] [address] Samantha Patterson, OD [address] [place] [address] 08/23/2024 10:00 AM EDT Office Visit [facility] [address] [place] [address] Paradise Langley MD [address] [place], [place] [phone] documented as of this encounter Visit Diagnoses Not on filedocumented in this encounter Additional Health Concerns Assessment Noted Time PHQ-9 Depression Total Score: 0 07/29/19 23 1:57 PM EDT documented as of this encounter Care Teams Nurse Care Manager Relationship Specialty Start Date End Date Paradise Langley MD [address] [place] [address] [phone] PCP - General Family Medicine 01/09/19 Breanna Cooley Grants ManagerBar Machine Operator Multiple Spindle 01/28/23 Anat Stacy Grants ManagerBar Machine Operator Multiple Spindle 01/12/24 documented as of this encounter
--- OUTSIDE RECORDS SUMMARY | 2024-05-24 10:52 | XMS_ITS | Encounter Summary ---
Author Organization [employer] Address [address] [facility] [facility] [place] [address] Care Team Providers Care Farm Machinery Mechanic Name Role Phone Paradise Langley MD Primary Care Provide r Reason for Visit * Reason Comments Med Refill Encounter Details Date Type Department Care Team ([facility] st Contact Info) Description 05/13/2023 Refill [facility] [address] [place], [place] [phone] Mar Waters MD [address] [place] [address] Pain Social History Tobacco Use Types Packs/Day [...] 06/01/2024 1:00 PM EDT Office Visit [facility] OPTOMETRY [address] [place] [address] Samantha Patterson, OD [address] [place] [address] 08/23/2024 10:00 AM EDT Office Visit [facility] [address] [place] [address] Paradise Langley MD [address] [place] [address] documented as of this encounter Visit Diagnoses Diagnosis Pain Generalized pain documented in this encounter Additional Health Concerns Assessment Noted Time PHQ-9 Depression Total Score: 0 07/29/19 23 1:57 PM EDT documented as of this encounter Care Teams Farm Machinery Mechanic Relationship Specialty Start Date End Date Paradise Langley MD [address] [place] [address] PCP - General Family Medicine 01/09/19 Breanna Cooley Plastic Battery AssemblerGolf Caddy 01/28/23 Anat Stacy Plastic Battery AssemblerGolf Caddy 01/12/24 documented as of this encounter
--- OUTSIDE RECORDS SUMMARY | 2024-05-24 10:52 | XMS_ITS | Encounter Summary ---
Author Organization [employer] Address [address] [facility] 7[address] [place] [address] Care Team Providers Care Cellophane Bag Machine Operator Name Role Phone Paradise Langley MD Primary Care Provide r Reason for Visit * Reason Onset Date Comments PT-1 08/20/2023 Encounter Details Date Type Department Care Team ([facility] st Contact Info) Description 08/20/[address] [facility] MED[facility] [address] [place], [place] [phone] Paradise Langley MD [address] [place], [place] [phone] PT-1 Social History Tobacco Use Types Packs/Day [...] Y/N: Yes Provider name or facility name: [facility] Facility Address: [address] [place] [address] Escort needed: Y/N: Yes Do you have a wheelchair: Y/N: No If yes- Manual or electric: N/A Visits: 3 times monthly documented in this encounter Plan of Treatment Upcoming Encounters Date Type Department Care Team (Late st Contact Info) Description 06/01/2024 1:00 PM EDT Office Visit [facility] OPTOMETRY [address] [place] [address] Samantha Patterson, OD [address] [place] [address] 08/23/2024 10:00 AM EDT Office Visit [facility] MED[facility] [address] [place] [address] Paradise Langley MD [address] [place] [address] documented as of this encounter Visit Diagnoses Not on filedocumented in this encounter Additional Health Concerns Assessment Noted Time PHQ-9 Depression Total Score: 0 07/29/19 23 1:57 PM EDT documented as of this encounter Care Teams Cellophane Bag Machine Operator Relationship Specialty Start Date End Date Paradise Langley MD [address] [place] [address] PCP - General Family Medicine 01/09/19 Breanna Cooley Pantry Goods WorkerMeal Cooker 01/28/23 Anat Stacy Pantry Goods WorkerMeal Cooker 01/12/24 documented as of this encounter
[2024-05-24 11:25] LABS: Rheumatoid Factor < 13.0 IU/mL (<15.0)
[2024-05-24 11:30] LABS: Alanine Aminotransferase 40 U/L (0-31); Alkaline Phosphatase 84 U/L (39-117); Anion Gap 12 (12-20); Aspartate Amino Transferase 28 U/L (5-31); Bilirubin Total 0.2 mg/dL (0.0-1.0); Blood Urea Nitrogen 16 mg/dL (9-16); C Reactive Protein 0.35 mg/dL (< or = 0.50); Calcium 9.9 mg/dL (8.4-10.2); Carbon Dioxide 29 mmol/L (22-29); Chloride 104 mmol/L (96-108); Cholesterol 162 mg/dL (<200); Estimated Glomerular Filt Rate > 60; Glucose Random 117 mg/dL (60-115); HDL Cholesterol 41 mg/dL (>40); LDL Cholesterol Calculated 73 mg/dL (<100); Potassium 3.6 mmol/L (3.3-5.1); Sodium 141 mmol/L (135-145); Total Protein 7.2 g/dL (6.5-8.0); Triglycerides 242 mg/dL (<150)
[2024-05-24 11:54] LABS: Erythrocyte Sedimentation Rate 29 MM/HR (0-20)
[2024-05-24 11:55] LABS: Creatinine Urine 74.39 mg/dL; Microalbum/Creatinine Ratio Ur 10.7 ug/mg cr (<30)
[2024-05-25 13:29] LABS: Cyclic Citrullinated Peptide <16 UNITS
[2024-05-26 14:08] LABS: Anti Nuclear Antibody Screen NEGATIVE (NEGATIVE)
== END 2024-05-24 09:41 | disposition home or self-care (01) ==
LOC: HO.HHCL 09:40
PROVIDERS: Visit Provider Internal Medicine
DX: M25.50 Pain in unspecified joint (principal); E11.9 Type 2 diabetes mellitus without complications
CPT/HCPCS: 36415; 80053; 80061; 82043; 82570; 85652; 86038; 86140; 86200; 86431

== ENCOUNTER 2024-09-04 10:02 | Emergency (ER) | payer MEDICAID, SELFPAY ==
--- NOTE | 2024-09-04 | ECG_ITS ---
Test Reason : ap Blood Pressure : */* mmHG Vent. Rate : 84 BPM Atrial Rate : 84 BPM P-R Int : 158 ms QRS Dur : 84 ms QT Int : 376 ms P-R-T Axes : 61 7 29 degrees QTcB Int : 444 ms Normal sinus rhythm Nonspecific ST and T wave abnormality Abnormal ECG When compared with ECG of 06-Jul-2022 14:25, Inverted T waves have replaced nonspecific T wave abnormality in Anterior leads Referred By: Generic ED Physician Electronically Signed By: Sterling Rivas
--- NOTE | ~2024-09-04 | CT_ITS ---
EXAMINATION: CT ABDOMEN PELVIS WITHOUT IV CONTRAST HISTORY: Abdominal pain ? colitis COMPARISON: Comparison is made with the prior examination dated 09/03/2020. TECHNIQUE: CT scan of the abdomen and pelvis was performed without contrast using standard departmental protocol. Coronal and sagittal reformatted images were generated and reviewed. Oral contrast material was not administered at the request of the referring physician. This CT exam was performed with one or more of the following dose reduction techniques: automated exposure control, adjustment of the mA and/or kV according to patient size, use of iterative reconstruction technique. DLP: 611 mGy-cm FINDINGS: LOWER CHEST: The visualized lung bases are clear. There is no pleural effusion. CARDIOVASCULATURE: The heart is normal in size. There is no pericardial effusion. LIVER: The liver is normal in size and contour. The liver has an unremarkable unenhanced appearance. GALLBLADDER / BILE DUCTS: The gallbladder is unremarkable. There is no intra or extrahepatic biliary ductal dilatation. SPLEEN: The spleen is normal in size and has an unremarkable unenhanced appearance. PANCREAS: The pancreas has an unremarkable unenhanced appearance. ADRENAL GLANDS: Unremarkable. KIDNEYS/RETROPERITONEUM: No renal calculi are identified. There is no hydronephrosis. LYMPH NODES: No retroperitoneal lymphadenopathy is identified in the abdomen or pelvis. VASCULATURE: The abdominal aorta is normal in caliber. MESENTERY/PERITONEUM: No free fluid. No masses. There is no free intraperitoneal gas. STOMACH: The stomach is collapsed, limiting evaluation. SMALL BOWEL: The small bowel is normal in caliber. COLON: The colon is unremarkable. APPENDIX: The appendix is not seen, however no inflammatory changes are seen adjacent to the cecum. URINARY BLADDER/PELVIC ORGANS: The urinary bladder is unremarkable. The uterus has an unremarkable unenhanced appearance. BONES / SOFT TISSUES: No suspicious bony or soft tissue abnormalities. CT/CT abdomen pelvis wo IV con IMPRESSION: Unremarkable unenhanced CT of the abdomen and pelvis. Electronically signed by: Michael Bustillos MD 09/04/2024 12:18 PM EDT
[2024-09-04 10:13] VITALS: BP 145/53; PULSE 88; RESP 18; TEMP 36.9; O2SAT 98; BMI 28.7
[2024-09-04 10:49] LABS: MANUAL DIFF FLAG NO
[2024-09-04 10:52] LABS: Appearance Urine Clear; Glucose Urine UA Negative (Negative); PH 6.5 (5.0-9.0); Specific Gravity - Urine 1.025 (1.005-1.025); UMIC TRIGGER UACC YES
[2024-09-04 10:56] LABS: Hematocrit 34.7 % (37.0-47.0); Hemoglobin 10.6 g/dl (12.0-16.0); Imm Gran Abs Auto 0.01 X10*3/uL (0.00-0.03); Imm Gran Pct Auto 0.2 % (0.0-0.4); Lymphocytes Absolute Auto 1.9 X10*3/uL (1.2-4.9); Mean Corpuscular HGB Conc 30.5 g/dl (31.0-35.0); Mean Corpuscular Hemoglobin 23.6 pg (27.0-33.0); Mean Corpuscular Volume 77.1 fL (80.0-98.0); NRBC Abs Auto 0.000 X10*3/uL (0.0-0.012); NRBC Pct Auto 0.0 /100WBC (0.0-0.2); Platelet Count 318 X10*3/uL (160-400); Red Blood Count 4.50 X10*6/uL (4.20-5.50); White Blood Count 5.6 X10*3/uL (4.8-10.8)
[2024-09-04 11:13] LABS: Alanine Aminotransferase 38 U/L (0-31); Albumin Level 4.2 g/dL (3.5-5.0); Alkaline Phosphatase 84 U/L (39-117); Anion Gap 13 (12-20); Aspartate Amino Transferase 29 U/L (5-31); Blood Urea Nitrogen 9 mg/dL (9-16); Calcium 9.5 mg/dL (8.4-10.2); Carbon Dioxide 28 mmol/L (22-29); Chloride 102 mmol/L (96-108); Creatinine Clr Calc Pharmacy 71.8; Estimated Glomerular Filt Rate > 60; Lipase 56 U/L (8-78); Potassium 3.8 mmol/L (3.3-5.1); Sodium 139 mmol/L (135-145); Total Protein 7.1 g/dL (6.5-8.0)
[2024-09-04 11:18] LABS: UACC Culture Trigger YES
--- NOTE | 2024-09-04 11:42 | ED.GENADULT ---
HPI - General Adult General Chief complaint: Abdominal Pain Stated complaint: Abd pain Time Seen by Provider: 09/04/24 11:26 Source: patient Mode of arrival: ambulatory Limitations: no limitations History of Present Illness HPI narrative: This is a 59 years old patient presented to the emergency department with multiple complaints including abdominal pain for about a week diarrhea with weight loss she states she is incontinent of stools as well. She has no fever no chills no other systemic symptoms Onset (ago): week(s) Location: abdomen Radiation: non-radiation Severity: moderate Quality: burning Relieving factors: none Exacerbating factors: none Associated symptoms: other (Diarrhea) Treatments prior to arrival: none Related Data Home Medications ?Medication ?Instructions ?Recorded ?Confirmed albuterol sulfate 90 mcg/actuation 2 puff inhalation Q6H PRN 12/07/19 02/25/24 aerosol inhaler (ProAir HFA) Shortness Of Breath amitriptyline 25 mg tablet 25 mg PO BEDTIME 12/07/19 02/25/24 fluoxetine 40 mg capsule 40 mg PO DAILY 12/07/19 02/25/24 hydrochlorothiazide 25 mg tablet 25 mg PO DAILY 12/07/19 02/25/24 lidocaine 4 % topical gel 1 applic topical TID PRN Pain 12/07/19 02/25/24 loratadine 10 mg tablet (Allergy 10 mg PO DAILY 12/07/19 02/25/24 Relief (loratadine)) lorazepam 1 mg tablet 1 mg PO DAILY PRN Anxiety 12/07/19 02/25/24 omeprazole 40 mg capsule,delayed 40 mg PO DAILY 12/07/19 02/25/24 release sumatriptan succinate 25 mg tablet 25 mg PO Q2-4H PRN Migraine 12/07/19 02/25/24 Headache topiramate 50 mg tablet 50 mg PO BID 12/07/19 02/25/24 zolpidem 10 mg tablet 10 mg PO BEDTIME PRN Insomnia 12/07/19 02/25/24 metformin 500 mg tablet 800 mg PO DAILY 02/11/21 02/25/24 risperidone 0.5 mg tablet 0.5 mg PO BEDTIME 02/19/23 02/25/24 Previous Rx's ?Medication ?Instructions ?Recorded docusate sodium 100 mg capsule 100 mg PO DAILY #30 caps 01/02/20 acetaminophen 500 mg tablet 1,000 mg (2 x 500 mg) PO QID PRN 09/03/20 (Tylenol Extra Strength) fever or pain #14 tabs cyclobenzaprine 10 mg tablet 10 mg PO Q8H Muscle spasm #10 tabs 09/03/20 ascorbate calcium (vitamin C) 500 500 mg PO BID #90 tabs 10/07/21 mg tablet cyanocobalamin (vitamin B-12) 1,000 mcg PO DAILY #28 tabs 01/05/22 1,000 mcg tablet tramadol 50 mg tablet 50 mg PO TID PRN severe pain 12/05/22 (scale score 7-10) #12 tabs cyclobenzaprine 5 mg tablet 5 mg PO TID PRN muscle spasm #10 08/30/23 tabs lidocaine 5 % topical patch 1 patch topical DAILY #15 ea 08/30/23 acetaminophen 500 mg tablet 500 mg PO Q6H PRN fever or pain 01/06/24 (Tylenol Extra Strength) #14 tabs cyclobenzaprine 5 mg tablet 5 mg PO Q8H PRN pain (scale score 01/06/24 7-10) 5 days #14 tabs lidocaine 5 % topical patch 1 patch topical DAILY PRN pain #30 01/06/24 (Lidoderm) ea morphine 15 mg immediate release 15 mg PO Q6H PRN pain (scale score 01/06/24 tablet 7-10) 3 days #9 tabs docusate sodium 100 mg capsule 100 mg PO BID #56 caps 01/26/24 (Stool Softener) [id number] 0.01 1 ea topical BID PRN pain #180 mL 02/25/24 %-0.2 %-3.5 % topical gel vancomycin 250 mg capsule 250 mg PO QID 10 days #40 caps 09/04/24 Allergies Allergy/AdvReac Type Severity Reaction Status Date / Time naproxen (From NAPROSYN) Allergy Unknown insomnia, Verified 09/04/24 10:15 aggitation Review of Systems Constitutional: Constitutional: Reports no additional constitutional complaints ENT: Reports system reviewed and no additional complaints, except as documented Cardiovascular: Cardiovascular: Reports no additional cardiovascular complaints PMFSH Past Medical History Medical History Mastodynia Arthritis Panic attacks Anxiety Depression Fatty liver Bleeding hemorrhoids Hemorrhoids with complication HTN (hypertension) Diabetes Migraine headache GERD (gastroesophageal reflux disease) Asthma Hyperlipidemia Surgical History Status post hemorrhoidectomy History of hemorrhoidectomy (~2023) History of carpal tunnel release of both wrists Hx of excision of mass Hx of section Hx of excision of mass History of esophagogastroduodenoscopy (EGD) Hx of colonoscopy H/O hemorrhoidectomy Family History Family History Family/Other Breast cancer Colon cancer Social History Social History Household Members: Spouse Housing: Apartment Alcohol intake: never Comment: counts correct Patient Tobacco Use Status: Former Tobacco user Years Smoked: 10 Current occupational status: disabled 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 Sexual orientation: Straight/Heterosexual Gender identity: Female Physical Exam ED Vital Signs: Vital Signs - 24 hr 09/04/24 10:13 09/04/24 14:41 Temperature 98.4 F 98.4 F Pulse Rate 88 88 Respiratory Rate 18 18 Blood Pressure 145/53 H 145/53 H Pulse Oximetry 98 98 Oxygen Delivery Method Room Air Room Air BMI result Body Mass Index 28.7 She looks well she is not toxic-appearing she is comfortable in the stretcher Const General: cooperative Nutritional Appearance: average body habitus Limitations: no limitations HENMT Head: Yes normal to inspection General nose exam: Normal external nose present Face and sinus: Yes normal facial exam Mouth: Normal oral and palatal mucosa present Neck Neck: Yes normal visual inspection Chest Chest palpation & inspection: normal inspection of the chest Resp Effort & Inspection: normal respiratory effort Auscultation: clear to auscultation bilaterally Cardio Jugular venous distension: no JVD Rate: regular rate Rhythm: regular rhythm GI Inspection: Yes normal to inspection Auscultation: normal bowel sounds Skin General skin exam: no rashes or lesions noted Lesions: no lesions Rashes: no rashes Trauma: no lacerations or abrasions Wounds: no wounds Course Reevaluation(s) Reevaluation #1: WORKUP NOW IS COMPLETED, LYTES NORMAL WHITE COUNT NORMAL I THINK SHE CAN BE DISCHARGED HOME AND FOLLOW-UP WITH GASTROENTEROLOGY Time: 14:33 Medications Administered Discontinued Medications Generic Name Dose Route Start Last Admin Trade Name Freq PRN Reason Stop Dose Admin Loperamide HCl 2 mg 09/04/24 11:42 09/04/24 12:54 Loperamide Hcl 2 Mg Capsule PO 09/04/24 11:43 Not Given ONCE ONE Medical Decision Making Medical Decision Making [facility] Narrative: Patient is here with the abdominal pain and diarrhea we will check labs CT C DIFF TOXIN POSITIVE BUT TOXIN NEGATIVE, IN THIS CASE THOUGH GIVEN AND DIARRHEA IS SEVERE SHE IS INCONTINENT STOOLS WE WILL START TREATMENT FOR C DIFF Differential Diagnosis Differential Diagnoses: The differential diagnosis associated with the presentation includes Broad differential diagnosis including colitis/diverticulitis/gastroenteritis Admission/Observation Consideration of admission/observation: Escalation of care including admission/observation considered Lab Data [facility] Lab Attestation statement: I reviewed the patient's lab results. 09/04/24 10:34 09/04/24 10:34 Labs: Lab Results 09/04/24 09/04/24 09/04/24 Range/Units 10:34 13:27 15:01 WBC 5.6 (4.8-10.8) X10*3/uL RBC 4.50 (4.20-5.50) X10*6/uL Hgb 10.6 L (12.0-16.0) g/dl Hct 34.7 L (37.0-47.0) % MCV 77.1 L (80.0-98.0) fL MCH 23.6 L (27.0-33.0) pg MCHC 30.5 L (31.0-35.0) g/dl RDW 15.8 (11.0-16.0) % Plt Count 318 (160-400) X10*3/uL MPV 9.2 L (9.4-12.3) fL Immature Gran % (Auto) 0.2 (0.0-0.4) % Neut % (Auto) 52.9 (45-73) % Lymph % (Auto) 34.4 (20-40) % [place] % (Auto) 8.6 (2-11) % Eos % (Auto) 3.4 (0-4) % Baso % (Auto) 0.5 (0-2) % Lymph # (Auto) 1.9 (1.2-4.9) X10*3/uL [place] # (Auto) 0.5 (0.1-1.2) X10*3/uL Eos # (Auto) 0.2 (0.0-0.4) X10*3/uL Baso # (Auto) 0.0 (0.0-0.2) X10*3/uL Abs Immat Gran (auto) 0.01 (0.00-0.03) X10*3/uL Absolute Neuts (auto) 3.0 (2.0-8.3) x10*3/uL Absolute Nucleated RBC 0.000 (0.0-0.012) X10*3/uL Nucleated RBC % (auto) 0.0 (0.0-0.2) /100WBC Sodium 139 (135-145) mmol/L Potassium 3.8 (3.3-5.1) mmol/L Chloride 102 (96-108) mmol/L Carbon Dioxide 28 (22-29) mmol/L Anion Gap 13 (12-20) BUN 9 (9-16) mg/dL Creatinine 0.88 (0.5-1.4) mg/dL Estim Creat Clear Calc 71.8 Estimated GFR > 60 POC Glucose 120 H (60-115) mg/dL Random Glucose 193 H (60-115) mg/dL Calcium 9.5 (8.4-10.2) mg/dL Total Bilirubin 0.2 (0.0-1.0) mg/dL Direct Bilirubin < 0.2 (0.0-0.5) mg/dL AST 29 (5-31) U/L ALT 38 H (0-31) U/L Alkaline Phosphatase 84 (39-117) U/L Total Protein 7.1 (6.5-8.0) g/dL Albumin 4.2 (3.5-5.0) g/dL Lipase 56 (8-78) U/L Urine Color Yellow Urine Appearance Clear Urine pH 6.5 (5.0-9.0) Ur Specific [place] 1.025 (1.005-1.025) Urine Protein 30 (1+) H (Neg-Trace) mg/dL Urine Glucose (UA) Negative (Negative) mg/dL Urine Ketones Trace (Negative) mg/dL Urine Blood Negative (Negative) Urine Nitrite Negative (Negative) Ur Leukocyte Esterase Moderate (2+) H (Negative) Urine RBC 0-2 (0-2) /HPF Urine WBC 0-5 (0-5) /HPF Ur Squamous Epith Cells 0-2 (0-2) /HPF Urine Bacteria 2+ (None Seen) Hyaline Casts 0-2 (0-2) /LPF Stool Leukocytes, Qual NEGATIVE (NEGATIVE) C. difficile Tox B Gene POSITIVE A* (Negative) C. difficile Toxin A&B Negative (Negative) C. difficile Interpret SEE NOTE Independent Interpretation I performed an independent interpretation of an: CT Scan Interpretation: UNREMARKABLE CT Radiology Impression Discussion of test interpretation with radiology: I have reviewed the radiologist's reading. Radiologist Impression: NO ACUTE DISEASE External Record Review External record reviewed: Inpatient record Chronic Conditions Patient?s care impacted by: Diabetes Discharge Plan Discharge Clinical Impression: C. difficile colitis Abdominal pain Qualifiers: Abdominal location: generalized Qualified Code(s): R10.84 - Generalized abdominal pain Diarrhea Qualifiers: Diarrhea type: unspecified type Qualified Code(s): R19.7 - Diarrhea, unspecified Patient Disposition: Home, Self-Care Instructions: C. Diff (Clostridioides Difficile) Infection (ED), Acute Diarrhea (ED), Abdominal Pain (ED) Additional Instructions: FOLLOW-UP WITH YOUR PRIMARY CARE PHYSICIAN THIS STOOLS CAME BACK POSITIVE FOR C DIFF WE WILL SEND AN ANTIBIOTIC FOR YOU TO THE PHARMACY Prescriptions: New vancomycin 250 mg capsule 250 mg PO QID 10 Days Qty: 40 0RF No Action ascorbate calcium (vitamin C) 500 mg tablet 500 mg PO BID Qty: 90 2RF cyanocobalamin (vitamin B-12) 1,000 mcg tablet 1,000 mcg PO DAILY Qty: 28 0RF docusate sodium [Stool Softener] 100 mg capsule 100 mg PO BID Qty: 56 0RF cyclobenzaprine 10 mg tablet 10 mg PO Q8H Qty: 10 0RF acetaminophen [Tylenol Extra Strength] 500 mg tablet 1,000 mg PO QID PRN (Reason: fever or pain) Qty: 14 0RF tramadol 50 mg tablet 50 mg PO TID PRN (Reason: severe pain (scale score 7-10)) Qty: 12 0RF cyclobenzaprine 5 mg tablet 5 mg PO TID PRN (Reason: muscle spasm) Qty: 10 0RF lidocaine 5 % adhesive patch,medicated 1 patch topical DAILY Qty: 15 0RF Rx Instructions: leave on most painful area for up to 12 hrs acetaminophen [Tylenol Extra Strength] 500 mg tablet 500 mg PO Q6H PRN (Reason: fever or pain) Qty: 14 0RF lidocaine [Lidoderm] 5 % adhesive patch,medicated 1 patch topical DAILY MDD remove after 12 hours PRN (Reason: pain) Qty: 30 0RF Rx Instructions: leave on most painful area for up to 12 hrs morphine 15 mg tablet 15 mg PO Q6H PRN (Reason: pain (scale score 7-10)) 3 Days Qty: 9 0RF Rx Instructions: Partial Fill upon patient request. cyclobenzaprine 5 mg tablet 5 mg PO Q8H PRN (Reason: pain (scale score 7-10)) 5 Days Qty: 14 0RF albuterol sulfate [ProAir HFA] 90 mcg/actuation HFA aerosol inhaler 2 puff inhalation Q6H PRN (Reason: Shortness Of Breath) omeprazole 40 mg capsule,delayed release(DR/EC) 40 mg PO DAILY amitriptyline 25 mg tablet 25 mg PO BEDTIME loratadine [Allergy Relief (loratadine)] 10 mg tablet 10 mg PO DAILY sumatriptan succinate 25 mg tablet 25 mg PO Q2-4H PRN (Reason: Migraine Headache) Rx Instructions: do not exceed 8 doses per 24 hrs hydrochlorothiazide 25 mg tablet 25 mg PO DAILY topiramate 50 mg tablet 50 mg PO BID zolpidem 10 mg tablet 10 mg PO BEDTIME PRN (Reason: Insomnia) fluoxetine 40 mg capsule 40 mg PO DAILY lorazepam 1 mg tablet 1 mg PO DAILY PRN (Reason: Anxiety) lidocaine 4 % gel 1 applic topical TID PRN (Reason: Pain) docusate sodium 100 mg capsule 100 mg PO DAILY Qty: 30 11RF metformin 500 mg tablet 800 mg PO DAILY risperidone 0.5 mg tablet 0.5 mg PO BEDTIME [id number] 0.01-0.2-3.5 % gel 1 ea topical BID PRN (Reason: pain) Qty: 180 2RF Rx Instructions: apply to most painful area twice daily as needed for pain Referrals: Liseth Peace MD [Physician, Gastroenterology] - 09/08/24 Interventions: ED Discharge Assessment Last Done: 09/04/24 14:41 Discharge Date/Time: 09/04/24 15:07 Print Language: Senegalese
--- OUTSIDE RECORDS SUMMARY | 2024-09-04 12:15 | XMS_ITS | Encounter Summary ---
Author Organization [employer] Address [address] [place] [address] Care Team Providers Care Senior Research Project Manager Name Role Phone Paradise Langley MD Primary Care Provide r Reason for Visit * Reason Comments Med Refill Encounter Details Date Type Department Care Team ([facility] st Contact Info) Description 12/21/2023 Refill [facility] [address] [place], [place] [phone] Paradise Langley MD [address] [place] [address] Dyspepsia Social History Tobacco Use Types Packs/Day [...] Care Team (Late st Contact Info) Description 09/21/2024 2:45 PM EDT Office Visit [facility] [address] [place] [phone] Paradise Langley MD [address] [place] [phone] 10/27/2024 11:00 AM EDT Nurse Only [facility] [address] [place] [phone] documented as of this encounter Visit Diagnoses Diagnosis Dyspepsia Dyspepsia and other specified disorders of function of stomach documented in this encounter Additional Health Concerns Assessment Noted Time PHQ-9 Depression Total Score: 0 07/29/19 23 1:57 PM EDT documented as of this encounter Care Teams Senior Research Project Manager Relationship Specialty Start Date End Date Paradise Langley MD [address] [place] [phone] PCP - General Family Medicine 01/09/19 Breanna Cooley Project [employer] 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
[2024-09-04 14:22] LABS: Leukocytes Stool Qualitative NEGATIVE (NEGATIVE)
[2024-09-04 14:41] VITALS: BP 145/53; PULSE 88; RESP 18; TEMP 36.9; O2SAT 98
[2024-09-04 14:43] LABS: CDiff Gene PCR POSITIVE (Negative)
[2024-09-04 15:00] LABS: CDIFF Internal ctrl Dots and bkg OK (V)
[2024-09-04 15:01] LABS: CDiff Toxin Negative (Negative)
[2024-09-04 15:05] LABS: Glucose, Whole Blood 120 mg/dL (60-115)
[2024-09-05 07:27] LABS: E. coli EAEC Not Detected (Not Detect.); E. coli EPEC Not Detected (Not Detect.)
[2024-09-05 07:28] LABS: E. coli ETEC Not Detected (Not Detect.); E. coli STEC Not Detected (Not Detect.); Shigella sp./EIEC Not Detected (Not Detect.)
== END 2024-09-04 15:07 | disposition home or self-care (01) ==
PROVIDERS: Emergency Provider Emergency Medicine; PCP Internal Medicine
DX: A04.72 Enterocolitis due to Clostridium difficile, not specified as recurrent (principal); R10.84 Generalized abdominal pain; R19.7 Diarrhea, unspecified; R94.31 Abnormal electrocardiogram [ECG] [EKG]; Z79.899 Other long term (current) drug therapy
CPT/HCPCS: 36415; 74176; 80048; 80076; 81001; 82947; 83690; 85025; 87086; 87324; 87493; 87507; 89055; 93005; 99283; 99284

== ENCOUNTER → 2024-09-04 10:27 | Outpatient (BNV) | payer MEDICAID, SELFPAY | PROVIDERS: Emergency Provider Emergency Medicine; PCP Internal Medicine; Visit Provider Internal Medicine Cardiovascular Disease | DX: R94.31 Abnormal electrocardiogram [ECG] [EKG] (principal); R10.9 Unspecified abdominal pain | CPT/HCPCS: 93010 ==

== ENCOUNTER → 2024-09-04 11:42 | Outpatient (BNV) | payer MEDICAID, SELFPAY | PROVIDERS: Emergency Provider Emergency Medicine; PCP Internal Medicine; Visit Provider Radiology Diagnostic Radiology | DX: K52.9 Noninfective gastroenteritis and colitis, unspecified (principal); R10.9 Unspecified abdominal pain | CPT/HCPCS: 74176 ==

== ENCOUNTER 2024-09-29 14:11 | Emergency (ER) | payer MEDICAID, SELFPAY ==
--- NOTE | ~2024-09-29 | XR_ITS ---
EXAMINATION: XR LUMBOSACRAL SPINE CLINICAL INFORMATION: lumbar back pain COMPARISON: 01/06/2024, and dating back to 04/09/2018. TECHNIQUE: Three views of the lumbosacral spine. FINDINGS: Transitional lumbosacral anatomy with partial sacralization of the L5 vertebral body. The L5 transverse processes are pseudoarticulating with the bilateral sacral alae. There is no scoliosis. There is normal lordosis. There is no subluxation. There is no fracture, compression deformity, or suspicious bone lesion. There is mild disc degeneration noted spanning L3-L5. There is a pseudodisc at L5-S1. There is normal facet alignment. Mild facet arthropathy at L4-S1. Mild degenerative changes in the bilateral SI joints. Sacrum appears intact. No soft tissue abnormalities. XR/XR lumbar spine 2-3V IMPRESSION: 1. No acute findings of the lumbar spine. 2. Transitional lumbosacral anatomy as described. 3. Mild degenerative disc changes L3-L5. Electronically signed by: Elliot Toussaint MD 09/29/2024 04:30 PM EDT
[2024-09-29 14:15] VITALS: BP 121/53; BP 136/80; PULSE 76; PULSE 84; RESP 16; TEMP 36.7; O2SAT 97; O2SAT 99; BMI 32.1
--- NOTE | 2024-09-29 14:54 | ED_ITS ---
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 Back pain is now worsening, patient can not lift, has a hard time ambulating due to pain. Patient states pain originates in the lumbar back, is now radiating down bilateral legs to knees. Patient states she has taken methocarbamol, Tylenol without effect. Patient says she does have some stool incontinence at baseline, did not start up on the onset of back pain. Denies fever, chills, saddle anesthesia, new onset bowel or bladder incontinence, urinary symptoms. Related Data Home Medications ?Medication ?Instructions ?Recorded ?Confirmed albuterol sulfate 90 mcg/actuation 2 puff inhalation Q 6H PRN 12/07/19 02/25/24 aerosol inhaler (ProAir HFA) Shortness Of Breath amitriptyline 25 mg tablet 25 mg PO BEDTIME 12/07/19 1 04/27/23 fluoxetine 40 mg capsule 40 mg PO DAILY 12/07/1901/30 hydrochlorothiazide 25 mg tablet 25 mg PO DAILY 02/25/24 lidocaine 4 % topical gel 1 applic topical TID PRN Tammy n 12/07/19 02/25/24 loratadine 10 mg tablet (Allergy 10 mg PO DAILY 02/25/24 Relief (loratadine)) lorazepam 1 mg tablet 1 mg PO DAILY PRN Anxiety 02/25/24 omeprazole 40 mg capsule,delayed 40 mg PO DAILY 02/25/24 release sumatriptan succinate 25 mg tablet 25 mg PO Q2-4H PRN Migraine 12/07/19 02/25/24 Headache topiramate 50 mg tablet 50 mg PO BID 12/07/19 zolpidem 10 mg tablet 10 mg PO BEDTIME PRN Insomni a 12/07/19 02/25/24 metformin 500 mg tablet 800 mg PO DAILY 02/11/21 risperidone 0.5 mg tablet 0.5 mg PO BEDTIME 02/19/23 1 04/27/23 Previous Rx's ?Medication ?Instructions ?Recorded docusate sodium 100 mg capsule 100 mg PO DAILY #30 cap s 01/02/20 acetaminophen 500 mg tablet 1,000 mg (2 x 500 mg) PO Q ID PRN 09/03/20 (Tylenol Extra Strength) fever or pain #14 tabs cyclobenzaprine 10 mg tablet 10 mg PO Q8H Muscle spasm #10 tabs 09/03/20 ascorbate calcium (vitamin C) 500 500 mg PO BID #90 ta bs 10/07/21 mg tablet cyanocobalamin (vitamin B-12) 1,000 mcg PO DAILY #28 t abs 01/05/22 1,000 mcg tablet tramadol 50 mg tablet 50 mg PO TID PRN severe pain 12/05/22 (scale score 7-10) #12 tabs cyclobenzaprine 5 mg tablet 5 mg PO TID PRN muscle spa sm #10 08/30/23 tabs lidocaine 5 % topical patch 1 patch topical DAILY #15 ea 08/30/23 acetaminophen 500 mg tablet 500 mg PO Q6H PRN fever or pain 01/06/24 (Tylenol Extra Strength) #14 tabs cyclobenzaprine 5 mg tablet 5 mg PO Q8H PRN pain (scal e score 01/06/24 7-10) 5 days #14 tabs lidocaine 5 % topical patch 1 patch topical DAILY PRN pain #30 01/06/24 (Lidoderm) ea morphine 15 mg immediate release 15 mg PO Q6H PRN pain (scale score 01/06/24 tablet 7-10) 3 days #9 tabs docusate sodium 100 mg capsule 100 mg PO BID #56 caps 01/26/24 (Stool Softener) [id number] 0.01 1 ea topical BID PRN pa in #180 mL 02/25/24 %-0.2 %-3.5 % topical gel vancomycin 250 mg capsule 250 mg PO QID 10 days #40 ca ps 09/04/24 cyclobenzaprine 10 mg tablet 10 mg PO TID #12 tabs 03/25 lidocaine 4 % topical patch 1 patch topical DAILY PRN pain #30 09/29/24 ea prednisone 20 mg tablet 20 mg PO DAILY 5 days #5 tab s 09/29/24 Allergies Allergy/AdvReac Type Severity Reaction Status Date / Time naproxen (From NAPROSYN) Allergy Unknown insomnia, Verified 09/29/24 14:20 aggitation Review of Systems 2 Review of Systems: CONST: Negative for fever, body aches and chills. HENT: Negative for neck pain/stiffness, headache, congestion, sore throat, swelling. EYES: Negative for discharge/pain or vision changes. RESP: Negative for cough/hemoptysis and shortness of breath. CV: Negative chest pain, difficulty breathing, palpitations. ABD: Negative pain, nausea, vomiting. : Negative increase frequency, dysuria, blood in urine or stool. MUSC: Negative for muscle aches, edema. POS lumbar back pain SKIN: Negative rash, lesions/sores. NEURO: Negative headache, dizziness, weakness. [facility] Past Medical History Attestation statement: The following information was validated with the patient. Source: old records reviewed and nursing notes reviewed Medical History Mastodynia Arthritis Panic attacks Anxiety Depression Fatty liver Bleeding hemorrhoids Hemorrhoids with complication HTN (hypertension) Diabetes Migraine headache GERD (gastroesophageal reflux disease) Asthma Hyperlipidemia Surgical History Status post hemorrhoidectomy History of hemorrhoidectomy (~2023) History of carpal tunnel release of both wrists Hx of excision of mass Hx of section Hx of excision of mass History of esophagogastroduodenoscopy (EGD) Hx of colonoscopy H/O hemorrhoidectomy Family History Family History Family/Other Breast cancer Colon cancer Social History Social History Household Members: Spouse Housing: Apartment Alcohol intake: never Comment: counts correct Patient Tobacco Use Status: Former Tobacco user Years Smoked: 10 Smoked in Last 30 Days: No Use of substances other than those prescribed or required for medical reasons: No Advance Directives: No Advance Directives Information Provided: Yes Do you have a plan to hurt others: No Plan Patient : No Current occupational status: disabled 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 MMM. EOMI, clear conjunctiva, oropharynx clear. NECK: ?Supple without lymphadenopathy.? No stiffness or restricted ROM. HEART:? Normal rate and regular rhythm, normal S1/S2, no m/r/g LUNGS:? CTAB, moving air well. No crackles or wheezes are heard. ABDOMEN: ?Soft, nontender, nondistended with good bowel sounds heard. BACK: No CVAT, no obvious deformity. No midline spinal tenderness, TTP of lumbar paraspinal muscles, no overlying skin changes, positive straight leg test B/L. EXTREMITIES: ?Without cyanosis, clubbing or edema. NEUROLOGICAL: ?Grossly nonfocal. Alert and oriented, moving all 4 extremities. Observed to ambulate with normal gait. Skin: ?Warm and dry without any rash. Medications Administered Discontinued Medications Generic Name Dose Route Start Last Admin Trade Name Freq PRN Reason Stop Dose Admin Diazepam 5 mg 09/29/24 16:42 09/29/24 16:51 Diazepam 10 Mg/2 Ml Cartridge IVPUSH 09/29/24 16:43 5 mg STAT STA Administration Morphine Sulfate 4 mg 09/29/24 15:30 09/29/24 15:41 Morphine Sulfate 4 Mg/Ml Cartridge IVPUSH 09/29/24 15:31 4 mg ONCE ONE Administration Protocol Medical Decision Making Medical Decision Making MDM Narrative: 59-year-old Slovak-speaking female with medical history of arthritis, anxiety, depression, hemorrhoids, HTN, T2DM, migraine, asthma, HLD, presents to the ED by EMS due to 1 day of lumbar back pain. 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 Back pain is now worsening, patient can not lift, has a hard time ambulating due to pain. Patient states pain originates in the lumbar back, is now radiating down bilateral legs to knees. Patient states she has taken methocarbamol, Tylenol without effect. Patient says she does have some stool incontinence at baseline, did not start up on the onset of back pain VSS, BP 121/53, pulse rate 76 beats per minute, respiratory rate 16 breaths per minute, afebrile at 98? oral temp, O2 saturation 99% on room air. Patient without history of IV drug use- less likely SEA, discitis Physical exam reveals No CVAT, no obvious deformity. No midline spinal tenderness, TTP of lumbar paraspinal muscles, no overlying skin changes, positive straight leg test B/L. Abdomen soft, nondistended, nontender, no palpable masses, no suprapubic tenderness to palpation, no urinary symptoms. No new onset urinary/stool incontinence, no saddle anesthesias, no bladder distention- less likely cauda equina Plan for labs, XR lumbar spine, UA Patient incredibly uncomfortable, states she took methocarbamol, 1 g Tylenol this morning around 9:00 a.m., asking for something for pain. Will medicate with 4 mg IV morphine. Course 17:16- XR lumbar spine does not reveal any fracture, dislocations. Does reveal degenerative changes. patient experiencing extreme anxiety, was dosed with 5 mg IV diazepam at 4:43 p.m. with improvement. Patient states back pain is mildly improved after 4 mg IV morphine. We will medicate with 15 mg IV toradol for inflammation. At this time patient was ambulating to bathroom for urine sample, I observed her gait which was slow, with small steps. UA without evidence of infection. We will discharge home with 5 day course of 20 mg prednisone as glucose under control, 3 days Toradol, 5 days Flexeril for lumbar back strain Differential Diagnosis Differential Diagnoses: The differential diagnosis associated with the presentation includes Spinal epidural abscess Cauda equina Discitis Compression fracture Lumbar radiculopathy Lumbar strain Admission/Observation Consideration of admission/observation: Escalation of care including admission/observation considered Lab Data MDM Lab Attestation statement: I reviewed the patient's lab results. 09/29/24 15:31 09/29/24 15:31 Labs: Lab Results 09/29/24 09/29/24 Range/Units 15:31 17:25 WBC 5.7 (4.8-10.8) X10*3/uL RBC 4.66 (4.20-5.50) X10*6/uL Hgb 11.0 L (12.0-16.0) g/dl Hct 34.9 L (37.0-47.0) % MCV 74.9 L (80.0-98.0) fL MCH 23.6 L (27.0-33.0) pg MCHC 31.5 (31.0-35.0) g/dl RDW 16.0 (11.0-16.0) % Plt Count 319 (160-400) X10*3/uL MPV 9.2 L (9.4-12.3) fL Immature Gran % (Auto) 0.5 H (0.0-0.4) % Neut % (Auto) 58.6 (45-73) % Lymph % (Auto) 30.8 (20-40) % [place] % (Auto) 6.5 (2-11) % Eos % (Auto) 3.3 (0-4) % Baso % (Auto) 0.3 (0-2) % Lymph # (Auto) 1.8 (1.2-4.9) X10*3/uL [place] # (Auto) 0.4 (0.1-1.2) X10*3/uL Eos # (Auto) 0.2 (0.0-0.4) X10*3/uL Baso # (Auto) 0.0 (0.0-0.2) X10*3/uL Abs Immat Gran (auto) 0.03 (0.00-0.03) X10*3/uL Absolute Neuts (auto) 3.4 (2.0-8.3) x10*3/uL Absolute Nucleated RBC 0.000 (0.0-0.012) X10*3/uL Nucleated RBC % (auto) 0.0 (0.0-0.2) /100WBC Sodium 140 (135-145) mmol/L Potassium 4.2 (3.3-5.1) mmol/L Chloride 108 (96-108) mmol/L Carbon Dioxide 24 (22-29) mmol/L Anion Gap 12 (12-20) BUN 10 (9-16) mg/dL Creatinine 0.78 (0.5-1.4) mg/dL Estim Creat Clear Calc 79.7 Estimated GFR > 60 Random Glucose 131 H (60-115) mg/dL Calcium 9.3 (8.4-10.2) mg/dL Magnesium 2.1 (1.6-2.6) mg/dL Total Bilirubin 0.2 (0.0-1.0) mg/dL AST 38 H (5-31) U/L ALT 41 H (0-31) U/L Alkaline Phosphatase 81 (39-117) U/L Total Protein 7.4 (6.5-8.0) g/dL Albumin 4.2 (3.5-5.0) g/dL Urine Color Yellow Urine Appearance Clear Urine pH 8.0 (5.0-9.0) Ur Specific [place] <= 1.005 (1.005-1.025) Urine Protein Negative (Neg-Trace) mg/dL Urine Glucose (UA) Negative (Negative) mg/dL Urine Ketones Negative (Negative) mg/dL Urine Blood Negative (Negative) Urine Nitrite Negative (Negative) Ur Leukocyte Esterase Trace H (Negative) Independent Interpretation I performed an independent interpretation of an: Plain X-Ray Interpretation: I personally interpreted the lumbar x-ray which did not reveal any fractures, dislocations, I agree with the radiologist's findings Radiology Impression Discussion of test interpretation with radiology: I have reviewed the radiologist's reading. 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 The L5 transverse processes are pseudoarticulating with the bilateral sacral alae. There is no scoliosis. There is normal lordosis. There is no subluxation. There is no fracture, compression deformity, or suspicious bone lesion. There is mild disc degeneration noted spanning L3-L5. There is a pseudodisc at L5-S1. There is normal facet alignment. Mild facet arthropathy at L4-S1. Mild degenerative changes in the bilateral SI joints. Sacrum appears intact. No soft tissue abnormalities. XR/XR lumbar spine 2-3V IMPRESSION: 1. No acute findings of the lumbar spine. 2. Transitional lumbosacral anatomy as described. 3. Mild degenerative disc changes L3-L5. Electronically signed by: Elliot Toussaint MD 09/29/2024 04:30 PM EDT RP Dictated By: Elliot Toussaint MD Signed By: <Electronically signed by Elliot Toussaint MD in OV> 09/29/24 1630 External Record Review External record reviewed: Inpatient record, Office record and Outpatient record Prescription Management I considered prescription management with: Pain Medication (Considered methocarbamol, Tylenol- patient took this morning) Chronic Conditions Patient?s care impacted by: Diabetes, Hypertension and Other (Anxiety, depression, GERD, asthma, HLD) Discharge Plan Discharge Clinical Impression: Lumbar strain Patient Disposition: Home, Self-Care Instructions: Low Back Strain (ED), Back Pain (ED) Additional Instructions: You were evaluated in the ED today due to lumbar back pain. Your labs did not reveal any evidence of infection. the x-ray of your lumbar spine did not reveal any acute fracture or dislocation, however did observe degenerative changes of your lumbar back. Your urinalysis was negative for infection. While in the department you were medicated with 15 mg IV Toradol, 4 mg morphine, 5 mg Valium, with good effect. Please follow up with your PCP to ensure improvement. To manage your lumbar back pain you will be prescribed a 5 day course of 20 mg prednisone which is a steroid for inflammation and a 4 day course of Flexeril which is a muscle relaxer for lumbar back strain, and lidocaine patches for pain. DO NOT TAKE FLEXERIL AND TRAMADOL TOGETHER. DO NOT PLACE HEAT OR ICE OVER LIDOCAINE PATCHES THIS CAN BURN THE SKIN. Please return to the emergency department if you experience fevers over 100.4?, chills, worsening back pain, trouble walking, pins and needle sensation of your inner thighs, or any new/worsening/concerning symptoms. Prescriptions: New prednisone 20 mg tablet 20 mg PO DAILY 5 Days Qty: 5 0RF cyclobenzaprine 10 mg tablet 10 mg PO TID Qty: 12 0RF lidocaine 4 % adhesive patch,medicated 1 patch topical DAILY PRN (Reason: pain) Qty: 30 0RF No Action ascorbate calcium (vitamin C) 500 mg tablet 500 mg PO BID Qty: 90 2RF cyanocobalamin (vitamin B-12) 1,000 mcg tablet 1,000 mcg PO DAILY Qty: 28 0RF docusate sodium [Stool Softener] 100 mg capsule 100 mg PO BID Qty: 56 0RF cyclobenzaprine 10 mg tablet 10 mg PO Q8H Qty: 10 0RF acetaminophen [Tylenol Extra Strength] 500 mg tablet 1,000 mg PO QID PRN (Reason: fever or pain) Qty: 14 0RF tramadol 50 mg tablet 50 mg PO TID PRN (Reason: severe pain (scale score 7-10)) Qty: 12 0RF cyclobenzaprine 5 mg tablet 5 mg PO TID PRN (Reason: muscle spasm) Qty: 10 0RF lidocaine 5 % adhesive patch,medicated 1 patch topical DAILY Qty: 15 0RF Rx Instructions: leave on most painful area for up to 12 hrs acetaminophen [Tylenol Extra Strength] 500 mg tablet 500 mg PO Q6H PRN (Reason: fever or pain) Qty: 14 0RF lidocaine [Lidoderm] 5 % adhesive patch,medicated 1 patch topical DAILY MDD remove after 12 hours PRN (Reason: pain) Qty: 30 0RF Rx Instructions: leave on most painful area for up to 12 hrs morphine 15 mg tablet 15 mg PO Q6H PRN (Reason: pain (scale score 7-10)) 3 Days Qty: 9 0RF Rx Instructions: Partial Fill upon patient request. cyclobenzaprine 5 mg tablet 5 mg PO Q8H PRN (Reason: pain (scale score 7-10)) 5 Days Qty: 14 0RF vancomycin 250 mg capsule 250 mg PO QID 10 Days Qty: 40 0RF albuterol sulfate [ProAir HFA] 90 mcg/actuation HFA aerosol inhaler 2 puff inhalation Q6H PRN (Reason: Shortness Of Breath) omeprazole 40 mg capsule,delayed release(DR/EC) 40 mg PO DAILY amitriptyline 25 mg tablet 25 mg PO BEDTIME loratadine [Allergy Relief (loratadine)] 10 mg tablet 10 mg PO DAILY sumatriptan succinate 25 mg tablet 25 mg PO Q2-4H PRN (Reason: Migraine Headache) Rx Instructions: do not exceed 8 doses per 24 hrs hydrochlorothiazide 25 mg tablet 25 mg PO DAILY topiramate 50 mg tablet 50 mg PO BID zolpidem 10 mg tablet 10 mg PO BEDTIME PRN (Reason: Insomnia) fluoxetine 40 mg capsule 40 mg PO DAILY lorazepam 1 mg tablet 1 mg PO DAILY PRN (Reason: Anxiety) lidocaine 4 % gel 1 applic topical TID PRN (Reason: Pain) docusate sodium 100 mg capsule 100 mg PO DAILY Qty: 30 11RF metformin 500 mg tablet 800 mg PO DAILY risperidone 0.5 mg tablet 0.5 mg PO BEDTIME [id number] 0.01-0.2-3.5 % gel 1 ea topical BID PRN (Reason: pain) Qty: 180 2RF Rx Instructions: apply to most painful area twice daily as needed for pain Print Language: Slovak
--- OUTSIDE RECORDS SUMMARY | 2024-09-29 15:26 | XMS_ITS | Clinical Summary ---
Author Organization 175 [facility] Address 175 [place] [address] Phone Care Team Providers Care Certified Medical Coding Specialist Name Role Phone Paradise Langley MD Primary Care Provide r Allergies Active Allergy Reactions Criticality Noted Date Comments Naproxen 07/06/2022 Other reaction(s): insomnia, aggitation Medications amitriptyline (ELAVIL) 10 mg tablet Take 1 tablet (10 mg total) by mouth. 04/13/2024 Active atorvastatin (LIPITOR) 40 mg tablet Take 1 tablet (40 mg total) by mouth 1 (one) time each day. 06/07/2024 Active hydroCHLOROthia zide 12.5 mg tablet Take 1 tablet (12.5 mg total) by mouth 1 (one) time each day. 05/10/2024 Active loratadine (CLARITIN) 10 mg tablet Take 1 tablet (10 mg total) by mouth daily. 06/07/2024 Active lidocaine (LIDODERM) 5 % patch APPLY 1 PATCH ONTO THE SKIN DAILY (MAY WEAR UP TO 12 HOURS) 05/29/2024 Active metFORMIN (GLUCOPHAGE) 850 mg tablet TAKE 1 TABLET BY MOUTH TWICE A DAY WITH IN THE MORNING AND IN THE EVENING MEAL 05/12/2024 Active docusate sodium (COLACE) 100 mg capsule Take 1 capsule (100 mg total) by mouth 2 times daily. 06/07/2024 Active methocarbamoL (ROBAXIN) 750 mg tablet Take 2 tablets (1,500 mg total) by mouth 3 times daily. 07/14/2024 Active pantoprazole (PROTONIX) 40 mg EC tablet Take 1 tablet (40 mg total) by mouth. 05/24/2024 Active Encounters Date Type Department Care Team Description 08/03/2024 1:00 PM EDT Consult Orthopedic Surgery [facility] 175 [facility] [address] [place] [phone] Estefani Dickens, TAYE Left hand paresthesia (Primary Dx); Left hand tendonitis; Dupuytren disease of finger with nodules without contracture from Last 3 Months Surgical History Surgery Date Site/Laterality Comments CARPAL TUNNEL RELEASE Bilateral ~10 years ago Social History Tobacco Use Types Packs/Day Years Used Date Smoking Tobacco: Never Assessed Comments Unknown Sex and Gender Information Value Date Recorded Sex Assigned at Not on file Legal Sex Female 10:31 AM EDT Gender Identity Not on file Sexual Orientation Not on file Obstetrics History Last Filed Vital Signs Vital Sign Reading Time Taken Comments Blood Pressure - - Pulse - - Temperature - - Respiratory Rate - - Oxygen Saturation - - Inhaled Oxygen Concentration - - Weight 83.9 kg (185 lb) 08/03/2024 1:11 PM EDT Height 162.6 cm (5' 4 ) 08/03/2024 1:11 PM EDT Body Mass Index 31.76 08/03/2024 1:11 PM EDT Plan of Treatment Upcoming Encounters Date Type Department Care Team (Late st Contact Info) Description 10/24/2024 3:15 PM EDT Appointment [facility] Neurodiagnostic [address] [place] [phone] 11/22/2024 1:30 PM EDT Consult Orthopedic Surgery [facility] 250 175 [facility] [address] [place] [phone] Aidan Mcdonnell, DPM [address] [id number] Health Maintenance Due Date Last Done Comments Breast Cancer Screening 1963 Diabetes: Annual Foot Exam 1973 Diabetes: Annual Retina Eye Exam 1973 Cervical Cancer Screening: Pap Smear 1984 Zoster Vaccines (1 of 2) 2013 RSV Immunization Adult Patients (1 - Risk 60-74 years 1-dose series) 2023 COVID-19 Vaccine ( season) 2023 03/23/2023, 12/03/2021, 05/02/2021, Additional history exists Depression Screening 03/01/2024 Colorectal Cancer Screening: Colonoscopy 07/06/2024 HIV Screening 07/06/2024 Hepatitis C Screening 07/06/2024 Social Influencers of Health Screening 07/06/2024 Diabetes: Annual Urine Albumin-Creatinine Ratio (uACR) 08/03/2024 Diabetes: Blood Sugar Control Test (HGBA1C) 08/04/2024 02/04/2024, 08/20/2023 Influenza Vaccine (#1) 2024 , 12/22/2021, 01/13/2021, Additional history exists Diabetes: Annual GFR (Glomerular Filtration Rate) 05/24/2025 05/24/2024 Hypertension/CHF/CAD Annual BMP Blood Test 05/24/2025 05/24/2024 DTaP,Tdap,and Td Vaccines (4 - Td or Tdap) 08/28/2026 08/28/2016, 06/23/2011, 05/25/2007 Cholesterol Screening (Lipid Panel) 05/24/2029 05/24/2024 Hepatitis A Vaccines Aged Out 05/21/2005, 08/29/19 05 No longer eligible based on patient's age to complete this topic Hepatitis B Vaccines Completed 05/21/2005, 09/25/2004, 08/28/2004 Pneumococcal Vaccine: 50+ Years Completed 08/20/2023, 06/23/2011 HIB Vaccines Aged Out No longer eligi ble based on patient's age to complete this topic HPV Vaccines Aged Out No longer eligi ble based on patient's age to complete this topic IPV Vaccines Aged Out No longer eligi ble based on patient's age to complete this topic MMR Vaccines Aged Out No longer eligi ble based on patient's age to complete this topic Meningococcal ACWY Vaccine Aged Out N o longer eligible based on patient's age to complete this topic Meningococcal B Vaccine Aged Out No l onger eligible based on patient's age to complete this topic RSV Immunization Patients Under 20 months Aged Out No longer eligible based on patient's age to complete this topic Varicella Vaccines Aged Out No longer eligible based on patient's age to complete this topic Procedures Procedure Name Priority Date/Time Associated Diagnosis Comments XR WRIST 3+ VIEWS LEFT Routine 08/03/2024 1:45 PM EDT Left hand tendonitis XR CERVICAL SPINE 4-5 VIEWS Routine 08/03/2024 1:45 PM EDT Left hand tendonitis from Last 3 Months Results * XR Wrist 3+ Views Left (08/03/2024 1:45 PM EDT) Anatomical Region Laterality Modality Upper Extremities, Wrist Left Compute d Radiography Narrative 08/03/2024 2:07 PM EDT Date of Visit: 08/03/2024 Reason for visit: Left wrist pain Views: AP, lateral, oblique left wrist none Comparison: None Findings: No fracture, dislocation or lytic lesions. There is mild cystic changes at the scaphoid and narrowing of radial scaphoid joint. No significant CMC arthritis. No widening of DRUJ or scapholunate interval. Impression: Mild arthritic changes of the wrist. Estefani KOTHARI IM XR PROCEDURES Final Resul t * XR Cervical Spine 4-5 Views (08/03/2024 1:45 PM EDT) Anatomical Region Laterality Modality Spine, C-spine Computed Radiogr aphy Narrative 08/03/2024 2:06 PM EDT Date of Visit: 08/03/2024 Reason for visit: Neck pain Views: AP, lateral, oblique cervical spine Comparison: None Findings: No fracture, dislocation or lytic lesions. Mild straightening of normal cervical lordosis. Vertebral height and joint spaces maintained. No neuroforaminal narrowing or significant arthritis Impression: Overall normal cervical spine radiograph Estefani KOTHARI IMG XR PROCEDURES Final Resul t from Last 3 Months Insurance MEDICAID - [place] Care Teams Certified Medical Coding Specialist Relationship Specialty Start Date End Date Paradise Langley MD [address] [phone] PCP - General Internal Medicine 08/03/24
--- OUTSIDE RECORDS SUMMARY | 2024-09-29 15:26 | XMS_ITS | Encounter Summary ---
Author Organization [employer] Address [address] [facility] [address] [place] [address] Care Team Providers Care Car Scrubber Name Role Phone Paradise Langley MD Primary Care Provide r Jarrell Faustin RN Unavailable [phone] Reason for Visit * Reason Comments Med Refill Encounter Details Date Type Department Care Team ([facility] st Contact Info) Description 12/21/2023 Refill [facility] MED & PEDS [address] [place], [place] [phone] Paradise Langley MD [address] [place] [address] Dyspepsia Social History Tobacco Use Types Packs/Day [...] Care Team (Late st Contact Info) Description 10/27/2024 11:00 AM EDT Nurse Only [facility] MEDICINE [address] [place] [address] documented as of this encounter Visit Diagnoses Diagnosis Dyspepsia Dyspepsia and other specified disorders of function of stomach documented in this encounter Additional Health Concerns Assessment Noted Time PHQ-9 Depression Total Score: 0 07/29/19 23 1:57 PM EDT documented as of this encounter Care Teams Car Scrubber Relationship Specialty Start Date End Date Paradise Langley MD [address] [place] [address] PCP - General Family Medicine 01/09/19 Jarrell Faustin RN [address] [place] [phone] Registered Nurse Family Medicine 09/05/24 09/05/24 Breanna Cooley Custodian Blood BankRetail Shift Leader 01/28/23 Anat Stacy Custodian Blood BankRetail Shift Leader 01/12/24 documented as of this encounter
[2024-09-29 15:45] VITALS: BP 155/72; PULSE 86; RESP 18; O2SAT 96
--- NOTE | 2024-09-29 15:45 | PC.NURSE ---
iv inserted, labs drawn, pt medicated for pain, vss, call panchal within reach, plan of care ongoing
[2024-09-29 15:47] LABS: MANUAL DIFF FLAG NO
[2024-09-29 15:48] LABS: Hematocrit 34.9 % (37.0-47.0); Hemoglobin 11.0 g/dl (12.0-16.0); Imm Gran Abs Auto 0.03 X10*3/uL (0.00-0.03); Imm Gran Pct Auto 0.5 % (0.0-0.4); Lymphocytes Absolute Auto 1.8 X10*3/uL (1.2-4.9); Mean Corpuscular HGB Conc 31.5 g/dl (31.0-35.0); Mean Corpuscular Hemoglobin 23.6 pg (27.0-33.0); Mean Corpuscular Volume 74.9 fL (80.0-98.0); NRBC Abs Auto 0.000 X10*3/uL (0.0-0.012); NRBC Pct Auto 0.0 /100WBC (0.0-0.2); Platelet Count 319 X10*3/uL (160-400); Red Blood Count 4.66 X10*6/uL (4.20-5.50); White Blood Count 5.7 X10*3/uL (4.8-10.8)
[2024-09-29 16:08] LABS: Alanine Aminotransferase 41 U/L (0-31); Albumin Level 4.2 g/dL (3.5-5.0); Alkaline Phosphatase 81 U/L (39-117); Anion Gap 12 (12-20); Aspartate Amino Transferase 38 U/L (5-31); Blood Urea Nitrogen 10 mg/dL (9-16); Calcium 9.3 mg/dL (8.4-10.2); Carbon Dioxide 24 mmol/L (22-29); Chloride 108 mmol/L (96-108); Creatinine Clr Calc Pharmacy 79.7; Estimated Glomerular Filt Rate > 60; Magnesium 2.1 mg/dL (1.6-2.6); Potassium 4.2 mmol/L (3.3-5.1); Sodium 140 mmol/L (135-145); Total Protein 7.4 g/dL (6.5-8.0)
[2024-09-29] MEDS: diazePAM 10 MG/2 ML CARTRIDGE 5 MG IVPUSH (16:51)
--- NOTE | 2024-09-29 16:52 | PC.NURSE ---
pt medicated for anxiety per order
[2024-09-29 17:31] LABS: Appearance Urine Clear; Glucose Urine UA Negative (Negative); PH 8.0 (5.0-9.0); Specific Gravity - Urine <= 1.005 (1.005-1.025); UMIC TRIGGER UACC YES
--- NOTE | 2024-09-29 17:39 | PC.NURSE ---
pt medicated for 09/07 pain. prednisone was held per req of provider
[2024-09-29 18:01] VITALS: BP 108/44; PULSE 65; RESP 16; O2SAT 97
[2024-09-29 18:27] VITALS: BP 108/44; PULSE 65; RESP 16; TEMP 36.9; O2SAT 97
[2024-09-29 18:28] VITALS: BP 108/44; PULSE 65; RESP 16; TEMP 36.9; O2SAT 97
== END 2024-09-29 18:28 | disposition home or self-care (01) ==
PROVIDERS: Emergency Provider Emergency Medicine Emergency Medical Services; PCP Internal Medicine
DX: S39.012A Strain of muscle, fascia and tendon of lower back, initial encounter (principal); I10 Essential (primary) hypertension; E11.9 Type 2 diabetes mellitus without complications; J45.909 Unspecified asthma, uncomplicated; E78.5 Hyperlipidemia, unspecified; X58.XXXA Exposure to other specified factors, initial encounter; Y93.9 Activity, unspecified; Y92.9 Unspecified place or not applicable; Y99.9 Unspecified external cause status
CPT/HCPCS: 36415; 72100; 80053; 81001; 83735; 85025; 96374; 96375; 99284; J1885; J2270; J3360

== ENCOUNTER → 2024-09-29 15:23 | Outpatient (BNV) | payer MEDICAID, SELFPAY | PROVIDERS: Emergency Provider Emergency Medicine Emergency Medical Services; PCP Internal Medicine; Visit Provider Radiology Diagnostic Radiology | DX: M51.360 Other intervertebral disc degeneration, lumbar region with discogenic back pain only (principal) | CPT/HCPCS: 72100 ==

== ENCOUNTER 2024-10-09 10:58 | Outpatient (AMB) | payer MEDICAID, SELFPAY ==
--- NOTE | 2024-10-09 11:02 | A.OFFVIS_ITS ---
Intake Visit Reasons: OV- Left Shoulder Pain INJ 03/30/24 Intake Note: Josephine is a 59 year old Korean speaking right hand dominant female presents today with her Tong for her left shoulder pain, last injection (40) 03/30/24. Patient reports her last injection gave her relief and she would like to repeat the injection . She has noticed improvements in her ROM. Allergies naproxen (From NAPROSYN) Allergy (Unknown, Verified 10/09/24 11:09) insomnia, aggitation PFSH Medical History Mastodynia Arthritis Panic attacks Anxiety Depression Fatty liver Bleeding hemorrhoids Hemorrhoids with complication HTN (hypertension) Diabetes Migraine headache GERD (gastroesophageal reflux disease) Asthma Hyperlipidemia Surgical History Status post hemorrhoidectomy History of hemorrhoidectomy (~2023) History of carpal tunnel release of both wrists Hx of excision of mass Hx of section Hx of excision of mass History of esophagogastroduodenoscopy (EGD) Hx of colonoscopy H/O hemorrhoidectomy Family History Family/Other Breast cancer Colon cancer Social History Household Members: Spouse Housing: Apartment Alcohol intake: never Comment: counts correct Patient Tobacco Use Status: Former Tobacco user Years Smoked: 10 Current occupational status: disabled 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 No ecchymosis erythema or edema Tenderness to palpation over the spine of the scapula. Forward flexion and abduction to 90 degrees. Pain with cross-body reach. 3/5 strength with empty can. NVI. Office Procedures AMB Joint Injection/Aspiration Joint Injection/Aspiration Primary Site: left shoulder Prep: site was prepped using aseptic technique, ethochloride spray was applied and injection warnings given Injected: 40 mg of, DepoMedrol, with 8 mL of (2% plain lidocaine) and in the subcromial space Approach Used: posterolateral Procedure: The patient tolerated the procedure well, but had some pain with the injection and there was some relief with the local anesthesia Coding 96681 - Large joint Procedure code (CPT) selection complete Assessment & Plan Assessment & Plan (1) Painful arc syndrome of left shoulder: Code(s): M75.102 - Unspecified rotator cuff tear or rupture of left shoulder, not specified as traumatic Category: Medical Plan The patient was offered a cortisone injection in the left shoulder with 40 mg of DepoMedrol. The patient was explained the risks, benefits, and alternatives to receiving this injection. After receiving consent for the injection, the patient had the procedure done while in the office today. The patient tolerated the procedure well with no complications. Due to the patient?s history of diabetes, they were instructed to monitor their blood glucose level. The patient was informed that they could see a rise in their numbers and if the numbers became too high, they were instructed to call their PCP. The patient was also informed that they could have facial flushing as a side effect of the injection, but this will pass. Follow-up will be PRN, or sooner if needed Coding Level of Care Code Est Pt Level 3 (31358) Diagnoses Painful arc syndrome of left shoulder M75.102 CPT Codes Coding - 27537 Large joint: 99186 - Large joint ([id number])
--- OUTSIDE RECORDS SUMMARY | 2024-10-09 11:41 | XMS_ITS | Encounter Summary ---
Author Organization [employer] Address [address] [facility] [address] [facility] [address] [place] [address] Care Team Providers Care Chemical Radiation Technician Name Role Phone Paradise Langley MD Primary Care Provide r Jarrell Faustin RN Unavailable [phone] Tiffanie Lucia Unavailable Reason for Visit * Reason Comments Med Refill Encounter Details Date Type Department Care Team ([facility] st Contact Info) Description 12/21/2023 Refill [facility] MED & PEDS [address] [place], [place] [phone] Paradise Langley MD [address] [place] [address] Dyspepsia Social History Tobacco Use Types Packs/Day [...] Description 10/27/2024 11:00 AM EDT Nurse Only [facility] MEDICINE [address] [place] [address] documented as of this encounter Visit Diagnoses Diagnosis Dyspepsia Dyspepsia and other specified disorders of function of stomach documented in this encounter Additional Health Concerns Assessment Noted Time PHQ-9 Depression Total Score: 0 07/29/19 23 1:57 PM EDT documented as of this encounter Care Teams Chemical Radiation Technician Relationship Specialty Start Date End Date Paradise Langley MD [address] [place] [address] PCP - General Family Medicine 01/09/19 Jarrell Faustin, RN [address] [place] [address] Registered Nurse Family Medicine 09/05/24 09/05/24 Tiffanie Lucia 10/02/24 10/03/24 Breanna Cooley Account Development RepresentativeChristmas Tree Farm Crew Boss 01/28/23 10/01/24 Anat Stacy Account Development RepresentativeChristmas Tree Farm Crew Boss 01/12/24 10/01/24 Tori Solares Account Development RepresentativeChristmas Tree Farm Crew Boss 10/02/24 documented as of this encounter
--- OUTSIDE RECORDS SUMMARY | 2024-10-09 11:41 | XMS_ITS | Clinical Summary ---
Author Organization 175 [facility] Address [address] [place] [address] Phone Care Team Providers Care Senior Supplier Quality Engineer Name Role Phone Paradise Langley MD Primary [...] 08/03/2024 1:00 PM EDT Consult Orthopedic Surgery [facility] 175 [facility] [address] [place] [phone] Estefani Dickens, TAYE Left hand paresthesia (Primary [...] Info) Description 10/24/2024 3:15 PM EDT Appointment [facility] Neurodiagnostic [address] [place] [phone] 11/22/2024 1:30 PM EDT Consult Orthopedic Surgery [facility] 250 175 [facility] [address] [place] [phone] Aidan Mcdonnell, DPM [address] [address] Health Maintenance Due Date Last Done Comments [...] Months Insurance MEDICAID - [place] Care Teams Senior Supplier Quality Engineer Relationship Specialty Start Date End Date Paradise Langley MD [address] [phone] PCP - General Internal Medicine 08/03/24
== END 2024-10-09 11:37 | disposition home or self-care (01) ==
PROVIDERS: PCP Internal Medicine; Visit Provider Physician Assistant
DX: M75.102 Unspecified rotator cuff tear or rupture of left shoulder, not specified as traumatic (principal)
CPT/HCPCS: 20610; 99213

== ENCOUNTER 2024-10-09 11:56 | Outpatient (REF) | payer MEDICAID, SELFPAY ==
--- NOTE | ~2024-10-09 | MM_ITS ---
EXAMINATION: MM SCREENING DIGITAL BREAST TOMOSYNTHESIS, BILATERAL CLINICAL INFORMATION: Screening. Asymptomatic. COMPARISON: Comparison made to multiple prior, most recent September 15, 2023, and most remote May 17, 2017. TECHNIQUE: Digital breast tomosynthesis is performed in both the craniocaudal and mediolateral oblique views along with computer-aided detection (CAD). Best possible images according to the technologist notes. FINDINGS: BREAST COMPOSITION: There are scattered areas of fibroglandular density (ACR BI-RADS breast composition Category b). BILATERAL BREASTS: No significant masses, suspicious calcifications or other abnormalities are seen in either breast. MM/MM tomosynthesis screening BI IMPRESSION: BILATERAL BREASTS: Negative, no mammographic evidence of malignancy. Normal interval follow-up is recommended in 12 months. ASSESSMENT: BI-RADS 1 - Negative RECOMMENDATION: Routine annual mammography screening. FOLLOW-UP: 1 year F/U This examination should not preclude the clinical evaluation of a suspicious palpable abnormality. This patient's information was entered into a reminder system with a target due date for their next mammogram. Electronically signed by: Howard Patricio MD 10/16/2024 12:45 PM EDT
== END 2024-10-09 11:57 | disposition home or self-care (01) ==
LOC: HO.MAMMO 11:56
PROVIDERS: PCP Internal Medicine; Visit Provider Internal Medicine
DX: Z12.31 Encounter for screening mammogram for malignant neoplasm of breast (principal); M75.102 Unspecified rotator cuff tear or rupture of left shoulder, not specified as traumatic
CPT/HCPCS: 20610; 77063; 77067; 99212; J1010; J2003

== ENCOUNTER → 2024-10-09 12:45 | Outpatient (BNV) | payer MEDICAID, SELFPAY | PROVIDERS: PCP Internal Medicine; Visit Provider Radiology Body Imaging | DX: Z12.31 Encounter for screening mammogram for malignant neoplasm of breast (principal) | CPT/HCPCS: 77063; 77067 ==

== ENCOUNTER 2025-01-12 09:53 | Outpatient (AMB) | payer MEDICAID, SELFPAY ==
--- NOTE | 2025-01-12 10:35 | A.OFFVIS_ITS ---
Vital Signs 01/12/25 10:43 Height 5 ft 4 in Weight 168 lb BMI 28.8 Intake Visit Reasons: SHANK TURNER-upper back/neck pain Intake Note: Josephine is a 59 year old female right hand dominant who presents today as a new patient for her upper back and left sided neck pain. Patient was referred by 03/30/24. At today's visit she states for the past 17 years she has had upper back pain that radiates into the left neck. Patient states that she had a fall at work 17 years ago and almita since then she had trouble with her ROM. Patient states that ever since her visit in our office where she was given a steroid injection in the left shoulder she feels that her pain is manageable. She noted that she has tried physical therapy and at home exercises but mild to no relief. Patient added that her WC case from 17 years ago is closed and she was compensated. She requested another injection at today's visit or to make an appointment with . Pain Score- 1 to 2 Local Area Network Administrator Required: Yes Local Area Network Administrator Services: Local Area Network Administrator Present Local Area Network Administrator Name: [id number] Allergies naproxen (From NAPROSYN) Allergy (Unknown, Verified 10/09/24 11:09) insomnia, aggitation Medication List - Last Reconciled 01/12/25 by Marisa Scott MD acetaminophen (Tylenol Extra Strength) 1,000 mg (2 x 500 mg) PO QID PRN acetaminophen (Tylenol Extra Strength) 500 mg PO Q6H PRN albuterol sulfate 90 mcg/actuation (ProAir HFA) 2 puffs inhalation Q6H PRN amitriptyline 25 mg PO BEDTIME ascorbate calcium (vitamin C) 500 mg PO BID qnyvnoqnx-ncwekkd-kfoxbin 0.01-0.2-3.5 % 1 ea topical BID PRN cyanocobalamin (vitamin B-12) 1,000 mcg PO DAILY cyclobenzaprine 10 mg PO Q8H cyclobenzaprine 5 mg PO TID PRN cyclobenzaprine 10 mg PO TID cyclobenzaprine 5 mg PO Q8H PRN 5 days docusate sodium 100 mg PO DAILY docusate sodium (Stool Softener) 100 mg PO BID fluoxetine 40 mg PO DAILY hydrochlorothiazide 25 mg PO DAILY lidocaine 5% 1 patch topical DAILY lidocaine 4% 1 patch topical DAILY PRN lidocaine 5% (Lidoderm) 1 patch topical DAILY PRN MDD remove after 12 hours lidocaine 4% 1 appl topical TID PRN loratadine (Allergy Relief (loratadine)) 10 mg PO DAILY lorazepam 1 mg PO DAILY PRN metformin 800 mg PO DAILY morphine 15 mg PO Q6H PRN 3 days omeprazole 40 mg PO DAILY prednisone 20 mg PO DAILY 5 days risperidone 0.5 mg PO BEDTIME sumatriptan succinate 25 mg PO Q2-4H PRN topiramate 50 mg PO BID tramadol 50 mg PO TID PRN vancomycin 250 mg PO QID 10 days zolpidem 10 mg PO BEDTIME PRN HPI Comments Details: Chronic left sided neck pain. Points to left upper trapezius as source of pain. Denies radiation to arm. She does have history of CTR bilateral. Last PT 04/2024 but she missed a lot of appointments and did not meet goals. She says it was too much for her muscle . [facility] Medical History Mastodynia Arthritis Panic attacks Anxiety Depression Fatty liver Bleeding hemorrhoids Hemorrhoids with complication HTN (hypertension) Diabetes Migraine headache GERD (gastroesophageal reflux disease) Asthma Hyperlipidemia Surgical History Status post hemorrhoidectomy History of hemorrhoidectomy (~2023) History of carpal tunnel release of both wrists Hx of excision of mass Hx of section Hx of excision of mass History of esophagogastroduodenoscopy (EGD) Hx of colonoscopy H/O hemorrhoidectomy Family History Family/Other Breast cancer Colon cancer Social History Household Members: Spouse Housing: Apartment Alcohol intake: never Comment: counts correct Patient Tobacco Use Status: Former Tobacco user Years Smoked: 10 Current occupational status: disabled 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 Patient was appropriately conversant and oriented. Good historian. MSK: Inspection reveals appropriate head and neck positioning. No pain with palpation over the neck musculature. Cervical ROM was full. Spurling's sign negative. Bilateral shoulder, elbow and wrist ROM WNL. No ligamentous laxity or crepitance. No increased effusion. No specific abnormalities or instability found on inspection and palpation of the spine and extremities. Strength is 5/5 in all muscle groups tested. No increased tone noted. Neurological: Mood appears normal, good affect, and appropriate for the circumstances. Neurologic examination of the upper and lower extremities was nonfocal with intact sensation, muscle stretch reflexes and without focal motor deficits. Bella?s negative bilaterally. Babinski was down going bilaterally. Clonus was negative. Gait is non-antalgic without loss of balance. Vital Signs: BMI result Body Mass Index 28.8 Results Reviewed Results Reviewed: I independently reviewed the results of the following: Cspine done in office today shows preserved disc spaces, will wait for final report Ordering Physician: Halina Morris PA-C Date of Service: 03/30/24 Procedure(s): XR shoulder LT min 2V Accession Number(s): [id number] cc: Halina Morris PA-C~ EXAMINATION: XR SHOULDER 2 OR MORE VIEWS LEFT HISTORY: M25.519 - Pain in unspecified shoulder COMPARISON: Comparison is made with the prior examination dated 12/09/2021. FINDINGS: Three views of the left shoulder are submitted. Osseous mineralization is normal. There is no fracture or dislocation. The glenohumeral joint is maintained. There is mild narrowing of the AC joint. The soft tissues are unremarkable. XR/XR shoulder LT min 2V IMPRESSION: Mild narrowing of the AC joint. Electronically signed by: Michael Bustillos MD 03/30/2024 02:10 PM [facility] I reviewed records from the following: Ortho Assessment & Plan Assessment & Plan (1) Myofascial pain: Code(s): M79.18 - Myalgia, other site Category: Medical (2) Painful arc syndrome of left shoulder: Code(s): M75.102 - Unspecified rotator cuff tear or rupture of left shoulder, not specified as traumatic Category: Medical Plan Left shoulder ROM and pain improved from injection from ortho. Continues to have pain on upper trapezius and rhomboids. She can continue with lidocaine patch. We can trial trigger point injections. Patient eager to try and we will schedule. Assessment and plan discussed with patient, and patient was agreeable. All questions were answered thoroughly. Marisa Scott MD, RAYMUNDO Board Certified, [place] [employer] and Rehabilitation (ABPMR) Board Certified, [place] [employer] Electro[employer] (ABEM) Orders: Orders XR cervical spine 3V Today M54.2 - Cervicalgia Coding Level of Care Code New Pt Level 4 (31299) Diagnoses Myofascial pain M79.18 Painful arc syndrome of left shoulder M75.102
[2025-01-12 10:43] VITALS: BMI 28.8
--- OUTSIDE RECORDS SUMMARY | 2025-01-12 11:11 | XMS_ITS | Encounter Summary ---
Author Organization [employer] Address [address] [place] [address] Care Team Providers Care Weld Inspector Name Role Phone Paradise Langley MD Primary Care Provide r Jarrell Faustin RN Unavailable [phone] Tiffanie Lucia Unavailable Reason for Visit * Reason Comments Med Refill Encounter Details Date Type Department Care Team ([facility] st Contact Info) Description 01/18/2024 Refill [facility] [address] [place] [address] Paradise Langley MD [address] [place] [address] Dyspepsia Social History Tobacco Use Types Packs/Day [...] Care Team (Late st Contact Info) Description 03/05/2025 11:30 AM EST Office Visit [facility] [address] [place] [phone] Paradise Langley MD [address] [place] [phone] documented as of this encounter Visit Diagnoses Diagnosis Dyspepsia Dyspepsia and other specified disorders of function of stomach documented in this encounter Additional Health Concerns Assessment Noted Time PHQ-9 Depression Total Score: 0 07/29/19 23 1:57 PM EDT documented as of this encounter Care Teams Weld Inspector Relationship Specialty Start Date End Date Paradise Langley MD [address] [place] [address] PCP - General Family Medicine 01/09/19 Jarrell Faustin, JONATHAN [address] [place] [id number] Registered Nurse Family Medicine 09/05/24 09/05/24 Tiffanie Lucia 10/02/24 10/03/24 Breanna Cooley Inspection EngineerDirector Of Physical Education 01/28/23 10/01/24 Anat Stacy Inspection EngineerDirector Of Physical Education 01/12/24 10/01/24 Tori Solares Inspection EngineerDirector Of Physical Education 10/02/24 documented as of this encounter
--- OUTSIDE RECORDS SUMMARY | 2025-01-12 11:11 | XMS_ITS | Clinical Summary ---
Author Organization [employer] Address [address] [facility] 7[address] [place] [address] Care Team Providers Care Vamp Liner Name Role Phone Paradise Langley MD Primary [...] 09/04/19 23 Active SUMAtriptan (Imitrex) 25 MG tabletIndication s:Chronic migraine without aura without status migrainosus, not intractable Take 1 tablet (25 mg) by mouth 1 (one) time if needed for migraine for up to 9 doses. May repeat dose once in 2 hours if no relief. Do not exceed 2 doses in 24 hours. 9 tablet 02/19/20 23 Active acetaminophen (Tylenol) 250 mg split tablet 500 mg. 01/06/20 24 Active cyclobenzaprine (Flexeril) 2.5 MG split tablet 5 mg. 01/06/20 24 Active Alcohol Swabs (B-D SINGLE USE SWABS REGULAR) padsIndications: Pain APPLY 1 PAD BY TO SKIN ROUTE 2 TIMES EVERY DAY 100 each 08/10/19 25 Active metFORMIN (Glucophage) 1000 MG tabletIndication s:Type 2 diabetes mellitus with hyperglycemia, without long-term current use of insulin (HCC) Take 1 tablet (1,000 mg) by mouth with breakfast and with evening meal. 60 tablet 08/24/19 25 026 Active empagliflozin (Jardiance) 10 MGIndications:Ty pe 2 diabetes mellitus with hyperglycemia, without long-term current use of insulin ([facility]) Take 1 tablet (10 mg) by mouth Once per day. 30 tablet 08/24/19 25 Active albuterol 108 (90 Base) MCG/ACT inhalerIndicatio ns:Mild intermittent asthma, unspecified whether complicated Inhale 2 puffs every 4 (four) hours if needed for wheezing. 18 g 08/24/19 25 026 Active docusate sodium (Colace) 100 MG capsule TAKE 1 CAPSULE BY MOUTH TWICE A DAY 56 capsule 5 09/09/19 25 Active diclofenac sodium 3 % gelIndications:C hronic left shoulder pain APPLY TOPICALLY TWICE A DAY 100 g 09/23/19 25 Active amitriptyline (Elavil) 10 MG tabletIndication s:Chronic migraine without aura without status migrainosus, not intractable TAKE 1 TABLET BY MOUTH AT BEDTIME 30 tablet 5 10/06/19 25 Active FREESTYLE LITE test stripIndications :IFG (impaired fasting glucose) CHECKIAR LA JAYNE THREE TIMES A DAY 100 each 11/02/19 25 Active hydroCHLOROthiaz carly 12.5 MG tablet TAKE 1 TABLET BY MOUTH DAILY 28 tablet 11/02/19 25 Active lidocaine (Lidoderm) 5 % patchIndications :Pain APPLY 1 PATCH ONTO THE SKIN DAILY (MAY WEAR UP TO 12 HOURS) 30 patch 11/02/19 25 Active pantoprazole (Protonix) 40 MG EC tabletIndication s:Epigastric abdominal pain Take 1 tablet (40 mg) by mouth before breakfast. Do not crush, chew, or split. 90 tablet 11/02/19 25 026 Active loratadine (Claritin) 10 MG tablet TAKE 1 TABLET BY MOUTH EVERY MORNING 28 tablet 5 12/01/19 25 Active atorvastatin (Lipitor) 40 MG tablet TAKE 1 TABLET BY MOUTH DAILY 28 tablet 12/01/19 25 Active TRUEplus Lancets 33G miscIndications: Type 2 diabetes mellitus without complication, without long-term current use of insulin ([facility]) USE TO TEST BLOOD SUGAR TWICE A DAY 100 each 5 12/01/19 25 Active methocarbamol (Robaxin) 750 MG tabletIndication s:Pain TAKE 2 TABLETS BY MOUTH THREE TIMES A DAY 168 tablet 1 12/28/19 25 Active methocarbamol (Robaxin) 750 MG tabletIndication s:Pain TAKE 2 TABLETS BY MOUTH THREE TIMES A DAY 168 tablet 1 10/06/19 25 025 Discontinued Active Problems Problem Noted Date Diagnosed Date Encounter for preventive care 09/21/2024 Assessment & Plan (09/21/2024 4:16 PM EDT): See HPI Other chest pain 09/21/2024 Assessment & Plan (09/21/2024 4:16 PM EDT): I will refer patient to cardiology ED precautions were reviewed with patient Encounter for screening mamm ogram for malignant neoplasm of breast 08/23/2024 Polyarthralgia 05/24/2024 Assessment & Plan (05/24/2024 10:06 [...] Visual impairment 10/08/2022 Type 2 diabetes mellitus wit h hyperglycemia, without long-term current use of insulin 10/08/2022 Assessment & Plan (08/23/2024 1:56 PM EDT): Diabetes is: almost at goal - Lab Results Component Value Date HGBA1C 7.0 (A) 08/23/2024 HGBA1C 6.7 (A) 02/04/2024 HGBA1C 6.8 (A) 08/20/2023 - Lab Results Component Value Date MICROALBUR 8.0 05/24/2024 CREATININE 0.77 05/24/2024 -Changes: A1c is likely with higher than before so I decided to go up on her metformin to 1000 mg twice daily and also add Jardiance 10 mg daily - Diabetic eye exam: Up-to-date - Diabetic foot exam: Referral done today patient showing some signs of diabetic neuropathy - Continue lifestyle modifications - Follow up: 3 months Assessment & Plan (02/18/2023 12:23 PM EST): Lab Results Component Value Date HGBA1C 7.1 (A) 10/09/2022 HGBA1C 7.0 (A) 07/28/2022 HGBA1C 6.2 (H) 01/15/2022 - Lab Results Component Value Date MICROALBUR 1.1 01/15/2022 CREATININE 0.88 12/05/2022 - Continue lifestyle modifications - Continue current medications - Type 2 diabetes mellitus wit hout complication, without long-term current use of insulin 07/28/2022 Assessment & Plan (09/21/2024 4:16 PM EDT): Diabetes is: controlled - Lab Results Component Value Date HGBA1C 6.8 (A) 09/21/2024 HGBA1C 7.0 (A) 08/23/2024 HGBA1C 6.7 (A) 02/04/2024 - Lab Results Component Value Date MICROALBUR 8.0 05/24/2024 CREATININE 0.77 05/24/2024 -Changes: None - Diabetic eye exam: Up-to-date - Diabetic foot exam: Pending - Continue lifestyle modifications - Continue current medications - Follow up: 3 months Assessment & Plan (05/24/2024 10:05 AM EDT): [...] 10/07/2017 Essential hypertension 10/07/2017 Assessment & Plan (09/21/2024 4:16 PM EDT): Advised, - Aerobic exercise to reduce BP. Initial [...] consulting health care provider Assessment & Plan (08/23/2024 1:55 PM EDT): I advised: - Aerobic exercise to [...] consulting health care provider Assessment & Plan (02/18/2023 12:21 PM EST): [...] (gastroesophageal reflux disease) 2 02/18/2023 Asthma 10/06/2011 Assessment & Plan (08/23/2024 1:57 PM EDT): Stable continue with same interventions I refilled her albuterol inhaler Depressive disorder 10/06/2011 Assessment & Plan (03/23/2023 [...] Encounters Date Type Department Care Team Description 12/27/2024 Refill [facility] [address] [place] [address] Paradise Langley MD Pain 12/21/2024 Patient Outreach [facility] [address] [place] [address] Paradise Langley MD Pre-visit Planning ([facility] was already completed) 12/21/2024 Travel 11/30/2024 Refill [facility] [address] [place] [address] Mar Waters MD Type 2 diabetes mellitus without complication, without long-term current use of insulin ([facility]) 11/30/2024 Refill [facility] [address] [place] [address] Paradise Langley MD 11/01/2024 Refill [facility] [address] [place] [address] Paradise Langley MD IFG (impaired fasting glucose); Pain; Epigastric abdominal pain 10/26/2024 Travel from Last 3 Months Immunizations Immunization Administration Dates Next Due Hep A, Adult 05/21/2005,08/28/2004 Hep B, adult 05/21/2005,09/25/2004,08/28/2004 Influenza Injectable Quadriv alant Preservative Free IIV4 MDCK 01/13/2021,03/18/2020 Influenza injectable quadriv alent IIV4 with preservative 12/29/2017 Influenza injectable quadriv alent preservative free 12/04/2022,12/22/2021 Influenza, IIV3, injectable 12/10/2010 Influenza, Split (incl. clare fied surface antigen) 11/16/2012 Pfizer Covid-19 Vaccine 12+ 03/23/2023 Pneumococcal Conjugate PCV 20 08/20/2023 Pneumococcal Polysaccharide PPSV23 06/23/2011 RSV Bivalent 08/25/2024 TD (adult), 2 Lf tetanus tox oid, preservative free, adsorbed 05/25/2007 Td (adult), 5 Lf tetanus tox oid, preservative free, adsorbed 08/28/2016 Tdap 06/23/2011 Zoster, Recombinant 10/27/2024,08/25/2024 Family History Medical History Relation Name Comments [...] Date Recorded Patient Health Questionnaire-9 Score 0 09/21/2024 Patient Health Questionnaire-9 Score 0 09/21/2024 Last PHQ-9: Questionnaire Data Not on file 0 09/21/2024 Housing Stability Answer Date Recorded What is your housing situation today? I have angela ann 08/23/[address] you li ve. Do you have problems with any of the following? None of the above 08/23/2024 Food Insecurity Answer Date Recorded Within the past 12 months, y ou worried that your food would run out before you got money to buy more: Never True 08/23/2024 Within the past 12 months,th e food you bought just didn't last and you didn't have enough money to get more: Never True Transportation Answer Date Recorded In the past 12 months, has l ack of transportation kept you from medical appts, meetings, work or from getting things needed for daily living? No 08/23/2024 Utilities Answer Date Recorded In the past 12 months, has t he electric, gas, oil or water company threatened to shut off services in your home? No 08/23/2024 Depression Answer Date Recorded Patient Health Questionnaire-2 Score 0 09/21/2024 Internet Access Answer Date Recorded Internet Access Q1 No 08/23/2024 Internet Access Q2 I do not want or need it 07/31 Comments No Sex and Gender Information Value Date Recorded Sex Assigned at Female 12/29/2021 10:17 AM EDT Legal Sex Female 10:17 AM EDT Gender Identity Female 12/29/2021 10:17 AM EDT Sexual Orientation Choose not to disclose 2021 10:17 AM EDT Last Filed Vital Signs Vital Sign Reading Time Taken Comments Blood Pressure 122/80 09/21/2024 2:52 PM EDT Pulse 79 09/21/2024 2:52 PM EDT Temperature 36.3 C (97.4 F) 09/21/2024 2:52 PM EDT Respiratory Rate 16 09/21/2024 2:52 PM EDT Oxygen Saturation 99% 09/21/2024 2:52 PM EDT Inhaled Oxygen Concentration - - Weight 81.5 kg (179 lb 9.6 oz) 09/21/2024 2:52 P M EDT Height 162.6 cm (5' 4 ) 09/21/2024 2:52 PM EDT Body Mass Index 30.83 09/21/2024 2:52 PM EDT Plan of Treatment Upcoming Encounters Date Type Department Care Team (Late st Contact Info) Description 03/05/2025 11:30 AM EST Office Visit [facility] [address] [place] [address] Paradise Langley MD [address] [place] [address] Health Maintenance Due Date Last Done Comments CT Colonography 1963 FIT DNA/Cologuard 1965 FIT 1965 FOBT 1965 Sigmoidoscopy 1965 Diabetes: Foot Exam 1973 Hepatitis C Screening 1981 COVID-19 Vaccine ( season) 2024 03/23/2023, 12/03/2021, 05/02/2021, Additional history exists Influenza Vaccine (#1) 2024 , 12/22/2021, 01/13/2021, Additional history exists Diabetes: Hemoglobin A1C 03/24/2025 025, 08/23/2024, 02/04/2024, Additional history exists Cervical Cancer Screening 05/15/2025 HPV/Cotest 05/15/2025 05/15/2020, 12/29/2017 Pap Smear 05/15/2025 05/15/2020, 05/15/2020 Diabetes: Urine Protein Screening 05/24/2025 05/24/2024, 01/15/2022 Lipid Panel 05/24/2025 05/24/2024, 12/30, 01/08/2020 SDOH Screening 08/23/2025 08/23/2024 Alcohol/Substance Use Screening 09/21/2025 09/21/2024 Depression Screening 09/21/2025 09/21/2024, 09/22/19 25 Tobacco Screening 09/21/2025 09/21/2024 Mammogram 10/09/2025 10/09/2024, 08/29, 09/15/2023, Additional history exists Disability Screening 10/26/2025 10/26/2024 Eye Exam 06/01/2026 06/01/2024, 04/0 04/2024, 06/01/2024, Additional history exists DTaP/Tdap/Td Vaccines (3 - Td or Tdap) 08/28/2026 08/28/2016, 06/23/2011, 05/25/2007 Colonoscopy 06/04/2031 06/03/2021 Colorectal Cancer Screening 06/04/2031 Hepatitis A Vaccines Aged Out 05/21/2005, 08/29/19 05 No longer eligible based on patient's age to complete this topic Hepatitis B Vaccines Completed 05/21/2005, 09/25/2004, 08/28/2004 HIV Screening Completed 03/08/2019 Pneumococcal Vaccine: 50+ Years Completed 08/20/2023, 06/23/2011 RSV Patients and Patients Aged 60 years or older Completed 08/25/2024 Zoster Vaccines Completed 10/27/2024, 08/25/2024 HIB Vaccines Aged Out No longer eligi [...] Procedure Name Priority Date/Time Associated Diagnosis Comments BI MAMMOGRAM SCREENING TOMOSYNTHESIS BILATERAL Routine 10/09/2024 12:05 PM EDT Encounter for screening mammogram for malignant neoplasm of breast POCT GLYCATED HEMOGLOBIN, TOTAL Routine 09/21/2024 2:53 PM EDT Type 2 diabetes mellitus without complication, without long-term current use of insulin (CMS/HCC) ALBUMIN, RANDOM URINE W/CREATININE Routine 05/24/2024 9:43 AM EDT Type 2 diabetes mellitus without complication, without long-term current use of insulin (CMS/HCC) LIPID PANEL, STANDARD Routine 05/24/2024 9:43 AM EDT Type 2 diabetes mellitus without complication, without long-term current use of insulin (CMS/HCC) HM COLONOSCOPY Routine 06/03/2021 HM PAP/HPV Routine 05/15/2020 12:00 AM EDT ZZZ HISTORICAL HIV AB/AG Routine 03/08/2019 11:57 AM EST from Last 3 Months or Most Recently Relevant to Health Maintenance Results * BI Mammogram Screening Tomosynthesis Bilateral (10/09/2024 12:05 PM EDT) Anatomical Region Laterality Modality Breast Bilateral Mammography 10/09/2024 12:0 5 PM EDT Narrative 10/16/2024 12:48 PM EDT [facility] [address] [place] [address] Mammography Report Signed Patient: Josephine Easton MR#: [id number] : 1965 Acct:[id number] Age/Sex: 59 / F ADM Date: 10/09/24 Loc: .MAMMO Attending Dr: Paradise Jiménez MD Ordering Physician: Paradise Langley MD Results: 1Negative Date of Service: 10/09/24 Follow Up: 1 Year From [facility] Mammogram Procedure(s): MM tomosynthesis screening BI Accession Number(s): [id number] cc: Paradise Langley MD EXAMINATION: MM SCREENING DIGITAL BREAST TOMOSYNTHESIS, BILATERAL CLINICAL INFORMATION: Screening. Asymptomatic. COMPARISON: Comparison made to multiple prior, most recent September 15, 2023, and most remote May 17, 2017. TECHNIQUE: Digital breast tomosynthesis is performed in both the craniocaudal and mediolateral oblique views along with computer-aided detection (CAD). Best possible images according to the technologist notes. FINDINGS: BREAST COMPOSITION: There are scattered areas of fibroglandular density (ACR BI-RADS breast composition Category b). BILATERAL BREASTS: No significant masses, suspicious calcifications or other abnormalities are seen in either breast. MM/MM tomosynthesis screening BI IMPRESSION: BILATERAL BREASTS: Negative, no mammographic evidence of malignancy. Normal interval follow-up is recommended in 12 months. ASSESSMENT: BI-RADS 1 - Negative RECOMMENDATION: Routine annual mammography screening. FOLLOW-UP: 1 year F/U This examination should not preclude the clinical evaluation of a suspicious palpable abnormality. This patient's information was entered into a reminder system with a target due date for their next mammogram. Electronically signed by: Howard Patricio MD 10/16/2024 12:45 PM EDT RP Dictated By: Hoawrd Patricio MD Signed By: <Electronically signed by Howard Patricio MD in OV> 10/16/24 1245 DD/ 1205 TD/TT: 10/09/24 1223 Publicist: Procedure Note Donotuseinterpreter, Image - 10/16/20[facility] [address] [place] [address] Mammography Report Signed Patient: Augie Easton#: [id number] : 1965Acct:[id number] Age/Sex: 59 / FADM Date: 10/09/24 Loc: HO.MAMMO Attending Dr: Paradise Jiménez MD Ordering Physician: Paradise Langley MDResults: 1Negative Date of Service: 10/09/24Follow Up: 1 Year From Orig inal Mammogram Procedure(s): MM tomosynthesis screening BI Accession Number(s): [id number] cc: Paradise Langley MD EXAMINATION: MM SCREENING DIGITAL BREAST TOMOSYNTHESIS, BILATERAL CLINICAL INFORMATION: Screening. Asymptomatic. COMPARISON: Comparison made to multiple prior, most recent September 15, 2023, and most remote May 17, 2017. TECHNIQUE: Digital breast tomosynthesis is performed in both the craniocaudal and mediolateral oblique views along with computer-aided detection (CAD). Best possible images according to the technologist notes. FINDINGS: BREAST COMPOSITION: There are scattered areas of fibroglandular density (ACR BI-RADS breast composition Category b). BILATERAL BREASTS: No significant masses, suspicious calcifications or other abnormalities are seen in either breast. MM/MM tomosynthesis screening BI IMPRESSION: BILATERAL BREASTS: Negative, no mammographic evidence of malignancy. Normal interval follow-up is recommended in 12 months. ASSESSMENT: BI-RADS 1 - Negative RECOMMENDATION: Routine annual mammography screening. FOLLOW-UP: 1 year F/U This examination should not preclude the clinical evaluation of a suspicious palpable abnormality. This patient's information was entered into a reminder system with a target due date for their next mammogram. Electronically signed by: Howard Patricio MD 10/16/2024 12:45 PM EDT RP Dictated By: Howard Patricio MD Signed By: <Electronically signed by Howard Patricio MD in OV> 10/16/24 1245 DD/ 1205 TD/TT: 10/09/24 1223 Publicist: Paradise Jiménez MD IMG BI PROCEDURES Fin al Result * (ABNORMAL) POCT HGB A1C (09/21/2024 2:53 PM EDT) Hemoglobin A1C 6.8(A) 4.0 - 5.7 % QC Media Lot # [id number] Lot# Expiration Date Blood 09/21/2024 2:53 PM EDT Paradise Jiménez MD POINT OF CARE TEST EN TER/EDIT ORDERABLES Final Result * Albumin, Random Urine W/Creatinine (05/24/2024 9:43 AM EDT) Creatinine, Urine 74.39 mg/dL [facility] Microalbumin Urine 8.0 mg/L [facility] Microalbum Creatinine Ratio Ur 10.7 <30 ug/mg cr [facility] Comment:Albumin/Creatinine R atio Reference Ranges: Normal: < 30 ug/mg creatinine Microalbuminuria: 30 - 300 ug/mg creatinineClinical Albuminuria: > 300 ug/mg creatinine Urine (Urine, Random) 05/24/2024 9:43 AM EDT 05/24/2024 11:09 AM EDT us Paradise Jiménez MD LAB URINE ORDERABLES Final Result Performing Organization Address [facility] Co de Phone Number [facility] [address] [place] [address] [phone] * (ABNORMAL) Lipid Panel, Standard (05/24/2024 9:43 AM EDT) Triglycerides 242(H) <150 mg/dL [facility] Comment:Desirable Triglyceri de: less than 150 mg/dLBorderline High Triglyceride 150-199 mg/dLHigh Triglyceride: 200-499 mg/dLVery High Triglyceride: greater than or equal to 5OO mg/dL Cholesterol 162 <200 mg/dL [facility] Comment:Desirable Cholestero l: less than 200 mg/dLBorderline High Cholesterol: 200-239 mg/dLHigh Cholesterol: greater than 239 mg/dL LDL Cholesterol Calculated 73 <100 mg/dL [facility] Comment:Desirable LDL: less than 100 mg/dLNear Optimal/Above Optimal LDL: 110- 129 mg/dLBorderline High LDL: 130-159 mg/dLHigh LDL: 160-189 mg/dLVery High LDL: greater than or equal to 190 mg/dL HDL Cholesterol 41 >40 mg/dL [facility] Comment:Desirable HDL: great er than 40 mg/dL Note: This HDL assay may give artificially low results in patients with liver disease. Blood Venous blood specimen / Unknown 05/24/2024 9:43 AM EDT 05/24/2024 11:05 AM EDT us Paradise Jiménez MD LAB BLOOD ORDERABLES Final Result Performing Organization Address City/[facility]/ZIP Co de Phone Number [facility] [address] [place] [address] [phone] * Colonoscopy (06/03/2021) us Historical Provider HEALTH MAINTENANCE Final Result * Pap Smear (05/15/2020 12:00 AM EDT) Pap Negative for intraephithelial lesion or malignancy Negative for intraephithelial lesion or malignancy, Other HPV Undetected Narrative Dorina Ridley - 05/15/2020 12:00 AM EDT Duplicate Historical Provider HEALTH MAINTENANCE Edited Result - Final * HIV AB/AG (03/08/2019 11:57 AM EST) HIV AG/AB NONREACTIVE [facility] Comment: HIV-1 p24 Ag and/or HIV-1/HIV-2 Ab not detected. A test result that is nonreactive does not exclude the possibility of exposure to or infection with HIV-1 and/or HIV-2. Nonreactive results in this assay for individuals with prior exposure to HIV-1 and/or HIV-2 may be due to antigen and antibody levels that are below the limit of detection of this assay. The [facility] Quality Coordinator HIV Ag/Ab Combo assay result and supplemental assay results should be interpreted in conjunction with the patient's clinical presentation, history and other laboratory results. If the results are inconsistent with clinical evidence, additional testing is suggested to confirm the result. 03/08/2019 11:5 7 AM EST Paradise Jiménez MD HISTORICAL/NON ORDERA BLE LABS Final Result [facility] Anywhere [address] from Last 3 Months or Most Recently Relevant to Health Maintenance Insurance [facility] C3 HSN FULL Care Teams Vamp Liner Relationship Specialty Start Date End Date Paradise Langley MD [address] [place] [address] PCP - General Family Medicine 01/09/19 Tori Solares Dental Office AssistantPlant Health Manager 10/02/24
--- OUTSIDE RECORDS SUMMARY | 2025-01-12 11:11 | XMS_ITS | Encounter Summary ---
Author Organization [employer] Address [address] [place] [address] Care Team Providers Care Callisthenics Instructor Name Role Phone Paradise Langley MD Primary Care Provide r Jarrell Faustin RN Unavailable [phone] Tiffanie Lucia Unavailable Reason for Visit * Reason Comments Med Refill Encounter Details Date Type Department Care Team ([facility] st Contact Info) Description 12/21/2023 Refill [facility] [address] [place], [place] [phone] Paradise Langley MD [address] [place] [address] Dyspepsia Social History Tobacco Use Types Packs/Day [...] Description 03/05/2025 11:30 AM EST Office Visit [facility] [address] [place] [phone] [place] Langley MD [address] [place] [phone] documented as of this encounter Visit Diagnoses Diagnosis Dyspepsia Dyspepsia and other specified disorders of function of stomach documented in this encounter Additional Health Concerns Assessment Noted Time PHQ-9 Depression Total Score: 0 07/29/19 23 1:57 PM EDT documented as of this encounter Care Teams Callisthenics Instructor Relationship Specialty Start Date End Date Paradise Langley MD [address] [place] [phone] PCP - General Family Medicine 01/09/19 Jarrell Faustin, JONATHAN [address] [place] [phone] Registered Nurse Family Medicine 09/05/24 09/05/24 Tiffanie Lucia 10/02/24 10/03/24 Breanna Cooley Mathematics Improvement TeacherEngine Dispatcher 01/28/23 10/01/24 Anat Stacy Mathematics Improvement TeacherEngine Dispatcher 01/12/24 10/01/24 Tori Solares Mathematics Improvement TeacherEngine Dispatcher 10/02/24 documented as of this encounter
--- OUTSIDE RECORDS SUMMARY | 2025-01-12 11:11 | XMS_ITS | Clinical Summary ---
Author Organization [address] [facility] Address 175 [place] [address] Phone Care Team Providers Care Medical Instrument Technician Name Role Phone Paradise Langley MD Primary Care Provide r Allergies Active Allergy Reactions Criticality Noted Date Comments Naproxen 07/06/2022 Other reaction(s): insomnia, aggitation Medications amitriptyline (ELAVIL) 10 mg tablet Take 1 tablet (10 mg total) by mouth. 5 Active atorvastatin (LIPITOR) 40 mg tablet Take 1 tablet (40 mg total) by mouth 1 (one) time each day. 5 Active hydroCHLOROthia zide 12.5 mg tablet Take 1 tablet (12.5 mg total) by mouth 1 (one) time each day. 5 Active loratadine (CLARITIN) 10 mg tablet Take 1 tablet (10 mg total) by mouth daily. 5 Active lidocaine (LIDODERM) 5 % patch APPLY 1 PATCH ONTO THE SKIN DAILY (MAY WEAR UP TO 12 HOURS) 5 Active metFORMIN (GLUCOPHAGE) 850 mg tablet TAKE 1 TABLET BY MOUTH TWICE A DAY WITH IN THE MORNING AND IN THE EVENING MEAL 5 Active docusate sodium (COLACE) 100 mg capsule Take 1 capsule (100 mg total) by mouth 2 times daily. 5 Active methocarbamoL (ROBAXIN) 750 mg tablet Take 2 tablets (1,500 mg total) by mouth 3 times daily. 5 Active pantoprazole (PROTONIX) 40 mg EC tablet Take 1 tablet (40 mg total) by mouth. 5 05/25/19 26 Active diclofenac (Voltaren Arthritis Pain) 1 % topical gel Apply 4 g topically 2 (two) times a day. 240 g 1 5 01/22/20 25 Active Encounters Date Type Department Care Team Description 11/22/2024 1:30 PM EDT Consult Orthopedic Surgery [facility] [address] [phone] Aidan Mcdonnell DPM Diabetic mononeuropathy simplex (CMS/[facility] V24, CMS/[facility] V28) (Primary Dx); Type 2 diabetes mellitus with hyperglycemia ([facility] V24, CMS/[facility] V28) from Last 3 Months Surgical History Surgery [...] Care Team (Late st Contact Info) Description 05/22/2025 1:15 PM EDT Office Visit Orthopedic Surgery [facility] [address] [phone] Aidan Mcdonnell DPM [address] [phone] Health Maintenance Due Date Last Done Comments Breast Cancer Screening 1965 Colorectal Cancer Screening: Colonoscopy 1963 Diabetes: Annual Foot Exam 1973 Diabetes: Annual Retina Eye Exam 1973 Cervical Cancer Screening: Pap Smear 1984 Depression Screening 03/01/2024 HIV Screening 07/06/2024 Hepatitis C Screening 07/06/2024 Social Influencers of Health Screening 07/06/2024 Diabetes: Annual Urine Albumin-Creatinine Ratio (uACR) 08/03/2024 COVID-19 Vaccine ( season) 2024 03/23/2023, 12/03/2021, 05/02/2021, Additional history exists Influenza Vaccine (#1) 2024 , 12/22/2021, 01/13/2021, Additional history exists Diabetes: Blood Sugar Control Test (HGBA1C) 03/24/2025 09/21/2024, 08/23/2024, 02/04/2024, Additional history exists Diabetes: Annual GFR (Glomerular Filtration Rate) 09/29/2025 09/29/2024, 05/24/2024 Hypertension/CHF/CAD Annual BMP Blood Test 09/29/2025 09/29/2024, 05/24/2024 DTaP,Tdap,and Td Vaccines (4 - Td or Tdap) 08/28/2026 08/28/2016, 06/23/2011, 05/25/2007 Cholesterol Screening (Lipid Panel) 05/24/2029 05/24/2024 Hepatitis A Vaccines Aged Out 05/21/2005, 08/29/19 05 No longer eligible based on patient's age to complete this topic Hepatitis B Vaccines Completed 05/21/2005, 09/25/2004, 08/28/2004 Pneumococcal Vaccine: 50+ Years Completed 08/20/2023, 06/23/2011 RSV Immunization Adult Patients Completed 08/25/2024 Zoster Vaccines Completed 10/27/2024, 08/25/2024 [...] on patient's age to complete this topic Insurance MEDICAID - [place] Care Teams Medical Instrument Technician Relationship Specialty Start Date End Date Paradise Langley MD [address] [facility] 1 [place] [phone] PCP - General Internal Medicine 08/03/24
--- OUTSIDE RECORDS SUMMARY | 2025-01-12 11:11 | XMS_ITS | Encounter Summary ---
Author Organization [employer] Address [address] [place] [address] 7t [place] [address] Care Team Providers Care Locator Specialist Name Role Phone Paradise Langley MD Primary Care Provide r Jarrell Faustin RN Unavailable [phone] Tiffanie Lucia Unavailable Encounter Details Date Type Department Care Team (Late Contact Info) Description 11/17/2022 Orders Only [facility] [address] [place] [address] [phone] ProviderKay MD Social History Tobacco Use Types [...] Description 03/05/2025 11:30 AM EST Office Visit [facility] [address] [place] [phone] Paradise Langley MD [address] [place] [address] [phone] documented as of this encounter Procedures Procedure Name Priority Date/Time Associated Diagnosis Comments MAMMOGRAPHY Routine 10/30/2021 COLONOSCOPY Routine 06/03/2021 documented in this encounter Results * Hm Mammography (10/30/2021) Anatomical Region Laterality Modality Other us Historical Provider HEALTH MAINTENANCE Final Result * Hm Colonoscopy (06/03/2021) us Historical Provider HEALTH MAINTENANCE Final Result documented in this encounter Visit Diagnoses Not on filedocumented in this encounter Additional Health Concerns Assessment Noted Time PHQ-9 Depression Total Score: 0 07/29/19 23 1:57 PM EDT documented as of this encounter Care Teams Locator Specialist Relationship Specialty Start Date End Date Paradise Langley MD 230 [place] [address] PCP - General Family Medicine 01/09/19 Jarrell Faustin, RN [address] [place] [phone] Registered Nurse Family Medicine 09/05/24 09/05/24 Tiffanie Lucia 10/02/24 10/03/24 Breanna Cooley Lean CoachAutomotive Manager 01/28/23 10/01/24 Aant Stacy Lean CoachAutomotive Manager 01/12/24 10/01/24 Tori Solares Lean CoachAutomotive Manager 10/02/24 documented as of this encounter
--- OUTSIDE RECORDS SUMMARY | 2025-01-12 11:11 | XMS_ITS | Encounter Summary ---
Author Organization [employer] Address [address] [facility] [address] 7[address] [place] [address] Care Team Providers Care Relations Mgr Name Role Phone Paradise Langley MD Primary Care Provide r Jarrell Faustin RN Unavailable [phone] Tiffanie Lucia Unavailable Reason for Visit * Reason Onset Date Comments PT-1 08/20/2023 Encounter Details Date Type Department Care Team ([facility] st Contact Info) Description 08/20/2023 Telephone [facility] [address] [place] [address] Paradise Langley MD [address] [place], [place] [phone] PT-1 Social History Tobacco Use Types Packs/Day [...] Y/N: Yes Provider name or facility name: [facility] Facility Address: [address] [place] [address] [facility] needed: Y/N: Yes Do you have a wheelchair: Y/N: No If yes- Manual or electric: N/A Visits: 3 times monthly documented in this encounter Plan of Treatment Upcoming Encounters Date Type Department Care Team (Late st Contact Info) Description 03/05/2025 11:30 AM EST Office Visit [facility] [address] [place] [phone] Paradise Langley MD [address] [place] [phone] documented as of this encounter Visit Diagnoses Not on filedocumented in this encounter Additional Health Concerns Assessment Noted Time PHQ-9 Depression Total Score: 0 07/29/19 23 1:57 PM EDT documented as of this encounter Care Teams Relations Mgr Relationship Specialty Start Date End Date Paradise Langley MD [address] [place] [address] PCP - General Family Medicine 01/09/19 Jarrell Faustin, RN [address] [place] [address] Registered Nurse Family Medicine 09/05/24 09/05/24 Tiffanie Lucia 10/02/24 10/03/24 Breanna Cooley Tube CoremakerSheet Pile Hammer Operator 01/28/23 10/01/24 Anat Stacy Tube CoremakerSheet Pile Hammer Operator 01/12/24 10/01/24 Tori Solares Tube CoremakerSheet Pile Hammer Operator 10/02/24 documented as of this encounter
--- OUTSIDE RECORDS SUMMARY | 2025-01-12 11:11 | XMS_ITS | Encounter Summary ---
Author Organization [employer] Address [address] [place] [address] 7t [place] [address] Care Team Providers Care Speed Belt Sander Tender Name Role Phone Paradise Langley MD Primary Care Provide r Jarrell Faustin RN Unavailable [phone] Tiffanie Lucia Unavailable Encounter Details Date Type Department Care Team (Late st Contact Info) Description 11/17/2022 Orders Only [facility] [address] [place] [address] [phone] Dorina Ridley Social History Tobacco Use Types [...] Description 03/05/2025 11:30 AM EST Office Visit [facility] [address] [place] [address] [phone] Paradise Langley MD [address] [place], [place] [phone] documented as of this encounter Procedures Procedure Name Priority Date/Time Associated Diagnosis Comments PAP/HPV Routine 05/15/2020 PAP/HPV Routine 05/15/2020 12:00 AM EDT documented in this encounter Results * Pap Smear (05/15/2020) Historical Provider HEALTH MAINTENANCE [...] documented as of this encounter Care Teams Speed Belt Sander Tender Relationship Specialty Start Date End Date Paradise Langley MD [address] [place] [address] PCP - General Family Medicine 01/09/19 Jarrell Faustin, JONATHAN [address] [place] [phone] Registered Nurse Family Medicine 09/05/24 09/05/24 Tiffanie Lucia 10/02/24 10/03/24 Breanna Cooley Us Administrative Law JudgeMachinist Mate 01/28/23 10/01/24 Anat Stacy Us Administrative Law JudgeMachinist Mate 01/12/24 10/01/24 Tori Solares Us Administrative Law JudgeMachinist Mate 10/02/24 documented as of this encounter
--- OUTSIDE RECORDS SUMMARY | 2025-01-12 11:11 | XMS_ITS | Encounter Summary ---
Author Organization [employer] Address [address] [facility] [address] 7[address] [place] [address] Care Team Providers Care Extension Worker Name Role Phone Paradise Langley MD Primary Care Provide r Jarrell Faustin RN Unavailable [phone] Tiffanie Lucia Unavailable Reason for Visit * Reason Onset Date Comments PT-1 10/21/2023 Encounter Details Date Type Department Care Team ([facility] st Contact Info) Description 10/21/2023 Telephone [facility] [address] [place] [address] Paradise Langley MD [address] [place], [place] [phone] PT-1 Social History Tobacco Use Types Packs/Day [...] Y/N: Yes Provider name or facility name: [facility] Facility Address: [address] [place] [address] Escort needed: Y/N: Yes Do you have a wheelchair: Y/N: No If yes- Manual or electric: N/A Visits: Once a month documented in this encounter Plan of Treatment Upcoming Encounters Date Type Department Care Team ([facility] st Contact Info) Description 03/05/2025 11:30 AM EST Office Visit [facility] [address] [place] [phone] Paradise Langley MD [address] [place] [address] documented as of this encounter Visit Diagnoses Not on filedocumented in this encounter Additional Health Concerns Assessment Noted Time PHQ-9 Depression Total Score: 0 07/29/19 23 1:57 PM EDT documented as of this encounter Care Teams Extension Worker Relationship Specialty Start Date End Date Paradise Langley MD [address] [place] [address] PCP - General Family Medicine 01/09/19 Jarrell Faustin, RN [address] [place] [address] [place] [id number] Registered Nurse Family Medicine 09/05/24 09/05/24 Tiffanie Lucia 10/02/24 10/03/24 Breanna Cooley Vamp StitcherMedical Laboratory Manager 01/28/23 10/01/24 Anat Stacy Vamp StitcherMedical Laboratory Manager 01/12/24 10/01/24 Tori Solares Vamp StitcherMedical Laboratory Manager 10/02/24 documented as of this encounter
--- OUTSIDE RECORDS SUMMARY | 2025-01-12 11:11 | XMS_ITS | Encounter Summary ---
Author Organization [employer] Address [address] [facility] [address] 7[address] [place] [address] Care Team Providers Care Retail Shift Manager Name Role Phone Paradise Langley MD Primary Care Provide r Jarrell Faustin RN Unavailable [phone] Tiffanie Lucia Unavailable Reason for Visit * Reason Comments Med Refill Encounter Details Date Type Department Care Team ([facility] st Contact Info) Description 09/29/2023 Refill [facility] 230 [place], [place] [phone] Paradise Langley MD 230 [place], [place] [phone] Pain; Dyspepsia Social History Tobacco Use Types [...] Description 03/05/2025 11:30 AM EST Office Visit [facility] [address] [place] [phone] Paradise Langley MD [address] [place] [address] documented as of this encounter Visit Diagnoses Diagnosis Pain Generalized pain Dyspepsia Dyspepsia and other specified disorders of function of stomach documented in this encounter Additional Health Concerns Assessment Noted Time PHQ-9 Depression Total Score: 0 07/29/19 23 1:57 PM EDT documented as of this encounter Care Teams Retail Shift Manager Relationship Specialty Start Date End Date Paradise Langley MD [address] [place] [address] PCP - General Family Medicine 01/09/19 Jarrell Fasutin, JONATHAN [address] [place] [address] Registered Nurse Family Medicine 09/05/24 09/05/24 Tiffanie Lucia 10/02/24 10/03/24 Breanna Cooley School PsychologistMachine Packaging Technician 01/28/23 10/01/24 Anat Stacy School PsychologistMachine Packaging Technician 01/12/24 10/01/24 Tori Solares School PsychologistMachine Packaging Technician 10/02/24 documented as of this encounter
--- OUTSIDE RECORDS SUMMARY | 2025-01-12 11:11 | XMS_ITS | Encounter Summary ---
Author Organization [employer] Address [address] [facility] [address] 7[address] [place] [address] Care Team Providers Care Precision Assembly Inspector Name Role Phone Paradise Langley MD Primary Care Provide r Jarrell Faustin RN Unavailable [phone] Tiffanie Lucia Unavailable Reason for Visit * Reason Comments Med Refill Encounter Details Date Type Department Care Team ([facility] st Contact Info) Description 05/13/2023 Refill [facility] [address] [place], [place] [phone] Mar Waters MD 230 [place] [address] Pain Social History Tobacco Use Types Packs/Day [...] 11:30 AM EST Office Visit [facility] [address] [place] [address] Paradise Langley MD [address] [place] [address] documented as of this encounter Visit Diagnoses Diagnosis Pain Generalized pain documented in this encounter Additional Health Concerns Assessment Noted Time PHQ-9 Depression Total Score: 0 07/29/19 23 1:57 PM EDT documented as of this encounter Care Teams Precision Assembly Inspector Relationship Specialty Start Date End Date Paradise Lnagley MD [address] [place] [address] PCP - General Family Medicine 01/09/19 Jarrell Faustin, JONATHAN [address] [place] [address] Registered Nurse Family Medicine 09/05/24 09/05/24 Tiffanie Lucia 10/02/24 10/03/24 Breanna Cooley General DocCommercial Driver'S License Driver 01/28/23 10/01/24 Anat Stacy General DocCommercial Driver'S License Driver 01/12/24 10/01/24 Tori Solares General DocCommercial Driver'S License Driver 10/02/24 documented as of this encounter
== END 2025-01-12 11:07 | disposition home or self-care (01) ==
LOC: HO.HOS 09:54
PROVIDERS: PCP Internal Medicine; Visit Provider Physical Medicine & Rehabilitation
DX: M79.18 Myalgia, other site (principal); M75.102 Unspecified rotator cuff tear or rupture of left shoulder, not specified as traumatic
CPT/HCPCS: 99204

== ENCOUNTER 2025-01-12 09:53 | Outpatient (REF) | payer MEDICAID, SELFPAY ==
--- NOTE | ~2025-01-12 | XR_ITS ---
EXAMINATION: XR CERVICAL SPINE CLINICAL INFORMATION: M54.2 - Cervicalgia COMPARISON: Correlated to CT dated August 28, 2016. TECHNIQUE: AP, lateral, atlantoodontoid view and swimmer's projection. FINDINGS: Craniocervical junction is intact. Small marginal osteophyte formation C4-5, C5-6 levels. No gross malalignment. No acute cortical disruption. No lytic or blastic lesions. Upper airway is patent. XR/XR cervical spine 3V IMPRESSION: Cervical spondylosis C4-5 and C5-6 level. No gross change. Electronically signed by: Ibrahima Dominguez MD 01/12/2025 11:26 AM EST
== END 2025-01-12 09:54 | disposition home or self-care (01) ==
LOC: HO.HOSX 09:53
PROVIDERS: PCP Internal Medicine; Visit Provider Physical Medicine & Rehabilitation
DX: M75.102 Unspecified rotator cuff tear or rupture of left shoulder, not specified as traumatic (principal); M79.18 Myalgia, other site; M54.2 Cervicalgia
CPT/HCPCS: 72040; 99202

== ENCOUNTER → 2025-01-12 10:24 | Outpatient (BNV) | payer MEDICAID, SELFPAY | PROVIDERS: PCP Internal Medicine; Visit Provider Radiology Diagnostic Radiology | DX: M47.812 Spondylosis without myelopathy or radiculopathy, cervical region (principal) | CPT/HCPCS: 72040 ==

== ENCOUNTER 2025-02-14 10:02 | Outpatient (AMB) | payer MEDICAID, SELFPAY ==
[2025-02-14 10:05] VITALS: BP 100/58; PULSE 95
--- NOTE | 2025-02-14 10:05 | A.OFFVIS_ITS ---
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 araiza/chest pain Intake Note: Aviation Boatswain'S Mate / dr Araiza/chest pain Toy Mechanic Required: Yes Toy Mechanic Name: Oliver [id number] [facility] Information Interpreted: non-clinical & clinical Accompanied by: Spouse Allergies naproxen (From NAPROSYN) Allergy (Unknown, Verified 02/14/25 10:10) insomnia, aggitation Medication List - Last Reconciled 02/14/25 by Chavo Rivera MD acetaminophen (Tylenol Extra Strength) 500 mg PO Q6H PRN amitriptyline 25 mg PO BEDTIME vnhlvujew-hsttobq-vfewsnp 0.01-0.2-3.5 % 1 ea topical BID PRN cyclobenzaprine 10 mg PO TID PRN docusate sodium (Stool Softener) 100 mg PO BID fluoxetine 40 mg PO DAILY hydrochlorothiazide 25 mg PO DAILY lidocaine 5% 1 patch topical DAILY lidocaine 4% 1 appl topical TID PRN loratadine (Allergy Relief (loratadine)) 10 mg PO DAILY lorazepam 1 mg PO DAILY PRN metformin 800 mg PO DAILY omeprazole 40 mg PO DAILY prednisone 20 mg PO DAILY 5 days risperidone 0.5 mg PO BEDTIME sumatriptan succinate 25 mg PO Q2-4H PRN topiramate 50 mg PO BID tramadol 50 mg PO TID PRN zolpidem 10 mg PO BEDTIME PRN HPI Comments Details: Thank you for referring Josephine in cardiology consultation today for retrosternal chest discomfort. She is accompanied by her . History was obtained with help of fixture fabricator repairer over the phone. Patient has prior history of diabetes, hypertension, hyperlipidemia, myofascial pain and chronic pain syndrome, depression and significant anxiety. Patient said last few months ago she was under lot of stress related to the family and Gretel's noticing retrosternal chest pain which is sharp pressure in nature. Symptoms would come and go without any obvious other etiology. She would not have any exertional chest pain. Symptoms would then resolved. She has not had any hospitalization related to it. Since then her stress has improved and her chest pain has resolved. She says her diabetes hypertension under good control. She has family history of mother having some heart problem but she does not recall as to what. [facility] Medical History Mastodynia Arthritis Panic attacks Anxiety Depression Fatty liver Bleeding hemorrhoids Hemorrhoids with complication HTN (hypertension) Diabetes Migraine headache GERD (gastroesophageal reflux disease) Asthma Hyperlipidemia Surgical History Status post hemorrhoidectomy History of hemorrhoidectomy (~2023) History of carpal tunnel release of both wrists Hx of excision of mass Hx of section Hx of excision of mass History of esophagogastroduodenoscopy (EGD) Hx of colonoscopy H/O hemorrhoidectomy Family History (Updated 02/14/25 @ 10:11 by Aayush Clarke CNA) Family/Other Breast cancer Colon cancer Mother Heart problem Social History Household Members: Spouse Housing: Apartment Alcohol intake: never Comment: counts correct Patient Tobacco Use Status: Former Tobacco user Years Smoked: 10 Current occupational status: disabled 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 Sexual orientation: Straight/Heterosexual Gender identity: Female Female Reproductive History Menstrual Age of Menarche: 13 Review of Systems Const Denies daytime sleepiness, Denies difficulty sleeping, Denies snoring, Denies stops breathing during sleep and Denies weakness Card Reports chest pain, Denies rapid heart rate, Denies irregular heart rhythm, Denies claudication, Denies leg edema, Denies lightheadedness, Denies palpitations, Denies dyspnea, Denies dyspnea on exertion, Denies orthopnea, Denies paroxysmal nocturnal dyspnea and Denies slow heart rate Resp Denies cough, Denies dyspnea, Denies dyspnea on exertion and Denies snoring GI Reports no additional complaints, Denies hematochezia, Denies change in stool character and Denies dyspepsia Musc Denies abnormal gait, Denies muscle weakness and Denies numbness Neuro Denies abnormal gait, Denies numbness and Denies weakness Endo Denies palpitations Physical Exam Vital Signs: Last Vital Signs Pulse 95 02/14/25 10:05 BP 100/58 L 02/14/25 10:05 BMI result Body Mass Index 30.0 Const General: cooperative, comfortable, no acute distress, well developed, alert, awake and anxious Nutritional Appearance: average body habitus Orientation/consciousness: patient oriented x3 Limitations: no limitations HEENT Head: Yes normocephalic and Yes atraumatic Neck Neck: Yes trachea midline, Yes supple and Yes no JVD Resp Effort & Inspection: normal respiratory effort Auscultation: clear to auscultation bilaterally Cardio Jugular venous distension: no JVD Rate: regular rate Rhythm: regular rhythm Heart sounds: S1 normal heart sound present, S2 normal heart sound present, no click, no gallops, no murmurs and no rubs GI Auscultation: normal bowel sounds Skin General skin exam: no rashes or lesions noted Neuro General: patient oriented x3 and no focal motor deficits Extrem General: Yes no clubbing, cyanosis or edema Psych Affect: Anxious affect present Office Procedures EKG Details: EKG shows normal sinus rhythm with nonspecific ST-T changes 54520-[id number], Complete Assessment & Plan Assessment & Plan (1) Atypical chest pain: Code(s): R07.89 - Other chest pain Category: Medical Plan: Atypical chest pain in this middle-aged woman with multiple risk factors including diabetes, hypertension, hyperlipidemia with stress-induced chest pain. This could represent coronary vaso spasm and/or myocardial ischemia. Although other possibilities include psychogenic chest pain and/or musculoskeletal chest pain related to stress. However underlying structural heart disease needs to be ruled out. Would suggest exercise myocardial perfusion imaging to rule out any prognostically significant coronary artery disease. Would suggest also an echocardiogram to assess for LV systolic and diastolic function to evaluate for LVH. These tests will be scheduled in near future. Meanwhile I think she would benefit from treatment of her anxiety more aggressively. A blood pressure is currently well optimized. Her diabetes in his well optimized. Goal blood pressure less than 130/84. Goal hemoglobin A1c less than 7%. She should also be having lipid modification therapy with goal LDL less than 70 mg/dL. Will follow up in the clinic after above-mentioned test. Thank you for allowing me to partake in her care Orders: Orders NM cardiolite stress test 2 Weeks Chavo Rivera MD R07.89 - Other chest pain, R07.9 - Chest pain, unspecified CA stress test Today Chavo Rivera MD R07.89 - Other chest pain CA echo transthoracic complete Today Chavo Rivera MD R07.89 - Other chest pain Medications: Changed From cyclobenzaprine 5 mg PO TID PRN 10 tabs 0RF muscle spasm To cyclobenzaprine 10 mg PO TID PRN Autumn De La Torre NP Coding Level of Care Code New Pt Level 4 (95231) Diagnoses Atypical chest pain R07.89 CPT Codes EKG - CPT: 34016-Muurcqjeluyizblex, Complete ([id number])
--- OUTSIDE RECORDS SUMMARY | 2025-02-14 12:15 | XMS_ITS | Encounter Summary ---
Author Organization [employer] Address [address] [facility] [address]t [place] [address] Care Team Providers Care Denture Laboratory Technician Name Role Phone Paradise Langley MD Primary Care Provide r Jarrell Faustin RN Unavailable [phone] Tiffanie Lucia Unavailable Reason for Visit * Reason Comments Med Refill Encounter Details Date Type Department Care Team (Late st Contact Info) Description 12/21/2023 Refill [facility] [address] [place] [address] Paradise Langley MD [address] [place] [address] Dyspepsia Social History Tobacco Use Types Packs/Day [...] as of this encounter Plan of Treatment Not on file documented as of this encounter Visit Diagnoses Diagnosis Dyspepsia Dyspepsia and other specified disorders of function of stomach documented in this encounter Additional Health Concerns Assessment Noted Time PHQ-9 Depression Total Score: 0 07/29/19 23 1:57 PM EDT documented as of this encounter Care Teams Denture Laboratory Technician Relationship Specialty Start Date End Date Paradise Langley MD [address] [place] [address] PCP - General Family Medicine 01/09/19 Jarrell Faustin, JONATHAN [address] [place] [address] Registered Nurse Family Medicine 09/05/24 09/05/24 Tiffanie Lucia 10/02/24 10/03/24 Breanna Cooley Shipping & Receiving LeadBack Tufter 01/28/23 10/01/24 Anat Stacy Shipping & Receiving LeadBack Tufter 01/12/24 10/01/24 Tori Solares Shipping & Receiving LeadBack Tufter 10/02/24 documented as of this encounter
--- OUTSIDE RECORDS SUMMARY | 2025-02-14 12:15 | XMS_ITS | Encounter Summary ---
Author Organization [employer] Address [address] [place] [address] [address] [place] [address] Care Team Providers Care Stock Checker Name Role Phone Paradise Langley MD Primary Care Provide r Jarrell Faustin RN Unavailable [phone] Tiffanie Lucia Unavailable Encounter Details Date Type Department Care Team (Late st Contact Info) Description 11/17/2022 Orders Only [facility] MED[facility] [address] [place] [address] Provider, MD Kay Social History Tobacco Use Types Packs/Day Years [...] on file documented as of this encounter Procedures Procedure Name Priority Date/Time Associated Diagnosis Comments MAMMOGRAPHY Routine 10/30/2021 COLONOSCOPY Routine 06/03/2021 documented in this encounter Results * Mammography (10/30/2021) Anatomical Region Laterality Modality Other Historical Provider HEALTH MAINTENANCE Final Result * Colonoscopy (06/03/2021) us Historical Provider HEALTH MAINTENANCE Final Result documented in this encounter Visit Diagnoses Not on filedocumented in this encounter Additional Health Concerns Assessment Noted Time PHQ-9 Depression Total Score: 0 07/29/19 23 1:57 PM EDT documented as of this encounter Care Teams Stock Checker Relationship Specialty Start Date End Date Paradise Langley MD [address] [place] [address] PCP - General Family Medicine 01/09/19 Jarrell Faustin, JONATHAN [address] [place] [address] Registered Nurse Family Medicine 09/05/24 09/05/24 Tiffanie Lucia 10/02/24 10/03/24 Breanna Cooley Automation OperatorProfessor Of Environmental Studies 01/28/23 10/01/24 Anat Stacy Automation OperatorProfessor Of Environmental Studies 01/12/24 10/01/24 Tori Solares Automation OperatorProfessor Of Environmental Studies 10/02/24 documented as of this encounter
--- OUTSIDE RECORDS SUMMARY | 2025-02-14 12:15 | XMS_ITS | Encounter Summary ---
Author Organization [employer] Address [address] [facility] [address] [place] [address] Care Team Providers Care Drug Worker Name Role Phone Paradise Langley MD Primary Care Provide r Jarrell Faustin RN Unavailable [phone] Tiffanie Lucia Unavailable Encounter Details Date Type Department Care Team (Late st Contact Info) Description 11/17/2022 Orders Only [facility] MEDICINE [address] [place] [address] Dorina Ridley Social History Tobacco Use Types [...] encounter Results * Hm Pap Smear (05/15/2020) us Historical Provider HEALTH MAINTENANCE Final Result [...] documented as of this encounter Care Teams Drug Worker Relationship Specialty Start Date End Date Paradise Langley MD [address] [place] [address] PCP - General Family Medicine 01/09/19 Jarrell Faustin, JONATHAN [address] [place] [address] Registered Nurse Family Medicine 09/05/24 09/05/24 Tiffanie Lucia 10/02/24 10/03/24 Breanna Cooley Senior Media DirectorInvasive Cardiologist 01/28/23 10/01/24 Anat Stacy Senior Media DirectorInvasive Cardiologist 01/12/24 10/01/24 Tori Solares Senior Media DirectorInvasive Cardiologist 10/02/24 documented as of this encounter
--- OUTSIDE RECORDS SUMMARY | 2025-02-14 12:15 | XMS_ITS | Encounter Summary ---
Author Organization [employer] Address [address] [facility] 7t [place] [address] Care Team Providers Care Purchasing Buyer Name Role Phone Paradise Langley MD Primary Care Provide r Jarrell Faustin RN Unavailable [phone] Tiffanie Lucia Unavailable Reason for Visit * Reason Onset Date Comments PT-1 10/21/2023 Encounter Details Date Type Department Care Team (Late st Contact Info) Description 10/21/2023 Telephone [facility] MEDICINE [address] [place], [place] [phone] Paradise Langley MD [address] [place], [place] [phone] PT-1 Social History Tobacco Use Types Packs/Day Years Used Date Smoking Tobacco: Never Passive Smoke Exposure: Never Smokeless Tobacco: Never Alcohol Use Standard Drinks/Week Comments Never 0 (1 standard drink = 0.6 oz pur e alcohol) Depression Answer Date Recorded Patient Health Questionnaire-9 Score 0 07/28/2022 Housing Stability Answer Date Recorded What is your housing situation today? I have angela seth 02/18/[address] you li [...] Y/N: Yes Provider name or facility name: [facility] Facility Address: [address] [place] [address] Escort needed: Y/N: Yes Do you have a wheelchair: Y/N: No If yes- Manual or electric: N/A Visits: Once a month documented in this encounter Plan of Treatment Not on file documented as of this encounter Visit Diagnoses Not on filedocumented in this encounter Additional Health Concerns Assessment Noted Time PHQ-9 Depression Total Score: 0 07/29/19 23 1:57 PM EDT documented as of this encounter Care Teams Purchasing Buyer Relationship Specialty Start Date End Date Paradise Langley MD [address] [place] [address] PCP - General Family Medicine 01/09/19 Jarrell Faustin RN [address] [place] [address] Registered Nurse Family Medicine 09/05/24 09/05/24 Tiffanie Lucia 10/02/24 10/03/24 Breanna Cooley Collection Systems WorkerCoat Room Attendant 01/28/23 10/01/24 Anat Stacy Collection Systems WorkerCoat Room Attendant 01/12/24 10/01/24 Tori Solares Collection Systems WorkerCoat Room Attendant 10/02/24 documented as of this encounter
--- OUTSIDE RECORDS SUMMARY | 2025-02-14 12:16 | XMS_ITS | Encounter Summary ---
Author Organization [employer] Address [address] [facility] [address] [place] [address] Care Team Providers Care Scrap Baller Name Role Phone Paradise Langley MD Primary Care Provide r Jarrell Faustin RN Unavailable [phone] Tiffanie Lucia Unavailable Reason for Visit * Reason Comments Med Refill Encounter Details Date Type Department Care Team (Late st Contact Info) Description 01/18/[address] [facility] MEDICINE [address] [place], [place] [phone] Paradise Langley MD [address] [place] [address] Dyspepsia Social History Tobacco Use Types Packs/Day Years Used Date Smoking Tobacco: Never Passive Smoke Exposure: Never Smokeless Tobacco: Never Alcohol Use Standard Drinks/Week Comments Never 0 (1 standard drink = 0.6 oz pur e alcohol) Depression Answer Date Recorded Patient Health Questionnaire-9 Score 0 07/28/2022 Housing Stability Answer Date Recorded What is your housing situation today? I have angela sing 02/18/[address] you li [...] documented as of this encounter Care Teams Scrap Baller Relationship Specialty Start Date End Date Paradise Langley MD [address] [place] [address] PCP - General Family Medicine 01/09/19 Jarrell Faustin, JONATHAN [address] [place] [address] Registered Nurse Family Medicine 09/05/24 09/05/24 Tiffanie Lucia 10/02/24 10/03/24 Breanna Cooley Car TracerHog Slaughterer 01/28/23 10/01/24 Anat Stacy Car TracerHog Slaughterer 01/12/24 10/01/24 Tori Solares Car TracerHog Slaughterer 10/02/24 documented as of this encounter
--- OUTSIDE RECORDS SUMMARY | 2025-02-14 12:16 | XMS_ITS | Clinical Summary ---
Author Organization [employer] Address [address] [facility] 7t [place] [address] Care Team Providers Care Machine Hamper Maker Name Role Phone Paradise Langley MD Primary [...] EVERY MORNING 30 tablet 09/04/19 23 Active acetaminophen (Tylenol) 250 mg split tablet 500 mg. 01/06/20 24 Active cyclobenzaprine (Flexeril) 2.5 MG split tablet 5 mg. 01/06/20 24 Active Alcohol Swabs (B-D SINGLE USE SWABS REGULAR) padsIndications :Pain APPLY 1 PAD BY TO SKIN ROUTE 2 TIMES EVERY DAY 100 each 08/10/19 25 Active metFORMIN (Glucophage) 1000 MG tabletIndicatio ns:Type 2 diabetes mellitus with hyperglycemia, without long-term current use of insulin (HCC) Take 1 tablet (1,000 mg) by mouth with breakfast and with evening meal. 60 tablet 08/24/19 25 026 Active empagliflozin (Jardiance) 10 MGIndications:T ype 2 diabetes mellitus with hyperglycemia, without long-term current use of insulin (HCC) Take 1 tablet (10 mg) by mouth Once per day. 30 tablet 08/24/19 25 026 Active albuterol 108 (90 Base) MCG/ACT inhalerIndicati ons:Mild intermittent asthma, unspecified whether complicated Inhale 2 puffs every 4 (four) hours if needed for wheezing. 18 g 1 08/24/19 25 026 Active docusate sodium (Colace) 100 MG capsule TAKE 1 CAPSULE BY MOUTH TWICE A DAY 56 capsule 5 09/09/19 25 Active diclofenac sodium 3 % gelIndications: Chronic left shoulder pain APPLY TOPICALLY TWICE A DAY 100 g 09/23/19 25 Active amitriptyline (Elavil) 10 MG tabletIndicatio ns:Chronic migraine without aura without status migrainosus, not intractable TAKE 1 TABLET BY MOUTH AT BEDTIME 30 tablet 5 10/06/19 25 Active FREESTYLE LITE test stripIndication s:IFG (impaired fasting glucose) CHECKIAR LA JAYNE THREE TIMES A DAY 100 each 11 11/02/19 25 Active hydroCHLOROthia zide 12.5 MG tablet TAKE 1 TABLET BY MOUTH DAILY 28 tablet 5 11/02/19 25 Active pantoprazole (Protonix) 40 MG EC tabletIndicatio ns:Epigastric abdominal pain Take 1 tablet (40 mg) by mouth before breakfast. Do not crush, chew, or split. 90 tablet 1 11/02/19 25 026 Active loratadine (Claritin) 10 MG tablet TAKE 1 TABLET BY MOUTH EVERY MORNING 28 tablet 5 12/01/19 25 Active atorvastatin (Lipitor) 40 MG tablet TAKE 1 TABLET BY MOUTH DAILY 28 tablet 5 12/01/19 25 Active TRUEplus Lancets 33G miscIndications :Type 2 diabetes mellitus without complication, without long-term current use of insulin (HCC) USE TO TEST BLOOD SUGAR TWICE A DAY 100 each 5 12/01/19 25 Active methocarbamol (Robaxin) 750 MG tabletIndicatio ns:Pain TAKE 2 TABLETS BY MOUTH THREE TIMES A DAY 168 tablet 1 12/28/19 25 Active lidocaine (Lidoderm) 5 % patchIndication s:Pain APPLY 1 PATCH ONTO THE SKIN DAILY (MAY WEAR UP TO 12 HOURS) 30 patch 1 02/01/20 25 Active SUMAtriptan (Imitrex) 25 MG tabletIndicatio ns:Chronic migraine without aura without status migrainosus, not intractable Take 1 tablet (25 mg) by mouth 1 (one) time if needed for migraine. May repeat dose once in 2 hours if no relief. Do not exceed 2 doses in 24 hours. 9 tablet 02/01/20 25 Active SUMAtriptan (Imitrex) 25 MG tabletIndicatio ns:Chronic migraine without aura without status migrainosus, not intractable Take 1 tablet (25 mg) by mouth 1 (one) time if needed for migraine for up to 9 doses. May repeat dose once in 2 hours if no relief. Do not exceed 2 doses in 24 hours. 9 tablet 02/19/20 23 025 Discontinued(Re order (will not trigger notification to Pharmacy)) lidocaine (Lidoderm) 5 % patchIndication s:Pain APPLY 1 PATCH ONTO THE SKIN DAILY (MAY WEAR UP TO 12 HOURS) 30 patch 1 11/02/19 25 025 Discontinued(Re order (will not trigger notification to Pharmacy)) Active Problems Problem Noted Date Diagnosed Date [...] Encounters Date Type Department Care Team Description 01/29/2025 Refill [facility] [address] [place] [address] Paradise Langley MD Chronic migraine without aura without status migrainosus, not intractable 01/29/2025 Refill [facility] [address] [place] [address] Paradise Langley MD Pain; Chronic migraine without aura without status migrainosus, not intractable 01/29/2025 Refill [facility] [address] [place] [address] Paradise Langley MD Pain 01/12/2025 Orders Only [facility] External Provider, [facility] 12/27/2024 Refill [facility] [address] [place] [address] Paradise Langley MD Pain 12/21/2024 Patient Outreach [facility] [address] [place] [address] Paradise Langley MD Pre-visit Planning (SDOH was already completed) 12/21/2024 Travel 11/30/2024 Refill [facility] [address] [place] [address] Mar Waters MD Type 2 diabetes mellitus without complication, without long-term current use of insulin (HCC) 11/30/2024 Refill [facility] [address] [place] [address] Paradise Langley MD from Last 3 Months Immunizations Immunization Administration [...] housing situation today? I have angelamichelle ann 08/23/[address] you [...] 09/21/2024 2:52 PM EDT Plan of Treatment Health Maintenance Due Date Last Done Comments [...] 05/15/2020 Diabetes: Urine Protein Screening 05/24/2025 05/24/2024, 01/15/2022, 01/15/2022 Lipid Panel 05/24/2025 05/24/2024, 12/30, 01/08/2020 SDOH Screening 08/23/2025 08/23/2024 Alcohol/Substance Use Screening 09/21/2025 09/21/2024 Depression Screening 09/21/2025 09/21/2024, 09/22/19 Tobacco Screening 09/21/2025 09/21/2024 Mammogram 10/09/2025 10/09/2024, 08/29, 09/15/2023, Additional history exists Disability Screening 10/26/2025 10/26/2024 Eye Exam 06/01/2026 06/01/2024, 04/0 04/2024, 06/01/2024, Additional history exists DTaP/Tdap/Td Vaccines (3 - Td or Tdap) 08/28/2026 08/28/2016, 06/23/2011, 05/25/2007 Colonoscopy 06/04/2031 06/03/2021, 06/03/2021 Colorectal Cancer Screening 06/04/2031 Hepatitis A [...] on patient's age to complete this topic Goals Goal Patient Goal Type Associated Problems Recent Progress Patient-Stated? Author Help patients manage their type 2 diabetes Care Plan Help patients manage their type 2 diabetes No Fay Batres LPN Weekly blood pressure task Care Plan Weekly blood pressure task No Fay Batres LPN Help patients manage their type 2 diabetes Care Plan Help patients manage their type 2 diabetes No Fay Batres LPN Patient has chronic kidney disease Care Plan Patient has chronic kidney disease No Fay Batres LPN Weekly blood pressure task Care Plan Weekly blood pressure task No Fay Batres LPN Patient has chronic kidney disease Care Plan Patient has chronic kidney disease No Fay Batres LPN Procedures Procedure Name Priority Date/Time Associated Diagnosis Comments XR CERVICAL SPINE 3V Routine 01/12/2025 10:24 AM EST BI MAMMOGRAM SCREENING TOMOSYNTHESIS BILATERAL Routine 10/09/2024 12:05 PM EDT Encounter for screening mammogram for malignant neoplasm of breast POCT GLYCATED HEMOGLOBIN, TOTAL Routine 09/21/2024 2:53 PM EDT Type 2 diabetes mellitus without complication, without long-term current use of insulin ([facility]) ALBUMIN, RANDOM URINE W/CREATININE Routine 05/24/2024 9:43 AM EDT Type 2 diabetes mellitus without complication, without long-term current use of insulin (CMS/[facility]) LIPID PANEL, STANDARD Routine 05/24/2024 9:43 AM EDT Type 2 diabetes mellitus without complication, without long-term current use of insulin ([facility]) HM COLONOSCOPY Routine 06/03/2021 HM PAP/HPV Routine 05/15/2020 12:00 AM EDT ZZZ HISTORICAL HIV AB/AG Routine 03/08/2019 11:57 AM EST from Last 3 Months or Most Recently Relevant to Health Maintenance Results * XR CERVICAL SPINE 3V (01/12/2025 10:24 AM EST) Anatomical Region Laterality Modality Abdomen Radiographic Francie ging 01/12/2025 10:2 4 AM EST Narrative 01/12/2025 11:29 AM EST [facility] [address] [place] [address] XRay Report Signed Patient: Josephine Easton MR#: [id number] : 1965 Acct:[id number] Age/Sex: 59 / F ADM Date: 01/12/25 Loc: [facility] Attending Dr: Marisa Scott MD Ordering Physician: Marisa Floyd Date of Service: 01/12/25 Procedure(s): XR cervical spine 3V Accession Number(s): [id number] cc: Paradise Langley MD; Marisa Floyd Reason for Exam: M54.2 - Cervicalgia EXAMINATION: XR CERVICAL SPINE CLINICAL INFORMATION: M54.2 - Cervicalgia COMPARISON: Correlated to CT dated August 28, 2016. TECHNIQUE: AP, lateral, atlantoodontoid view and swimmer's projection. FINDINGS: Craniocervical junction is intact. Small marginal osteophyte formation C4-5, C5-6 levels. No gross malalignment. No acute cortical disruption. No lytic or blastic lesions. Upper airway is patent. XR/XR cervical spine 3V IMPRESSION: Cervical spondylosis C4-5 and C5-6 level. No gross change. Electronically signed by: Ibrahima Dominguez MD 01/12/2025 11:26 AM EST Dictated By: Ibrahima Olvera MD Signed By: <Electronically signed by Ibrahima Matthews MD in OV> 01/12/25 1126 DD/ 1024 TD/TT: 01/12/25 1030 Social Services Aide: Procedure Note Donotuseinterpreter, Image - 01/12/2025 [facility] [address] [place] [address] XRay Report Signed Patient: Walker EastonR#: [id number] : 1965Acct:[id number] Age/Sex: 59 / FADM Date: 01/12/25 Loc: [facility] Attending Dr: Marisa Scott MD Ordering Physician: Marisa Floyd Date of Service: 01/12/25 Procedure(s): XR cervical spine 3V Accession Number(s): [id number] cc: Paradise Langley MD; Marisa Floyd Reason for Exam: M54.2 - Cervicalgia EXAMINATION: XR CERVICAL SPINE CLINICAL INFORMATION: M54.2 - Cervicalgia COMPARISON: Correlated to CT dated August 28, 2016. TECHNIQUE: AP, lateral, atlantoodontoid view and swimmer's projection. FINDINGS: Craniocervical junction is intact. Small marginal osteophyte formation C4-5, C5-6 levels. No gross malalignment. No acute cortical disruption. No lytic or blastic lesions. Upper airway is patent. XR/XR cervical spine 3V IMPRESSION: Cervical spondylosis C4-5 and C5-6 level. No gross change. Electronically signed by: Ibrahima Dominguez MD 01/12/2025 11:26 AM [facility] Dictated By: Ibrahima Olvera MD Signed By: <Electronically signed by Ibrahima Matthews MDin OV> 01/12/25 1126 DD/ 1024 TD/TT: 01/12/25 1030 Social Services Aide: [facility] External Provider IMG XR PROCEDURES Final Result * BI Mammogram Screening Tomosynthesis Bilateral (10/09/2024 12:05 PM EDT) Anatomical Region Laterality Modality Breast Bilateral Mammography 10/09/2024 12:0 5 PM EDT Narrative 10/16/2024 12:48 PM EDT [facility] [address] [place], [place] [address] Mammography Report Signed Patient: Josephine Easton MR#: [id number] : 1965 Acct:[id number] Age/Sex: 59 / F ADM Date: 10/09/24 Loc: HO.MAMMO Attending Dr: Paradise Jiménez MD Ordering Physician: Paradise Langley MD Results: 1Negative Date of Service: 10/09/24 Follow Up: 1 Year From Orig inal Mammogram Procedure(s): MM tomosynthesis screening BI Accession Number(s): [id number] cc: Paradise Langley MD EXAMINATION: MM SCREENING [...] Howard Patricio MD 10/16/2024 12:45 PM EDT Dictated By: Howard Patricio MD Signed By: <Electronically signed by Howard Patricio MD in OV> 10/16/24 1245 DD/ 1205 TD/TT: 10/09/24 1223 Social Services Aide: Procedure Note Donotuseinterpreter, Image - 10/16/2024 [facility] [address] [place] [address] Mammography Report Signed Patient: Augie Easton#: [id number] : 1965Acct:[id number] Age/Sex: 59 / FADM Date: 10/09/24 Loc: HO.MAMMO Attending Dr: Paradise Jiménez MD Ordering Physician: Paradise Langley MDResults: 1Negative Date of Service: 10/09/24Follow Up: 1 Year From Orig inal Mammogram Procedure(s): MM tomosynthesis screening BI Accession Number(s): [id number] cc: Paradise Langley MD EXAMINATION: MM SCREENING [...] Howard Patricio MD 10/16/2024 12:45 PM EDT Dictated By: Howard Patricio MD Signed By: <Electronically signed by Howard Patricio MD in OV> 10/16/24 1245 DD/ 1205 TD/TT: 10/09/24 1223 Social Services Aide: us Paradise Jiménez MD IMG BI PROCEDURES Fin al Result * (ABNORMAL) POCT HGB A1C (09/21/2024 2:53 PM EDT) Hemoglobin A1C 6.8(A) 4.0 - 5.7 % QC Media Lot # [id number] Lot# Expiration Date Blood 09/21/2024 2:53 PM EDT us Paradise Jiménez MD POINT OF CARE TEST EN TER/EDIT ORDERABLES Final Result * Albumin, Random Urine W/Creatinine (05/24/2024 9:43 AM EDT) Creatinine, Urine 74.39 mg/dL [facility] Microalbumin Urine 8.0 mg/L H [facility] Microalbum Creatinine Ratio Ur 10.7 <30 ug/mg cr [facility] Comment:Albumin/Creatinine R atio Reference Ranges: Normal: < 30 ug/mg creatinine Microalbuminuria: 30 - 300 ug/mg creatinineClinical Albuminuria: > 300 ug/mg creatinine Urine (Urine, Random) 05/24/2024 9:43 AM EDT 05/24/2024 11:09 AM EDT us Paradise Jiménez MD LAB URINE ORDERABLES Final Result [facility] [address] [place] [address] [phone] * (ABNORMAL) Lipid Panel, Standard (05/24/2024 9:43 AM EDT) Triglycerides 242(H) <150 mg/dL [facility] Comment:Desirable Triglyceri de: less than 150 mg/dLBorderline High Triglyceride 150-199 mg/dLHigh Triglyceride: 200-499 mg/dLVery High Triglyceride: greater than or equal to 5OO mg/dL Cholesterol 162 <200 mg/dL [facility] Comment:Desirable Cholestero l: less than 200 mg/dLBorderline High Cholesterol: 200-239 mg/dLHigh Cholesterol: greater than 239 mg/dL LDL Cholesterol Calculated 73 <100 mg/dL [facility] Comment:Desirable LDL: less than 100 mg/dLNear Optimal/Above Optimal LDL: 110- 129 mg/dLBorderline High LDL: 130-159 mg/dLHigh LDL: 160-189 mg/dLVery High LDL: greater than or equal to 190 mg/dL HDL Cholesterol 41 >40 mg/dL [facility] Comment:Desirable HDL: great er than 40 mg/dL Note: This HDL assay may give artificially low results in patients with liver disease. Blood Venous blood specimen / Unknown 05/24/2024 9:43 AM EDT 05/24/2024 11:05 AM EDT Result [facility] Paradise Jiménez MD LAB BLOOD ORDERABLES Final Result [facility] [address] [place] [phone] * Colonoscopy (06/03/2021) Historical Provider HEALTH MAINTENANCE Final Result * Hm Pap Smear (05/15/2020 12:00 AM EDT) Pap Negative for intraephithelial lesion or malignancy Negative for intraephithelial lesion or malignancy, Other HPV Undetected Narrative Dorina Ridley - 05/15/2020 12:00 AM EDT Duplicate Result [facility] Historical Provider HEALTH MAINTENANCE Edited Result - [...] of detection of this assay. The [employer] Operations Engineer HIV Ag/Ab Combo assay result and supplemental assay results should be interpreted in conjunction with the patient's clinical presentation, history and other laboratory results. If the results are inconsistent with clinical evidence, additional testing is suggested to confirm the result. 03/08/2019 11:5 7 AM EST us Paradise Jiménez MD HISTORICAL/NON ORDERA BLE LABS Final Result [facility] [address] from Last 3 Months or Most Recently Relevant to Health Maintenance Additional Health Concerns Active Problems Noted Date Diagnosed Date Help patients manage their type 2 diabetes 01/30 Weekly blood pressure task 01/30/2025 Help patients manage their type 2 diabetes 01/30 Patient has chronic kidney disease 01/30/2025 Weekly blood pressure task 01/30/2025 Patient has chronic kidney disease 01/30/2025 Insurance [facility] C3 HSN FULL Care Teams Machine Hamper Maker Relationship Specialty Start Date End Date Paradise Langley MD [address] [place] [address] PCP - General Family Medicine 01/09/19 Tori Solares Etl Data ArchitectOperations Coordinator 10/02/24
--- OUTSIDE RECORDS SUMMARY | 2025-02-14 12:16 | XMS_ITS | Encounter Summary ---
Author Organization [employer] Address [address] [place] [address] [address] [place] [address] Care Team Providers Care Derrick Boat Leverman Name Role Phone Paradise Langley MD Primary Care Provide r Reason for Visit * Reason Onset Date Comments Med Refill 01/30/2025 Encounter Details Date Type Department Care Team (Late st Contact Info) Description 01/29/2025 Refill [facility] [address] [place] [address] Paradise Langley MD [address] [place] [address] Chronic migraine without aura without status migrainosus, not intractable Social History Tobacco Use Types Packs/Day Years [...] as of this encounter Visit Diagnoses Diagnosis Chronic migraine without aura without status migrainosus, not intractable documented in this encounter Additional Health Concerns Assessment Noted Time PHQ-9 Depression Total Score: 0 09/22/19 25 2:53 PM EDT documented as of this encounter Care Teams Derrick Boat Leverman Relationship Specialty Start Date End Date Paradise Langley MD [address] [place] [phone] PCP - General Family Medicine 01/09/19 Tori Solares Geoscience Laboratory TechnicianNight Baker 10/02/24 documented as of this encounter
--- OUTSIDE RECORDS SUMMARY | 2025-02-14 12:16 | XMS_ITS | Encounter Summary ---
Author Organization [facility] Address [address] [place] [address] Care Team Providers Care It Trainee Name Role Phone Paradise Langley MD Primary Care Provide r Jarrell Faustin RN Unavailable [phone] Tiffanie Lucia Unavailable Reason for Visit * Reason Comments Med Refill Encounter Details Date Type Department Care Team (Late st Contact Info) Description 05/13/2023 Refill [facility] [address] [place] [address] Mar Waters MD [address] [place] [address] Pain Social History Tobacco Use Types Packs/Day [...] documented as of this encounter Care Teams It Trainee Relationship Specialty Start Date End Date Paradise Langley MD [address] [place] [address] PCP - General Family Medicine 01/09/19 Jarrell Faustin, RN [address] [place] [address] Registered Nurse Family Medicine 09/05/24 09/05/24 Tiffanie Lucia 10/02/24 10/03/24 Breanna Cooley Superintendent HorticultureCar Head Liner Installer 01/28/23 10/01/24 Anat Stacy Superintendent HorticultureCar Head Liner Installer 01/12/24 10/01/24 Tori Solares Superintendent HorticultureCar Head Liner Installer 10/02/24 documented as of this encounter
--- OUTSIDE RECORDS SUMMARY | 2025-02-14 12:16 | XMS_ITS | Encounter Summary ---
Author Organization [employer] Address [address] [facility] [address]t [place] [address] Care Team Providers Care Moving Picture Operator Name Role Phone Paradise Langley MD Primary Care Provide r Jarrell Faustin RN Unavailable [phone] Tiffanie Lucia Unavailable Reason for Visit * Reason Onset Date Comments PT-1 08/20/2023 Encounter Details Date Type Department Care Team (Late st Contact Info) Description 08/20/2023 Telephone [facility] MED[facility]INE [address] [place], [place] [phone] Paradise Langley MD [address] [place], [place] [phone] PT-1 Social History Tobacco Use Types Packs/Day [...] or facility name: [facility] Facility Address: [address] [place] [address] needed: Y/N: Yes Do you have a [...] documented as of this encounter Care Teams Moving Picture Operator Relationship Specialty Start Date End Date Paradise Langley MD [address] [place] [address] PCP - General Family Medicine 01/09/19 Jarrell Faustin, JONATHAN [address] [place] [phone] Registered Nurse Family Medicine 09/05/24 09/05/24 Tiffanie Lucia 10/02/24 10/03/24 Breanna Cooley Electric Gas Appliances DemonstratorDining Car Hop 01/28/23 10/01/24 Anat Stacy Electric Gas Appliances DemonstratorDining Car Hop 01/12/24 10/01/24 Tori Solares Electric Gas Appliances DemonstratorDining Car Hop 10/02/24 documented as of this encounter
--- OUTSIDE RECORDS SUMMARY | 2025-02-14 12:16 | XMS_ITS | Encounter Summary ---
Author Organization [employer] Address [address] [facility] 7t [place] [address] Care Team Providers Care Slasher Operator Name Role Phone Paradise Langley MD Primary Care Provide r Jarrell Faustin RN Unavailable [phone] Tiffanie Lucia Unavailable Reason for Visit * Reason Comments Med Refill Encounter Details Date Type Department Care Team (Late st Contact Info) Description 09/29/2023 Refill [facility] MEDICINE [address] [place], [place] [phone] Paradise Langley MD [address] [place], [place] [phone] Pain; Dyspepsia Social History Tobacco Use Types [...] documented as of this encounter Care Teams Slasher Operator Relationship Specialty Start Date End Date Paradise Langley MD [address] [place] [address] PCP - General Family Medicine 01/09/19 Jarrell Faustin, JONATHAN [address] [place] [address] Registered Nurse Family Medicine 09/05/24 09/05/24 Tiffanie Lucia 10/02/24 10/03/24 Breanna Cooley Organ Tuner ElectronicFire And Explosion Investigator 01/28/23 10/01/24 Anat Stacy Organ Tuner ElectronicFire And Explosion Investigator 01/12/24 10/01/24 Tori Solares Organ Tuner ElectronicFire And Explosion Investigator 10/02/24 documented as of this encounter
--- OUTSIDE RECORDS SUMMARY | 2025-02-14 12:16 | XMS_ITS | Clinical Summary ---
Author Organization [address] [facility] Address [address] [place] [address] Phone Care Team Providers Care Utilization Management Nurse Name Role Phone Paradise Langley MD Primary [...] day. 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); Type 2 diabetes mellitus with hyperglycemia ([facility] V24, CMS/[facility] V28) from Last 3 Months Surgical History Surgery Date Site/Laterality Comments CARPAL TUNNEL RELEASE Bilateral ~10 years ago Social History Tobacco Use Types Packs/Day Years Used Date Smoking Tobacco: Never Assessed Comments Unknown Sex and Gender Information Value Date Recorded Sex Assigned at Not on file Legal Sex Female 10:31 AM EDT Gender Identity Not on file Sexual Orientation Not on file Last Filed Vital Signs Vital Sign Reading [...] 1:15 PM EDT Office Visit Orthopedic Surgery [facility] [address] [phone] Aidan Mcdonnell DPM [address] [phone] Health Maintenance Due Date Last Done Comments [...] topic Insurance MEDICAID - [place] Care Teams Utilization Management Nurse Relationship Specialty Start Date End Date Paradise Langley MD [address] [facility] [address] [place] [phone] PCP - General Internal Medicine 08/03/24
--- OUTSIDE RECORDS SUMMARY | 2025-02-14 12:16 | XMS_ITS | Encounter Summary ---
Author Organization [employer] Address [address] [place] [address] [address] [place] [address] Care Team Providers Care Foreign Language Professor Name Role Phone Paradise Langley MD Primary Care Provide r Reason for Visit * Reason Comments Med Refill Encounter Details Date Type Department Care Team ([facility] st Contact Info) Description 01/29/2025 Refill [facility] [address] [place] [address] Paradise Langley MD [address] [place] [address] Pain Social History Tobacco Use Types Packs/Day [...] Time PHQ-9 Depression Total Score: 0 09/22/19 2:53 PM EDT documented as of this encounter Care Teams Foreign Language Professor Relationship Specialty Start Date End Date Paradise Langley MD [address] [place] [address] PCP - General Family Medicine 01/09/19 Tori Solares Performance Improvement AnalystRecyclable Materials Collector 10/02/24 documented as of this encounter
== END 2025-02-14 10:34 | disposition home or self-care (01) ==
LOC: HO.HCS 10:03
PROVIDERS: PCP Internal Medicine; Visit Provider Internal Medicine Cardiovascular Disease
DX: R07.89 Other chest pain (principal)
CPT/HCPCS: 93010; 99214

== ENCOUNTER → 2025-02-14 10:02 | Outpatient (BNVA) | payer MEDICAID, SELFPAY | PROVIDERS: PCP Internal Medicine; Visit Provider Internal Medicine Cardiovascular Disease | DX: R07.89 Other chest pain (principal) | CPT/HCPCS: 93005; 99212 ==